=== PATIENT | male | born 1955 | race Two or more races ===

== ENCOUNTER 2020-02-10 13:25 | Outpatient (REF) | payer MEDICARE, OTHER, SELFPAY ==
[2020-02-10 14:23] LABS: Alanine Aminotransferase 20 U/L (0-40); Albumin Level 4.2 g/dL (3.5-5.0); Alkaline Phosphatase 57 U/L (39-117); Anion Gap 11 (12-20); Aspartate Amino Transferase 16 U/L (5-37); Blood Urea Nitrogen 20 mg/dL (9-16); Calcium 8.9 mg/dL (8.4-10.2); Carbon Dioxide 27 mmol/L (22-29); Chloride 103 mmol/L (96-108); Cholesterol 116 mg/dL; Estimated Glomerular Filt Rate > 60; Glucose Fasting 124 mg/dL (60-99); HDL Cholesterol 34 mg/dL; LDL Cholesterol Calculated 69 mg/dl; Potassium 3.9 mmol/l (3.3-5.1); Sodium 137 mmol/L (135-145); Total Protein 7.1 g/dL (6.5-8.0); Triglycerides 67 mg/dL
[2020-02-10 14:45] LABS: TSH reflex Free T4 0.98 mIU/mL (0.32-4.0)
[2020-02-10 15:01] LABS: Glucose Urine UA NEG (NEG); Leukocyte Esterase Urine NEG (NEG); Nitrite Urine NEG (NEG); Urine Blood NEG (NEG); Urine Ketones NEG (NEG); Urine Protein NEG (NEG-TRACE)
[2020-02-10 15:08] LABS: RBC Urine 0 /HPF (0); WBC Urine 0 /HPF (0-4)
[2020-02-10 15:25] LABS: Appearance Urine CLEAR; Color Urine YELLOW
[2020-02-10 15:34] LABS: Creatinine Urine 166.64 mg/dL; Microalbum/Creatinine Ratio Ur 19.2 ug/mg cr
== END 2020-02-10 13:26 | disposition home or self-care (01) ==
LOC: HO.LAB 13:25
PROVIDERS: PCP Internal Medicine; Visit Provider Internal Medicine
DX: E11.9 Type 2 diabetes mellitus without complications (principal); I10 Essential (primary) hypertension; E78.5 Hyperlipidemia, unspecified; E66.3 Overweight
CPT/HCPCS: 80053; 80061; 81001; 82043; 84443

== ENCOUNTER 2020-03-09 23:39 | Emergency (ER) | payer MEDICARE, MEDICAID, SELFPAY ==
[2020-03-09 23:50] VITALS: BP 159/71; PULSE 83; RESP 20; TEMP 36.3; O2SAT 99; BMI 32.1
[2020-03-09 23:57] VITALS: BP 155/67; PULSE 84; RESP 14; TEMP 36.3; O2SAT 99
--- NOTE | 2020-03-10 00:02 | CT_ITS ---
EXAMINATION: CT HEAD WITHOUT CONTRAST CLINICAL INFORMATION: Headache for one week. COMPARISON: 07/09/2018 TECHNIQUE: Contiguous axial imaging was performed from the skull base to vertex without intravenous contrast. This CT examination was performed using dose optimization techniques as appropriate, variously including the following: * Automated exposure control * Adjustment of mA and/or kV according to patient size (this includes techniques or standardized protocols for targeted exams where dose is matched to indication/reason for exam; i.e. extremities or head) Use of iterative reconstruction technique DLP: 704 mGy-cm. FINDINGS: There is no evidence of acute intracranial hemorrhage or territorial infarction. No abnormal mass effect or midline shift is seen. Turner to white matter differentiation is well preserved. No extra-axial fluid collections are identified. No hydrocephalus. No significant volume loss. There is no abnormal attenuation within the brain parenchyma. The osseous structures and soft tissues are normal. The mastoid air cells and visualized portions of the paranasal sinuses are well aerated. CT/CT head/brain wo con IMPRESSION: No acute intracranial pathology.
--- NOTE | 2020-03-10 00:02 | ECG_ITS ---
Test Reason : EDMD Blood Pressure : / mmHG Vent. Rate : 063 BPM Atrial Rate : 063 BPM P-R Int : 156 ms QRS Dur : 088 ms QT Int : 404 ms P-R-T Axes : 056 -09 019 degrees QTc Int : 413 ms Normal sinus rhythm Low voltage QRS Normal ECG When compared with ECG of 17-FEB-2018 01:31, No significant change was found Referred By: Jacky Glass Electronically Signed By:LAUREN OWUSU MD
--- NOTE | 2020-03-10 00:04 | ED.GENADULT ---
HPI - General Adult General Chief complaint: General Medical Stated complaint: headache, hi bp Time Seen by Provider: 03/10/20 00:02 Source: patient Mode of arrival: ambulatory Limitations: no limitations History of Present Illness HPI narrative: Patient presents to ED for 1 week of frontal headache with high blood pressure. Patient states slight nausea. Patient denies any vomiting, chest pain, shortness of breath, fever, chills, neck stiffness, slurred speech, paralysis of extremities, ringing in the ear, or dizziness. Patient denies any recent head trauma, blurry vision, or eye pain. Related Data Home Medications Medication Instructions Recorded Confirmed hydrochlorothiazide 25 mg tablet mg PO DAILY tab 02/11/20 02/11/20 lisinopril 40 mg tablet mg PO DAILY tab 02/11/20 02/11/20 Previous Rx's Medication Instructions Recorded atorvastatin 10 mg tablet 10 mg PO DAILY #90 tab 02/26/20 metformin 500 mg tablet,extended 500 mg PO DAILY #90 tab 02/26/20 release 24 hr naproxen 500 mg PO BID PRN #20 tab 03/10/20 Allergies Allergy/AdvReac Type Severity Reaction Status Date / Time No Known Allergies Allergy Mild NKA Verified 02/11/20 14:28 Review of Systems Review of Systems: Yes all other systems are reviewed and are negative Constitutional: Constitutional: Reports as per HPI, Reports no additional constitutional complaints and Reports headache(s) Eyes: Eyes: Reports as per HPI and Reports no additional eye complaints ENT: Reports system reviewed and no additional complaints, except as documented, Reports as per HPI and Reports headache(s) Cardiovascular: Cardiovascular: Reports as per HPI and Reports no additional cardiovascular complaints Respiratory: Respiratory: Reports as per HPI and Reports no additional respiratory complaints Gastrointestinal: Gastrointestinal: Reports as per HPI and Reports no additional gastrointestinal complaints Musculoskeletal: Musculoskeletal: Reports no additional musculoskeletal complaints and Reports as per HPI Neurologic: Reports system reviewed and no additional complaints, except as documented, Reports as per HPI and Reports headache(s) Psychiatric: Psychiatric: Reports no additional psychiatric complaints and Reports as per HPI PMFSH Past Medical History Medical History Benign essential hypertension Obstructive sleep apnea Overweight (BMI 25.0-29.9) Psoriasis Pure hypercholesterolemia Type 2 diabetes mellitus without complication, without long-term current use of insulin Surgical History History of colonoscopy History of open reduction and internal fixation (ORIF) procedure Family History Family History Father Medical history unknown Mother Medical history unknown Social History Social History Alcohol intake: never Smoking Status: Never smoker Smoked in Last 30 Days: No Advance Directives: No Advance Directives Information Provided: Yes Physical Exam Vital Signs: Vital Signs: Last Vital Signs Temp 97.3 F 03/09/20 23:57 Pulse 84 03/09/20 23:57 Resp 14 03/09/20 23:57 BP 155/67 H 03/09/20 23:57 Pulse Ox 99 03/09/20 23:57 Body Mass Index 32.1 Const: General: cooperative, healthy appearing, comfortable, no acute distress, well developed, alert, awake and Physically active Orientation/consciousness: patient oriented x3 HENMT: Head: Yes normal to inspection, Yes No palpable skull fracture present, No atraumatic, No abrasion, No Mcneal's sign, No contusion, No hematoma, No laceration, No palpable skull fracture, No raccoon eyes, No scalp tenderness and No Temporal artery tenderness present Ears: hearing grossly normal bilaterally, external ears normal and TM's normal bilaterally General nose exam: Normal external nose present and Normal nares present Face and sinus: Yes normal facial exam Mouth: Normal oral and palatal mucosa present Teeth and gingiva: dentition normal and gingiva normal Throat: Yes posterior oropharynx normal, Yes tonsils normal and Yes uvula midline Eyes: Other: Negative photophobia General: appearance normal, both eyes and all related structures Neck: Neck: Yes normal visual inspection, Yes full ROM, Yes no lymphadenopathy, Yes no meningeal signs, Yes trachea midline, Yes supple and No tender Chest: Chest palpation & inspection: normal inspection of the chest, normal palpation of entire chest wall and no localized rib tenderness Resp: Effort & Inspection: normal respiratory effort and able to speak in complete sentences Cardio: Jugular venous distension: no JVD Heart sounds: S1 normal heart sound present and S2 normal heart sound present GI: Inspection: Yes normal to inspection and No abdominal wall ecchymosis Palpation (GI): Soft to palpation, not firm, nontender, no guarding and not rigid : General: No CVA tenderness and Yes no CVA tenderness Back/Spine/Pelvis: Back: no CVA tenderness, No CVA tenderness and No back tenderness Skin: General skin exam: no rashes or lesions noted Neuro: Other: negative pronator drift. Speech is normal. Negative facial droop. Xgvxea-qo-vuda test is intact. Rapid hand movements intact. Negative Romberg. General: patient oriented x3, no meningeal signs and CN's II-XI intact bilaterally Cranial nerves: Yes CN's II-XII intact bilaterally Extrem: General: Yes normal to inspection and Yes full ROM Psych: Appearance: grossly normal, well kempt and not disheveled Course Course Course Narrative: Patient will have a head CT scan done. Patient also have EKG troponin to make sure not having typical OH due to patient being diabetic and having headache for 1 week. Patient blood pressure stable in the ED. History physical exam does not indicate meningitis, temporal arthritis, or stroke. Reevaluation(s) Reevaluation #1: Patient's EKG came back normal patient. patient's head CT scan came back negative for any stroke, bleed, or skull fracture. Patient's troponin came back negative. Time: 01:11 Reevaluation #2: tonomretry Pressure of right eye is 9 and left eyes 14. Patient does not have glaucoma. Patient presently not in any distress. Patient from the follow-up with PCP. Time: 02:16 Medical Decision Making [facility] Narrative Medical decision making narrative: headache Lab Data Result diagrams: 03/10/20 00:19 03/10/20 00:19 Labs: Lab Results 03/10/20 03/10/20 03/10/20 Range/Units 00:19 00:19 00:19 WBC 8.0 (4.8-10.8) X10*3/uL RBC 5.22 (4.60-5.80) X10*6/uL Hgb 14.8 (14.0-18.0) g/dl Hct 45.6 (42-52) % MCV 87.4 (80-98) fL MCH 28.4 (27.0-33.0) pg MCHC 32.5 (31.0-36.0) g/dl RDW 13.3 (11.0-16.0) % Plt Count 280 (160-400) X10*3/uL MPV 10.7 (9.4-12.4) fL Immature Gran % (Auto) 0.2 (0.0-0.4) % Neut % (Auto) 55.0 (45-73) % Lymph % (Auto) 35.6 (20-40) % Saline % (Auto) 7.2 (2-11) % Eos % (Auto) 1.5 (0-4) % Baso % (Auto) 0.5 (0-2) % Lymph # (Auto) 2.9 (1.2-4.9) X10*3/uL Saline # (Auto) 0.6 (0.1-1.2) X10*3/uL Eos # (Auto) 0.1 (0.0-0.4) X10*3/uL Baso # (Auto) 0.0 (0.0-0.2) X10*3/uL Abs Immat Gran (auto) 0.02 (0.00-0.03) X10*3/uL Absolute Neuts (auto) 4.4 (2.0-8.3) X10*3/uL Absolute Nucleated RBC 0.000 (0.0-0.012) X10*3/uL Nucleated RBC % (auto) 0.0 (0.0-0.2) /100WBC PT 12.1 (10.8-13.0) SEC INR 1.0 (0.9-1.1) APTT 33.7 (24.1-38.0) SEC Sodium 139 (135-145) mmol/L Potassium 3.7 (3.3-5.1) mmol/l Chloride 104 (96-108) mmol/L Carbon Dioxide 28 (22-29) mmol/L Anion Gap 11 L (12-20) BUN 24 H (9-16) mg/dL Creatinine 1.29 (0.5-1.4) mg/dL Estim Creat Clear Calc 60.4 Estimated GFR 56 Random Glucose 125 H (60-115) mg/dL Calcium 8.6 (8.4-10.2) mg/dL Total Bilirubin < 0.2 (0.0-1.0) mg/dL AST 14 (5-37) U/L ALT 26 (0-40) U/L Alkaline Phosphatase 54 (39-117) U/L Troponin I High Sens (<3.5-35.0) ng/L Total Protein 6.8 (6.5-8.0) g/dL Albumin 3.8 (3.5-5.0) g/dL 03/10/20 Range/Units 00:19 WBC (4.8-10.8) X10*3/uL RBC (4.60-5.80) X10*6/uL Hgb (14.0-18.0) g/dl Hct (42-52) % MCV (80-98) fL MCH (27.0-33.0) pg MCHC (31.0-36.0) g/dl RDW (11.0-16.0) % Plt Count (160-400) X10*3/uL MPV (9.4-12.4) fL Immature Gran % (Auto) (0.0-0.4) % Neut % (Auto) (45-73) % Lymph % (Auto) (20-40) % Saline % (Auto) (2-11) % Eos % (Auto) (0-4) % Baso % (Auto) (0-2) % Lymph # (Auto) (1.2-4.9) X10*3/uL Saline # (Auto) (0.1-1.2) X10*3/uL Eos # (Auto) (0.0-0.4) X10*3/uL Baso # (Auto) (0.0-0.2) X10*3/uL Abs Immat Gran (auto) (0.00-0.03) X10*3/uL Absolute Neuts (auto) (2.0-8.3) X10*3/uL Absolute Nucleated RBC (0.0-0.012) X10*3/uL Nucleated RBC % (auto) (0.0-0.2) /100WBC PT (10.8-13.0) SEC INR (0.9-1.1) APTT (24.1-38.0) SEC Sodium (135-145) mmol/L Potassium (3.3-5.1) mmol/l Chloride (96-108) mmol/L Carbon Dioxide (22-29) mmol/L Anion Gap (12-20) BUN (9-16) mg/dL Creatinine (0.5-1.4) mg/dL Estim Creat Clear Calc Estimated GFR Random Glucose (60-115) mg/dL Calcium (8.4-10.2) mg/dL Total Bilirubin (0.0-1.0) mg/dL AST (5-37) U/L ALT (0-40) U/L Alkaline Phosphatase (39-117) U/L Troponin I High Sens < 3.5 (<3.5-35.0) ng/L Total Protein (6.5-8.0) g/dL Albumin (3.5-5.0) g/dL ECG Data Interpretation: normal sinus rhythm. Ventricular rate 63. Pr interval 156. QRS duration 88. QTC 413. negative STEMI Discharge Plan Discharge Clinical Impression: Headache Patient Disposition: Home, Self-Care Instructions: Acute Headache (ED) Additional Instructions: return to ED immediately for worsening headache, ringing in the ear, slurred speech, loss of vision, paralysis of extremities, blurry vision, dizziness, chest pain, shortness of breath, or any other concerning symptoms. Prescriptions: New naproxen 500 mg tablet 500 mg PO BID PRN (Reason: pain) Qty: 20 RF: 0 No Action atorvastatin 10 mg tablet 10 mg PO DAILY Qty: 90 RF: 2 metformin 500 mg tablet extended release 24 hr 500 mg PO DAILY Qty: 90 RF: 2 hydrochlorothiazide 25 mg tablet PO DAILY RF: 0 lisinopril 40 mg tablet PO DAILY RF: 0 Referrals: Lars Dubois MD [Primary Care Provider] - 2 days (Headache. Head CT scan, ekg, and labs including troponin were normal. ) Print Language: [place]ian
[2020-03-10 00:24] LABS: MANUAL DIFF FLAG NO
[2020-03-10 00:28] LABS: Basophils Percent Auto 0.5 % (0-2); Eosinophils Absolute Auto 0.1 X10*3/uL (0.0-0.4); Eosinophils Percent Auto 1.5 % (0-4); Hematocrit 45.6 % (42-52); Hemoglobin 14.8 g/dl (14.0-18.0); Imm Gran Abs Auto 0.02 X10*3/uL (0.00-0.03); Imm Gran Pct Auto 0.2 % (0.0-0.4); Lymphocytes Absolute Auto 2.9 X10*3/uL (1.2-4.9); Lymphocytes Percent Auto 35.6 % (20-40); Mean Corpuscular HGB Conc 32.5 g/dl (31.0-36.0); Mean Corpuscular Hemoglobin 28.4 pg (27.0-33.0); Mean Corpuscular Volume 87.4 fL (80-98); Mean Platelet Volume 10.7 fL (9.4-12.4); Monocytes Absolute Auto 0.6 X10*3/uL (0.1-1.2); Monocytes Percent Auto 7.2 % (2-11); Neutrophils Absolute Auto 4.4 X10*3/uL (2.0-8.3); Platelet Count 280 X10*3/uL (160-400); Red Blood Count 5.22 X10*6/uL (4.60-5.80); Red Cell Distribution Width 13.3 % (11.0-16.0)
[2020-03-10 01:03] LABS: Troponin-I High Sensitivity < 3.5 ng/L (<3.5-35.0)
[2020-03-10 01:05] LABS: Alanine Aminotransferase 26 U/L (0-40); Albumin Level 3.8 g/dL (3.5-5.0); Alkaline Phosphatase 54 U/L (39-117); Anion Gap 11 (12-20); Aspartate Amino Transferase 14 U/L (5-37); Bilirubin Total < 0.2 mg/dL (0.0-1.0); Blood Urea Nitrogen 24 mg/dL (9-16); Calcium 8.6 mg/dL (8.4-10.2); Carbon Dioxide 28 mmol/L (22-29); Chloride 104 mmol/L (96-108); Creatinine Clr Calc Pharmacy 60.4; Estimated Glomerular Filt Rate 56; Glucose Random 125 mg/dL (60-115); Potassium 3.7 mmol/l (3.3-5.1); Sodium 139 mmol/L (135-145); Total Protein 6.8 g/dL (6.5-8.0)
[2020-03-10 01:40] LABS: Prothrombin Time 12.1 SEC (10.8-13.0)
[2020-03-10 01:42] LABS: Partial Thromboplastin Time 33.7 SEC (24.1-38.0)
[2020-03-10 02:00] VITALS: BP 142/73; PULSE 62; RESP 18; TEMP 36.6; O2SAT 99
[2020-03-10] MEDS: Ibuprofen 800 MG TABLET PO (02:33)
== END 2020-03-10 02:37 | disposition home or self-care (01) ==
PROVIDERS: Physician Assistant; Emergency Provider Emergency Medicine; PCP Internal Medicine
DX: R51.9 Headache, unspecified (principal); R03.0 Elevated blood-pressure reading, without diagnosis of hypertension; Z79.899 Other long term (current) drug therapy
CPT/HCPCS: 36415; 70450; 80053; 84484; 85025; 85610; 85730; 93005; 99284

== ENCOUNTER 2020-06-15 16:00 | Outpatient (REF) | payer MEDICARE, SELFPAY ==
[2020-06-15 16:21] LABS: MANUAL DIFF FLAG NO
[2020-06-15 16:29] LABS: Basophils Percent Auto 0.6 % (0-2); Eosinophils Absolute Auto 0.1 X10*3/uL (0.0-0.4); Eosinophils Percent Auto 1.9 % (0-4); Hematocrit 46.4 % (42-52); Imm Gran Abs Auto 0.01 X10*3/uL (0.00-0.03); Imm Gran Pct Auto 0.1 % (0.0-0.4); Lymphocytes Absolute Auto 2.4 X10*3/uL (1.2-4.9); Lymphocytes Percent Auto 34.9 % (20-40); Mean Corpuscular HGB Conc 32.3 g/dl (31.0-36.0); Mean Corpuscular Hemoglobin 28.1 pg (27.0-33.0); Mean Corpuscular Volume 86.9 fL (80-98); Mean Platelet Volume 10.7 fL (9.4-12.4); Monocytes Absolute Auto 0.4 X10*3/uL (0.1-1.2); Monocytes Percent Auto 5.9 % (2-11); Neutrophils Percent Auto 56.6 % (45-73); Platelet Count 317 X10*3/uL (160-400); Red Blood Count 5.34 X10*6/uL (4.60-5.80); Red Cell Distribution Width 13.4 % (11.0-16.0)
[2020-06-15 16:50] LABS: Alanine Aminotransferase 24 U/L (0-40); Albumin Level 4.4 g/dL (3.5-5.0); Alkaline Phosphatase 67 U/L (39-117); Anion Gap 11 (12-20); Aspartate Amino Transferase 23 U/L (5-37); Blood Urea Nitrogen 22 mg/dL (9-16); Calcium 9.4 mg/dL (8.4-10.2); Carbon Dioxide 28 mmol/L (22-29); Chloride 106 mmol/L (96-108); Cholesterol 135 mg/dL; Estimated Glomerular Filt Rate > 60; Glucose Fasting 106 mg/dL (60-99); HDL Cholesterol 35 mg/dL; LDL Cholesterol Calculated 85 mg/dl; Potassium 3.8 mmol/L (3.3-5.1); Sodium 141 mmol/L (135-145); Total Protein 7.6 g/dL (6.5-8.0); Triglycerides 78 mg/dL
[2020-06-15 17:11] LABS: TSH reflex Free T4 0.75 uIU/mL (0.32-4.0)
[2020-06-15 17:25] LABS: Glucose Urine UA NEG (NEG); Leukocyte Esterase Urine NEG (NEG); Nitrite Urine NEG (NEG); PH 5.5 (5.0-8.0); Specific Gravity - Urine 1.025 (1.005-1.025); Urine Blood NEG (NEG); Urine Ketones NEG (NEG); Urine Protein NEG (NEG-TRACE)
[2020-06-15 17:31] LABS: Appearance Urine CLEAR; Color Urine YELLOW
[2020-06-15 17:51] LABS: Microalbum/Creatinine Ratio Ur 22.9 ug/mg cr
== END 2020-06-15 16:01 | disposition home or self-care (01) ==
LOC: HO.LAB 16:00
PROVIDERS: PCP Internal Medicine; Visit Provider Internal Medicine
DX: I10 Essential (primary) hypertension (principal); E78.00 Pure hypercholesterolemia, unspecified; E11.9 Type 2 diabetes mellitus without complications; E66.3 Overweight
CPT/HCPCS: 36415; 80053; 80061; 81003; 82043; 84443; 85025

== ENCOUNTER 2020-10-09 13:22 | Outpatient (REF) | payer MEDICARE, OTHER, SELFPAY ==
[2020-10-09 14:00] LABS: MANUAL DIFF FLAG NO
[2020-10-09 14:04] LABS: Basophils Percent Auto 0.6 % (0-2); Eosinophils Absolute Auto 0.1 X10*3/uL (0.0-0.4); Eosinophils Percent Auto 1.5 % (0-4); Imm Gran Abs Auto 0.02 X10*3/uL (0.00-0.03); Imm Gran Pct Auto 0.3 % (0.0-0.4); Lymphocytes Percent Auto 29.2 % (20-40); Mean Corpuscular HGB Conc 31.9 g/dl (31.0-36.0); Mean Corpuscular Volume 87.9 fL (80-98); Mean Platelet Volume 11.1 fL (9.4-12.4); Monocytes Absolute Auto 0.5 X10*3/uL (0.1-1.2); Monocytes Percent Auto 6.8 % (2-11); Neutrophils Absolute Auto 4.2 X10*3/uL (2.0-8.3); Neutrophils Percent Auto 61.6 % (45-73); Platelet Count 300 X10*3/uL (160-400); Red Blood Count 5.35 X10*6/uL (4.60-5.80); Red Cell Distribution Width 13.6 % (11.0-16.0); White Blood Count 6.8 X10*3/uL (4.8-10.8)
[2020-10-09 14:23] LABS: Estimated Average Glucose 140 mg/dL; Hemoglobin A1c % 6.5 %
[2020-10-09 14:31] LABS: Alanine Aminotransferase 14 U/L (0-40); Albumin Level 4.1 g/dL (3.5-5.0); Alkaline Phosphatase 65 U/L (39-117); Anion Gap 9 (12-20); Aspartate Amino Transferase 14 U/L (5-37); Bilirubin Total 0.6 mg/dL (0.0-1.0); Blood Urea Nitrogen 15 mg/dL (9-16); Calcium 9.6 mg/dL (8.4-10.2); Carbon Dioxide 29 mmol/L (22-29); Chloride 104 mmol/L (96-108); Cholesterol 124 mg/dL; Estimated Glomerular Filt Rate > 60; Glucose Fasting 125 mg/dL (60-99); HDL Cholesterol 35 mg/dL; LDL Cholesterol Calculated 71 mg/dl; Potassium 4.2 mmol/L (3.3-5.1); Sodium 138 mmol/L (135-145); Total Protein 7.2 g/dL (6.5-8.0); Triglycerides 93 mg/dL
[2020-10-09 14:51] LABS: TSH reflex Free T4 0.79 uIU/mL (0.32-4.0)
[2020-10-09 15:54] LABS: Glucose Urine UA NEG (NEG); Leukocyte Esterase Urine NEG (NEG); Nitrite Urine NEG (NEG); Urine Blood NEG (NEG); Urine Ketones NEG (NEG); Urine Protein NEG (NEG-TRACE)
[2020-10-09 16:03] LABS: Appearance Urine CLEAR; Color Urine YELLOW
== END 2020-10-09 13:23 | disposition home or self-care (01) ==
LOC: HO.LAB 13:22
PROVIDERS: PCP Internal Medicine; Visit Provider Internal Medicine
DX: E11.9 Type 2 diabetes mellitus without complications (principal); G47.33 Obstructive sleep apnea (adult) (pediatric); I10 Essential (primary) hypertension; E78.00 Pure hypercholesterolemia, unspecified; E66.3 Overweight
CPT/HCPCS: 36415; 80053; 80061; 81003; 83036; 84443; 85025

== ENCOUNTER 2020-12-22 20:25 | Emergency (ER) | payer MEDICARE, OTHER, SELFPAY ==
[2020-12-22 20:48] VITALS: BP 122/59; PULSE 72; RESP 16; TEMP 36.6; O2SAT 98; BMI 31.9
[2020-12-22 22:51] LABS: Basophils Absolute Auto 0.1 X10*3/uL (0.0-0.2); Basophils Percent Auto 0.5 % (0-2); Eosinophils Absolute Auto 0.1 X10*3/uL (0.0-0.4); Eosinophils Percent Auto 1.3 % (0-4); Hematocrit 45.9 % (42-52); Hemoglobin 14.9 g/dl (14.0-18.0); Imm Gran Abs Auto 0.03 X10*3/uL (0.00-0.03); Imm Gran Pct Auto 0.3 % (0.0-0.4); Lymphocytes Absolute Auto 2.7 X10*3/uL (1.2-4.9); Lymphocytes Percent Auto 28.3 % (20-40); MANUAL DIFF FLAG NO; Mean Corpuscular HGB Conc 32.5 g/dl (31.0-36.0); Mean Corpuscular Hemoglobin 28.2 pg (27.0-33.0); Mean Corpuscular Volume 86.9 fL (80-98); Mean Platelet Volume 10.8 fL (9.4-12.4); Monocytes Absolute Auto 0.5 X10*3/uL (0.1-1.2); Monocytes Percent Auto 5.7 % (2-11); Neutrophils Percent Auto 63.9 % (45-73); Platelet Count 288 X10*3/uL (160-400); Red Blood Count 5.28 X10*6/uL (4.60-5.80); Red Cell Distribution Width 13.4 % (11.0-16.0); White Blood Count 9.4 X10*3/uL (4.8-10.8)
[2020-12-22 23:04] LABS: Appearance Urine CLEAR; Color Urine YELLOW; Glucose Urine UA NEG (NEG); Leukocyte Esterase Urine NEG (NEG); Nitrite Urine NEG (NEG); Specific Gravity - Urine 1.025 (1.005-1.025); Urine Blood NEG (NEG); Urine Ketones NEG (NEG); Urine Protein NEG (NEG-TRACE)
[2020-12-22 23:07] LABS: Anion Gap 9 (12-20); Blood Urea Nitrogen 21 mg/dL (9-16); Calcium 9.9 mg/dL (8.4-10.2); Carbon Dioxide 29 mmol/L (22-29); Chloride 105 mmol/L (96-108); Creatinine Clr Calc Pharmacy 66.8; Estimated Glomerular Filt Rate > 60; Glucose Random 125 mg/dL (60-115); Potassium 4.1 mmol/L (3.3-5.1); Sodium 139 mmol/L (135-145)
--- NOTE | 2020-12-23 01:42 | ED.HA ---
HPI - Headache General Chief Complaint: Headache Stated Complaint: headache Time Seen by Provider: 12/23/20 01:05 Source: patient Mode of arrival: ambulatory Limitations: language barrier ([place] speaking only, salon shampoo assistant used) History of Present Illness HPI Narrative: 65-year-old male who presents emergency department for evaluation of headache x3 days. The patient states that the headache came on gradually 3 days prior. He cannot recall what he was doing at the time the headache started. The patient points to the top of his head when asked to localize the pain. He describes the pain as a ?pain . The pain is 5/10 at its worst. The pain was 5/10 at the time he was in the emergency department pain has been intermittent. He states that will last about 1 hour but he gets several episodes a day. The headache is associated with nausea and dizziness. He denied any change in his vision, numbness, weakness, difficulty talking or thinking associated with the headache. He states that he has felt very fatigued. He did not take any medications for the pain. He was concerned that the headache had lasted 3 days and this was unusual for him, therefore he came to the emergency department for evaluation. Related Data Previous Rx's Medication Instructions Recorded naproxen 500 mg tablet 500 mg PO BID PRN #20 tab 03/10/20 lisinopril 40 mg tablet 40 mg PO BID #180 tab 05/18/20 mometasone 0.1 % topical cream 1 appl TOPICAL DAILY PRN 90 Days 06/16/20 #45 g atorvastatin 10 mg tablet 10 mg PO DAILY #90 tab 11/03/20 hydrochlorothiazide 25 mg tablet 25 mg PO DAILY #90 tab 11/03/20 metformin 500 mg tablet,extended 500 mg PO DAILY #90 tab 11/03/20 release 24 hr metoclopramide HCl 10 mg tablet 10 mg PO Q6H PRN #14 tab 12/23/20 (Reglan) Allergies Allergy/AdvReac Type Severity Reaction Status Date / Time No Known Allergies Allergy Mild NKA Verified 10/10/20 17:43 Review of Systems Review of Systems: Yes all other systems are reviewed and are negative [facility] Past Medical History [facility] Narrative: Social history: The patient denies tobacco use. He denies alcohol use. He denies drug use. Medical History Benign essential hypertension Obstructive sleep apnea Overweight (BMI 25.0-29.9) Psoriasis Pure hypercholesterolemia Type 2 diabetes mellitus without complication, without long-term current use of insulin Surgical History History of colonoscopy History of open reduction and internal fixation (ORIF) procedure Family History Family History Father Medical history unknown Mother Medical history unknown Social History Social History Housing: Apartment Alcohol intake: never Patient Tobacco Use Status: Never used Tobacco Advance Directives: No Advance Directives Information Provided: No service: No Current occupational status: retired Physical Exam Vital Signs: Vital Signs: Last Vital Signs Temp 98 F 12/22/20 20:48 Pulse 72 12/22/20 20:48 Resp 16 12/22/20 20:48 BP 122/59 L 12/22/20 20:48 Pulse Ox 98 12/22/20 20:48 Body Mass Index 31.9 Const: General: cooperative and no acute distress Orientation/consciousness: oriented to person and oriented to place Limitations: no limitations HENMT: Head: Yes normal to inspection, Yes normocephalic and Yes atraumatic Ears: external ears normal General nose exam: Normal external nose present Face and sinus: Yes normal facial exam Mouth: Normal oral and palatal mucosa present Throat: Yes posterior oropharynx normal Eyes: General: appearance normal, both eyes and all related structures Pupils: Equal, round and reactive pupils present Neck: Neck: Yes normal visual inspection, Yes no lymphadenopathy, Yes trachea midline and Yes supple Chest: Chest palpation & inspection: normal inspection of the chest and normal palpation of entire chest wall Resp: Effort & Inspection: normal respiratory effort and able to speak in complete sentences Auscultation: clear to auscultation bilaterally Cardio: Rate: regular rate Rhythm: regular rhythm Heart sounds: S1 normal heart sound present, S2 normal heart sound present and no murmurs GI: Inspection: Yes normal to inspection Palpation (GI): Soft to palpation, nontender and no guarding Auscultation: normal bowel sounds : General: Yes no CVA tenderness Back/Spine/Pelvis: Back: no CVA tenderness Skin: General skin exam: no rashes or lesions noted Neuro: General: oriented to person and oriented to place Cranial nerves: Yes CN's II-XII intact bilaterally and Yes Equal, round and reactive pupils present Cognition (Neuro): normal cognition Motor exam (neuro): 5/5 motor strength present throughout Coordination: [id number] test normal and ohlb-kn-icot test normal Extrem: General: Yes normal to inspection Psych: Appearance: grossly normal Speech and movement: Normal speech and movement present Affect: normal affect Attitude: cooperative Thought process: Normal thought process present Thought content: Normal thought content present Course Course Course Narrative: 65-year-old male who presents emergency department for evaluation headache x3 days. The headache has been intermittent will last several hours and he will get several episodes per day. The patient's headache was 5/10 at the time evaluation the emergency department. The headache was associated with nausea and dizziness. The patient's vital signs were unremarkable. Patient's physical examination was normal including no tenderness with palpation of his head, normal neurologic exam and normal cerebellar exam. Patient's laboratory evaluation was unremarkable. CT scan of the head without contrast revealed no acute abnormality to explain his headaches. At this time I suspect the patient has a migraine syndrome. He was treated here in the emergency department with Reglan 10 mg orally, Benadryl 50 mg orally, Tylenol 975 mg orally and aspirin 81 mg orally. The patient was discharged home. He is to take the following medications every 6 hours as needed for headache: Reglan 10 mg, Benadryl 25 mg x 2 tablets, Excedrin migraine x2 tablets. The patient was given verbal and printed instructions prior to discharge. The patient was advised to follow-up with his PCP in 2 days and to return to the emergency department if his symptoms get worse or if he develops any new symptoms that are concerning to him. MDM - Headache Lab Data Result diagrams: 12/22/20 22:42 12/22/20 22:42 Labs: Lab Results 12/22/20 12/22/20 12/22/20 Range/Units 22:42 22:42 22:55 WBC 9.4 (4.8-10.8) X10*3/uL RBC 5.28 (4.60-5.80) X10*6/uL Hgb 14.9 (14.0-18.0) g/dl Hct 45.9 (42-52) % MCV 86.9 (80-98) fL MCH 28.2 (27.0-33.0) pg MCHC 32.5 (31.0-36.0) g/dl RDW 13.4 (11.0-16.0) % Plt Count 288 (160-400) X10*3/uL MPV 10.8 (9.4-12.4) fL Immature Gran % (Auto) 0.3 (0.0-0.4) % Neut % (Auto) 63.9 (45-73) % Lymph % (Auto) 28.3 (20-40) % [place] % (Auto) 5.7 (2-11) % Eos % (Auto) 1.3 (0-4) % Baso % (Auto) 0.5 (0-2) % Lymph # (Auto) 2.7 (1.2-4.9) X10*3/uL [place] # (Auto) 0.5 (0.1-1.2) X10*3/uL Eos # (Auto) 0.1 (0.0-0.4) X10*3/uL Baso # (Auto) 0.1 (0.0-0.2) X10*3/uL Abs Immat Gran (auto) 0.03 (0.00-0.03) X10*3/uL Absolute Neuts (auto) 6.0 (2.0-8.3) X10*3/uL Absolute Nucleated RBC 0.000 (0.0-0.012) X10*3/uL Nucleated RBC % (auto) 0.0 (0.0-0.2) /100WBC Sodium 139 (135-145) mmol/L Potassium 4.1 (3.3-5.1) mmol/L Chloride 105 (96-108) mmol/L Carbon Dioxide 29 (22-29) mmol/L Anion Gap 9 L (12-20) BUN 21 H (9-16) mg/dL Creatinine 1.20 (0.5-1.4) mg/dL Estim Creat Clear Calc 66.8 Estimated GFR > 60 Random Glucose 125 H (60-115) mg/dL Calcium 9.9 (8.4-10.2) mg/dL Urine Color YELLOW Urine Appearance CLEAR Urine pH 6.0 (5.0-8.0) Ur Specific [place] 1.025 (1.005-1.025) Urine Protein NEG (NEG-TRACE) MG/DL Urine Glucose (UA) NEG (NEG) MG/DL Urine Ketones NEG (NEG) MG/DL Urine Blood NEG (NEG) Urine Nitrite NEG (NEG) Ur Leukocyte Esterase NEG (NEG) Discharge Plan Discharge Clinical Impression: Migraine Qualifiers: Migraine type: without aura Status migrainosus presence: without status migrainosus Intractability: not intractable Qualified Code(s): G43.009 - Migraine without aura, not intractable, without status migrainosus Patient Disposition: Home, Self-Care Instructions: Migraine Headache (ED) Additional Instructions: Your blood work was normal. Your CT scan of the head without IV contrast was normal which is reassuring. Your symptoms are consistent with a migraine. I want you to take the following 3 medications together every 6 hours as needed for headache, nausea or vomiting. Reglan (metoclopramide) in 10 mg, 1 pill Benadryl 25 mg, 2 pills Excedrin migraine, 2 pills. After you take these medications, lie down in a dark quiet room and try to fall asleep. These medications will make you sleepy, do not drive or work after taking these medications. Follow-up with your doctor in 2 days. Please return to the emergency department if your symptoms get worse or if you develop any symptoms that are concerning to you. Prescriptions: New metoclopramide HCl [Reglan] 10 mg tablet 10 mg PO Q6H PRN (Reason: nausea and vomiting) Qty: 14 RF: 0 No Action lisinopril 40 mg tablet 40 mg PO BID Qty: 180 RF: 2 metformin 500 mg tablet extended release 24 hr 500 mg PO DAILY Qty: 90 RF: 2 atorvastatin 10 mg tablet 10 mg PO DAILY Qty: 90 RF: 2 hydrochlorothiazide 25 mg tablet 25 mg PO DAILY Qty: 90 RF: 0 naproxen 500 mg tablet 500 mg PO BID PRN (Reason: pain) Qty: 20 RF: 0 mometasone 0.1 % cream 1 appl topical DAILY PRN (Reason: skin irritation) 90 Days Qty: 45 RF: 1
[2020-12-23] MEDS: Metoclopramide HCl 10 MG TABLET PO (02:01)
[2020-12-23] MEDS: diphenhydrAMINE HCL 25 MG TABLET 50 MG PO (02:01)
[2020-12-23] MEDS: Acetaminophen 325 MG TABLET 975 MG PO (02:01)
== END 2020-12-23 02:20 | disposition home or self-care (01) ==
PROVIDERS: Emergency Provider Emergency Medicine Emergency Medical Services; PCP Internal Medicine
DX: G43.009 Migraine without aura, not intractable, without status migrainosus (principal); Z79.899 Other long term (current) drug therapy
CPT/HCPCS: 36415; 80048; 81003; 85025; 99283; Q0163

== ENCOUNTER 2021-02-09 12:35 | Outpatient (REF) | payer MEDICARE, OTHER, SELFPAY ==
[2021-02-09 13:09] LABS: Appearance Urine CLEAR; Color Urine YELLOW; Glucose Urine UA NEG (NEG); Leukocyte Esterase Urine NEG (NEG); Nitrite Urine NEG (NEG); Specific Gravity - Urine 1.025 (1.005-1.025); Urine Blood NEG (NEG); Urine Ketones NEG (NEG); Urine Protein NEG (NEG-TRACE)
[2021-02-09 13:12] LABS: Estimated Average Glucose 131 mg/dL; Hemoglobin A1c % 6.2 %
[2021-02-09 13:24] LABS: Alanine Aminotransferase 18 U/L (0-40); Albumin Level 4.2 g/dL (3.5-5.0); Alkaline Phosphatase 62 U/L (39-117); Anion Gap 10 (12-20); Aspartate Amino Transferase 15 U/L (5-37); Bilirubin Total 0.8 mg/dL (0.0-1.0); Blood Urea Nitrogen 16 mg/dL (9-16); Calcium 9.5 mg/dL (8.4-10.2); Carbon Dioxide 28 mmol/L (22-29); Chloride 104 mmol/L (96-108); Cholesterol 119 mg/dL; Estimated Glomerular Filt Rate > 60; Glucose Fasting 123 mg/dL (60-99); HDL Cholesterol 32 mg/dL; LDL Cholesterol Calculated 69 mg/dl; Potassium 4.1 mmol/L (3.3-5.1); Sodium 138 mmol/L (135-145); Total Protein 7.2 g/dL (6.5-8.0); Triglycerides 90 mg/dL
[2021-02-09 13:48] LABS: Creatinine Urine 187.87 mg/dL
== END 2021-02-09 12:36 | disposition home or self-care (01) ==
LOC: HO.LAB 12:35
PROVIDERS: PCP Internal Medicine; Visit Provider Internal Medicine
DX: E11.9 Type 2 diabetes mellitus without complications (principal); E78.00 Pure hypercholesterolemia, unspecified; I10 Essential (primary) hypertension
CPT/HCPCS: 36415; 80053; 80061; 81003; 82043; 83036

== ENCOUNTER 2021-04-13 22:40 | Emergency (ER) | payer MEDICARE, OTHER, SELFPAY ==
[2021-04-13 23:24] LABS: COVID-19 Test Positive (Negative)
--- NOTE | 2021-04-13 23:30 | ED_ITS ---
HPI - URI/Sore Throat General Stated Complaint: Migraine, stomach pain Source: patient Mode of arrival: ambulatory Limitations: no limitations History of Present Illness HPI Narrative: 66-year-old male presents with headache and stomach ache. Onset (ago): day(s) (1) Consistency: constant Severity: mild Description of mucous: clear Able to tolerate fluids by mouth: Yes Relieving factors: nothing Context: sick contacts Associated symptoms: headache and abdominal pain Treatments prior to arrival: none Related Data Previous Rx's Medication Instructions Recorded naproxen 500 mg tablet 500 mg PO BID PRN #20 tab 03/10/20 lisinopril 40 mg tablet 40 mg PO BID #180 tab 05/18/20 atorvastatin 10 mg tablet 10 mg PO DAILY #90 tab 11/03/20 metformin 500 mg tablet,extended 500 mg PO DAILY #90 tab 11/03/20 release 24 hr metoclopramide HCl 10 mg tablet 10 mg PO Q6H PRN #14 tab 12/23/20 (Reglan) mometasone 0.1 % topical cream 1 appl TOPICAL DAILY PRN #45 g 02/15/21 hydrochlorothiazide 25 mg tablet 25 mg PO DAILY #90 tab 02/28/21 Allergies Allergy/AdvReac Type Severity Reaction Status Date / Time No Known Allergies Allergy Mild NKA Verified 10/10/20 17:43 Review of Systems Review of Systems: Constitutional: No Fever, No Chills ENT/Mouth: No Ear Pain, No Hoarseness, No sore throat Eyes: No Eye Pain, No Swelling, No Redness, No Foreign Body Cardiovascular: No Chest Pain, No SOB Respiratory: No Cough, No Dyspnea Gastrointestinal: No Nausea, No Vomiting, No Diarrhea, positive abdominal Pain Genitourinary: No Dysuria, No Hematuria Musculoskeletal: No joint pain, No Myalgias, No Joint Swelling Skin: No Skin lacerations, No rash Neuro: No Weakness, No Numbness, No Paresthesias, No Loss of Consciousness, No Dizziness, positive Headache Psych: No Anxiety/Panic, No Depression Heme/Lymph: no easy bruising, no Lymphadenopathy Endocrine: No Polyuria, No Polydipsia Yes all other systems are reviewed and are negative PMFSH Past Medical History Attestation statement: The following information was validated with the patient. Source: old records reviewed Medical History Benign essential hypertension Obstructive sleep apnea Overweight (BMI 25.0-29.9) Psoriasis Pure hypercholesterolemia Type 2 diabetes mellitus without complication, without long-term current use of insulin Surgical History History of colonoscopy History of open reduction and internal fixation (ORIF) procedure Family History Family History Father Medical history unknown Mother Medical history unknown Social History Social History Housing: Apartment Alcohol intake: never Patient Tobacco Use Status: Never used Tobacco Advance Directives: No Advance Directives Information Provided: Yes service: No Current occupational status: retired Physical Exam Vital Signs: Vital Signs: Last Vital Signs Pulse 104 H 04/13/21 23:36 Resp 18 04/13/21 23:36 BP 100/77 04/13/21 23:36 Pulse Ox 96 04/13/21 23:36 BMI result Body Mass Index 36.9 Appearance: Alert. Oriented X3. No acute distress. Eyes: Pupils equal, round and reactive to light. ENT: Pharynx normal. Neck: Normal inspection. Neck supple. CVS: Normal heart rate and rhythm. Pulses normal. Respiratory: No respiratory distress. Breath sounds normal. Abdomen: Soft and nontender. Skin: Skin warm and dry. Normal skin color. Normal skin turgor. Extremities: No lower extremity edema. Gait well-balanced well coordinated. Neuro: No motor deficit. No sensory deficit. Cranial nerves 2-12 intact. Course Course Course Narrative: 66-year-old male presents with headache and stomach ache. During triage, patient stated that he had headache and stomach ache. Did not report positive COVID contacts until after. Patient was not truthful because he wanted to obtain COVID-19 testing. It was later discovered that his entire family presented and all of them gave different reports of symptoms. Patient tested positive for COVID-19. Patient verbalizes understanding of and agrees to plan of care discharge home. MDM - URI/Sore Throat MDM Narrative Medical decision making narrative: Carbon monoxide Differential Diagnosis Differential diagnosis: Likely upper respiratory infection, viral infection, bronchitis, influenza and pharyngitis Medical Records Attestation: I reviewed the patient's medical records. Lab Data Attestation: I reviewed the patient's lab results. Labs: Lab Results 04/13/21 Range/Units 23:08 COVID-19 ([facility]) Positive A (Negative) COVID-19 Clin Com See Note Discharge Plan Discharge Clinical Impression: COVID-19 Patient Disposition: Home, Self-Care Instructions: Covid-19 Viral Syndrome and Novel Coronavirus (ED) Hey/Ath, COV ID-19 (Coronavirus Disease 2019) (ED) Additional Instructions: You tested positive for COVID-19. Maintain social isolation per State and Federal guidelines. Thank you for choosing this emergency department for evaluation. Please follow-up with primary care physician as needed. Return to the emergency department for any new, concerning, or worsening symptoms. Prescriptions: No Action lisinopril 40 mg tablet 40 mg PO BID Qty: 180 RF: 2 metformin 500 mg tablet extended release 24 hr 500 mg PO DAILY Qty: 90 RF: 2 atorvastatin 10 mg tablet 10 mg PO DAILY Qty: 90 RF: 2 mometasone 0.1 % cream 1 appl topical DAILY PRN (Reason: skin irritation) Qty: 45 RF: 1 hydrochlorothiazide 25 mg tablet 25 mg PO DAILY Qty: 90 RF: 0 naproxen 500 mg tablet 500 mg PO BID PRN (Reason: pain) Qty: 20 RF: 0 metoclopramide HCl [Reglan] 10 mg tablet 10 mg PO Q6H PRN (Reason: nausea and vomiting) Qty: 14 RF: 0
[2021-04-13 23:36] VITALS: BP 100/77; PULSE 104; RESP 18; O2SAT 96; BMI 36.9
[2021-04-13 23:43] VITALS: BMI 36.9
== END 2021-04-14 00:15 | disposition home or self-care (01) ==
PROVIDERS: Emergency Provider Internal Medicine
DX: U07.1 COVID-19 (principal); I10 Essential (primary) hypertension; E11.9 Type 2 diabetes mellitus without complications; E78.5 Hyperlipidemia, unspecified; Z79.02 Long term (current) use of antithrombotics/antiplatelets; Z79.899 Other long term (current) drug therapy
CPT/HCPCS: 36415; 87635; 99283

== ENCOUNTER 2021-08-16 12:03 | Outpatient (REF) | payer MEDICARE, OTHER, SELFPAY ==
[2021-08-16 12:16] LABS: MANUAL DIFF FLAG NO
[2021-08-16 13:02] LABS: Appearance Urine CLEAR; Basophils Absolute Auto 0.1 X10*3/uL (0.0-0.2); Basophils Percent Auto 0.7 % (0-2); Color Urine YELLOW; Eosinophils Absolute Auto 0.1 X10*3/uL (0.0-0.4); Eosinophils Percent Auto 1.8 % (0-4); Glucose Urine UA NEG (NEG); Hematocrit 46.8 % (42.0-52.0); Hemoglobin 14.7 g/dl (14.0-18.0); Imm Gran Abs Auto 0.02 X10*3/uL (0.00-0.03); Imm Gran Pct Auto 0.3 % (0.0-0.4); Leukocyte Esterase Urine NEG (NEG); Lymphocytes Absolute Auto 2.1 X10*3/uL (1.2-4.9); Lymphocytes Percent Auto 29.6 % (20-40); Mean Corpuscular HGB Conc 31.4 g/dl (31.0-36.0); Mean Corpuscular Hemoglobin 27.7 pg (27.0-33.0); Mean Corpuscular Volume 88.3 fL (80.0-98.0); Mean Platelet Volume 10.7 fL (9.4-12.4); Monocytes Absolute Auto 0.5 X10*3/uL (0.1-1.2); Monocytes Percent Auto 6.8 % (2-11); Neutrophils Absolute Auto 4.3 x10*3/uL (2.0-8.3); Neutrophils Percent Auto 60.8 % (45-73); Nitrite Urine NEG (NEG); Platelet Count 299 X10*3/uL (160-400); Red Cell Distribution Width 13.4 % (11.0-16.0); Specific Gravity - Urine 1.025 (1.005-1.025); UACC Culture Trigger NO; Urine Blood TRACE (NEG); Urine Ketones NEG (NEG); Urine Protein NEG (NEG-TRACE); White Blood Count 7.1 X10*3/uL (4.8-10.8)
[2021-08-16 13:10] LABS: RBC Urine 0-2 /HPF (0); Squamous Epithelial Cell Urine TRACE /LPF; WBC Urine 0-2 /HPF (0-4)
[2021-08-16 13:14] LABS: Estimated Average Glucose 134 mg/dL; Hemoglobin A1c % 6.3 %
[2021-08-16 13:23] LABS: Alanine Aminotransferase 20 U/L (0-40); Albumin Level 4.1 g/dL (3.5-5.0); Alkaline Phosphatase 62 U/L (39-117); Anion Gap 10 (12-20); Aspartate Amino Transferase 19 U/L (5-37); Bilirubin Total 0.8 mg/dL (0.0-1.0); Blood Urea Nitrogen 20 mg/dL (9-16); Calcium 9.6 mg/dL (8.4-10.2); Carbon Dioxide 28 mmol/L (22-29); Chloride 105 mmol/L (96-108); Cholesterol 113 mg/dL; Estimated Glomerular Filt Rate > 60; Glucose Fasting 102 mg/dL (60-99); HDL Cholesterol 32 mg/dL; LDL Cholesterol Calculated 73 mg/dl; Potassium 4.1 mmol/L (3.3-5.1); Sodium 139 mmol/L (135-145); Total Protein 7.3 g/dL (6.5-8.0); Triglycerides 42 mg/dL
[2021-08-16 13:43] LABS: TSH reflex Free T4 1.13 uIU/mL (0.32-4.0); Vitamin D 25-OH Total 17.7 ng/mL (>30)
[2021-08-16 13:50] LABS: Creatinine Urine 159.85 mg/dL; Microalbum/Creatinine Ratio Ur 51.9 ug/mg cr
== END 2021-08-16 12:04 | disposition home or self-care (01) ==
LOC: HO.LAB 12:03
PROVIDERS: PCP Internal Medicine; Visit Provider Internal Medicine
DX: I10 Essential (primary) hypertension (principal); E55.9 Vitamin D deficiency, unspecified; E78.00 Pure hypercholesterolemia, unspecified; E11.9 Type 2 diabetes mellitus without complications
CPT/HCPCS: 36415; 80053; 80061; 81001; 81003; 82043; 82306; 83036; 84443; 85025

== ENCOUNTER 2021-12-27 11:32 | Outpatient (REF) | payer MEDICARE, OTHER, SELFPAY ==
[2021-12-27 12:42] LABS: Estimated Average Glucose 134 mg/dL; Hemoglobin A1c % 6.3 %
[2021-12-27 13:09] LABS: Alanine Aminotransferase 19 U/L (0-40); Albumin Level 3.9 g/dL (3.5-5.0); Alkaline Phosphatase 58 U/L (39-117); Anion Gap 12 (12-20); Aspartate Amino Transferase 16 U/L (5-37); Bilirubin Total 0.5 mg/dL (0.0-1.0); Blood Urea Nitrogen 21 mg/dL (9-16); Calcium 9.4 mg/dL (8.4-10.2); Carbon Dioxide 28 mmol/L (22-29); Chloride 104 mmol/L (96-108); Cholesterol 114 mg/dL; Estimated Glomerular Filt Rate > 60; Glucose Fasting 109 mg/dL (60-99); HDL Cholesterol 34 mg/dL; LDL Cholesterol Calculated 72 mg/dl; Potassium 4.3 mmol/L (3.3-5.1); Sodium 140 mmol/L (135-145); Total Protein 6.9 g/dL (6.5-8.0); Triglycerides 43 mg/dL
[2021-12-27 13:11] LABS: Appearance Urine Clear; Color Urine Yellow; Glucose Urine UA Negative (Negative); Leukocyte Esterase Urine Negative (Negative); Nitrite Urine Negative (Negative); PH 5.5 (5.0-9.0); Specific Gravity - Urine 1.025 (1.005-1.025); Urine Blood Negative (Negative); Urine Ketones Negative (Negative); Urine Protein Negative (Neg-Trace)
[2021-12-27 13:21] LABS: Vitamin D 25-OH Total 30.1 ng/mL (>30)
[2021-12-27 13:34] LABS: Creatinine Urine 135.53 mg/dL; Microalbum/Creatinine Ratio Ur 34.6 ug/mg cr
== END 2021-12-27 11:33 | disposition home or self-care (01) ==
LOC: HO.LAB 11:32
PROVIDERS: PCP Internal Medicine; Visit Provider Internal Medicine
DX: E55.9 Vitamin D deficiency, unspecified (principal); E78.00 Pure hypercholesterolemia, unspecified; E11.9 Type 2 diabetes mellitus without complications; I10 Essential (primary) hypertension
CPT/HCPCS: 36415; 80053; 80061; 81003; 82043; 82306; 83036

== ENCOUNTER 2022-05-02 10:59 | Outpatient (REF) | payer MEDICARE, OTHER, SELFPAY ==
[2022-05-02 11:19] LABS: MANUAL DIFF FLAG NO
[2022-05-02 11:48] LABS: Basophils Percent Auto 0.6 % (0-2); Eosinophils Absolute Auto 0.1 X10*3/uL (0.0-0.4); Hematocrit 46.5 % (42.0-52.0); Hemoglobin 14.7 g/dl (14.0-18.0); Imm Gran Abs Auto 0.01 X10*3/uL (0.00-0.03); Imm Gran Pct Auto 0.2 % (0.0-0.4); Lymphocytes Absolute Auto 1.8 X10*3/uL (1.2-4.9); Lymphocytes Percent Auto 27.8 % (20-40); Mean Corpuscular HGB Conc 31.6 g/dl (31.0-36.0); Mean Corpuscular Hemoglobin 27.6 pg (27.0-33.0); Mean Corpuscular Volume 87.2 fL (80.0-98.0); Monocytes Absolute Auto 0.3 X10*3/uL (0.1-1.2); Monocytes Percent Auto 5.3 % (2-11); Neutrophils Absolute Auto 4.1 x10*3/uL (2.0-8.3); Neutrophils Percent Auto 64.1 % (45-73); Platelet Count 300 X10*3/uL (160-400); Red Blood Count 5.33 X10*6/uL (4.60-5.80); Red Cell Distribution Width 13.2 % (11.0-16.0); White Blood Count 6.4 X10*3/uL (4.8-10.8)
[2022-05-02 11:56] LABS: Estimated Average Glucose 126 mg/dL
[2022-05-02 12:26] LABS: Alanine Aminotransferase 17 U/L (0-40); Albumin Level 3.9 g/dL (3.5-5.0); Alkaline Phosphatase 74 U/L (39-117); Anion Gap 10 (12-20); Aspartate Amino Transferase 16 U/L (5-37); Bilirubin Total 0.9 mg/dL (0.0-1.0); Blood Urea Nitrogen 19 mg/dL (9-16); Calcium 9.3 mg/dL (8.4-10.2); Carbon Dioxide 28 mmol/L (22-29); Chloride 104 mmol/L (96-108); Cholesterol 122 mg/dL; Estimated Glomerular Filt Rate > 60; Glucose Fasting 110 mg/dL (60-99); HDL Cholesterol 34 mg/dL; LDL Cholesterol Calculated 80 mg/dl; Potassium 4.2 mmol/L (3.3-5.1); Sodium 138 mmol/L (135-145); Triglycerides 41 mg/dL
[2022-05-02 12:41] LABS: TSH reflex Free T4 0.65 uIU/mL (0.32-4.0); Vitamin D 25-OH Total 12.8 ng/mL (>30)
[2022-05-02 13:43] LABS: Creatinine Urine 137.48 mg/dL; Microalbum/Creatinine Ratio Ur 73.4 ug/mg cr
[2022-05-02 13:47] LABS: Appearance Urine Clear; Color Urine Yellow; Glucose Urine UA Negative (Negative); Leukocyte Esterase Urine Negative (Negative); Nitrite Urine Negative (Negative); PH 5.5 (5.0-9.0); Urine Blood Negative (Negative); Urine Ketones Negative (Negative); Urine Protein Trace mg/dL (Neg-Trace)
== END 2022-05-02 11:00 | disposition home or self-care (01) ==
LOC: HO.LAB 10:59
PROVIDERS: PCP Internal Medicine; Visit Provider Internal Medicine
DX: E78.00 Pure hypercholesterolemia, unspecified (principal); E55.9 Vitamin D deficiency, unspecified; I10 Essential (primary) hypertension; E11.9 Type 2 diabetes mellitus without complications
CPT/HCPCS: 36415; 80053; 80061; 81003; 82043; 82306; 83036; 84443; 85025

== ENCOUNTER 2022-06-07 00:43 | Emergency (ER) | payer MEDICARE, OTHER, SELFPAY ==
[2022-06-07 02:21] VITALS: BP 135/68; PULSE 60; RESP 16; TEMP 36.3; O2SAT 97; BMI 31.1
--- NOTE | 2022-06-07 02:28 | ED.HA ---
HPI - Headache General Chief Complaint: Headache Stated Complaint: ?High Blood Pressure Time Seen by Provider: 06/07/22 02:28 Source: patient Mode of arrival: ambulatory Limitations: no limitations History of Present Illness HPI Narrative: Patient history of hypertension been having headache for last few days no nausea no vomiting no dizziness no photosensitivity patient blood pressure was on the higher side hands PCP started him on amlodipine 5 mg daily along with lisinopril patient checked her blood pressure was slightly elevated got worried that is why came to the ER on arrival patient's blood pressure 135/68 pulse rate of 60 Related Data Previous Rx's Medication Instructions Recorded mometasone 0.1 % topical cream 1 appl topical DAILY PRN skin 08/17/21 irritation #45 grams lisinopril 40 mg tablet 40 mg PO BID #180 tabs 04/19/22 cholecalciferol (vitamin D3) 50 50 mcg PO DAILY 90 days #90 caps 05/03/22 mcg (2,000 unit) capsule amlodipine 5 mg tablet 5 mg PO DAILY 90 days #90 tabs 06/06/22 atorvastatin 10 mg tablet 10 mg PO DAILY #90 tabs 06/06/22 hydrochlorothiazide 25 mg tablet 25 mg PO DAILY #90 tabs 06/06/22 metformin 500 mg tablet,extended 500 mg PO DAILY #90 tabs 06/06/22 release 24 hr metoclopramide HCl 10 mg tablet 10 mg PO Q6H PRN nausea and 06/06/22 (Reglan) vomiting #14 tabs naproxen 500 mg tablet 500 mg PO BID PRN pain 7 days #20 06/06/22 tabs Allergies Allergy/AdvReac Type Severity Reaction Status Date / Time No Known Allergies Allergy Mild NKA Verified 05/03/22 15:46 Review of Systems Review of Systems: Yes all other systems are reviewed and are negative [facility] Past Medical History Medical History Benign essential hypertension Obstructive sleep apnea Overweight (BMI 25.0-29.9) Psoriasis Pure hypercholesterolemia Type 2 diabetes mellitus without complication, without long-term current use of insulin Vitamin D deficiency Surgical History History of colonoscopy History of open reduction and internal fixation (ORIF) procedure Family History Family History Father Medical history unknown Mother Medical history unknown Social History Social History Housing: Apartment Alcohol intake: never Patient Tobacco Use Status: Never used Tobacco Smoked in Last 30 Days: No Second Hand Smoke Exposure: No Use of substances other than those prescribed or required for medical reasons: No Advance Directives: No Advance Directives Information Provided: No service: No Current occupational status: retired Cognitive needs: No Hearing needs: No Vision needs: Yes Physical Exam Vital Signs: Vital Signs: Last Vital Signs Temp 98.2 F 06/07/22 03:02 Pulse 62 06/07/22 03:02 Resp 16 06/07/22 03:02 BP 136/73 06/07/22 03:02 Pulse Ox 98 06/07/22 03:02 O2 Del Method 06/07/22 03:02 BMI result Body Mass Index 31.1 Appearance: Alert. Oriented X3. No acute distress. Anxious Eyes: PERRLA, No Nystagmus ENT: Pharynx normal. Oral Mucosa moist Neck: Normal inspection. Neck supple. CVS: Normal heart rate and rhythm. Pulses normal. Respiratory: No respiratory distress. Equal air entry bilateral, no wheezing/rales/rhonchi Abdomen: Soft and nontender. Bowel sounds are present, no mass palpable, no CVA tenderness Skin: Skin warm and dry. Normal skin color. Normal skin turgor. Extremities: No lower extremity edema. No calf tenderness Neuro: Oriented X 3. No motor deficit. No sensory deficit.No cerebellar signs , cranial nerves II-XII intact Medical Decision Making Medical Decision Making MDM Narrative: . Transient hypertension blood pressure improved after arrival to the ER jessica 135/68 patient reassured about the medications advised to follow with PCP and check blood pressure daily Discharge Plan Discharge Clinical Impression: Hypertension Patient Disposition: Home, Self-Care Instructions: Hypertension (ED) Additional Instructions: Check blood pressure twice daily , it should be less than 135/85 Your medications are working any blood pressure is much better now Follow with PCP if any concerns Controle la presi?n arterial dos veces al d?a, debe ser inferior a 135/85 Danna medicamentos est?n funcionando cualquier presi?n arterial es mucho mejor ahora Siga con el PCP si tiene alguna inquietud. Prescriptions: No Action lisinopril 40 mg tablet 40 mg PO BID Qty: 180 2RF amlodipine 5 mg tablet 5 mg PO DAILY 90 Days Qty: 90 0RF atorvastatin 10 mg tablet 10 mg PO DAILY Qty: 90 2RF metformin 500 mg tablet extended release 24 hr 500 mg PO DAILY Qty: 90 2RF naproxen 500 mg tablet 500 mg PO BID PRN (Reason: pain) 7 Days Qty: 20 0RF metoclopramide HCl [Reglan] 10 mg tablet 10 mg PO Q6H PRN (Reason: nausea and vomiting) Qty: 14 0RF hydrochlorothiazide 25 mg tablet 25 mg PO DAILY Qty: 90 0RF cholecalciferol (vitamin D3) 50 mcg (2,000 unit) capsule 50 mcg PO DAILY 90 Days Qty: 90 3RF mometasone 0.1 % cream 1 appl topical DAILY PRN (Reason: skin irritation) Qty: 45 1RF Interventions: ED Discharge Assessment Last Done: 06/07/22 03:47 Discharge Date/Time: 06/07/22 03:48 Print Language: Bhutanese
[2022-06-07 03:02] VITALS: BP 136/73; PULSE 62; RESP 16; TEMP 36.8; O2SAT 98
== END 2022-06-07 03:48 | disposition home or self-care (01) ==
PROVIDERS: Emergency Provider Internal Medicine; PCP Internal Medicine
DX: R51.9 Headache, unspecified (principal); I10 Essential (primary) hypertension; Z79.899 Other long term (current) drug therapy
CPT/HCPCS: 99282; 99284

== ENCOUNTER 2022-09-02 09:41 | Outpatient (REF) | payer MEDICARE, OTHER, SELFPAY ==
[2022-09-02 09:58] LABS: MANUAL DIFF FLAG NO
[2022-09-02 10:14] LABS: Basophils Absolute Auto 0.1 X10*3/uL (0.0-0.2); Basophils Percent Auto 0.7 % (0-2); Eosinophils Absolute Auto 0.1 X10*3/uL (0.0-0.4); Eosinophils Percent Auto 1.5 % (0-4); Hematocrit 44.3 % (42.0-52.0); Hemoglobin 14.2 g/dl (14.0-18.0); Imm Gran Abs Auto 0.03 X10*3/uL (0.00-0.03); Imm Gran Pct Auto 0.4 % (0.0-0.4); Lymphocytes Absolute Auto 1.8 X10*3/uL (1.2-4.9); Mean Corpuscular HGB Conc 32.1 g/dl (31.0-36.0); Mean Corpuscular Volume 87.4 fL (80.0-98.0); Mean Platelet Volume 10.7 fL (9.4-12.4); Monocytes Absolute Auto 0.5 X10*3/uL (0.1-1.2); Neutrophils Absolute Auto 4.9 x10*3/uL (2.0-8.3); Neutrophils Percent Auto 66.4 % (45-73); Platelet Count 291 X10*3/uL (160-400); Red Blood Count 5.07 X10*6/uL (4.60-5.80); Red Cell Distribution Width 14.1 % (11.0-16.0); White Blood Count 7.3 X10*3/uL (4.8-10.8)
[2022-09-02 10:24] LABS: Estimated Average Glucose 126 mg/dL
[2022-09-02 10:48] LABS: Appearance Urine Clear; Color Urine Yellow; Glucose Urine UA Negative (Negative); Leukocyte Esterase Urine Negative (Negative); Nitrite Urine Negative (Negative); Specific Gravity - Urine 1.015 (1.005-1.025); Urine Blood Negative (Negative); Urine Ketones Negative (Negative); Urine Protein Negative (Neg-Trace)
[2022-09-02 11:01] LABS: Alanine Aminotransferase 22 U/L (0-40); Albumin Level 3.9 g/dL (3.5-5.0); Alkaline Phosphatase 66 U/L (39-117); Anion Gap 10 (12-20); Aspartate Amino Transferase 19 U/L (5-37); Bilirubin Total 0.8 mg/dL (0.0-1.0); Blood Urea Nitrogen 21 mg/dL (9-16); Calcium 9.3 mg/dL (8.4-10.2); Carbon Dioxide 29 mmol/L (22-29); Chloride 103 mmol/L (96-108); Cholesterol 129 mg/dL; Estimated Glomerular Filt Rate > 60; Glucose Fasting 111 mg/dL (60-99); HDL Cholesterol 35 mg/dL; LDL Cholesterol Calculated 82 mg/dl; Potassium 4.1 mmol/L (3.3-5.1); Sodium 138 mmol/L (135-145); Total Protein 6.7 g/dL (6.5-8.0); Triglycerides 62 mg/dL
[2022-09-02 11:22] LABS: Vitamin D 25-OH Total 22.2 ng/mL (>30)
== END 2022-09-02 09:42 | disposition home or self-care (01) ==
LOC: HO.LAB 09:41
PROVIDERS: PCP Internal Medicine; Visit Provider Internal Medicine
DX: R30.0 Dysuria (principal); E78.00 Pure hypercholesterolemia, unspecified; I10 Essential (primary) hypertension; E55.9 Vitamin D deficiency, unspecified; E11.9 Type 2 diabetes mellitus without complications
CPT/HCPCS: 36415; 80053; 80061; 81003; 82306; 83036; 85025

== ENCOUNTER 2023-01-06 11:36 | Outpatient (REF) | payer MEDICARE, OTHER, SELFPAY ==
[2023-01-06 11:53] LABS: MANUAL DIFF FLAG NO
[2023-01-06 12:02] LABS: Basophils Absolute Auto 0.1 X10*3/uL (0.0-0.2); Basophils Percent Auto 0.8 % (0-2); Eosinophils Absolute Auto 0.1 X10*3/uL (0.0-0.4); Eosinophils Percent Auto 1.4 % (0-4); Hematocrit 45.7 % (42.0-52.0); Hemoglobin 14.6 g/dl (14.0-18.0); Imm Gran Abs Auto 0.02 X10*3/uL (0.00-0.03); Imm Gran Pct Auto 0.3 % (0.0-0.4); Lymphocytes Absolute Auto 1.8 X10*3/uL (1.2-4.9); Lymphocytes Percent Auto 29.3 % (20-40); Mean Corpuscular HGB Conc 31.9 g/dl (31.0-36.0); Mean Corpuscular Hemoglobin 27.9 pg (27.0-33.0); Mean Corpuscular Volume 87.2 fL (80.0-98.0); Mean Platelet Volume 10.5 fL (9.4-12.4); Monocytes Absolute Auto 0.3 X10*3/uL (0.1-1.2); Monocytes Percent Auto 5.1 % (2-11); Neutrophils Percent Auto 63.1 % (45-73); Platelet Count 307 X10*3/uL (160-400); Red Blood Count 5.24 X10*6/uL (4.60-5.80); Red Cell Distribution Width 13.8 % (11.0-16.0); White Blood Count 6.3 X10*3/uL (4.8-10.8)
[2023-01-06 12:16] LABS: Estimated Average Glucose 114 mg/dL; Hemoglobin A1c % 5.6 % (<6.0)
[2023-01-06 13:28] LABS: Alanine Aminotransferase 18 U/L (0-40); Albumin Level 4.1 g/dL (3.5-5.0); Alkaline Phosphatase 60 U/L (39-117); Anion Gap 13 (12-20); Aspartate Amino Transferase 16 U/L (5-37); Bilirubin Total 0.8 mg/dL (0.0-1.0); Blood Urea Nitrogen 17 mg/dL (9-16); Calcium 9.3 mg/dL (8.4-10.2); Carbon Dioxide 25 mmol/L (22-29); Chloride 106 mmol/L (96-108); Cholesterol 118 mg/dL (<200); Estimated Glomerular Filt Rate > 60; Glucose Fasting 106 mg/dL (60-99); HDL Cholesterol 41 mg/dL (>40); LDL Cholesterol Calculated 68 mg/dL (<100); Potassium 3.7 mmol/L (3.3-5.1); Sodium 140 mmol/L (135-145); Total Protein 7.2 g/dL (6.5-8.0); Triglycerides 45 mg/dL (<150)
[2023-01-06 14:07] LABS: Appearance Urine Clear; Color Urine Yellow; Glucose Urine UA Negative (Negative); Leukocyte Esterase Urine Negative (Negative); Nitrite Urine Negative (Negative); PH 5.5 (5.0-9.0); Urine Blood Negative (Negative); Urine Ketones Negative (Negative); Urine Protein Trace mg/dL (Neg-Trace)
[2023-01-06 14:14] LABS: Microalbum/Creatinine Ratio Ur 51.8 ug/mg cr (<30)
== END 2023-01-06 11:37 | disposition home or self-care (01) ==
LOC: HO.LAB 11:36
PROVIDERS: PCP Internal Medicine; Visit Provider Internal Medicine
DX: E78.00 Pure hypercholesterolemia, unspecified (principal); I10 Essential (primary) hypertension; R30.0 Dysuria; E11.9 Type 2 diabetes mellitus without complications
CPT/HCPCS: 36415; 80053; 80061; 81003; 82043; 82570; 83036; 84443; 85025

== ENCOUNTER 2023-01-07 14:34 | Outpatient (AMB) | payer MEDICARE, SELFPAY ==
[2023-01-07 14:36] VITALS: BP 110/78; PULSE 83; O2SAT 95; BMI 29.3
--- NOTE | 2023-01-07 14:36 | A.OFFPC_ITS ---
Vital Signs 01/07/23 14:36 Height 5 ft 7 in Weight 187 lb 2 oz BMI 29.3 BP 110/78 Blood Pressure Location Lt brachial Position Sitting Pulse 83 Pulse Source Pulse Oximeter Pulse Oximetry (%) 95 Oxygen Delivery Method Room Air Intake Visit Reasons: hyperlipidemia, DM, HTN Public Employment Mediator Required: No Accompanied by: Self / Same As Patient Allergies No Known Allergies Allergy (Mild, Verified 01/07/23 15:18) NKA Medication List - Last Reconciled 01/07/23 by Lars Dubois MD amlodipine 5 mg PO DAILY 90 days atorvastatin 10 mg PO DAILY cholecalciferol (vitamin D3) 50 mcg PO DAILY 90 days hydrochlorothiazide 25 mg PO DAILY lisinopril 40 mg PO BID metformin ER 500 mg PO DAILY metoclopramide HCl (Reglan) 10 mg PO Q6H PRN mometasone 0.1% 1 appl topical DAILY PRN naproxen 500 mg PO BID PRN 7 days Tobacco use date assessed: 01/07/23 Fall risk assessment: No Falls in past year Last assessed Fall Risk: 01/07/23 Dental Screening Dental Screen Date: 01/07/23 Did you have a dental visit in the last 12 months?: No Did you have a dental problem in the last 6 months where you did not have access to dental care?: No Was dental information given to patient?: No HPI hyperlipidemia, DM, HTN HPI Details Patient comes in today for his follow up visit States that he feels okay He denies any headaches or dizziness Denies any chest pains, no SOB No nausea/vomiting, no abdominal pain No change in bowel habits noted Had his follow up labs done yesterday - to discuss his results [facility] Medical History Vitamin D deficiency Overweight (BMI 25.0-29.9) Psoriasis Obstructive sleep apnea Pure hypercholesterolemia Benign essential hypertension Type 2 diabetes mellitus without complication, without long-term current use of insulin Surgical History History of open reduction and internal fixation (ORIF) procedure History of colonoscopy Family History Father Medical history unknown Mother Medical history unknown Social History Housing: Apartment Alcohol intake: never Patient Tobacco Use Status: Never used Tobacco e-Cigarette/Vaping Use: Never Used Second Hand Smoke Exposure: No service: No Current occupational status: retired Cognitive needs: No Hearing needs: No Vision needs: Yes Questionnaire PHQ-9 Over the last 2 weeks, how often have you been bothered by any of the following problems? 1. Little interest or pleasure in doing things: not at all 2. Feeling down, depressed, or hopeless: not at all 3. Trouble falling or staying asleep, or sleeping too much: not at all 4. Feeling tired or having little energy: not at all 5. Poor appetite or overeating: not at all 6. Feeling bad about yourself - or that you are a failure or have let yourself or your family down: not at all 7. Trouble concentrating on things, such as reading the newspaper or watching television: not at all 8. Moving or speaking so slowly that other people could have noticed. Or the opposite - being so fidgety or restless that you have been moving around a lot more than usual: not at all 9. Thoughts that you would be better off or of hurting yourself in some way: not at all Total score: 0 Depression Screening Interpretation: Negative 76820 - PHQ-9 Billing: Yes Source: Developed by Drs. Vivek Yeager, Carmen May, Gildardo Aggarwal and colleagues, with an educational osvaldo from [employer]. Thrive Questionnaire Date Thrive assessed: 01/07/23 I am a: Patient What is your living situation today?: I have a steady place to live Within the past 12 months, did the food you bought not last and you didn't have the money to get more?: Never true Within the past 12 months, did you worry whether your food would run out before you got money to buy more?: Never true Do you have trouble paying for medicines?: No Do you have trouble getting transportation to medical appointments?: No Do you have trouble paying your heating and electricity bill?: No Do you have trouble taking care of your child, family member or friend?: No Do you have trouble with day-to-day activities such as bathing, preparing meals, shopping, managing finances, etc.?: No Are you currently unemployed and looking for a job?: No Are you interested in more education?: No Please select the resources that you would like help with: None Currently or been in a relationship where the following occur: no concerns reported AUDIT C Alcohol Use Questionnaire (AUDIT-C) 1. How often do you have a drink containing alcohol?: Never 3. How often do you have six or more drinks on one occasion?: Never Total Score: 0 Score Reviewed/Action Taken: Yes JUVENTINO-7 AMB Questionnaire JUVENTINO-7 Date JUVENTINO - 7 assessed: 01/07/23 Feeling nervous, anxious, or on edge: 0 = Not at all Not being able to stop or control worryin = Not at all Worrying too much about different things: 0 = Not at all Trouble relaxin = Not at all Being so restless that it is hard to sit still: 0 = Not at all Becoming easily annoyed or irritable: 0 = Not at all Feeling afraid as if something awful might happen: 0 = Not at all Total JUVENTINO-7 score (0-4 normal; 5-9 mild; 10-14 moderate; 15-21 severe): 0 Source: Developed by Drs. Vivek Yeager, Carmen May, Gildardo Aggarwal and colleagues, with an educational osvaldo from [employer]. Review of Systems Const Denies chills, Denies fatigue, Denies fever(s) and Denies headache(s) ENT Denies dysphagia, Denies dizziness, Denies otalgia, Denies headache(s), Denies neck pain, Denies odynophagia and Denies sore throat Card Denies chest pain, Denies palpitations and Denies dyspnea Resp Denies cough, Denies dyspnea and Denies wheezing GI Denies abdominal pain, Denies constipation, Denies dysphagia, Denies heartburn, Denies diarrhea, Denies nausea, Denies odynophagia and Denies vomiting Denies dysuria, Denies nocturia and Denies urinary frequency Musc Denies back pain, Denies arthralgias and Denies neck pain Skin/Breast Denies rash Neuro Denies dizziness and Denies headache(s) Endo Denies fatigue and Denies palpitations Aller/Immun Denies wheezing Physical exam (Primary Care) Vital Signs: Last Vital Signs Pulse 83 01/07/23 14:36 BP 110/78 01/07/23 14:36 Pulse Ox 95 01/07/23 14:36 Oxygen Delivery Method Room Air 01/07/23 14:36 BMI result Body Mass Index 29.3 Tobacco/Smoking Status: Tobacco use Status Tobacco use date assessed 01/07/23 01/07/23 14:42 Patient Tobacco Use Status Never used Tobacco 01/07/23 14:42 e-Cigarette/Vaping Use Never Used 01/07/23 14:42 PHQ-9: PHQ-9 Score PHQ-9: Total score 0 01/07/23 14:42 Depression Screening Interpretation: Negative Thrive Assessment: Date of Thrive Assessment Date Thrive assessed 01/07/23 01/07/23 14:42 Currently or been in a relationship where the following occur: no concerns reported Const General: no acute distress and alert HENMT Ears: TM's normal bilaterally and EAC's normal Throat: Yes posterior oropharynx normal and Yes tonsils normal (no TP congestion noted) Neck Neck: Yes no lymphadenopathy and Yes supple Resp Auscultation: clear to auscultation bilaterally, no rales and no wheezes Cardio Rate: regular rate Rhythm: regular rhythm Heart sounds: no murmurs GI Palpation (GI): Soft to palpation and nontender Auscultation: normal bowel sounds Extrem General: Yes no clubbing, cyanosis or edema Left lower extremity: knee Details: no tenderness Results Reviewed Results Reviewed: Laboratory Tests 01/06/23 01/06/23 11:52 11:55 WBC 6.3 Hgb 14.6 Hct 45.7 Plt Count 307 Sodium 140 Potassium 3.7 Creatinine 0.89 Estimated GFR > 60 Fasting Glucose 106 H Hemoglobin A1c % 5.6 Calcium 9.3 AST 16 ALT 18 Triglycerides 45 Cholesterol 118 LDL Cholesterol, Calc 68 HDL Cholesterol 41 TSH 1.10 Ur Specific [place] 1.020 Urine Protein Trace Urine Glucose (UA) Negative Urine Blood Negative Assessment and Plan Assessment & Plan (1) Pure hypercholesterolemia: Code(s): E78.00 - Pure hypercholesterolemia, unspecified Plan: Results of his labs done yesterday reviewed and discussed with patient Reinforced low cholesterol diet Continue Atorvastatin 10 mg QD Will recheck his labs and fasting lipids in 4 months for follow up (2) Type 2 diabetes mellitus without complication, without long-term current use of insulin: Code(s): E11.9 - Type 2 diabetes mellitus without complications Plan: HgbA1c was at 5.6% on his labs done yesterday (was at 6.0% a few months ago) - goal is <7.0% Reinforced diabetic diet Continue Metformin ER 500 mg QD (3) Benign essential hypertension: Code(s): I10 - Essential (primary) hypertension Plan: Reinforced low sodium diet - goal is systolic BP of at least 130 mm or less Continue Lisinopril 40 mg QD and HCTZ 25 mg QD (4) Obstructive sleep apnea: Code(s): G47.33 - Obstructive sleep apnea (adult) (pediatric) Plan: States that he no longer uses his CPAP device when sleeping at night and that he has not had any issues sleeping or with fatigue since he stopped using it (5) Psoriasis: Code(s): L40.9 - Psoriasis, unspecified Plan: Continue Mometasone cream 0.1% QD PRN Follow-up with dermatology as scheduled (6) Vitamin D deficiency: Code(s): E55.9 - Vitamin D deficiency, unspecified Plan: Continue Vitamin D3 2000 units QD Will recheck his Vitamin D level in 4 months for follow up (7) Left knee pain: Code(s): M25.562 - Pain in left knee Qualifiers: Chronicity: unspecified Qualified Code(s): M25.562 - Pain in left knee Plan: Resolved - states that his left knee is no longer bothering him and he did not get the x-rays done as his knee pain was gone by the time he was going to get it done (8) Overweight (BMI 25.0-29.9): Code(s): E66.3 - Overweight Plan: Reinforced diet/exercise as tolerated/lose weight Plan Follow up in 4 months Orders: Orders UA CC w/rflx Micro + Cult 4 Months R30.0 - Dysuria Vitamin D 25-OH Total 4 Months E55.9 - Vitamin D deficiency, unspecified Comprehensive [place]. Panel Fast 4 Months E78.00 - Pure hypercholesterolemia, unspecified Complete Blood Count Auto Diff 4 Months I10 - Essential (primary) hypertension Lipid Panel 4 Months E78.00 - Pure hypercholesterolemia, unspecified Hemoglobin A1c 4 Months E11.9 - Type 2 diabetes mellitus without complications Microalbumin, Random (w Creat) 4 Months E11.9 - Type 2 diabetes mellitus without complications Coding Level of Care Code Est Pt Level 4 (05511) Diagnoses Pure hypercholesterolemia E78.00 Type 2 diabetes mellitus without complication, without long-term current use of insulin E11.9 Benign essential hypertension I10 Obstructive sleep apnea G47.33 Psoriasis L40.9 Vitamin D deficiency E55.9 Left knee pain, unspecified chronicity M25.562 Chronicity: unspecified Overweight (BMI 25.0-29.9) E66.3
== END 2023-01-07 15:21 | disposition home or self-care (01) ==
PROVIDERS: Visit Provider Internal Medicine
DX: E11.9 Type 2 diabetes mellitus without complications (principal); I10 Essential (primary) hypertension; E55.9 Vitamin D deficiency, unspecified; E78.00 Pure hypercholesterolemia, unspecified; G47.33 Obstructive sleep apnea (adult) (pediatric); L40.9 Psoriasis, unspecified; M25.562 Pain in left knee; E66.3 Overweight
CPT/HCPCS: 99214

== ENCOUNTER 2023-05-08 09:53 | Outpatient (REF) | payer MEDICARE, OTHER, SELFPAY ==
[2023-05-08 10:03] LABS: MANUAL DIFF FLAG NO
[2023-05-08 10:58] LABS: Basophils Percent Auto 0.7 % (0-2); Eosinophils Absolute Auto 0.2 X10*3/uL (0.0-0.4); Eosinophils Percent Auto 2.6 % (0-4); Hematocrit 49.5 % (42.0-52.0); Hemoglobin 15.7 g/dl (14.0-18.0); Imm Gran Abs Auto 0.02 X10*3/uL (0.00-0.03); Imm Gran Pct Auto 0.3 % (0.0-0.4); Lymphocytes Absolute Auto 1.9 X10*3/uL (1.2-4.9); Lymphocytes Percent Auto 31.1 % (20-40); Mean Corpuscular HGB Conc 31.7 g/dl (31.0-36.0); Mean Corpuscular Hemoglobin 27.2 pg (27.0-33.0); Mean Corpuscular Volume 85.6 fL (80.0-98.0); Mean Platelet Volume 10.2 fL (9.4-12.4); Monocytes Absolute Auto 0.3 X10*3/uL (0.1-1.2); Monocytes Percent Auto 5.6 % (2-11); Neutrophils Absolute Auto 3.6 x10*3/uL (2.0-8.3); Neutrophils Percent Auto 59.7 % (45-73); Platelet Count 291 X10*3/uL (160-400); Red Blood Count 5.78 X10*6/uL (4.60-5.80); Red Cell Distribution Width 13.7 % (11.0-16.0); White Blood Count 6.1 X10*3/uL (4.8-10.8)
[2023-05-08 11:18] LABS: Appearance Urine Clear; Color Urine Yellow; Glucose Urine UA Negative (Negative); Leukocyte Esterase Urine Negative (Negative); Nitrite Urine Negative (Negative); UMIC TRIGGER UACC YES; Urine Blood Trace (Negative); Urine Ketones Negative (Negative); Urine Protein 30 (1+) mg/dL (Neg-Trace)
[2023-05-08 11:24] LABS: Estimated Average Glucose 123 mg/dL; Hemoglobin A1c % 5.9 % (<6.0)
[2023-05-08 11:27] LABS: Bacteria Urine None Seen (None Seen); Hyaline Casts Urine 0-2 /LPF (0-2); RBC Urine 0-2 /HPF (0-2); Squamous Epithelial Cell Urine 0-2 /HPF (0-2); WBC Urine 0-5 /HPF (0-5)
[2023-05-08 11:52] LABS: Alanine Aminotransferase 21 U/L (0-40); Albumin Level 4.1 g/dL (3.5-5.0); Alkaline Phosphatase 69 U/L (39-117); Anion Gap 12 (12-20); Aspartate Amino Transferase 20 U/L (5-37); Bilirubin Total 0.6 mg/dL (0.0-1.0); Blood Urea Nitrogen 21 mg/dL (9-16); Calcium 9.7 mg/dL (8.4-10.2); Carbon Dioxide 27 mmol/L (22-29); Chloride 103 mmol/L (96-108); Cholesterol 145 mg/dL (<200); Estimated Glomerular Filt Rate > 60; Glucose Fasting 135 mg/dL (60-99); HDL Cholesterol 45 mg/dL (>40); LDL Cholesterol Calculated 86 mg/dL (<100); Potassium 3.9 mmol/L (3.3-5.1); Sodium 138 mmol/L (135-145); Total Protein 7.5 g/dL (6.5-8.0); Triglycerides 70 mg/dL (<150); Vitamin D 25-OH Total 16.4 ng/mL (>30)
[2023-05-08 11:54] LABS: Creatinine Urine 183.92 mg/dL; Microalbum/Creatinine Ratio Ur 140.8 ug/mg cr (<30)
== END 2023-05-08 09:54 | disposition home or self-care (01) ==
LOC: HO.LAB 09:53
PROVIDERS: PCP Internal Medicine; Visit Provider Internal Medicine
DX: I10 Essential (primary) hypertension (principal); E55.9 Vitamin D deficiency, unspecified; E11.9 Type 2 diabetes mellitus without complications; E78.00 Pure hypercholesterolemia, unspecified
CPT/HCPCS: 36415; 80053; 80061; 81001; 82043; 82306; 82570; 83036; 85025

== ENCOUNTER 2023-05-09 13:38 | Outpatient (AMB) | payer MEDICARE, SELFPAY ==
--- NOTE | 2023-05-09 13:39 | MHC.PC.OV ---
Intake Visit Reasons: HTN, DM, hyperlipidemia Banquet Manager Required: Yes Accompanied by: Self / Same As Patient Allergies No Known Allergies Allergy (Mild, Verified 05/09/23 13:53) NKA Medication List - Last Reconciled 05/09/23 by Lars Dubois MD amlodipine 5 mg PO DAILY 90 days atorvastatin 10 mg PO DAILY cholecalciferol (vitamin D3) 50 mcg PO DAILY 90 days hydrochlorothiazide 25 mg PO DAILY lisinopril 40 mg PO BID metformin ER 500 mg PO DAILY metoclopramide HCl (Reglan) 10 mg PO Q6H PRN mometasone 0.1% 1 appl topical DAILY PRN naproxen 500 mg PO BID PRN 7 days Tobacco use date assessed: 05/09/23 Fall risk assessment: No Falls in past year Last assessed Fall Risk: 05/09/23 Dental Screening Dental Screen Date: 05/09/23 Did you have a dental visit in the last 12 months?: No Did you have a dental problem in the last 6 months where you did not have access to dental care?: No Was dental information given to patient?: No HPI HTN, DM, hyperlipidemia HPI Details Patient's follow-up visit / consultation today is done over the phone - this is a Telehealth visit Patient's current medications have been reviewed and verified with patient and / or caregiver / proxy and have been updated accordingly in the medication list Patient states that he feels okay He denies any headaches or dizziness Denies any chest pains, no SOB No nausea/vomiting, no abdominal pain No change in bowel habits noted Had his follow up labs done yesterday - to discuss his results [facility] Medical History Vitamin D deficiency Overweight (BMI 25.0-29.9) Psoriasis Obstructive sleep apnea Pure hypercholesterolemia Benign essential hypertension Type 2 diabetes mellitus without complication, without long-term current use of insulin Surgical History History of open reduction and internal fixation (ORIF) procedure History of colonoscopy Family History Father Medical history unknown Mother Medical history unknown Social History Housing: Apartment Alcohol intake: never Patient Tobacco Use Status: Never used Tobacco e-Cigarette/Vaping Use: Never Used Second Hand Smoke Exposure: No service: No Current occupational status: retired Cognitive needs: No Hearing needs: No Vision needs: Yes Questionnaire PHQ-9 Over the last 2 weeks, how often have you been bothered by any of the following problems? 1. Little interest or pleasure in doing things: not at all 2. Feeling down, depressed, or hopeless: not at all 3. Trouble falling or staying asleep, or sleeping too much: not at all 4. Feeling tired or having little energy: not at all 5. Poor appetite or overeating: not at all 6. Feeling bad about yourself - or that you are a failure or have let yourself or your family down: not at all 7. Trouble concentrating on things, such as reading the newspaper or watching television: not at all 8. Moving or speaking so slowly that other people could have noticed. Or the opposite - being so fidgety or restless that you have been moving around a lot more than usual: not at all 9. Thoughts that you would be better off or of hurting yourself in some way: not at all Total score: 0 Depression Screening Interpretation: Negative Depression Screening Done: Yes 25783 - PHQ-9 Billing: Yes Source: Developed by Drs. Vivek Yeager, Carmen May, Gildardo Aggarwal and colleagues, with an educational osvaldo from [employer]. Thrive Questionnaire Date Thrive assessed: 05/09/23 I am a: Patient What is your living situation today?: I have a steady place to live Within the past 12 months, did the food you bought not last and you didn't have the money to get more?: Never true Within the past 12 months, did you worry whether your food would run out before you got money to buy more?: Never true Do you have trouble paying for medicines?: No Do you have trouble getting transportation to medical appointments?: No Do you have trouble paying your heating and electricity bill?: No Do you have trouble taking care of your child, family member or friend?: No Do you have trouble with day-to-day activities such as bathing, preparing meals, shopping, managing finances, etc.?: No Are you currently unemployed and looking for a job?: No Are you interested in more education?: No Please select the resources that you would like help with: None Currently or been in a relationship where the following occur: no concerns reported THRIVE Score: 0 AUDIT C Alcohol Use Questionnaire (AUDIT-C) 1. How often do you have a drink containing alcohol?: Never 3. How often do you have six or more drinks on one occasion?: Never Total Score: 0 Score Reviewed/Action Taken: Yes JUVENTINO-7 AMB Questionnaire JUVENTINO-7 Date JUVENTINO - 7 assessed: 05/09/23 Feeling nervous, anxious, or on edge: 0 = Not at all Not being able to stop or control worryin = Not at all Worrying too much about different things: 0 = Not at all Trouble relaxin = Not at all Being so restless that it is hard to sit still: 0 = Not at all Becoming easily annoyed or irritable: 0 = Not at all Feeling afraid as if something awful might happen: 0 = Not at all Total JUVENTINO-7 score (0-4 normal; 5-9 mild; 10-14 moderate; 15-21 severe): 0 Source: Developed by Drs. Vivek Yeager, Carmen May, Gildardo Aggarwal and colleagues, with an educational osvaldo from [employer]. Review of Systems Const Denies chills, Denies fatigue, Denies fever(s) and Denies headache(s) ENT Denies dysphagia, Denies dizziness, Denies otalgia, Denies headache(s), Denies neck pain, Denies odynophagia and Denies sore throat Card Denies chest pain, Denies palpitations and Denies dyspnea Resp Denies cough, Denies dyspnea and Denies wheezing GI Denies abdominal pain, Denies constipation, Denies dysphagia, Denies heartburn, Denies diarrhea, Denies nausea, Denies odynophagia and Denies vomiting Denies dysuria, Denies nocturia and Denies urinary frequency Musc Denies back pain, Denies arthralgias and Denies neck pain Skin/Breast Denies rash Neuro Denies dizziness and Denies headache(s) Endo Denies fatigue and Denies palpitations Aller/Immun Denies wheezing Physical exam (Primary Care) Vital Signs: Physical examination is not performed as visit / consultation today is done over the phone - Telehealth visit All physical findings indicated here, if present, are as per patient's and / or caregivers / proxy's report Tobacco/Smoking Status: Tobacco use Status Tobacco use date assessed 05/09/23 05/09/23 13:42 Patient Tobacco Use Status Never used Tobacco 05/09/23 13:40 e-Cigarette/Vaping Use Never Used 05/09/23 13:40 PHQ-9: PHQ-9 Score PHQ-9: Total score 0 05/09/23 13:42 Depression Screening Interpretation: Negative Thrive Assessment: Date of Thrive Assessment Date Thrive assessed 05/09/23 05/09/23 13:42 Currently or been in a relationship where the following occur: no concerns reported Telehealth Telehealth Location of provider rendering services: practice address Location of patient: address on file Patient Identification confirmed using: Name, : Yes Telehealth method: voice only Patient verbally consented to treatment: Yes Patient verbally consented to billing insurance company: Yes Patient informed of any privacy concerns related to visit: Yes Minutes spent on Phone/Video with Pt.: 21 Results Reviewed Results Reviewed: Laboratory Tests 01/06/23 05/08/23 05/08/23 11:52 09:58 10:02 WBC 6.1 Hgb 15.7 Hct 49.5 Plt Count 291 Sodium 138 Potassium 3.9 Creatinine 1.16 Estimated GFR > 60 Fasting Glucose 135 H Hemoglobin A1c % 5.9 Calcium 9.7 AST 20 ALT 21 Triglycerides 70 Cholesterol 145 LDL Cholesterol, Calc HDL Cholesterol 25-OH Vitamin D Total TSH 1.10 Urine pH 6.0 Ur Specific [place] 1.020 Urine Protein 30 (1+) H Urine Glucose (UA) Negative Urine Blood Trace Urine Nitrite Negative Ur Leukocyte Esterase Negative Microalb/Creat Ratio 140.8 H 05/08/23 05/08/23 10:02 10:02 WBC Hgb Hct Plt Count Sodium Potassium Creatinine Estimated GFR Fasting Glucose Hemoglobin A1c % Calcium AST ALT Triglycerides Cholesterol LDL Cholesterol, Calc 86 HDL Cholesterol 45 25-OH Vitamin D Total 16.4 L TSH Urine pH Ur Specific [place] Urine Protein Urine Glucose (UA) Urine Blood Urine Nitrite Ur Leukocyte Esterase Microalb/Creat Ratio Assessment and Plan Assessment & Plan (1) Pure hypercholesterolemia: Code(s): E78.00 - Pure hypercholesterolemia, unspecified Plan: Results of his labs done yesterday reviewed and discussed with patient - patient is cautioned that his cholesterol numbers have mostly increased slightly from previous Reinforced low cholesterol diet Continue Atorvastatin 10 mg QD Will recheck his labs and fasting lipids in 4 months for follow up (2) Type 2 diabetes mellitus without complication, without long-term current use of insulin: Code(s): E11.9 - Type 2 diabetes mellitus without complications Plan: HgbA1c is at 5.9% on his labs done yesterday (was at 5.6% a few months ago) - goal is <7.0% Reinforced diabetic diet Continue Metformin ER 500 mg QD (3) Benign essential hypertension: Code(s): I10 - Essential (primary) hypertension Plan: Reinforced low sodium diet - goal is systolic BP of at least 130 mm or less Continue Lisinopril 40 mg QD and HCTZ 25 mg QD (4) Obstructive sleep apnea: Code(s): G47.33 - Obstructive sleep apnea (adult) (pediatric) Plan: States that he no longer uses his CPAP device when sleeping at night and that he has not had any issues sleeping or with fatigue since he stopped using it a while back (5) Psoriasis: Code(s): L40.9 - Psoriasis, unspecified Plan: Continue Mometasone cream 0.1% QD PRN Follow-up with dermatology as scheduled (6) Vitamin D deficiency: Code(s): E55.9 - Vitamin D deficiency, unspecified Plan: Patient is advised that his Vitamin D level has been steadily declining since last year and has dropped off even further on his recent labs He admits that he has not been taking his Vitamin D in a while now Will start him back on Vitamin D3 2000 units QD - Rx sent Will recheck his Vitamin D level in 4 months (7) Overweight (BMI 25.0-29.9): Code(s): E66.3 - Overweight Plan: Reinforced diet/exercise as tolerated/lose weight Plan Follow up in 4 months Orders: Orders Comprehensive [place]. Panel Fast 4 Months E78.00 - Pure hypercholesterolemia, unspecified TSH reflex Free T4 4 Months E78.00 - Pure hypercholesterolemia, unspecified Microalbumin, Random (w Creat) 4 Months E11.9 - Type 2 diabetes mellitus without complications Vitamin D 25-OH Total 4 Months E55.9 - Vitamin D deficiency, unspecified Complete Blood Count Auto Diff 4 Months D64.9 - Anemia, unspecified Lipid Panel 4 Months E78.00 - Pure hypercholesterolemia, unspecified Hemoglobin A1c 4 Months E11.9 - Type 2 diabetes mellitus without complications UA CC w/rflx Micro + Cult 4 Months R30.0 - Dysuria Coding Level of Care Code Tele Est Pt Level 4 (77662) Diagnoses Pure hypercholesterolemia E78.00 Type 2 diabetes mellitus without complication, without long-term current use of insulin E11.9 Benign essential hypertension I10 Obstructive sleep apnea G47.33 Psoriasis L40.9 Vitamin D deficiency E55.9 Overweight (BMI 25.0-29.9) E66.3
== END 2023-05-09 15:01 | disposition home or self-care (01) ==
LOC: HO.HMGH 13:38
PROVIDERS: PCP Internal Medicine; Visit Provider Internal Medicine
DX: E78.00 Pure hypercholesterolemia, unspecified (principal); E11.9 Type 2 diabetes mellitus without complications; I10 Essential (primary) hypertension; G47.33 Obstructive sleep apnea (adult) (pediatric); L40.9 Psoriasis, unspecified; E55.9 Vitamin D deficiency, unspecified; E66.3 Overweight
CPT/HCPCS: 99213; 99443

== ENCOUNTER 2023-09-10 09:05 | Outpatient (REF) | payer MEDICARE, OTHER, SELFPAY ==
[2023-09-10 09:16] LABS: MANUAL DIFF FLAG NO
[2023-09-10 09:42] LABS: Basophils Absolute Auto 0.1 X10*3/uL (0.0-0.2); Basophils Percent Auto 0.7 % (0-2); Eosinophils Absolute Auto 0.2 X10*3/uL (0.0-0.4); Eosinophils Percent Auto 2.2 % (0-4); Hematocrit 45.9 % (42.0-52.0); Imm Gran Abs Auto 0.03 X10*3/uL (0.00-0.03); Imm Gran Pct Auto 0.4 % (0.0-0.4); Lymphocytes Absolute Auto 1.8 X10*3/uL (1.2-4.9); Lymphocytes Percent Auto 26.4 % (20-40); Mean Corpuscular HGB Conc 32.7 g/dl (31.0-36.0); Mean Corpuscular Hemoglobin 28.1 pg (27.0-33.0); Monocytes Absolute Auto 0.4 X10*3/uL (0.1-1.2); Monocytes Percent Auto 5.8 % (2-11); Neutrophils Absolute Auto 4.4 x10*3/uL (2.0-8.3); Neutrophils Percent Auto 64.5 % (45-73); Platelet Count 302 X10*3/uL (160-400); Red Blood Count 5.34 X10*6/uL (4.60-5.80); Red Cell Distribution Width 13.8 % (11.0-16.0); White Blood Count 6.8 X10*3/uL (4.8-10.8)
[2023-09-10 09:58] LABS: Estimated Average Glucose 117 mg/dL; Hemoglobin A1c % 5.7 % (<6.0)
[2023-09-10 10:58] LABS: Alanine Aminotransferase 20 U/L (0-40); Albumin Level 3.9 g/dL (3.5-5.0); Alkaline Phosphatase 72 U/L (39-117); Anion Gap 9 (12-20); Aspartate Amino Transferase 15 U/L (5-37); Bilirubin Total 0.4 mg/dL (0.0-1.0); Blood Urea Nitrogen 19 mg/dL (9-16); Calcium 8.9 mg/dL (8.4-10.2); Carbon Dioxide 28 mmol/L (22-29); Chloride 106 mmol/L (96-108); Cholesterol 123 mg/dL (<200); Estimated Glomerular Filt Rate > 60; Glucose Fasting 119 mg/dL (60-99); HDL Cholesterol 40 mg/dL (>40); LDL Cholesterol Calculated 72 mg/dL (<100); Potassium 3.7 mmol/L (3.3-5.1); Sodium 139 mmol/L (135-145); Triglycerides 59 mg/dL (<150)
[2023-09-10 10:58] LABS: Appearance Urine Clear; Color Urine Yellow; Glucose Urine UA Negative (Negative); Leukocyte Esterase Urine Negative (Negative); Nitrite Urine Negative (Negative); PH 5.5 (5.0-9.0); UMIC TRIGGER UACC YES; Urine Blood Negative (Negative); Urine Ketones Negative (Negative); Urine Protein 30 (1+) mg/dL (Neg-Trace)
[2023-09-10 11:00] LABS: TSH reflex Free T4 1.19 uIU/mL (0.32-4.0); Vitamin D 25-OH Total 18.5 ng/mL (>30)
[2023-09-10 11:02] LABS: Bacteria Urine None Seen (None Seen); Hyaline Casts Urine 0-2 /LPF (0-2); RBC Urine 0-2 /HPF (0-2); Squamous Epithelial Cell Urine 0-2 /HPF (0-2); WBC Urine 0-5 /HPF (0-5)
[2023-09-10 11:45] LABS: Creatinine Urine 170.82 mg/dL; Microalbum/Creatinine Ratio Ur 79.6 ug/mg cr (<30)
== END 2023-09-10 09:06 | disposition home or self-care (01) ==
LOC: HO.LAB 09:05
PROVIDERS: PCP Internal Medicine; Visit Provider Internal Medicine
DX: E11.9 Type 2 diabetes mellitus without complications (principal); E55.9 Vitamin D deficiency, unspecified; E78.00 Pure hypercholesterolemia, unspecified; D64.9 Anemia, unspecified
CPT/HCPCS: 36415; 80053; 80061; 81001; 82043; 82306; 82570; 83036; 84443; 85025

== ENCOUNTER 2023-09-18 14:01 | Outpatient (AMB) | payer MEDICARE, SELFPAY ==
--- NOTE | 2023-09-18 14:02 | MHC.PC.OV ---
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 Required: No Allergies No Known Allergies Allergy (Mild, Verified 09/18/23 14:23) NKA Medication List - Last Reconciled 09/18/23 by Lars Dubois MD amlodipine 5 mg PO DAILY 90 days atorvastatin 10 mg PO DAILY cholecalciferol (vitamin D3) 50 mcg PO DAILY 90 days hydrochlorothiazide 25 mg PO DAILY lisinopril 40 mg PO BID metformin ER 500 mg PO DAILY metoclopramide HCl (Reglan) 10 mg PO Q6H PRN mometasone 0.1% 1 appl topical DAILY PRN naproxen 500 mg PO BID PRN 7 days Tobacco use date assessed: 09/18/23 Fall risk assessment: No Falls in past year Last assessed Fall Risk: 09/18/23 Dental Screening Dental Screen Date: 05/09/23 HPI hyperlipidemia, HTN, DM, psoriasis HPI Details Patient comes in today for his follow up visit States that he feels okay He denies any headaches or dizziness Denies any chest pains, no SOB No nausea/vomiting, no abdominal pain No change in bowel habits noted Had his follow up labs done last week - to discuss his results [facility] Medical History Vitamin D deficiency Overweight (BMI 25.0-29.9) Psoriasis Obstructive sleep apnea Pure hypercholesterolemia Benign essential hypertension Type 2 diabetes mellitus without complication, without long-term current use of insulin Surgical History History of open reduction and internal fixation (ORIF) procedure History of colonoscopy Family History Father Medical history unknown Mother Medical history unknown Social History Housing: Apartment Alcohol intake: never Patient Tobacco Use Status: Never used Tobacco e-Cigarette/Vaping Use: Never Used Second Hand Smoke Exposure: No service: No Current occupational status: retired Cognitive needs: No Hearing needs: No Vision needs: Yes Questionnaire Thrive Questionnaire Date Thrive assessed: 05/09/23 AUDIT C Alcohol Use Questionnaire (AUDIT-C) 1. How often do you have a drink containing alcohol?: Never 3. How often do you have six or more drinks on one occasion?: Never Total Score: 0 Score Reviewed/Action Taken: Yes JUVENTINO-7 AMB Questionnaire JUVENTINO-7 Date JUVENTINO - 7 assessed: 05/09/23 Source: Developed by Drs. Vivek Yeager, Carmen May, Gildardo Aggarwal and colleagues, with an educational osvaldo from [employer]. Review of Systems Const Denies chills, Denies fatigue, Denies fever(s) and Denies headache(s) ENT Denies dysphagia, Denies dizziness, Denies otalgia, Denies headache(s), Denies neck pain, Denies odynophagia and Denies sore throat Card Denies chest pain, Denies palpitations and Denies dyspnea Resp Denies cough, Denies dyspnea and Denies wheezing GI Denies abdominal pain, Denies constipation, Denies dysphagia, Denies heartburn, Denies diarrhea, Denies nausea, Denies odynophagia and Denies vomiting Denies dysuria, Denies nocturia and Denies urinary frequency Musc Denies back pain, Denies arthralgias and Denies neck pain Skin/Breast Denies rash Neuro Denies dizziness and Denies headache(s) Endo Denies fatigue and Denies palpitations Aller/Immun Denies wheezing Physical exam (Primary Care) Vital Signs: Last Vital Signs Pulse 84 09/18/23 14:03 BP 116/68 09/18/23 14:03 Pulse Ox 96 09/18/23 14:03 Oxygen Delivery Method Room Air 09/18/23 14:03 BMI result Body Mass Index 29.0 Tobacco/Smoking Status: Tobacco use Status Tobacco use date assessed 09/18/23 09/18/23 14:05 Patient Tobacco Use Status Never used Tobacco 09/18/23 14:05 e-Cigarette/Vaping Use Never Used 09/18/23 14:05 Thrive Assessment: Date of Thrive Assessment Date Thrive assessed 05/09/23 09/18/23 14:05 Const General: no acute distress and alert HENMT Ears: TM's normal bilaterally and EAC's normal Throat: Yes posterior oropharynx normal and Yes tonsils normal (no TP congestion noted) Neck Neck: Yes no lymphadenopathy and Yes supple Thyroid: Thyroid normal Resp Auscultation: clear to auscultation bilaterally, no rales and no wheezes Cardio Rate: regular rate Rhythm: regular rhythm Heart sounds: no murmurs GI Palpation (GI): Soft to palpation and nontender Auscultation: normal bowel sounds General: Yes no CVA tenderness Back/Spine/Pelvis Back: no CVA tenderness Thoracic/Lumbar Spine: No lumbar spinal tenderness Skin Rashes: no rashes Extrem General: Yes no clubbing, cyanosis or edema Left lower extremity: knee Details: no tenderness Results Reviewed Results Reviewed: Laboratory Tests 09/10/23 09/10/23 09:14 09:16 WBC 6.8 Hgb 15.0 Hct 45.9 Plt Count 302 Sodium 139 Potassium 3.7 Creatinine 1.14 Estimated GFR > 60 Fasting Glucose 119 H Hemoglobin A1c % 5.7 Calcium 8.9 D AST 15 ALT 20 Triglycerides 59 Cholesterol 123 LDL Cholesterol, Calc 72 HDL Cholesterol 40 L 25-OH Vitamin D Total 18.5 L TSH 1.19 Ur Specific [place] 1.020 Urine Protein 30 (1+) H Urine Glucose (UA) Negative Urine Blood Negative Urine Nitrite Negative Ur Leukocyte Esterase Negative Microalb/Creat Ratio 79.6 H Assessment and Plan Assessment & Plan (1) Pure hypercholesterolemia: Code(s): E78.00 - Pure hypercholesterolemia, unspecified Plan: Results of his labs done last week reviewed and discussed with patient - he is advised that his cholesterol numbers have improved slightly from previous Reinforced low cholesterol diet Continue Atorvastatin 10 mg QD Will recheck his labs and fasting lipids in 4 months for follow up (2) Type 2 diabetes mellitus without complication, without long-term current use of insulin: Code(s): E11.9 - Type 2 diabetes mellitus without complications Plan: His HgbA1c is at 5.7% on his labs done last week (was at 5.9% a few months ago) - goal is <7.0% Reinforced diabetic diet Continue Metformin ER 500 mg QD (3) Benign essential hypertension: Code(s): I10 - Essential (primary) hypertension Plan: Reinforced low sodium diet - goal is systolic BP of at least 130 mm or less Continue Lisinopril 40 mg QD and HCTZ 25 mg QD (4) Obstructive sleep apnea: Code(s): G47.33 - Obstructive sleep apnea (adult) (pediatric) Plan: States that he no longer uses his CPAP device when sleeping at night and that he has not had any issues sleeping or with fatigue since he stopped using it a while back (5) Psoriasis: Code(s): L40.9 - Psoriasis, unspecified Plan: Continue Mometasone cream 0.1% QD PRN Follow-up with dermatology as scheduled (6) Vitamin D deficiency: Code(s): E55.9 - Vitamin D deficiency, unspecified Plan: Patient is advised that his Vitamin D level has declined further on his recent labs and that he needs to take his Vitamin D supplement DAILY Continue Vitamin D3 2000 units QD Will recheck his Vitamin D level in 4 months (7) Overweight (BMI 25.0-29.9): Code(s): E66.3 - Overweight Plan: Reinforced diet/exercise as tolerated/lose weight Plan Follow up in 4 months Orders: Orders Lipase 4 Months R10.9 - Unspecified abdominal pain Vitamin D 25-OH Total 4 Months E55.9 - Vitamin D deficiency, unspecified UA CC w/rflx Micro + Cult 4 Months R30.0 - Dysuria Comprehensive [place]. Panel Fast 4 Months E78.00 - Pure hypercholesterolemia, unspecified Hemoglobin A1c 4 Months E11.9 - Type 2 diabetes mellitus without complications Coding Level of Care Code Est Pt Level 4 (41351) Complex EM visit Add On G2211 Diagnoses Pure hypercholesterolemia E78.00 Type 2 diabetes mellitus without complication, without long-term current use of insulin E11.9 Benign essential hypertension I10 Obstructive sleep apnea G47.33 Psoriasis L40.9 Vitamin D deficiency E55.9 Overweight (BMI 25.0-29.9) E66.3
[2023-09-18 14:03] VITALS: BP 116/68; PULSE 84; O2SAT 96; BMI 29.0
== END 2023-09-18 14:41 | disposition home or self-care (01) ==
PROVIDERS: PCP Internal Medicine; Visit Provider Internal Medicine
DX: E78.00 Pure hypercholesterolemia, unspecified (principal); E11.9 Type 2 diabetes mellitus without complications; I10 Essential (primary) hypertension; G47.33 Obstructive sleep apnea (adult) (pediatric); L40.9 Psoriasis, unspecified; E55.9 Vitamin D deficiency, unspecified; E66.3 Overweight
CPT/HCPCS: 99214; G2211

== ENCOUNTER 2023-10-12 13:00 | Emergency (ER) | payer MEDICARE, OTHER, SELFPAY ==
--- NOTE | ~2023-10-12 | XR_ITS ---
EXAMINATION: XR CHEST CLINICAL INFORMATION: Weakness COMPARISON: 06/12/2016 TECHNIQUE: 2 views of the chest were obtained. FINDINGS: No significant abnormality is noted involving the heart, lungs, mediastinum, bony thorax or soft tissues. XR/XR chest 2V IMPRESSION: Unremarkable examination.
--- NOTE | 2023-10-12 13:02 | ED.GENADULT ---
HPI - General Adult General Chief complaint: General Medical Stated complaint: high blood sugar Time Seen by Provider: 10/12/23 16:11 Source: patient History of Present Illness ED Provider: Olivia Soto PA-C HPI narrative: 68-year-old male with history of diabetes presents with hypoglycemia. Patient noted his blood sugar was 247 at home and he felt weak. Denies recent medication changes, cough cold symptoms some, fever, dysuria, nausea or vomiting. Related Data Previous Rx's ?Medication ?Instructions ?Recorded lisinopril 40 mg tablet 40 mg PO BID #180 tabs 04/19/22 cholecalciferol (vitamin D3) 50 50 mcg PO DAILY 90 days #90 caps 05/03/22 mcg (2,000 unit) capsule metoclopramide HCl 10 mg tablet 10 mg PO Q6H PRN nausea and 06/06/22 (Reglan) vomiting #14 tabs naproxen 500 mg tablet 500 mg PO BID PRN pain 7 days #20 06/06/22 tabs mometasone 0.1 % topical cream 1 appl topical DAILY PRN skin 09/02/22 irritation #45 grams amlodipine 5 mg tablet 5 mg PO DAILY 90 days #90 tabs 11/28/22 hydrochlorothiazide 25 mg tablet 25 mg PO DAILY #90 tabs 11/28/22 atorvastatin 10 mg tablet 10 mg PO DAILY #90 tabs 07/28/23 metformin 500 mg tablet,extended 500 mg PO DAILY #90 tabs 07/29/23 release 24 hr Allergies Allergy/AdvReac Type Severity Reaction Status Date / Time No Known Allergies Allergy Mild NKA Verified 10/12/23 13:11 Review of Systems Review of Systems: Yes all other systems are reviewed and are negative Constitutional: Constitutional: Reports fatigue Cardiovascular: Cardiovascular: Denies chest pain and Denies dyspnea Respiratory: Respiratory: Denies dyspnea Gastrointestinal: Gastrointestinal: Denies vomiting Genitourinary: Genitourinary: Denies dysuria Endocrine: Endocrine: Reports fatigue PMFSH Past Medical History Attestation statement: The following information was validated with the patient. Medical History Vitamin D deficiency Overweight (BMI 25.0-29.9) Psoriasis Obstructive sleep apnea Pure hypercholesterolemia Benign essential hypertension Type 2 diabetes mellitus without complication, without long-term current use of insulin Surgical History History of open reduction and internal fixation (ORIF) procedure History of colonoscopy Family History Family History Father Medical history unknown Mother Medical history unknown Social History Social History Housing: Apartment Alcohol intake: never Patient Tobacco Use Status: Never used Tobacco e-Cigarette/Vaping Use: Never Used Second Hand Smoke Exposure: No Advance Directives: No Advance Directives Information Provided: Yes Do you have a plan to hurt others: No Plan service: No Current occupational status: retired Cognitive needs: No Hearing needs: No Vision needs: Yes Physical Exam ED Vital Signs: Vital Signs - 24 hr 10/12/23 13:09 Temperature 97.9 F Pulse Rate 66 Respiratory Rate 18 Blood Pressure 147/65 H Pulse Oximetry 98 Oxygen Delivery Method Room Air BMI result Body Mass Index 29.5 Const Other: Alert well in appearance Chest Other: Normal peripheral perfusion Resp Other: Nonlabored respiration Skin Other: No rash Neuro Other: Alert and oriented x3 Extrem Other: Strength 5/5 bilateral upper and lower extremities, walking with normal steady gait Psych Other: Calm cooperative Course Course Course Narrative: This is a rapid medical exam. Deferred additional HPI, ROS, PE to primary provider. 68yo male with history of gout, HTN, high cholesterol, DM here with elevated blood sugar (247) and concern for generalized weakness which he felt yesterday. Of note, patient is intermittently compliant with his metformin. It seems his primary concern for his ER visit today is this episode of weakness yesterday. Will obtain labs, EKG, CXR, UA, covid screen VSS Reevaluation(s) Reevaluation #1: Nancy Soto PA-C have accepted care of the patient had signed out pending urinalysis. Medical Decision Making Medical Decision Making MDM Narrative: 68-year-old male with history of diabetes presents with hypoglycemia. Patient noted his blood sugar was 247 at home and he felt weak. Denies recent medication changes, cough cold symptoms some, fever, dysuria, nausea or vomiting. Problem: Diabetes History: Per patient I have considered the following differential diagnoses: Hyperglycemia, HHS, DKA, UTI, other infection Plan: Patient is assessment was initiated and [employer], screening labs obtained and are overall unremarkable. He has not in DKA. UA pending it is in process. I have independently reviewed the following tests: Labs: Urinalysis with no evidence of infection, no gap no other electrolyte abnormality, leukocytosis, not anemic Differential Diagnosis Differential Diagnoses: The differential diagnosis associated with the presentation includes Hyperglycemia, HHS, DKA, UTI, other infection Lab Data 10/12/23 13:27 10/12/23 13:27 Labs: Lab Results 10/12/23 10/12/23 Range/Units 13:27 15:59 WBC 6.0 (4.8-10.8) X10*3/uL RBC 5.36 (4.60-5.80) X10*6/uL Hgb 15.3 (14.0-18.0) g/dl Hct 45.9 (42.0-52.0) % MCV 85.6 (80.0-98.0) fL MCH 28.5 (27.0-33.0) pg MCHC 33.3 (31.0-36.0) g/dl RDW 13.7 (11.0-16.0) % Plt Count 308 (160-400) X10*3/uL MPV 10.7 (9.4-12.4) fL Immature Gran % (Auto) 0.2 (0.0-0.4) % Neut % (Auto) 62.2 (45-73) % Lymph % (Auto) 29.0 (20-40) % [place] % (Auto) 6.2 (2-11) % Eos % (Auto) 1.7 (0-4) % Baso % (Auto) 0.7 (0-2) % Lymph # (Auto) 1.7 (1.2-4.9) X10*3/uL [place] # (Auto) 0.4 (0.1-1.2) X10*3/uL Eos # (Auto) 0.1 (0.0-0.4) X10*3/uL Baso # (Auto) 0.0 (0.0-0.2) X10*3/uL Abs Immat Gran (auto) 0.01 (0.00-0.03) X10*3/uL Absolute Neuts (auto) 3.7 (2.0-8.3) x10*3/uL Absolute Nucleated RBC 0.000 (0.0-0.012) X10*3/uL Nucleated RBC % (auto) 0.0 (0.0-0.2) /100WBC PT 12.4 (11.1-13.3) SEC INR 1.0 (0.9-1.1) Sodium 141 (135-145) mmol/L Potassium 3.7 (3.3-5.1) mmol/L Chloride 107 (96-108) mmol/L Carbon Dioxide 26 (22-29) mmol/L Anion Gap 12 (12-20) BUN 21 H (9-16) mg/dL Creatinine 1.00 (0.5-1.4) mg/dL Estim Creat Clear Calc 69.4 Estimated GFR > 60 Random Glucose 85 (60-115) mg/dL Calcium 9.6 D (8.4-10.2) mg/dL Magnesium 2.0 (1.6-2.6) mg/dL Total Bilirubin 0.9 (0.0-1.0) mg/dL Direct Bilirubin 0.3 (0.0-0.5) mg/dL AST 15 (5-37) U/L ALT 16 (0-40) U/L Alkaline Phosphatase 70 (39-117) U/L Troponin I High Sens < 2.7 (<3.5-35.0) ng/L Total Protein 7.3 (6.5-8.0) g/dL Albumin 4.1 (3.5-5.0) g/dL Urine Color Yellow Urine Appearance Clear Urine pH 5.5 (5.0-9.0) Ur Specific [place] 1.025 (1.005-1.025) Urine Protein 30 (1+) H (Neg-Trace) mg/dL Urine Glucose (UA) Negative (Negative) mg/dL Urine Ketones Negative (Negative) mg/dL Urine Blood Negative (Negative) Urine Nitrite Negative (Negative) Ur Leukocyte Esterase Negative (Negative) Urine RBC 0-2 (0-2) /HPF Urine WBC 0-5 (0-5) /HPF Ur Squamous Epith Cells 0-2 (0-2) /HPF Urine Bacteria None Seen (None Seen) Hyaline Casts 0-2 (0-2) /LPF COVID-19 ([facility]) Negative (Negative) COVID-19 Clin Com See Note Discharge Plan Discharge Clinical Impression: Acute hyperglycemia Patient Disposition: Home, Self-Care Instructions: Diabetic Hyperglycemia (ED) Additional Instructions: You do not have any lab abnormalities, in particular electrolyte abnormalities associated with your elevated blood sugar. Your blood sugar decreased with treatment. Your urine is not infected. Follow up with your primary care provider as needed Prescriptions: No Action lisinopril 40 mg tablet 40 mg PO BID Qty: 180 2RF naproxen 500 mg tablet 500 mg PO BID PRN (Reason: pain) 7 Days Qty: 20 0RF metoclopramide HCl [Reglan] 10 mg tablet 10 mg PO Q6H PRN (Reason: nausea and vomiting) Qty: 14 0RF amlodipine 5 mg tablet 5 mg PO DAILY 90 Days Qty: 90 0RF hydrochlorothiazide 25 mg tablet 25 mg PO DAILY Qty: 90 1RF atorvastatin 10 mg tablet 10 mg PO DAILY Qty: 90 2RF metformin 500 mg tablet extended release 24 hr 500 mg PO DAILY Qty: 90 2RF cholecalciferol (vitamin D3) 50 mcg (2,000 unit) capsule 50 mcg PO DAILY 90 Days Qty: 90 3RF mometasone 0.1 % cream 1 appl topical DAILY PRN (Reason: skin irritation) Qty: 45 1RF Print Language: Hebrew
[2023-10-12 13:09] VITALS: BP 147/65; PULSE 66; RESP 18; TEMP 36.6; O2SAT 98; BMI 29.5
--- NOTE | 2023-10-12 13:13 | ECG_ITS ---
Test Reason : WEAKNESS Blood Pressure : / mmHG Vent. Rate : 063 BPM Atrial Rate : 063 BPM P-R Int : 150 ms QRS Dur : 080 ms QT Int : 402 ms P-R-T Axes : 059 -21 014 degrees QTc Int : 411 ms Normal sinus rhythm Normal ECG When compared with ECG of 10-MAR-2020 00:08, No significant change was found Referred By: Cindy Henry Electronically Signed By:OLIVIA ENG
[2023-10-12 13:44] LABS: MANUAL DIFF FLAG NO
[2023-10-12 13:45] LABS: Basophils Percent Auto 0.7 % (0-2); Eosinophils Absolute Auto 0.1 X10*3/uL (0.0-0.4); Eosinophils Percent Auto 1.7 % (0-4); Hematocrit 45.9 % (42.0-52.0); Hemoglobin 15.3 g/dl (14.0-18.0); Imm Gran Abs Auto 0.01 X10*3/uL (0.00-0.03); Imm Gran Pct Auto 0.2 % (0.0-0.4); Lymphocytes Absolute Auto 1.7 X10*3/uL (1.2-4.9); Mean Corpuscular HGB Conc 33.3 g/dl (31.0-36.0); Mean Corpuscular Hemoglobin 28.5 pg (27.0-33.0); Mean Corpuscular Volume 85.6 fL (80.0-98.0); Mean Platelet Volume 10.7 fL (9.4-12.4); Monocytes Absolute Auto 0.4 X10*3/uL (0.1-1.2); Monocytes Percent Auto 6.2 % (2-11); Neutrophils Absolute Auto 3.7 x10*3/uL (2.0-8.3); Neutrophils Percent Auto 62.2 % (45-73); Platelet Count 308 X10*3/uL (160-400); Red Blood Count 5.36 X10*6/uL (4.60-5.80); Red Cell Distribution Width 13.7 % (11.0-16.0)
[2023-10-12 13:51] LABS: Prothrombin Time 12.4 SEC (11.1-13.3)
[2023-10-12 13:59] LABS: Alanine Aminotransferase 16 U/L (0-40); Albumin Level 4.1 g/dL (3.5-5.0); Alkaline Phosphatase 70 U/L (39-117); Anion Gap 12 (12-20); Aspartate Amino Transferase 15 U/L (5-37); Bilirubin Direct 0.3 mg/dL (0.0-0.5); Bilirubin Total 0.9 mg/dL (0.0-1.0); Blood Urea Nitrogen 21 mg/dL (9-16); Calcium 9.6 mg/dL (8.4-10.2); Carbon Dioxide 26 mmol/L (22-29); Chloride 107 mmol/L (96-108); Creatinine Clr Calc Pharmacy 69.4; Estimated Glomerular Filt Rate > 60; Glucose Random 85 mg/dL (60-115); Potassium 3.7 mmol/L (3.3-5.1); Sodium 141 mmol/L (135-145); Total Protein 7.3 g/dL (6.5-8.0)
[2023-10-12 14:02] LABS: COVID-19 Test Negative (Negative); IDNOW Serial# 6674DD1D
[2023-10-12 14:08] LABS: Troponin-I High Sensitivity < 2.7 ng/L (<3.5-35.0)
[2023-10-12 16:17] LABS: Appearance Urine Clear; Color Urine Yellow; Glucose Urine UA Negative (Negative); Leukocyte Esterase Urine Negative (Negative); Nitrite Urine Negative (Negative); PH 5.5 (5.0-9.0); Specific Gravity - Urine 1.025 (1.005-1.025); UMIC TRIGGER UACC YES; Urine Blood Negative (Negative); Urine Ketones Negative (Negative); Urine Protein 30 (1+) mg/dL (Neg-Trace)
[2023-10-12 16:20] LABS: Bacteria Urine None Seen (None Seen); Hyaline Casts Urine 0-2 /LPF (0-2); RBC Urine 0-2 /HPF (0-2); Squamous Epithelial Cell Urine 0-2 /HPF (0-2); WBC Urine 0-5 /HPF (0-5)
[2023-10-12 17:19] VITALS: BP 151/69; PULSE 95; RESP 16; TEMP 36.6; O2SAT 99
== END 2023-10-12 17:20 | disposition home or self-care (01) ==
PROVIDERS: Nurse Practitioner Family; Emergency Provider Emergency Medicine; PCP Internal Medicine
DX: E11.65 Type 2 diabetes mellitus with hyperglycemia (principal); R53.1 Weakness; I10 Essential (primary) hypertension; Z79.899 Other long term (current) drug therapy; Z11.52 Encounter for screening for COVID-19; Z51.81 Encounter for therapeutic drug level monitoring
CPT/HCPCS: 51701; 71046; 80048; 80076; 81001; 83735; 84484; 85025; 85610; 87635; 93005; 99283

== ENCOUNTER → 2023-10-12 13:13 | Outpatient (BNV) | payer MEDICARE, SELFPAY | PROVIDERS: Emergency Provider Emergency Medicine; PCP Internal Medicine; Visit Provider Internal Medicine | DX: R53.1 Weakness (principal) | CPT/HCPCS: 93010 ==

== ENCOUNTER 2023-11-16 14:00 | Emergency (ER) | payer MEDICARE, SELFPAY ==
--- NOTE | ~2023-11-16 | CT_ITS ---
CT HEAD AND CERVICAL SPINE WITHOUT CONTRAST HISTORY: Trauma TECHNIQUE: Contiguous axial imaging was performed from the skull base to vertex without intravenous contrast. Sagittal and coronal reformatted images were obtained. CT images of the cervical spine were acquired without intravenous contrast. This CT examination was performed using dose optimization techniques as appropriate, variously including the following: *Automated exposure control *Adjustment of mA and/or kV according to patient size (this includes techniques or standardized protocols for targeted exams where dose is matched to indication/reason for exam; i.e. extremities or head) *Use of iterative reconstruction technique DLP: 1198 mGy-cm COMPARISON: None available. FINDINGS: CT HEAD: The ventricles and sulci are normal in size and configuration without significant volume loss or hydrocephalus. There is no abnormal attenuation within the brain parenchyma. No territorial loss of henderson-white differentiation. No acute intracranial hemorrhage or extra-axial fluid collection. No mass lesion, significant mass effect, or herniation pattern. The orbits are grossly normal. Paranasal sinuses and mastoid air cells are well aerated. Osseous structures are intact. CT CERVICAL SPINE: No prevertebral soft tissue swelling. The craniocervical junction is intact. The vertebral body heights are normal. No acute fracture or traumatic subluxation. Please note that CT is insensitive for evaluating spinal canal patency without intrathecal contrast. Mild multilevel cervical spondylosis without significant spinal canal stenosis. Uncovertebral and facet joint hypertrophy contribute to varying degrees of neural foraminal narrowing. Normal appearance of the paraspinal soft tissues. Visualized lung apices are clear. Normal appearance of the thyroid gland. Calcific plaque at the bilateral carotid bifurcations. Coarsely calcified right palatine tonsillolith. CT/CT cervical spine wo IV con IMPRESSION: 1. No CT evidence of acute intracranial injury. 2. No evidence of acute traumatic injury in the cervical spine.
[2023-11-16 14:04] VITALS: BP 135/90; PULSE 78; RESP 17; TEMP 36.9; O2SAT 96; BMI 29.6
--- NOTE | 2023-11-16 14:18 | ED_ITS ---
HPI - General Adult General Chief complaint: Neck Pain/Injury Stated complaint: headache, neck pain Time Seen by Provider: 11/16/23 14:03 Source: patient Mode of arrival: ambulatory Limitations: no limitations History of Present Illness ED Provider: Tanika Holland PA-C HPI narrative: Patient is a 68 year old assigned male at with a history of HTN and DM presenting to the emergency department today with right sided neck pain. Patient states that he started having pain after he was placing an AC unit. Patient states that it is painful for him to move his neck to the right at all. Patient denies any dizziness, lightheadedness, abdominal pain, nausea, vomiting, fever, chills, blurry vision, double vision, loss of vision, chest pain, difficulty breathing, shortness of breath, back pain, night sweats, pain with urination, increased urinary frequency, increased urinary urgency, blood in his urine or stool, syncope or a near syncopal episode, bowel incontinence, bladder incontinence, or any other complaints at this time. Onset (ago): day(s) (1) Location: head, neck and right Severity: mild Severity scale (1-10): 4 Quality: aching and dull Pain Consistency: constant Relieving factors: none Exacerbating factors: movement Associated symptoms: denies other symptoms Treatments prior to arrival: none Related Data Previous Rx's ?Medication ?Instructions ?Recorded cholecalciferol (vitamin D3) 50 50 mcg PO DAILY 90 days #90 caps 05/03/22 mcg (2,000 unit) capsule metoclopramide HCl 10 mg tablet 10 mg PO Q6H PRN nausea and 06/06/22 (Reglan) vomiting #14 tabs naproxen 500 mg tablet 500 mg PO BID PRN pain 7 days #20 06/06/22 tabs mometasone 0.1 % topical cream 1 appl topical DAILY PRN skin 09/02/22 irritation #45 grams amlodipine 5 mg tablet 5 mg PO DAILY 90 days #90 tabs 11/28/22 hydrochlorothiazide 25 mg tablet 25 mg PO DAILY #90 tabs 11/28/22 atorvastatin 10 mg tablet 10 mg PO DAILY #90 tabs 07/28/23 metformin 500 mg tablet,extended 500 mg PO DAILY #90 tabs 07/29/23 release 24 hr nirmatrelvir 300 mg (150 mg See Rx Instructions PO .COMPLEX 10/24/23 x2)-ritonavir 100 mg tablet,dose #30 ea pack (Paxlovid) lisinopril 40 mg tablet 40 mg PO BID #180 tabs 11/11/23 cyclobenzaprine 5 mg tablet 5 mg PO TID PRN muscle spasm 7 11/16/23 days #21 tabs Allergies Allergy/AdvReac Type Severity Reaction Status Date / Time No Known Allergies Allergy Mild NKA Verified 11/16/23 14:15 Review of Systems 2 Constitutional: Constitutional: Reports no additional constitutional complaints, Denies chills, Denies fever(s), Reports headache(s) and Denies night sweats Eyes: Eyes: Reports no additional eye complaints, Denies blurry vision, Denies change in vision, Denies diplopia, Denies eye discharge, Denies loss of vision and Denies eye pain ENT: Denies dizziness, Reports headache(s) and Reports neck pain Cardiovascular: Cardiovascular: Reports no additional cardiovascular complaints, Denies chest pain, Denies lightheadedness, Denies Loss of Consciousness and Denies dyspnea Respiratory: Respiratory: Reports no additional respiratory complaints and Denies dyspnea Gastrointestinal: Gastrointestinal: Reports no additional gastrointestinal complaints, Denies abdominal pain, Denies melena, Denies hematochezia, Denies change in bowel habits and Denies change in stool character Genitourinary: Genitourinary: Reports no additional male genitourinary complaints, Denies hematuria, Denies oliguria, Denies difficulty urinating, Denies dysuria, Denies urinary frequency, Denies urinary hesitancy, Denies urinary incontinence and Denies urinary urgency Musculoskeletal: Musculoskeletal: Reports no additional musculoskeletal complaints, Reports neck pain, Denies numbness and Denies tingling Neurologic: Denies dizziness, Reports headache(s), Denies loss of vision, Denies numbness and Denies tingling Psychiatric: Psychiatric: Reports no additional psychiatric complaints Endocrine: Endocrine: Reports no additional endocrine complaints Hematologic/Lymphatic: Hematologic/Lymphatic: Reports no additional hematologic/lymphatic complaints Allergic/Immunologic: Allergic/Immunologic: Reports no additional allergic/immunologic complaints [facility] Past Medical History Attestation statement: The following information was validated with the patient. Source: old records reviewed and nursing notes reviewed Medical History Vitamin D deficiency Overweight (BMI 25.0-29.9) Psoriasis Obstructive sleep apnea Pure hypercholesterolemia Benign essential hypertension Type 2 diabetes mellitus without complication, without long-term current use of insulin Surgical History History of open reduction and internal fixation (ORIF) procedure History of colonoscopy Family History Family History Father Medical history unknown Mother Medical history unknown Social History Social History Housing: Apartment Unable to assess alcohol history related to: Unknown Alcohol intake: never Patient Tobacco Use Status: Never used Tobacco Smoked in Last 30 Days: No e-Cigarette/Vaping Use: Never Used Second Hand Smoke Exposure: No Use of substances other than those prescribed or required for medical reasons: Unknown Advance Directives: Yes Advance Directives Information Provided: Yes Advance Directives on File: No Do you have a plan to hurt others: No Plan service: No Current occupational status: retired Cognitive needs: No Hearing needs: No Vision needs: Yes Physical Exam ED Vital Signs: Vital Signs - 24 hr 11/16/23 14:04 11/16/23 16:00 11/16/23 19:20 Temperature 98.4 F 98.1 F 98.1 F Pulse Rate 78 63 63 Respiratory Rate 17 18 Blood Pressure 135/90 H 141/76 H 141/76 H Pulse Oximetry 96 98 98 Oxygen Delivery Method Room Air Room Air Room Air BMI result Body Mass Index 29.6 Const General: cooperative, no acute distress, alert and awake Nutritional Appearance: well nourished Orientation/consciousness: patient oriented x3 Limitations: no limitations [facility] Head: Yes normal to inspection and Yes atraumatic Ears: hearing grossly normal bilaterally and external ears normal General nose exam: Normal external nose present, no nasal discharge noted and no epistaxis Face and sinus: Yes normal facial exam, No abrasion and No laceration Mouth: Normal oral and palatal mucosa present, no drooling and no muffled voice Eyes General: appearance normal, both eyes and all related structures Periorbital: periorbital findings normal Eyelids: Yes eyelids normal Conjunctivae: conjunctivae normal Pupils: Equal, round and reactive pupils present EOM: EOMs intact bilaterally Neck Neck: Yes normal visual inspection, Yes full ROM and Yes no lymphadenopathy Chest Chest palpation & inspection: normal inspection of the chest Resp Effort & Inspection: normal respiratory effort and able to speak in complete sentences GI Inspection: Yes normal to inspection Neuro General: patient oriented x3 and moves all extremities Cranial nerves: Yes Equal, round and reactive pupils present Cognition (Neuro): normal cognition Extrem General: Yes normal to inspection, Yes full ROM and Yes capillary refill normal Psych Appearance: grossly normal Mental Status: mental status grossly normal Affect: normal affect Attitude: cooperative Thought process: Normal thought process present Thought content: Normal thought content present Insight: Good insight present (Psych) Course Course Course Narrative: RME: done by ROYA Glass. 68 yold male presents to the ED for right posterior neck pain that is worse on movement, and openin jaw. patient states headache from right posterior headache. patient states no recent trauma. NIS score 0. positive right posterior neck tenderness on palpation. images ordered Medications Administered Discontinued Medications Generic Name Dose Route Start Last Admin Trade Name Freq PRN Reason Stop Dose Admin Cyclobenzaprine HCl 10 mg 11/16/23 16:17 11/16/23 16:41 Cyclobenzaprine Hcl 10 Mg Tablet PO 11/16/23 16:18 10 mg ONCE ONE Administration Ketorolac Tromethamine 15 mg 11/16/23 16:17 11/16/23 16:41 Ketorolac Tromethamine 15 Mg/Ml Vial IM 11/16/23 16:18 15 mg ONCE ONE Administration Medical Decision Making Medical Decision Making [facility] Narrative: Patient is a 68 year old assigned male at with a history of HTN and DM presenting to the emergency department today with right sided neck pain and headache. Patient's physical exam was unremarkable. Patient's blood work was unremarkable. Patient's head and c-spine CTs showed no acute process. I explained my physical exam findings as well as all test results to the patient. I answered all questions asked by the patient. I stressed the importance of the patient taking his medication as directed (either prescribed or as the over the counter packaging recommends). I stressed the importance of the patient following up with his primary care provider. I stressed the importance of the patient returning to the emergency department immediately if his symptoms were to worsen or if he were to develop any dizziness, shortness of breath, difficulty breathing, chest pain, blurry vision, loss of vision, nausea, vomiting, abdominal pain, fever, chills, back pain, or any other complaints. Patient verbalized agreement and understanding with this treatment plan and discharge. Differential Diagnosis Differential Diagnoses: The differential diagnosis associated with the presentation includes Cervical strain Muscle spasm Admission/Observation Consideration of admission/observation: Escalation of care including admission/observation considered Patient would have been admitted to the hospital had his work up had any findings where hospital admission was appropriate and his clinical presentation warranted hospital admission. Lab Data [facility] Lab Attestation statement: I reviewed the patient's lab results. My interpretation of these results are in the [facility] Rationale portion of this note. 11/16/23 14:50 11/16/23 14:50 Labs: Lab Results 11/16/23 Range/Units 14:50 WBC 9.9 (4.8-10.8) X10*3/uL RBC 5.24 (4.60-5.80) X10*6/uL Hgb 14.9 (14.0-18.0) g/dl Hct 44.3 (42.0-52.0) % MCV 84.5 (80.0-98.0) fL MCH 28.4 (27.0-33.0) pg MCHC 33.6 (31.0-36.0) g/dl RDW 13.8 (11.0-16.0) % Plt Count 290 (160-400) X10*3/uL MPV 10.4 (9.4-12.4) fL Immature Gran % (Auto) 0.2 (0.0-0.4) % Neut % (Auto) 72.4 (45-73) % Lymph % (Auto) 18.8 L (20-40) % Weston % (Auto) 6.5 (2-11) % Eos % (Auto) 1.6 (0-4) % Baso % (Auto) 0.5 (0-2) % Lymph # (Auto) 1.9 (1.2-4.9) X10*3/uL Weston # (Auto) 0.7 (0.1-1.2) X10*3/uL Eos # (Auto) 0.2 (0.0-0.4) X10*3/uL Baso # (Auto) 0.1 (0.0-0.2) X10*3/uL Abs Immat Gran (auto) 0.02 (0.00-0.03) X10*3/uL Absolute Neuts (auto) 7.2 (2.0-8.3) x10*3/uL Absolute Nucleated RBC 0.000 (0.0-0.012) X10*3/uL Nucleated RBC % (auto) 0.0 (0.0-0.2) /100WBC ESR 2 (0-15) MM/HR Sodium 137 (135-145) mmol/L Potassium 3.9 (3.3-5.1) mmol/L Chloride 104 (96-108) mmol/L Carbon Dioxide 23 (22-29) mmol/L Anion Gap 14 (12-20) BUN 20 H (9-16) mg/dL Creatinine 1.01 (0.5-1.4) mg/dL Estim Creat Clear Calc 68.8 Estimated GFR > 60 Random Glucose 155 H (60-115) mg/dL Calcium 9.4 (8.4-10.2) mg/dL Magnesium 1.8 (1.6-2.6) mg/dL Total Bilirubin 0.5 (0.0-1.0) mg/dL AST 16 (5-37) U/L ALT 19 (0-40) U/L Alkaline Phosphatase 72 (39-117) U/L Troponin I High Sens < 2.7 (<3.5-35.0) ng/L C-Reactive Protein 0.15 (< or = 0.50) mg/dL Total Protein 7.4 (6.5-8.0) g/dL Albumin 3.9 (3.5-5.0) g/dL Independent Interpretation I performed an independent interpretation of an: EKG and CT Scan Interpretation: My interpretation is in agreement with the radiologist's impression of these imaging studies. - CT HEAD AND CERVICAL SPINE WITHOUT CONTRAST HISTORY: Trauma TECHNIQUE: Contiguous axial imaging was performed from the skull base to vertex without intravenous contrast. Sagittal and coronal reformatted images were obtained. CT images of the cervical spine were acquired without intravenous contrast. This CT examination was performed using dose optimization techniques as appropriate, variously including the following: *Automated exposure control *Adjustment of mA and/or kV according to patient size (this includes techniques or standardized protocols for targeted exams where dose is matched to indication/reason for exam; i.e. extremities or head) *Use of iterative reconstruction technique DLP: 1198 mGy-cm COMPARISON: None available. FINDINGS: CT HEAD: The ventricles and sulci are normal in size and configuration without significant volume loss or hydrocephalus. There is no abnormal attenuation within the brain parenchyma. No territorial loss of henderson-white differentiation. No acute intracranial hemorrhage or extra-axial fluid collection. No mass lesion, significant mass effect, or herniation pattern. The orbits are grossly normal. Paranasal sinuses and mastoid air cells are well aerated. Osseous structures are intact. CT CERVICAL SPINE: No prevertebral soft tissue swelling. The craniocervical junction is intact. The vertebral body heights are normal. No acute fracture or traumatic subluxation. Please note that CT is insensitive for evaluating spinal canal patency without intrathecal contrast. Mild multilevel cervical spondylosis without significant spinal canal stenosis. Uncovertebral and facet joint hypertrophy contribute to varying degrees of neural foraminal narrowing. Normal appearance of the paraspinal soft tissues. Visualized lung apices are clear. Normal appearance of the thyroid gland. Calcific plaque at the bilateral carotid bifurcations. Coarsely calcified right palatine tonsillolith. CT/CT head/brain wo IV con IMPRESSION: 1. No CT evidence of acute intracranial injury. 2. No evidence of acute traumatic injury in the cervical spine. Dictated By: Tess Rico Signed By: Electronically signed by Tess Rico 11/16/23 1817 - Vent. Rate: 056 BPM Atrial Rate: 056 BPM P-R Int: 162 ms QRS Dur: 086 ms QT Int: 430 ms P-R-T Axes: 064 -19 006 degrees QTc Int: 414 ms Sinus bradycardia Otherwise normal ECG When compared with ECG of 12-OCT-2023 13:18, No significant change was found DD/ 1644 Radiology Impression Discussion of test interpretation with radiology: I have reviewed the radiologist's reading. Prescription Management I considered prescription management with: Pain Medication (patient prescribed pain medication.) Chronic Conditions Patient?s care impacted by: Diabetes and Hypertension Discharge Plan Discharge Clinical Impression: Muscle spasm Patient Disposition: Home, Self-Care Instructions: Muscle Spasm (ED) Additional Instructions: Follow up with your primary care provider. Return to the emergency department immediately if your symptoms worsen or if you develop any dizziness, shortness of breath, difficulty breathing, chest pain, blurry vision, loss of vision, nausea, vomiting, abdominal pain, fever, chills, back pain, or any other complaints. Prescriptions: New cyclobenzaprine 5 mg tablet 5 mg PO TID PRN (Reason: muscle spasm) 7 Days Qty: 21 0RF No Action naproxen 500 mg tablet 500 mg PO BID PRN (Reason: pain) 7 Days Qty: 20 0RF metoclopramide HCl [Reglan] 10 mg tablet 10 mg PO Q6H PRN (Reason: nausea and vomiting) Qty: 14 0RF amlodipine 5 mg tablet 5 mg PO DAILY 90 Days Qty: 90 0RF hydrochlorothiazide 25 mg tablet 25 mg PO DAILY Qty: 90 1RF atorvastatin 10 mg tablet 10 mg PO DAILY Qty: 90 2RF metformin 500 mg tablet extended release 24 hr 500 mg PO DAILY Qty: 90 2RF Paxlovid 300 mg (150 mg x 2)-100 mg tablets,dose pack See Rx Instructions PO .COMPLEX Qty: 30 0RF Rx Instructions: take TWO 150 mg tablets of nirmatrelvir with ONE 100 mg tablet of ritonavir twice daily for 5 days PO lisinopril 40 mg tablet 40 mg PO BID Qty: 180 2RF cholecalciferol (vitamin D3) 50 mcg (2,000 unit) capsule 50 mcg PO DAILY 90 Days Qty: 90 3RF mometasone 0.1 % cream 1 appl topical DAILY PRN (Reason: skin irritation) Qty: 45 1RF Referrals: Lars Dubois MD [Primary Care Provider] - Interventions: ED Discharge Assessment Last Done: 11/16/23 19:20 Discharge Date/Time: 11/16/23 19:20 Print Language: Mongolian
[2023-11-16 15:00] LABS: MANUAL DIFF FLAG NO
[2023-11-16 15:01] LABS: Basophils Absolute Auto 0.1 X10*3/uL (0.0-0.2); Basophils Percent Auto 0.5 % (0-2); Eosinophils Absolute Auto 0.2 X10*3/uL (0.0-0.4); Eosinophils Percent Auto 1.6 % (0-4); Hematocrit 44.3 % (42.0-52.0); Hemoglobin 14.9 g/dl (14.0-18.0); Imm Gran Abs Auto 0.02 X10*3/uL (0.00-0.03); Imm Gran Pct Auto 0.2 % (0.0-0.4); Lymphocytes Absolute Auto 1.9 X10*3/uL (1.2-4.9); Lymphocytes Percent Auto 18.8 % (20-40); Mean Corpuscular HGB Conc 33.6 g/dl (31.0-36.0); Mean Corpuscular Hemoglobin 28.4 pg (27.0-33.0); Mean Corpuscular Volume 84.5 fL (80.0-98.0); Mean Platelet Volume 10.4 fL (9.4-12.4); Monocytes Absolute Auto 0.7 X10*3/uL (0.1-1.2); Monocytes Percent Auto 6.5 % (2-11); Neutrophils Absolute Auto 7.2 x10*3/uL (2.0-8.3); Neutrophils Percent Auto 72.4 % (45-73); Platelet Count 290 X10*3/uL (160-400); Red Blood Count 5.24 X10*6/uL (4.60-5.80); Red Cell Distribution Width 13.8 % (11.0-16.0); White Blood Count 9.9 X10*3/uL (4.8-10.8)
[2023-11-16 15:24] LABS: Alanine Aminotransferase 19 U/L (0-40); Albumin Level 3.9 g/dL (3.5-5.0); Alkaline Phosphatase 72 U/L (39-117); Anion Gap 14 (12-20); Aspartate Amino Transferase 16 U/L (5-37); Bilirubin Total 0.5 mg/dL (0.0-1.0); Blood Urea Nitrogen 20 mg/dL (9-16); C Reactive Protein 0.15 mg/dL (< or = 0.50); Calcium 9.4 mg/dL (8.4-10.2); Carbon Dioxide 23 mmol/L (22-29); Chloride 104 mmol/L (96-108); Creatinine Clr Calc Pharmacy 68.8; Estimated Glomerular Filt Rate > 60; Glucose Random 155 mg/dL (60-115); Magnesium 1.8 mg/dL (1.6-2.6); Potassium 3.9 mmol/L (3.3-5.1); Sodium 137 mmol/L (135-145); Total Protein 7.4 g/dL (6.5-8.0)
[2023-11-16 15:48] LABS: Erythrocyte Sedimentation Rate 2 MM/HR (0-15)
--- NOTE | 2023-11-16 15:59 | ECG_ITS ---
Test Reason : NECK PAIN Blood Pressure : / mmHG Vent. Rate : 056 BPM Atrial Rate : 056 BPM P-R Int : 162 ms QRS Dur : 086 ms QT Int : 430 ms P-R-T Axes : 064 -19 006 degrees QTc Int : 414 ms Sinus bradycardia Otherwise normal ECG When compared with ECG of 12-OCT-2023 13:18, No significant change was found Referred By: Tanika Holland Electronically Signed By:ALEX BEAVER MD
[2023-11-16 16:00] VITALS: BP 141/76; PULSE 63; TEMP 36.7; O2SAT 98
[2023-11-16 16:28] LABS: Troponin-I High Sensitivity < 2.7 ng/L (<3.5-35.0)
[2023-11-16] MEDS: Cyclobenzaprine HCl 10 MG TABLET PO (16:41)
[2023-11-16] MEDS: Ketorolac Tromethamine 15 MG/ML VIAL IM (16:41)
[2023-11-16 19:20] VITALS: BP 141/76; PULSE 63; RESP 18; TEMP 36.7; O2SAT 98
== END 2023-11-16 19:20 | disposition home or self-care (01) ==
PROVIDERS: Physician Assistant; Physician Assistant Medical; Emergency Provider Emergency Medicine Emergency Medical Services; PCP Internal Medicine
DX: M54.2 Cervicalgia (principal); R00.1 Bradycardia, unspecified; M62.838 Other muscle spasm; R51.9 Headache, unspecified; Z79.899 Other long term (current) drug therapy
CPT/HCPCS: 36415; 70450; 72125; 80053; 83735; 84484; 85025; 85652; 86140; 93005; 96372; 99284; 99285; J1885

== ENCOUNTER → 2023-11-16 15:59 | Outpatient (BNV) | payer MEDICARE, SELFPAY | PROVIDERS: Emergency Provider Emergency Medicine Emergency Medical Services; PCP Internal Medicine; Visit Provider Internal Medicine Cardiovascular Disease | DX: R00.1 Bradycardia, unspecified (principal) | CPT/HCPCS: 93010 ==

== ENCOUNTER 2024-01-16 10:53 | Outpatient (REF) | payer MEDICARE, SELFPAY ==
[2024-01-16 11:52] LABS: Appearance Urine Clear; Color Urine Yellow; Glucose Urine UA Negative (Negative); Leukocyte Esterase Urine Negative (Negative); Nitrite Urine Negative (Negative); PH 5.5 (5.0-9.0); Specific Gravity - Urine 1.025 (1.005-1.025); UMIC TRIGGER UACC YES; Urine Blood Negative (Negative); Urine Ketones Negative (Negative); Urine Protein 30 (1+) mg/dL (Neg-Trace)
[2024-01-16 11:55] LABS: Bacteria Urine None Seen (None Seen); Hyaline Casts Urine 0-2 /LPF (0-2); RBC Urine 0-2 /HPF (0-2); Squamous Epithelial Cell Urine 0-2 /HPF (0-2); WBC Urine 0-5 /HPF (0-5)
[2024-01-16 12:26] LABS: Estimated Average Glucose 117 mg/dL; Hemoglobin A1C 145.1507 umol/L; Hemoglobin A1c % 5.7 % (<6.0); Total Hemoglobin (HGBA1C) 3744.1805 umol/L
[2024-01-16 13:21] LABS: Anion Gap 9 (12-20)
[2024-01-16 13:25] LABS: Alanine Aminotransferase 17 U/L (0-40); Albumin Level 4.1 g/dL (3.5-5.0); Alkaline Phosphatase 65 U/L (39-117); Aspartate Amino Transferase 16 U/L (5-37); Bilirubin Total 0.6 mg/dL (0.0-1.0); Blood Urea Nitrogen 17 mg/dL (9-16); Calcium 9.2 mg/dL (8.4-10.2); Carbon Dioxide 27 mmol/L (22-29); Chloride 106 mmol/L (96-108); Estimated Glomerular Filt Rate > 60; Glucose Fasting 105 mg/dL (60-99); Lipase 20 U/L (8-78); Potassium 3.8 mmol/L (3.3-5.1); Sodium 138 mmol/L (135-145); Total Protein 7.6 g/dL (6.5-8.0)
== END 2024-01-16 10:54 | disposition home or self-care (01) ==
LOC: HO.LAB 10:53
PROVIDERS: PCP Internal Medicine; Visit Provider Internal Medicine
DX: E55.9 Vitamin D deficiency, unspecified (principal); E78.00 Pure hypercholesterolemia, unspecified; E11.9 Type 2 diabetes mellitus without complications; R10.9 Unspecified abdominal pain
CPT/HCPCS: 36415; 80053; 81001; 82306; 83036; 83690

== ENCOUNTER 2024-01-19 14:52 | Outpatient (AMB) | payer MEDICARE, SELFPAY ==
--- NOTE | 2024-01-19 14:55 | A.OFFPC_ITS ---
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 Accompanied by: Self / Same As Patient Allergies No Known Allergies Allergy (Mild, Verified 01/19/24 15:33) NKA Medication List - Last Reconciled 01/19/24 by Lars Dubois MD amlodipine 5 mg PO DAILY 90 days atorvastatin 10 mg PO DAILY cholecalciferol (vitamin D3) 50 mcg PO DAILY 90 days cyclobenzaprine 5 mg PO TID PRN 7 days hydrochlorothiazide 25 mg PO DAILY lisinopril 40 mg PO BID metformin ER 500 mg PO DAILY metoclopramide HCl (Reglan) 10 mg PO Q6H PRN mometasone 0.1% 1 appl topical DAILY PRN naproxen 500 mg PO BID PRN 7 days nirmatrelvir-ritonavir 300 mg (150 mg x 2)-100 mg (Paxlovid) take TWO 150 mg tablets of nirmatrelvir with ONE 100 mg tablet of ritonavir twice daily for 5 days PO Tobacco use date assessed: 01/19/24 Fall risk assessment: No Falls in past year Last assessed Fall Risk: 01/19/24 Dental Screening Dental Screen Date: 01/19/24 Did you have a dental visit in the last 12 months?: Yes Did you have a dental problem in the last 6 months where you did not have access to dental care?: No Was dental information given to patient?: Patient has dentist HPI hyperlipidemia, HTN, DM HPI Details Patient comes in today for his follow up visit States that he feels okay He denies any headaches or dizziness Denies any chest pains, no SOB No nausea/vomiting, no abdominal pain No change in bowel habits noted He had his follow up labs done a few days ago - to discuss his results [facility] Medical History Vitamin D deficiency Overweight (BMI 25.0-29.9) Psoriasis Obstructive sleep apnea Pure hypercholesterolemia Benign essential hypertension Type 2 diabetes mellitus without complication, without long-term current use of insulin Surgical History History of open reduction and internal fixation (ORIF) procedure History of colonoscopy Family History Father Medical history unknown Mother Medical history unknown Social History Housing: Apartment Unable to assess alcohol history related to: Unknown Alcohol intake: never Patient Tobacco Use Status: Never used Tobacco e-Cigarette/Vaping Use: Never Used Second Hand Smoke Exposure: No service: No Current occupational status: retired Cognitive needs: No Hearing needs: No Vision needs: Yes Questionnaire PHQ-9 Over the last 2 weeks, how often have you been bothered by any of the following problems? 1. Little interest or pleasure in doing things: not at all 2. Feeling down, depressed, or hopeless: not at all 3. Trouble falling or staying asleep, or sleeping too much: not at all 4. Feeling tired or having little energy: not at all 5. Poor appetite or overeating: not at all 6. Feeling bad about yourself - or that you are a failure or have let yourself or your family down: not at all 7. Trouble concentrating on things, such as reading the newspaper or watching television: not at all 8. Moving or speaking so slowly that other people could have noticed. Or the opposite - being so fidgety or restless that you have been moving around a lot more than usual: not at all 9. Thoughts that you would be better off or of hurting yourself in some way: not at all Total score: 0 Depression Screening Interpretation: Negative Depression Screening Done: Yes 89375 - PHQ-9 Billing: Yes Source: Developed by Drs. Vivek Yeager, Carmen May, Gildardo Aggarwal and colleagues, with an educational osvaldo from [employer]. Thrive Questionnaire Date Thrive assessed: 01/19/24 I am a: Patient What is your living situation today?: I have a steady place to live Within the past 12 months, did the food you bought not last and you didn't have the money to get more?: Never true Within the past 12 months, did you worry whether your food would run out before you got money to buy more?: Never true Do you have trouble paying for medicines?: No Do you have trouble getting transportation to medical appointments?: No Do you have trouble paying your heating and electricity bill?: No Do you have trouble taking care of your child, family member or friend?: No Do you have trouble with day-to-day activities such as bathing, preparing meals, shopping, managing finances, etc.?: No Are you currently unemployed and looking for a job?: No Are you interested in more education?: No Please select the resources that you would like help with: None Currently or been in a relationship where the following occur: No concerns reported THRIVE Score: 0 AUDIT C Alcohol Use Questionnaire (AUDIT-C) 1. How often do you have a drink containing alcohol?: Never 3. How often do you have six or more drinks on one occasion?: Never Total Score: 0 Score Reviewed/Action Taken: Yes JUVENTINO-7 AMB Questionnaire JUVENTINO-7 Date JUVENTINO - 7 assessed: 01/19/24 Feeling nervous, anxious, or on edge: 0 = Not at all Not being able to stop or control worryin = Not at all Worrying too much about different things: 0 = Not at all Trouble relaxin = Not at all Being so restless that it is hard to sit still: 0 = Not at all Becoming easily annoyed or irritable: 0 = Not at all Feeling afraid as if something awful might happen: 0 = Not at all Total JUVENTINO-7 score (0-4 normal; 5-9 mild; 10-14 moderate; 15-21 severe): 0 Source: Developed by Drs. Vivek Yeager, Carmen May, Gildardo Aggarwal and colleagues, with an educational osvaldo from [employer]. Review of Systems Const Denies chills, Denies fatigue, Denies fever(s) and Denies headache(s) ENT Denies dysphagia, Denies dizziness, Denies otalgia, Denies headache(s), Denies neck pain, Denies odynophagia and Denies sore throat Card Denies chest pain, Denies palpitations and Denies dyspnea Resp Denies chest congestion, Denies cough and Denies dyspnea GI Denies abdominal pain, Denies constipation, Denies dysphagia, Denies heartburn, Denies diarrhea, Denies nausea, Denies odynophagia and Denies vomiting Denies dysuria, Denies nocturia and Denies urinary frequency Musc Denies back pain, Denies arthralgias and Denies neck pain Skin/Breast Denies rash Neuro Denies dizziness and Denies headache(s) Endo Denies fatigue and Denies palpitations Physical exam (Primary Care) Vital Signs: Last Vital Signs Pulse 76 01/19/24 14:56 BP 132/80 01/19/24 14:56 Pulse Ox 98 01/19/24 14:56 Oxygen Delivery Method Room Air 01/19/24 14:56 BMI result Body Mass Index 30.1 Tobacco/Smoking Status: Tobacco use Status Tobacco use date assessed 01/19/24 01/19/24 15:03 Patient Tobacco Use Status Never used Tobacco 01/19/24 14:56 e-Cigarette/Vaping Use Never Used 01/19/24 14:56 PHQ-9: PHQ-9 Score PHQ-9: Total score 0 01/19/24 15:40 Depression Screening Interpretation: Negative Thrive Assessment: Date of Thrive Assessment Date Thrive assessed 01/19/24 01/19/24 15:03 Currently or been in a relationship where the following occur: No concerns reported Const General: no acute distress and alert HENMT Ears: TM's normal bilaterally and EAC's normal Throat: Yes posterior oropharynx normal and Yes tonsils normal (no TP congestion noted) Neck Neck: Yes no lymphadenopathy and Yes supple Thyroid: Thyroid normal Resp Auscultation: clear to auscultation bilaterally, no rales and no wheezes Cardio Rate: regular rate Rhythm: regular rhythm Heart sounds: no murmurs GI Palpation (GI): Soft to palpation and nontender Auscultation: normal bowel sounds General: Yes no CVA tenderness Back/Spine/Pelvis Back: no CVA tenderness Thoracic/Lumbar Spine: No lumbar spinal tenderness Skin Rashes: no rashes Extrem General: Yes no clubbing, cyanosis or edema Left lower extremity: knee Details: no tenderness Results Reviewed Results Reviewed: Laboratory Tests 01/16/24 01/16/24 11:11 11:14 Sodium 138 Potassium 3.8 Creatinine 0.95 Estimated GFR > 60 Fasting Glucose 105 H Hemoglobin A1c % 5.7 Calcium 9.2 AST 16 ALT 17 25-OH Vitamin D Total 31.0 Ur Specific [place] 1.025 Urine Protein 30 (1+) H Urine Glucose (UA) Negative Urine Blood Negative Urine Nitrite Negative Ur Leukocyte Esterase Negative Coding Level of Care Code Est Pt Level 4 (64207) Diagnoses Pure hypercholesterolemia E78.00 Type 2 diabetes mellitus without complication, without long-term current use of insulin E11.9 Benign essential hypertension I10 Obstructive sleep apnea G47.33 Psoriasis L40.9 Vitamin D deficiency E55.9 Overweight (BMI 25.0-29.9) E66.3 Assessment & Plan Assessment & Plan (1) Pure hypercholesterolemia: Code(s): E78.00 - Pure hypercholesterolemia, unspecified Category: Medical Plan: Results of his labs done a few days ago reviewed and discussed with patient Reinforced low cholesterol diet Continue Atorvastatin 10 mg QD Will recheck his labs and fasting lipids in 4 months for follow up (2) Type 2 diabetes mellitus without complication, without long-term current use of insulin: Code(s): E11.9 - Type 2 diabetes mellitus without complications Category: Medical Plan: His HgbA1c is unchanged from previous at 5.7% on his labs done a few days ago - goal is <7.0% Reinforced diabetic diet Continue Metformin ER 500 mg QD (3) Benign essential hypertension: Code(s): I10 - Essential (primary) hypertension Category: Medical Plan: Reinforced low sodium diet - goal is systolic BP of at least 130 mm or less Continue Lisinopril 40 mg QD and HCTZ 25 mg QD (4) Obstructive sleep apnea: Code(s): G47.33 - Obstructive sleep apnea (adult) (pediatric) Category: Medical Plan: Patient states that he is no longer using his CPAP device when sleeping at night and that he has not had any issues with sleeping or feels fatigued ever since he stopped using it a while back (5) Psoriasis: Code(s): L40.9 - Psoriasis, unspecified Category: Medical Plan: Continue Mometasone cream 0.1% QD PRN Follow-up with dermatology as scheduled (6) Vitamin D deficiency: Code(s): E55.9 - Vitamin D deficiency, unspecified Category: Medical Plan: Continue Vitamin D3 2000 units QD (7) Overweight (BMI 25.0-29.9): Code(s): E66.3 - Overweight Category: Medical Plan: Reinforced diet/exercise as tolerated/lose weight Plan Follow up in 4 months Orders: Orders Hemoglobin A1c 4 Months E11.9 - Type 2 diabetes mellitus without complications Comprehensive [place]. Panel Fast 4 Months E78.00 - Pure hypercholesterolemia, unspecified Vitamin B12 and Folate 4 Months E53.8 - Deficiency of other specified B group vitamins Microalbumin, Random (w Creat) 4 Months E11.9 - Type 2 diabetes mellitus without complications UA CC w/rflx Micro + Cult 4 Months R30.0 - Dysuria Lipid Panel 4 Months E78.00 - Pure hypercholesterolemia, unspecified Complete Blood Count Auto Diff 4 Months D64.9 - Anemia, unspecified Vitamin D 25-OH Total 4 Months E55.9 - Vitamin D deficiency, unspecified TSH reflex Free T4 4 Months E78.00 - Pure hypercholesterolemia, unspecified
[2024-01-19 14:56] VITALS: BP 132/80; PULSE 76; O2SAT 98; BMI 30.1
== END 2024-01-19 15:42 | disposition home or self-care (01) ==
PROVIDERS: PCP Internal Medicine; Visit Provider Internal Medicine
DX: E78.00 Pure hypercholesterolemia, unspecified (principal); E11.9 Type 2 diabetes mellitus without complications; I10 Essential (primary) hypertension; G47.33 Obstructive sleep apnea (adult) (pediatric); L40.9 Psoriasis, unspecified; E55.9 Vitamin D deficiency, unspecified; E66.3 Overweight

== ENCOUNTER → 2024-01-19 14:52 | Outpatient (BNVA) | payer MEDICARE, SELFPAY | PROVIDERS: PCP Internal Medicine; Visit Provider Internal Medicine | DX: E78.00 Pure hypercholesterolemia, unspecified (principal); E11.9 Type 2 diabetes mellitus without complications; I10 Essential (primary) hypertension; G47.33 Obstructive sleep apnea (adult) (pediatric); L40.9 Psoriasis, unspecified; E55.9 Vitamin D deficiency, unspecified; E66.3 Overweight | CPT/HCPCS: 99212 ==

== ENCOUNTER 2024-07-11 00:52 | Inpatient (IN) | payer MEDICARE, SELFPAY ==
[2024-07-11] VITALS (8 sets, daily range): BP systolic 92–139; BP diastolic 47–83; PULSE 61–136; RESP 14–22; TEMP 36.6–36.9; O2SAT 94–98; BMI 33.4
--- NOTE | 2024-07-11 | ECG_ITS ---
Test Reason : AFIB Blood Pressure : */* mmHG Vent. Rate : 61 BPM Atrial Rate : 61 BPM P-R Int : 158 ms QRS Dur : 88 ms QT Int : 440 ms P-R-T Axes : 63 -24 -15 degrees QTcB Int : 442 ms Normal sinus rhythm Normal ECG When compared with ECG of 11-Jul-2024 00:57, Sinus rhythm has replaced Atrial fibrillation Vent. rate has decreased by [address] no longer depressed in Lateral leads Inverted T waves have replaced nonspecific T wave abnormality in Inferior leads Referred By: Paulo Brandon Electronically Signed By: ALEX BEAVER MD
--- NOTE | ~2024-07-11 | XR_ITS ---
CLINICAL HISTORY: chest pain 1 view chest x-ray. Comparison: CR/VT/SR - XR CHEST 2V - 10/12/23 13:18 EDT Findings: The lungs appear clear. There is no consolidation, effusion, or pneumothorax. Cardiomediastinal silhouette is within normal limits. IMPRESSION: No acute cardiopulmonary abnormality. This document has been electronically signed by: Elliot Cifuentes MD on 07/11/2024 01:48:08
--- NOTE | 2024-07-11 00:55 | ECG_ITS ---
Test Reason : CP Blood Pressure : */* mmHG Vent. Rate : 122 BPM Atrial Rate : * BPM P-R Int : * ms QRS Dur : 90 ms QT Int : 320 ms P-R-T Axes : * -30 67 degrees QTcB Int : 456 ms Atrial fibrillation with rapid ventricular response Left axis deviation Minimal voltage criteria for LVH, may be normal variant ( R in aVL ) Nonspecific ST abnormality Abnormal ECG When compared with ECG of 16-Nov-2023 16:44, Atrial fibrillation has replaced Sinus rhythm Vent. rate has increased by [address] now depressed in Lateral leads Referred By: Generic ED Physician Electronically Signed By: ALEX BEAVER MD
--- NOTE | 2024-07-11 01:10 | ED.CHESTPAIN ---
HPI - Chest Pain General Chief Complaint: Chest Pain Stated Complaint: chest pain Time Seen by Provider: 07/11/24 01:06 Source: patient and family (, jina) Mode of arrival: ambulatory Limitations: no limitations History of Present Illness ED Provider: Dr. Josue Contreras HPI narrative: 69-year-old male with a history of diabetes mellitus, hypertension, hyperlipidemia, psoriasis who presents emergency department for evaluation of palpitations, headache, right arm pain and chest pressure. Patient states that last week he did exercise on a treadmill. He states that today he exercised on the treadmill again but increase the speed. He states that he walked on the treadmill for proximally 10-15 minutes. He then ate some [place]ese food. Shortly after eating the [place]ese food he developed pressure in his chest with pain in his right shoulder. He also states he fell like in his heart was palpitating fluttering. He had a headache. He states that by the time he came to the emergency department his symptoms resolved. The patient was noted to be in atrial fibrillation with a RVR of 130-150. Patient states he was never had atrial fibrillation and this is 1st episode. Related Data Previous Rx's ?Medication ?Instructions ?Recorded cholecalciferol (vitamin D3) 50 50 mcg PO DAILY 90 days #90 caps 05/03/22 mcg (2,000 unit) capsule metoclopramide HCl 10 mg tablet 10 mg PO Q6H PRN nausea and 06/06/22 (Reglan) vomiting #14 tabs naproxen 500 mg tablet 500 mg PO BID PRN pain 7 days #20 06/06/22 tabs mometasone 0.1 % topical cream 1 appl topical DAILY PRN skin 09/02/22 irritation #45 grams amlodipine 5 mg tablet 5 mg PO DAILY 90 days #90 tabs 11/28/22 atorvastatin 10 mg tablet 10 mg PO DAILY #90 tabs 07/28/23 metformin 500 mg tablet,extended 500 mg PO DAILY #90 tabs 07/29/23 release 24 hr nirmatrelvir 300 mg (150 mg See Rx Instructions PO .COMPLEX 10/24/23 x2)-ritonavir 100 mg tablet,dose #30 ea pack (Paxlovid) lisinopril 40 mg tablet 40 mg PO BID #180 tabs 11/11/23 cyclobenzaprine 5 mg tablet 5 mg PO TID PRN muscle spasm 7 11/16/23 days #21 tabs hydrochlorothiazide 25 mg tablet 25 mg PO DAILY #90 tabs 02/06/24 Allergies Allergy/AdvReac Type Severity Reaction Status Date / Time No Known Allergies Allergy Mild NKA Verified 07/11/24 01:08 Review of Systems Review of Systems: Yes all other systems are reviewed and are negative [facility] Past Medical History [facility] Narrative: Social history: The patient denies tobacco use. He denies alcohol and drug use. Medical History Vitamin D deficiency Overweight (BMI 25.0-29.9) Psoriasis Obstructive sleep apnea Pure hypercholesterolemia Benign essential hypertension Type 2 diabetes mellitus without complication, without long-term current use of insulin Surgical History History of open reduction and internal fixation (ORIF) procedure History of colonoscopy Family History Family History Father Medical history unknown Mother Medical history unknown Social History Social History Housing: Apartment Unable to assess alcohol history related to: Unknown Alcohol intake: never Patient Tobacco Use Status: Never used Tobacco e-Cigarette/Vaping Use: Never Used Second Hand Smoke Exposure: No service: No Current occupational status: retired Cognitive needs: No Hearing needs: No Vision needs: Yes Physical Exam Vital Signs: Vital Signs: Last Vital Signs Temp 98.4 F 07/11/24 02:21 Pulse 96 07/11/24 02:21 Resp 20 07/11/24 02:21 BP 116/51 L 07/11/24 02:21 Pulse Ox 97 07/11/24 02:21 O2 Del Method Room Air 07/11/24 02:21 BMI result Body Mass Index 33.4 Vital signs revealed an elevated blood pressure of 139/83, elevated respiratory rate 22 and an elevated heart rate of 136 Exam: General: Awake, alert in no distress Head: Normocephalic, atraumatic EENT: PERRL, Lids normal, sclera normal, conjunctiva normal, nose normal , ears normal, throat without erythema or exudates Neck: Supple, no adenopathy Lung: breath sounds symmetric, no wheezing, rales or rhonchi Chest: symmetric movement, nontender Heart: Rapid rate with irregular irregular rhythm and rhythm, normal S1, S2 no murmurs or rubs Abdomen: soft, non-tender, nondistended, normal bowel sounds Back: no vertebral tenderness, no CVAT Extremities: no deformities, moves all extremities symmetrically Neuro: Awake, alert, oriented, normal speech, cranial nerves intact, moves all extremities symmetrically Psych: Pleasant, cooperative Medications Administered Discontinued Medications Generic Name Dose Route Start Last Admin Trade Name Stanley PRN Reason Stop Dose Admin Diltiazem HCl 20 mg 07/11/24 01:25 07/11/24 01:36 Diltiazem Hcl 50 Mg/10 Ml Vial IVPUSH 07/11/24 01:26 20 mg STAT STA Administration Medical Decision Making Medical Decision Making [facility] Narrative: 69-year-old male with a history of diabetes mellitus, hypertension, hyperlipidemia, psoriasis who presents emergency department for evaluation of palpitations, headache, right arm pain and chest pressure. Patient states that last week he did exercise on a treadmill. He states that today he exercised on the treadmill again but increase the speed. He states that he walked on the treadmill for proximally 10-15 minutes. He then ate some [place]ese food. Shortly after eating the [place] food he developed pressure in his chest with pain in his right shoulder. He also states he fell like in his heart was palpitating fluttering. He had a headache. He states that by the time he came to the emergency department his symptoms resolved. The patient was noted to be in atrial fibrillation with a RVR of 130-150. Patient states he was never had atrial fibrillation and this is 1st episode. Physical examination did reveal an elevated heart rate, respiratory rate and blood pressure. Heart exam is consistent with atrial fibrillation. differential diagnosis: ?Includes but is not limited to atrial fibrillation, atrial flutter, myocardial infarction, myocardial ischemia, electrolyte abnormalities Course: 03:24 My independent interpretation patient's laboratory evaluation he was as follows: CBC was normal. CMP was normal except for an elevated glucose of 197. First high sensitive troponin I was detectable but not elevated at 8.1. Repeat due was at 04:00 hours. PT/INR and PTT were normal. Patient was treated with diltiazem 20 mg IV with good rate control. The patient still remains in atrial fibrillation. Given that this is a 1st episode of atrial fibrillation for this patient, I did discuss admission with the covering hospitalist, Dr. Garner and he did accept the patient as an admission to the hospitalist service. He requested that a D-dimer be added to his blood work. 04:07 D-dimer was below detectable limits. Admission/Observation Consideration of admission/observation: Escalation of care including admission/observation considered (Yes) Consult Healthcare Provider Management of the patient was discussed with: Hospitalist (Dr. Garner) Lab Data MDM Lab Attestation statement: I reviewed the patient's lab results. 07/11/24 01:11 07/11/24 01:11 Labs: Lab Results 07/11/24 07/11/24 Range/Units 01:11 02:24 WBC 8.1 (4.8-10.8) X10*3/uL RBC 5.78 (4.60-5.80) X10*6/uL Hgb 16.4 (14.0-18.0) g/dl Hct 49.4 (42.0-52.0) % MCV 85.5 (80.0-98.0) fL MCH 28.4 (27.0-33.0) pg MCHC 33.2 (31.0-36.0) g/dl RDW 14.7 (11.0-16.0) % Plt Count 312 (160-400) X10*3/uL MPV 10.6 (9.4-12.4) fL Immature Gran % (Auto) 0.1 (0.0-0.4) % Neut % (Auto) 62.9 (45-73) % Lymph % (Auto) 28.8 (20-40) % [place] % (Auto) 5.1 (2-11) % Eos % (Auto) 2.5 (0-4) % Baso % (Auto) 0.6 (0-2) % Lymph # (Auto) 2.3 (1.2-4.9) X10*3/uL [place] # (Auto) 0.4 (0.1-1.2) X10*3/uL Eos # (Auto) 0.2 (0.0-0.4) X10*3/uL Baso # (Auto) 0.1 (0.0-0.2) X10*3/uL Abs Immat Gran (auto) 0.01 (0.00-0.03) X10*3/uL Absolute Neuts (auto) 5.1 (2.0-8.3) x10*3/uL Absolute Nucleated RBC 0.000 (0.0-0.012) X10*3/uL Nucleated RBC % (auto) 0.0 (0.0-0.2) /100WBC PT 11.2 (10.9-12.4) SEC INR 1.0 (0.9-1.1) APTT 32.7 (26.0-36.8) SEC D-Dimer High Sensitivty < 150 NG/ML Sodium 140 (135-145) mmol/L Potassium 3.5 (3.3-5.1) mmol/L Chloride 105 (96-108) mmol/L Carbon Dioxide 28 (22-29) mmol/L Anion Gap 11 L (12-20) BUN 18 H (9-16) mg/dL Creatinine 1.24 (0.5-1.4) mg/dL Estim Creat Clear Calc 58.6 Estimated GFR 57 Random Glucose 197 H (60-115) mg/dL Calcium 9.6 (8.4-10.2) mg/dL Total Bilirubin 0.6 (0.0-1.0) mg/dL Direct Bilirubin 0.2 (0.0-0.5) mg/dL AST 32 (5-37) U/L ALT 27 (0-40) U/L Alkaline Phosphatase 93 (39-117) U/L Troponin I High Sens 8.1 D (<3.5-35.0) ng/L Total Protein 7.9 (6.5-8.0) g/dL Albumin 4.1 (3.5-5.0) g/dL TSH 1.62 (0.32-4.0) uIU/mL Urine Color Yellow Urine Appearance Clear Urine pH 6.5 (5.0-9.0) Ur Specific [place] <= 1.005 (1.005-1.025) Urine Protein 30 (1+) H (Neg-Trace) mg/dL Urine Glucose (UA) 250 H (Negative) mg/dL Urine Ketones Negative (Negative) mg/dL Urine Blood Negative (Negative) Urine Nitrite Negative (Negative) Ur Leukocyte Esterase Negative (Negative) Urine RBC 0-2 (0-2) /HPF Urine WBC 0-5 (0-5) /HPF Ur Squamous Epith Cells 0-2 (0-2) /HPF Urine Bacteria None Seen (None Seen) Hyaline Casts 0-2 (0-2) /LPF Independent Interpretation I performed an independent interpretation of an: EKG and Plain X-Ray Interpretation: My independent interpretation patient's 12 EKG done on 07/11/2024 at 00:57 hours is as follows: Atrial fibrillation with a RVR of 122, no ST segment elevation, less than [address] segment depression V4 through V6, no significant T-wave abnormalities My independent interpretation patient's chest x-ray is as follows: No acute disease Radiology Impression Discussion of test interpretation with radiology: I have reviewed the radiologist's reading. Radiologist Impression: 1 view chest x-ray. Comparison: CR/AL/SR - XR CHEST 2V - 10/12/23 13:18 EDT Findings: The lungs appear clear. There is no consolidation, effusion, or pneumothorax. Cardiomediastinal silhouette is within normal limits. IMPRESSION: No acute cardiopulmonary abnormality. This document has been electronically signed by: Elliot Cifuentes MD on 07/11/2024 01:48:08 Independent Historian Clinical information obtained from an independent historian. History obtained from or confirmed by: Spouse Chronic Conditions Patient?s care impacted by: Diabetes, Hypertension and Other (Hyperlipidemia) Discharge Plan Discharge Clinical Impression: New onset atrial fibrillation, Chest pain, Atrial fibrillation with rapid ventricular response Patient Disposition: Admitted As Inpatient
[2024-07-11 01:17] LABS: MANUAL DIFF FLAG NO
[2024-07-11 01:18] LABS: Basophils Absolute Auto 0.1 X10*3/uL (0.0-0.2); Basophils Percent Auto 0.6 % (0-2); Eosinophils Absolute Auto 0.2 X10*3/uL (0.0-0.4); Eosinophils Percent Auto 2.5 % (0-4); Hematocrit 49.4 % (42.0-52.0); Hemoglobin 16.4 g/dl (14.0-18.0); Imm Gran Abs Auto 0.01 X10*3/uL (0.00-0.03); Imm Gran Pct Auto 0.1 % (0.0-0.4); Lymphocytes Absolute Auto 2.3 X10*3/uL (1.2-4.9); Lymphocytes Percent Auto 28.8 % (20-40); Mean Corpuscular HGB Conc 33.2 g/dl (31.0-36.0); Mean Corpuscular Hemoglobin 28.4 pg (27.0-33.0); Mean Corpuscular Volume 85.5 fL (80.0-98.0); Mean Platelet Volume 10.6 fL (9.4-12.4); Monocytes Absolute Auto 0.4 X10*3/uL (0.1-1.2); Monocytes Percent Auto 5.1 % (2-11); Neutrophils Absolute Auto 5.1 x10*3/uL (2.0-8.3); Neutrophils Percent Auto 62.9 % (45-73); Platelet Count 312 X10*3/uL (160-400); Red Blood Count 5.78 X10*6/uL (4.60-5.80); Red Cell Distribution Width 14.7 % (11.0-16.0); White Blood Count 8.1 X10*3/uL (4.8-10.8)
[2024-07-11 01:24] LABS: Prothrombin Time 11.2 SEC (10.9-12.4)
[2024-07-11 01:27] LABS: Partial Thromboplastin Time 32.7 SEC (26.0-36.8)
[2024-07-11 01:36] LABS: Alanine Aminotransferase 27 U/L (0-40); Albumin Level 4.1 g/dL (3.5-5.0); Anion Gap 11 (12-20); Aspartate Amino Transferase 32 U/L (5-37); Bilirubin Direct 0.2 mg/dL (0.0-0.5); Bilirubin Total 0.6 mg/dL (0.0-1.0); Blood Urea Nitrogen 18 mg/dL (9-16); Calcium 9.6 mg/dL (8.4-10.2); Carbon Dioxide 28 mmol/L (22-29); Chloride 105 mmol/L (96-108); Creatinine Clr Calc Pharmacy 58.6; Estimated Glomerular Filt Rate 57; Glucose Random 197 mg/dL (60-115); Potassium 3.5 mmol/L (3.3-5.1); Sodium 140 mmol/L (135-145); Total Protein 7.9 g/dL (6.5-8.0)
[2024-07-11] MEDS: dilTIAZem HCL 50 MG/10 ML VIAL 20 MG IVPUSH (01:36)
[2024-07-11 01:39] LABS: Troponin-I High Sensitivity 8.1 ng/L (<3.5-35.0)
[2024-07-11 02:26] LABS: Alkaline Phosphatase 93 U/L (39-117)
[2024-07-11 02:32] LABS: Appearance Urine Clear; Color Urine Yellow; Glucose Urine UA 250 mg/dL (Negative); Leukocyte Esterase Urine Negative (Negative); Nitrite Urine Negative (Negative); PH 6.5 (5.0-9.0); Specific Gravity - Urine <= 1.005 (1.005-1.025); UMIC TRIGGER UACC YES; Urine Blood Negative (Negative); Urine Ketones Negative (Negative); Urine Protein 30 (1+) mg/dL (Neg-Trace)
[2024-07-11 02:34] LABS: Bacteria Urine None Seen (None Seen); Hyaline Casts Urine 0-2 /LPF (0-2); RBC Urine 0-2 /HPF (0-2); Squamous Epithelial Cell Urine 0-2 /HPF (0-2); WBC Urine 0-5 /HPF (0-5)
[2024-07-11 02:34] LABS: Thyroid Stimulating Hormone 1.62 uIU/mL (0.32-4.0)
--- NOTE | 2024-07-11 03:32 | P.HPHOSP_ITS ---
History of Present Illness Date of Service: 07/11/24 Chief Complaint: Palpitations 69-year-old male with a past medical history of HTN, HLD, diabetes, obesity, arthritis, HELIO, psoriasis presented to the hospital today with a chief complaint of palpitations. Patient reported that he was on a new exercise program. Today after he had the exercise event and had [place]i food. Followed by he started develop palpitations. And also had chest pain located in the left side of the chest, nonradiating, no associated nausea vomiting or diaphoresis. Subsequently came to the ER for further evaluation. Denies any chest pain at the time of my interview. Patient denies any fever chills cough or sputum production. Denies any GI or symptoms. Review of all other systems is negative except mentioned above ER course: Per ER team, patient initially had heart rate in 130s to 160s in new onset AFib. Given diltiazem with improvement in heart rate to 80s. EKG nonischemic. Troponins negative. [facility] Medical History Vitamin D deficiency Overweight (BMI 25.0-29.9) Psoriasis Obstructive sleep apnea Pure hypercholesterolemia Benign essential hypertension Type 2 diabetes mellitus without complication, without long-term current use of insulin Family History Father Medical history unknown Mother Medical history unknown Surgical History History of open reduction and internal fixation (ORIF) procedure History of colonoscopy Social History Housing: Apartment Unable to assess alcohol history related to: Unknown Alcohol intake: never Patient Tobacco Use Status: Never used Tobacco Smoked in Last 30 Days: No e-Cigarette/Vaping Use: Never Used Second Hand Smoke Exposure: No Use of substances other than those prescribed or required for medical reasons: No Advance Directives: No Advance Directives Information Provided: Yes Nutrition Risks: No Nutritional Risk service: No Current occupational status: retired Cognitive needs: No Hearing needs: No Vision needs: Yes Meds Allergies Allergy/AdvReac Type Severity Reaction Status Date / Time No Known Allergies Allergy Mild NKA Verified 07/11/24 01:08 Physical Exam 2 Vital Signs and Narrative: Vital Signs: Last Vital Signs Temp 98.4 F 07/11/24 02:21 Pulse 96 07/11/24 02:21 Resp 20 07/11/24 02:21 BP 116/51 L 07/11/24 02:21 Pulse Ox 97 07/11/24 02:21 O2 Del Method Room Air 07/11/24 02:21 BMI result Body Mass Index 33.4 Gen: Appears be in no acute distress HEENT: NCAT, Moist mucosa. Pulmonary: Vesicular breath sounds, fair air entry CVS: Normal S1-S2 Abdomen: BS+, Soft, Nontender Extremities: Warm well perfused Neuro: Alert and awake. Results Labs 07/11/24 03:45 07/11/24 03:45 Labs: Laboratory Results - last 24 hr 07/11/24 07/11/24 01:11 02:24 MCV 85.5 MCH 28.4 MCHC 33.2 RDW 14.7 Plt Count 312 MPV 10.6 Immature Gran % (Auto) 0.1 Neut % (Auto) 62.9 Lymph % (Auto) 28.8 [place] % (Auto) 5.1 Eos % (Auto) 2.5 Baso % (Auto) 0.6 Lymph # (Auto) 2.3 [place] # (Auto) 0.4 Eos # (Auto) 0.2 Baso # (Auto) 0.1 Abs Immat Gran (auto) 0.01 Absolute Neuts (auto) 5.1 Absolute Nucleated RBC 0.000 Nucleated RBC % (auto) 0.0 PT 11.2 INR 1.0 APTT 32.7 Anion Gap 11 L Estim Creat Clear Calc 58.6 Estimated GFR 57 Random Glucose 197 H Calcium 9.6 Total Bilirubin 0.6 Direct Bilirubin 0.2 AST 32 ALT 27 Alkaline Phosphatase 93 Total Protein 7.9 Albumin 4.1 TSH 1.62 Urine Color Yellow Urine Appearance Clear Urine pH 6.5 Ur Specific [place] <= 1.005 Urine Protein 30 (1+) H Urine Glucose (UA) 250 H Urine Ketones Negative Urine Blood Negative Urine Nitrite Negative Ur Leukocyte Esterase Negative Urine RBC 0-2 Urine WBC 0-5 Ur Squamous Epith Cells 0-2 Urine Bacteria None Seen Hyaline Casts 0-2 Assessment and Plan (1) Atrial fibrillation with rapid ventricular response: Status: Acute Plan 69-year-old male with a past medical history of HTN, HLD, diabetes, obesity, arthritis, HELIO, psoriasis presented to the hospital today with a chief complaint of palpitations. Admitted for following Chest pain: New onset AFib: Patient currently chest pain-free. Patient initially in rapid ventricular response-improved after diltiazem TSH Telemetry Echocardiogram Cardiology consult Chads Vasc of 2-will defer to Cardiology in regards to anticoagulation. Patient converted back to normal sinus rhythm on telemetry Hypertension: Hold home amlodipine, lisinopril for now. Diabetes: Insulin sliding scale DVT prophylaxis: Lovenox Code status: Full code Quality Stroke Does the patient have a stroke diagnosis?: No VTE Prior VTE?: No VTE Risk Level:: Medical - moderate - high VTE Device Contraindication: Treatment Not Indicated VTE Drug Contraindication: N/A - Med Ordered
[2024-07-11 03:36] LABS: D Dimer High Sensitivity < 150 NG/ML
[2024-07-11 03:48] LABS: MANUAL DIFF FLAG NO
[2024-07-11 03:50] LABS: Basophils Absolute Auto 0.1 X10*3/uL (0.0-0.2); Basophils Percent Auto 0.7 % (0-2); Eosinophils Absolute Auto 0.2 X10*3/uL (0.0-0.4); Hematocrit 45.8 % (42.0-52.0); Hemoglobin 15.2 g/dl (14.0-18.0); Imm Gran Abs Auto 0.03 X10*3/uL (0.00-0.03); Imm Gran Pct Auto 0.3 % (0.0-0.4); Lymphocytes Absolute Auto 2.1 X10*3/uL (1.2-4.9); Lymphocytes Percent Auto 24.2 % (20-40); Mean Corpuscular HGB Conc 33.2 g/dl (31.0-36.0); Mean Corpuscular Hemoglobin 28.2 pg (27.0-33.0); Mean Platelet Volume 10.8 fL (9.4-12.4); Monocytes Absolute Auto 0.6 X10*3/uL (0.1-1.2); Monocytes Percent Auto 6.5 % (2-11); Neutrophils Absolute Auto 5.8 x10*3/uL (2.0-8.3); Neutrophils Percent Auto 66.3 % (45-73); Platelet Count 284 X10*3/uL (160-400); Red Blood Count 5.39 X10*6/uL (4.60-5.80); Red Cell Distribution Width 14.3 % (11.0-16.0); White Blood Count 8.7 X10*3/uL (4.8-10.8)
[2024-07-11 04:07] LABS: Alanine Aminotransferase 24 U/L (0-40); Albumin Level 3.7 g/dL (3.5-5.0); Alkaline Phosphatase 78 U/L (39-117); Anion Gap 11 (12-20); Aspartate Amino Transferase 22 U/L (5-37); Bilirubin Total 0.3 mg/dL (0.0-1.0); Blood Urea Nitrogen 20 mg/dL (9-16); Calcium 8.9 mg/dL (8.4-10.2); Carbon Dioxide 22 mmol/L (22-29); Chloride 109 mmol/L (96-108); Creatinine Clr Calc Pharmacy 66.7; Estimated Glomerular Filt Rate > 60; Glucose Random 138 mg/dL (60-115); Potassium 3.4 mmol/L (3.3-5.1); Sodium 139 mmol/L (135-145); Total Protein 6.6 g/dL (6.5-8.0)
[2024-07-11 04:12] LABS: Troponin-I High Sensitivity 14.3 ng/L (<3.5-35.0)
[2024-07-11] MEDS: Lactated Ringers 1,000 ML 100 ML IVCONT (04:17)
[2024-07-11] MEDS: Enoxaparin Sodium 40 MG/0.4 ML SYRINGE SUBCUT (04:18)
--- NOTE | 2024-07-11 06:31 | PC.NURSE ---
NSR on monitor. HR 65. pt ambulated to the bathroom with a steady gait at this time
[2024-07-11 06:32] LABS: Glucose, Whole Blood 100 mg/dL (60-115)
--- NOTE | 2024-07-11 07:24 | P.DS_ITS ---
DS: Providers Provider Date of Service: 07/11/24 Date of admission: 07/11/24 03:29 Date of discharge: 07/11/24 Primary care physician: Lars Dubois MD Consults: 07/11/24 03:28 Consult to Cardiology Routine Consulting Provider: [facility] Reason for consultation: new afib DS: Diagnosis Discharge Diagnosis (1) Atrial fibrillation with rapid ventricular response: Status: Acute DS: Summary Hospital Course Hospital Course: addmission hpi Chief Complaint: Palpitations 69-year-old male with a past medical history of HTN, HLD, diabetes, obesity, arthritis, HELIO, psoriasis presented to the hospital today with a chief complaint of palpitations. Patient reported that he was on a new exercise program. Today after he had the exercise event and had [place] food. Followed by he started develop palpitations. And also had chest pain located in the left side of the chest, nonradiating, no associated nausea vomiting or diaphoresis. Subsequently came to the ER for further evaluation. Denies any chest pain at the time of my interview. Patient denies any fever chills cough or sputum production. Denies any GI or symptoms. Review of all other systems is negative except mentioned above ER course: Per ER team, patient initially had heart rate in 130s to 160s in new onset AFib. Given diltiazem with improvement in heart rate to 80s. EKG nonischemic. Troponins negative. Hospital course 69-year-old male with a past medical history of hypertension (HTN), hyperlipidemia (HLD), diabetes, obesity, arthritis, obstructive sleep apnea (HELIO), and psoriasis presented to the hospital with a chief complaint of palpitations and chest pain and was found to be in atrial fibrillation (AFib) with rapid ventricular response (RVR) on ECG, which is new for him. TSH was normal. He was treated with IV diltiazem (Cardizem) 20 mg and subsequently converted to sinus rhythm with a heart rate in the 60s. He has been started on metoprolol. He will require an echocardiogram and anticoagulation with Eliquis for stroke prevention. Risks and benefits were discussed, and the patient is agreeable. Chest pain is likely related to AFib and has resolved. Troponin I was normal. Discharge Plan: * Medications: * Metoprolol (Toprol) 50 mg daily * Eliquis 5 mg BID * Follow-up: * Outpatient cardiology follow * Outpatient echocardiogram Hypertension: continue lisinopril, hctz, not on norvasc as previously thought, metoprolol. Diabetes: Insulin sliding scale Time Attestation Discharge Coordination Time (in mins): 35 Quality: Safe Use of Opioids Does Pt have an Active Cancer Diagnosis on the Problem List?: No Quality: Stroke Does the patient have a stroke diagnosis?: No Physical Exam Vital Signs: Vital Signs: Last Vital Signs Temp 97.9 F 07/11/24 06:25 Pulse 64 07/11/24 06:25 Resp 16 07/11/24 06:25 BP 102/65 07/11/24 06:25 Pulse Ox 95 07/11/24 06:25 O2 Del Method Room Air 07/11/24 06:25 BMI result Body Mass Index 33.4 Const: Other: General: AO X 3, no acute distress Resp: CTA bilateral CVS: S1,S2,RRR GI: +BS, NT, no distention Skin: No rash Neuro: motor grossly intact Psych: appropriate affect DS: Data Data Completed and Pending Labs on day of discharge: Laboratory Results - last 24 hr 07/11/24 07/11/24 07/11/24 01:11 02:24 03:45 WBC 8.1 8.7 RBC 5.78 5.39 Hgb 16.4 15.2 Hct 49.4 45.8 MCV 85.5 85.0 MCH 28.4 28.2 MCHC 33.2 33.2 RDW 14.7 14.3 Plt Count 312 284 MPV 10.6 10.8 Immature Gran % (Auto) 0.1 0.3 Neut % (Auto) 62.9 66.3 Lymph % (Auto) 28.8 24.2 [place] % (Auto) 5.1 6.5 Eos % (Auto) 2.5 2.0 Baso % (Auto) 0.6 0.7 Lymph # (Auto) 2.3 2.1 [place] # (Auto) 0.4 0.6 Eos # (Auto) 0.2 0.2 Baso # (Auto) 0.1 0.1 Abs Immat Gran (auto) 0.01 0.03 Absolute Neuts (auto) 5.1 5.8 Absolute Nucleated RBC 0.000 0.000 Nucleated RBC % (auto) 0.0 0.0 PT 11.2 INR 1.0 APTT 32.7 D-Dimer High Sensitivty < 150 Sodium 140 139 Potassium 3.5 3.4 Chloride 105 109 H Carbon Dioxide 28 22 Anion Gap 11 L 11 L BUN 18 H 20 H Creatinine 1.24 1.09 Estim Creat Clear Calc 58.6 66.7 Estimated GFR 57 > 60 POC Glucose Random Glucose 197 H 138 H Calcium 9.6 8.9 D Total Bilirubin 0.6 0.3 Direct Bilirubin 0.2 AST 32 22 ALT 27 24 Alkaline Phosphatase 93 78 Troponin I High Sens 8.1 D 14.3 D Total Protein 7.9 6.6 Albumin 4.1 3.7 TSH 1.62 Urine Color Yellow Urine Appearance Clear Urine pH 6.5 Ur Specific [place] <= 1.005 Urine Protein 30 (1+) H Urine Glucose (UA) 250 H Urine Ketones Negative Urine Blood Negative Urine Nitrite Negative Ur Leukocyte Esterase Negative Urine RBC 0-2 Urine WBC 0-5 Ur Squamous Epith Cells 0-2 Urine Bacteria None Seen Hyaline Casts 0-2 07/11/24 06:28 WBC RBC Hgb Hct MCV MCH MCHC RDW Plt Count MPV Immature Gran % (Auto) Neut % (Auto) Lymph % (Auto) [place] % (Auto) Eos % (Auto) Baso % (Auto) Lymph # (Auto) [place] # (Auto) Eos # (Auto) Baso # (Auto) Abs Immat Gran (auto) Absolute Neuts (auto) Absolute Nucleated RBC Nucleated RBC % (auto) PT INR APTT D-Dimer High Sensitivty Sodium Potassium Chloride Carbon Dioxide Anion Gap BUN Creatinine Estim Creat Clear Calc Estimated GFR POC Glucose 100 Random Glucose Calcium Total Bilirubin Direct Bilirubin AST ALT Alkaline Phosphatase Troponin I High Sens Total Protein Albumin TSH Urine Color Urine Appearance Urine pH Ur Specific [place] Urine Protein Urine Glucose (UA) Urine Ketones Urine Blood Urine Nitrite Ur Leukocyte Esterase Urine RBC Urine WBC Ur Squamous Epith Cells Urine Bacteria Hyaline Casts Discharge Plan Discharge Anticipated Discharge Date/Time: 07/11/24 07:28 Patient Disposition: Home, Self-Care Discharge Diagnosis: New onset AFIB Referrals: Lars Dubois MD [Primary Care Provider] - 1 Week Discharge Medications: New metoprolol succinate [Toprol XL] 50 mg tablet extended release 24 hr 50 mg PO DAILY Qty: 90 0RF Eliquis 5 mg tablet 5 mg PO BID Qty: 180 0RF Continued atorvastatin 10 mg tablet 10 mg PO DAILY hydrochlorothiazide 25 mg tablet 25 mg PO DAILY lisinopril 40 mg tablet 40 mg PO BID metformin 500 mg tablet extended release 24 hr 500 mg PO DAILY Discharge Orders: Discharge Order (Routine); Ordered 07/11/24 Ordered By: Paulo Brandon Diet: Diabetic diet Activity on Discharge: As tolerated Stand Alone Forms: Patient Portal Discharge page Print Language: Malaysian Other Ambulatory Orders: CA echo transthoracic complete (Routine) Timeframe: 1 Week Facility: [facility] - Location: Cardiology Ordered By: Paulo Brandon Care Plan Goals: control of atrial fibrilation and stroke prevention Health Concerns: Atrial fibrilation with rapid ventricular response chest pain Plan of Treatment: take Metoprolol and eliquis as directed and follow up with your primary care provider within a week, call for appointment Assessment: see above
[2024-07-11] MEDS: Metoprolol Tartrate 25 MG TABLET PO (09:59)
--- NOTE | 2024-07-11 10:01 | P.CONCA_ITS ---
History of Present Illness History of Present Illness Date of Service: 07/11/24 Requesting physician: Paulo Maxwell Consult reason: atrial fibrillation Chief complaint: new afib Narrative: I was consulted to see Nikunj in cardiology consultation today for new onset atrial fibrillation. He is a pleasant 69-year-old male with prior history of diabetes, hypertension, hyperlipidemia, obstructive sleep apnea. Patient came to the hospital yesterday evening since not feeling well. He said he had symptoms of rapid heart rate and fluttering with minimal chest pain like syndrome in the precordial area radiating to his neck into his head. Continues to have these symptoms and did not feel well. No had no associated lightheadedness, syncope, shortness of breath, orthopnea. He came to the emergency room he was noted to be in atrial fibrillation rapid ventricular response. He was subsequently given rate control medication converted overnight to sinus rhythm. He has done well since then. Initial creatinine is 1.24 which has improved to 1.03. Blood pressure has been on the lower side. He has not had any significant. He is currently feeling well. He has never had these symptoms in the past. He has no recent symptoms of heart failure or any exertional angina. He denies any systemic symptoms. Review of Systems 2 Constitutional: Constitutional: Reports no additional constitutional complaints Eyes: Eyes: Reports no additional eye complaints Cardiovascular: Cardiovascular: Reports chest pain, Denies leg edema, Denies lightheadedness, Denies Loss of Consciousness, Reports palpitations and Denies dyspnea Respiratory: Respiratory: Reports no additional respiratory complaints and Denies dyspnea Gastrointestinal: Gastrointestinal: Reports no additional gastrointestinal complaints Genitourinary: Genitourinary: Reports no additional male genitourinary complaints Musculoskeletal: Musculoskeletal: Reports no additional musculoskeletal complaints Integumentary/Breasts: Skin/Breast: Reports system reviewed and no additional complaints, except as docu Neurologic: Reports system reviewed and no additional complaints, except as documented Psychiatric: Psychiatric: Reports no additional psychiatric complaints Endocrine: Endocrine: Reports no additional endocrine complaints and Reports palpitations PMFSH Past Medical History Medical History Vitamin D deficiency Overweight (BMI 25.0-29.9) Psoriasis Obstructive sleep apnea Pure hypercholesterolemia Benign essential hypertension Type 2 diabetes mellitus without complication, without long-term current use of insulin Family History Family History Father Medical history unknown Mother Medical history unknown Surgical History Surgical History History of open reduction and internal fixation (ORIF) procedure History of colonoscopy Social History Social History Housing: Apartment Unable to assess alcohol history related to: Unknown Alcohol intake: never Patient Tobacco Use Status: Never used Tobacco Smoked in Last 30 Days: No e-Cigarette/Vaping Use: Never Used Second Hand Smoke Exposure: No Use of substances other than those prescribed or required for medical reasons: No Advance Directives: No Advance Directives Information Provided: Yes Nutrition Risks: No Nutritional Risk service: No Current occupational status: retired Cognitive needs: No Hearing needs: No Vision needs: Yes Meds Allergies Allergy/AdvReac Type Severity Reaction Status Date / Time No Known Allergies Allergy Mild NKA Verified 07/11/24 01:08 Active Medications: Current Medications Acetaminophen (Acetaminophen 325 Mg Tablet) 650 mg PO Q6H PRN PRN Reason: Pain, Mild 1-3,fever,headache Calcium Carbonate (Calcium Carbonate 750 Mg Tab.Chew) 750 mg PO Q4H PRN PRN Reason: Heartburn Dextrose (Dextrose 50 % 25 Gm/50 Ml Syringe) 25 gm IVPUSH Q15M PRN; Protocol PRN Reason: per Hypoglycemia Standing Ord. Enoxaparin Sodium (Enoxaparin Sodium 40 Mg/0.4 Ml Syringe) 40 mg SUBCUT BEDTIME [facility] Last Admin: 07/11/24 04:18 Dose: 40 mg Glucose (Glucose Gel 15 Gm Gel..Gram.) 15 gm PO Q15M PRN; Protocol PRN Reason: per Hypoglycemia Standing Ord. Lactated Ringer's (Lr) 1,000 mls @ 100 mls/hr IVCONT .Q10H [facility] Last Admin: 07/11/24 04:17 Dose: 100 mls/hr Insulin Human Lispro (Insulin Lispro 100 Unit/Ml 3 Ml Vial) 0 unit SUBCUT QIDACHS [facility]; Protocol Last Admin: 07/11/24 06:33 Dose: Not Given Magnesium Hydroxide (Milk Of Magnesia 30 Ml Oral.Susp) 30 ml PO DAILY PRN PRN Reason: Constipation Melatonin (Melatonin 3 Mg Tablet) 6 mg PO BEDTIME PRN PRN Reason: Insomnia Metoprolol Tartrate (Metoprolol Tartrate 25 Mg Tablet) 25 mg PO BID [facility]; Protocol Last Admin: 07/11/24 09:59 Dose: 25 mg Sodium Chloride (0.9 % Sodium Chloride Flush 3 Ml Syringe) 3 ml IVFLUSH QSHIFT [facility] Last Admin: 07/11/24 08:34 Dose: Not Given Home Medications ?Medication ?Instructions ?Recorded ?Confirmed ?Last Taken ?Type atorvastatin 10 mg tablet 10 mg PO DAILY 07/11/24 07/11/24 Unknown History hydrochlorothiazide 25 mg tablet 25 mg PO DAILY 07/11/24 07/11/24 Unknown History lisinopril 40 mg tablet 40 mg PO BID 07/11/24 07/11/24 Unknown History metformin 500 mg tablet,extended 500 mg PO DAILY 07/11/24 07/11/24 Unknown History release 24 hr Physical Exam 2 Vital Signs: Vital Signs: Last Vital Signs Temp 97.9 F 07/11/24 06:25 Pulse 61 07/11/24 09:58 Resp 14 07/11/24 09:58 BP 136/75 07/11/24 09:58 Pulse Ox 97 07/11/24 09:58 O2 Del Method Room Air 07/11/24 09:58 BMI result Body Mass Index 33.4 Const: General: cooperative, comfortable, no acute distress, alert, awake and Physically active Nutritional Appearance: overweight O rientation/consciousness: patient oriented x3 Limitations: no limitations HEENT: Head: Yes normocephalic and Yes atraumatic Neck: Neck: Yes trachea midline, Yes supple and Yes no JVD Resp: Effort & Inspection: normal respiratory effort Auscultation: clear to auscultation bilaterally Cardio: Jugular venous distension: no JVD Palpation: normal PMI Rate: r egular rate Rhythm: regular rhythm Heart sounds: S1 normal heart sound present, S2 normal heart sound present, no click, no gallops, no murmurs and no rubs GI: Auscultation: normal bowel sounds Skin: General skin exam: no rashes or lesions noted Neuro: General: patient oriented x3 and no focal motor deficits Extrem: General: Yes no clubbing, cyanosis or edema Psych: Appearance: grossly normal Objective Labs and Meds 07/11/24 03:45 07/11/24 03:45 Lab results: Laboratory Results - last 24 hr 07/11/24 07/11/24 07/11/24 01:11 02:24 03:45 WBC 8.1 8.7 RBC 5.78 5.39 Hgb 16.4 15.2 Hct 49.4 45.8 MCV 85.5 85.0 MCH 28.4 28.2 MCHC 33.2 33.2 RDW 14.7 14.3 Plt Count 312 284 MPV 10.6 10.8 Immature Gran % (Auto) 0.1 0.3 Neut % (Auto) 62.9 66.3 Lymph % (Auto) 28.8 24.2 [place] % (Auto) 5.1 6.5 Eos % (Auto) 2.5 2.0 Baso % (Auto) 0.6 0.7 Lymph # (Auto) 2.3 2.1 [place] # (Auto) 0.4 0.6 Eos # (Auto) 0.2 0.2 Baso # (Auto) 0.1 0.1 Abs Immat Gran (auto) 0.01 0.03 Absolute Neuts (auto) 5.1 5.8 Absolute Nucleated RBC 0.000 0.000 Nucleated RBC % (auto) 0.0 0.0 PT 11.2 INR 1.0 APTT 32.7 D-Dimer High Sensitivty < 150 Sodium 140 139 Potassium 3.5 3.4 Chloride 105 109 H Carbon Dioxide 28 22 Anion Gap 11 L 11 L BUN 18 H 20 H Creatinine 1.24 1.09 Estim Creat Clear Calc 58.6 66.7 Estimated GFR 57 > 60 POC Glucose Random Glucose 197 H 138 H Calcium 9.6 8.9 D Total Bilirubin 0.6 0.3 Direct Bilirubin 0.2 AST 32 22 ALT 27 24 Alkaline Phosphatase 93 78 Troponin I High Sens 8.1 D 14.3 D Total Protein 7.9 6.6 Albumin 4.1 3.7 TSH 1.62 Urine Color Yellow Urine Appearance Clear Urine pH 6.5 Ur Specific [place] <= 1.005 Urine Protein 30 (1+) H Urine Glucose (UA) 250 H Urine Ketones Negative Urine Blood Negative Urine Nitrite Negative Ur Leukocyte Esterase Negative Urine RBC 0-2 Urine WBC 0-5 Ur Squamous Epith Cells 0-2 Urine Bacteria None Seen Hyaline Casts 0-2 07/11/24 06:28 WBC RBC Hgb Hct MCV MCH MCHC RDW Plt Count MPV Immature Gran % (Auto) Neut % (Auto) Lymph % (Auto) [place] % (Auto) Eos % (Auto) Baso % (Auto) Lymph # (Auto) [place] # (Auto) Eos # (Auto) Baso # (Auto) Abs Immat Gran (auto) Absolute Neuts (auto) Absolute Nucleated RBC Nucleated RBC % (auto) PT INR APTT D-Dimer High Sensitivty Sodium Potassium Chloride Carbon Dioxide Anion Gap BUN Creatinine Estim Creat Clear Calc Estimated GFR POC Glucose 100 Random Glucose Calcium Total Bilirubin Direct Bilirubin AST ALT Alkaline Phosphatase Troponin I High Sens Total Protein Albumin TSH Urine Color Urine Appearance Urine pH Ur Specific [place] Urine Protein Urine Glucose (UA) Urine Ketones Urine Blood Urine Nitrite Ur Leukocyte Esterase Urine RBC Urine WBC Ur Squamous Epith Cells Urine Bacteria Hyaline Casts Assessment and Plan (1) Paroxysmal atrial fibrillation: Status: Acute patient with new onset atrial fibrillation with symptoms. Came to the hospital converted easily to sinus rhythm. Will start him on Toprol 50 mg daily on discharge and also start him on Eliquis 5 mg b.i.d. for CHADSVASc score of 3. his chest pain is more suggestive of palpitations as per his description not actual anginal sounding chest discomfort. Given his lower blood pressure would hold off his Norvasc for now. Will set him for outpatient testing and follow- up. Management was discussed with him in details. He understood. Patient may be discharged home today. Thank you for allowing me to partake in his care Procedures Date of Service Date of Service: 07/11/24
--- NOTE | 2024-07-11 10:07 | PHA.MEDREC ---
Addendum entered by Mauricio Sierra RPh 07/11/24 10:42: MED REC CHECKED BY [facility] Original Note: Pharmacy Consult ? Medication Reconciliation Pharmacy has completed the medication reconciliation. Spoke with patient through an tire duster. Patient says he stopped taking his medications for a while then restarted taking them yesterday. LF 10/2023 x 90DS (all meds).
== END 2024-07-11 11:21 | disposition home or self-care (01) | DRG 310 ==
LOC: HO.ED 03:32 → HO.EDOVER 03:35
PROVIDERS: Admitting Provider Hospitalist; Emergency Provider Emergency Medicine Emergency Medical Services; PCP Internal Medicine; Visit Provider Internal Medicine
DX: I48.0 Paroxysmal atrial fibrillation (principal); I10 Essential (primary) hypertension; G47.33 Obstructive sleep apnea (adult) (pediatric); Z79.84 Long term (current) use of oral hypoglycemic drugs; Z79.899 Other long term (current) drug therapy
CPT/HCPCS: 36415; 71045; 80053; 81001; 82248; 82947; 84443; 84484; 85025; 85379; 85610; 85730; 93005; 99222; 99285; J1650; J7120

== ENCOUNTER → 2024-07-11 00:55 | Outpatient (BNV) | payer MEDICARE, SELFPAY | PROVIDERS: Emergency Provider Emergency Medicine Emergency Medical Services; PCP Internal Medicine; Visit Provider Radiology Diagnostic Radiology | DX: R07.9 Chest pain, unspecified (principal) | CPT/HCPCS: 71045 ==

== ENCOUNTER → 2024-07-11 03:29 | Outpatient (BNV) | payer MEDICARE, SELFPAY | PROVIDERS: Admitting Provider Hospitalist; Emergency Provider Emergency Medicine Emergency Medical Services; PCP Internal Medicine; Visit Provider Internal Medicine | DX: I48.91 Unspecified atrial fibrillation (principal); R07.9 Chest pain, unspecified | CPT/HCPCS: 99236; 99499 ==

== ENCOUNTER → 2024-07-11 03:29 | Outpatient (BNV) | payer MEDICARE, SELFPAY | PROVIDERS: Admitting Provider Hospitalist; Emergency Provider Emergency Medicine Emergency Medical Services; PCP Internal Medicine; Visit Provider Internal Medicine Cardiovascular Disease | DX: I48.0 Paroxysmal atrial fibrillation (principal) | CPT/HCPCS: 93010; 99222 ==

== ENCOUNTER 2024-07-19 11:39 | Emergency (ER) | payer MEDICARE, SELFPAY ==
--- NOTE | ~2024-07-19 | CT_ITS ---
EXAMINATION: CT HEAD WITHOUT CONTRAST CLINICAL INFORMATION: Headache x1 week. COMPARISON: 11/16/2023. 03/10/2020. TECHNIQUE: Contiguous axial imaging was performed from the skull base to vertex without intravenous administration of contrast. This CT examination was performed using dose optimization techniques as appropriate, variously including the following: *Automated exposure control *Adjustment of mA and/or kV according to patient size (this includes techniques or standardized protocols for targeted exams where dose is matched to indication/reason for exam; i.e. extremities or head) *Use of iterative reconstruction technique FINDINGS: There is no evidence of intracranial hemorrhage or extra-axial fluid collection. There is no mass effect, or edema. No CT evidence of acute territorial infarct. Ventricles, sulci, and cisterns are normal in size and configuration for patient age. No hydrocephalus. No midline shift. Negative hyperdense MCA sign. Negative insular ribbon sign. Patchy periventricular and deep white matter hypoattenuation is consistent with mild small vessel ischemic changes. Normal pituitary. Globes and orbital contents image normally. No extracranial soft tissue abnormalities. The paranasal sinuses, mastoid air cells, and tympanic cavities are normally aerated. No suspicious bony abnormalities. There are no acute fractures evident. CT/CT head/brain wo IV con IMPRESSION: No acute intracranial abnormality.. Electronically signed by: Marito Sullivan MD 07/19/2024 12:41 PM EDT
[2024-07-19 12:09] VITALS: BP 157/110; PULSE 74; RESP 18; TEMP 36.8; O2SAT 97; BMI 30.6
--- NOTE | 2024-07-19 12:15 | ECG_ITS ---
Test Reason : HEADACHE Blood Pressure : */* mmHG Vent. Rate : 57 BPM Atrial Rate : 57 BPM P-R Int : 148 ms QRS Dur : 78 ms QT Int : 426 ms P-R-T Axes : 71 -20 6 degrees QTcB Int : 414 ms Sinus bradycardia Minimal voltage criteria for LVH, may be normal variant ( R in aVL ) Borderline ECG When compared with ECG of 11-Jul-2024 08:06, No significant change was found Referred By: Jacky Glass Electronically Signed By: Joseph Johnson
--- NOTE | 2024-07-19 12:16 | ED.GENADULT ---
HPI - General Adult General Chief complaint: Headache Stated complaint: Headache Time Seen by Provider: 07/19/24 17:53 Source: patient Mode of arrival: ambulatory Limitations: no limitations History of Present Illness ED Provider: HPI narrative: Patient on Eliquis for atrial fibrillation comes here for headache and elevated blood pressure no nausea no vomiting no focal deficits on arrival blood pressure was 157/110 repeat blood pressure was 154/62 Related Data Home Medications ?Medication ?Instructions ?Recorded ?Confirmed atorvastatin 10 mg tablet 10 mg PO DAILY 07/11/24 07/22/24 metformin 500 mg tablet,extended 500 mg PO DAILY 07/11/24 07/22/24 release 24 hr Previous Rx's ?Medication ?Instructions ?Recorded apixaban 5 mg tablet (Eliquis) 5 mg PO BID #180 tabs 07/11/24 metoprolol succinate 50 mg 50 mg PO DAILY #90 tabs 07/11/24 tablet,extended release 24 hr (Toprol XL) Allergies Allergy/AdvReac Type Severity Reaction Status Date / Time No Known Allergies Allergy Mild NKA Verified 07/22/24 11:27 Review of Systems Review of Systems: Yes all other systems are reviewed and are negative [facility] Past Medical History Medical History Hospital discharge follow-up Vitamin D deficiency Overweight (BMI 25.0-29.9) Psoriasis Obstructive sleep apnea Pure hypercholesterolemia Benign essential hypertension Type 2 diabetes mellitus without complication, without long-term current use of insulin Surgical History History of open reduction and internal fixation (ORIF) procedure History of colonoscopy Family History Family History Father Medical history unknown Mother Medical history unknown Social History Social History Housing: Apartment Unable to assess alcohol history related to: Unknown Alcohol intake: never Patient Tobacco Use Status: Never used Tobacco e-Cigarette/Vaping Use: Never Used Second Hand Smoke Exposure: No service: No Current occupational status: retired Cognitive needs: No Hearing needs: No Vision needs: Yes Physical Exam ED Vital Signs: Vital Signs - 24 hr 07/19/24 12:09 07/19/24 17:54 07/19/24 19:09 Temperature 98.3 F 97.6 F 98.0 F Pulse Rate 74 69 64 Respiratory Rate 18 16 16 Blood Pressure 157/110 H 168/81 H 154/62 H Pulse Oximetry 97 98 99 Oxygen Delivery Method Room Air Room Air Room Air 07/19/24 19:49 Temperature 98.0 F Pulse Rate 64 Respiratory Rate 16 Blood Pressure 154/62 H Pulse Oximetry 99 Oxygen Delivery Method Room Air BMI result Body Mass Index 30.6 Appearance: Alert. Oriented X3. No acute distress. Eyes: PERRLA, No Nystagmus ENT: Pharynx normal. Oral Mucosa moist Neck: Normal inspection. Neck supple. CVS: Normal heart rate and rhythm. Pulses normal. Respiratory: No respiratory distress. Equal air entry bilateral, no wheezing/rales/rhonchi Abdomen: Soft and nontender. Bowel sounds are present, no mass palpable, no CVA tenderness Skin: Skin warm and dry. Normal skin color. Normal skin turgor. Extremities: No lower extremity edema. No calf tenderness Neuro: Oriented X 3. No motor deficit. No sensory deficit.No cerebellar signs , cranial nerves II-XII intact Course Course Course Narrative: RME: 69-year-old male presents to ED for headache for 1 week and elevated blood pressure. Patient denies any slurred speech, facial droop, loss of vision, or paralysis of extremities. NIH score is 0. Patient denies any recent trauma. EKG labs head CT scan ordered Medical Decision Making Medical Decision Making [facility] Narrative: Patient with mild headache CT scan of the head is negative for acute patient advised to continue medication follow up with PCP Lab Data [facility] Lab Attestation statement: I reviewed the patient's lab results. 07/19/24 12:31 07/19/24 12:31 Labs: Lab Results 07/19/24 Range/Units 12:31 WBC 6.5 (4.8-10.8) X10*3/uL RBC 5.41 (4.60-5.80) X10*6/uL Hgb 15.3 (14.0-18.0) g/dl Hct 45.8 (42.0-52.0) % MCV 84.7 (80.0-98.0) fL MCH 28.3 (27.0-33.0) pg MCHC 33.4 (31.0-36.0) g/dl RDW 14.2 (11.0-16.0) % Plt Count 299 (160-400) X10*3/uL MPV 10.7 (9.4-12.4) fL Immature Gran % (Auto) 0.3 (0.0-0.4) % Neut % (Auto) 67.3 (45-73) % Lymph % (Auto) 25.7 (20-40) % [place] % (Auto) 5.0 (2-11) % Eos % (Auto) 0.9 (0-4) % Baso % (Auto) 0.8 (0-2) % Lymph # (Auto) 1.7 (1.2-4.9) X10*3/uL [place] # (Auto) 0.3 (0.1-1.2) X10*3/uL Eos # (Auto) 0.1 (0.0-0.4) X10*3/uL Baso # (Auto) 0.1 (0.0-0.2) X10*3/uL Abs Immat Gran (auto) 0.02 (0.00-0.03) X10*3/uL Absolute Neuts (auto) 4.4 (2.0-8.3) x10*3/uL Absolute Nucleated RBC 0.000 (0.0-0.012) X10*3/uL Nucleated RBC % (auto) 0.0 (0.0-0.2) /100WBC PT 12.1 (10.9-12.4) SEC INR 1.0 (0.9-1.1) APTT 33.6 (26.0-36.8) SEC Sodium 139 (135-145) mmol/L Potassium 3.8 (3.3-5.1) mmol/L Chloride 106 (96-108) mmol/L Carbon Dioxide 28 (22-29) mmol/L Anion Gap 9 L (12-20) BUN 16 (9-16) mg/dL Creatinine 1.12 (0.5-1.4) mg/dL Estim Creat Clear Calc 62.1 Estimated GFR > 60 Random Glucose 107 (60-115) mg/dL Calcium 9.3 (8.4-10.2) mg/dL Total Bilirubin 0.7 (0.0-1.0) mg/dL AST 19 (5-37) U/L ALT 21 (0-40) U/L Alkaline Phosphatase 79 (39-117) U/L Troponin I High Sens 3.2 D (<3.5-35.0) ng/L Total Protein 7.3 (6.5-8.0) g/dL Albumin 4.2 (3.5-5.0) g/dL Independent Interpretation I performed an independent interpretation of an: EKG and CT Scan Interpretation: Care as bradycardia heart rate 57 beats per minute LVH normal intervals normal axis no acute STT wave changes no acute ischemia Radiology Impression Discussion of test interpretation with radiology: I have reviewed the radiologist's reading. 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 New metoprolol succinate [Toprol XL] 50 mg tablet extended release 24 hr 50 mg PO DAILY Qty: 90 0RF Eliquis 5 mg tablet 5 mg PO BID Qty: 180 0RF Continued atorvastatin 10 mg tablet 10 mg PO DAILY hydrochlorothiazide 25 mg tablet 25 mg PO DAILY lisinopril 40 mg tablet 40 mg PO BID metformin 500 mg tablet extended release 24 hr 500 mg PO DAILY Prescriptions: No Action atorvastatin 10 mg tablet 10 mg PO DAILY metformin 500 mg tablet extended release 24 hr 500 mg PO DAILY metoprolol succinate [Toprol XL] 50 mg tablet extended release 24 hr 50 mg PO DAILY Qty: 90 0RF Eliquis 5 mg tablet 5 mg PO BID Qty: 180 0RF Interventions: ED Discharge Assessment Last Done: 07/19/24 19:49 Discharge Date/Time: 07/19/24 19:49 Print Language: Ecuadorean
[2024-07-19 12:35] LABS: MANUAL DIFF FLAG NO
[2024-07-19 12:36] LABS: Basophils Absolute Auto 0.1 X10*3/uL (0.0-0.2); Basophils Percent Auto 0.8 % (0-2); Eosinophils Absolute Auto 0.1 X10*3/uL (0.0-0.4); Eosinophils Percent Auto 0.9 % (0-4); Hematocrit 45.8 % (42.0-52.0); Hemoglobin 15.3 g/dl (14.0-18.0); Imm Gran Abs Auto 0.02 X10*3/uL (0.00-0.03); Imm Gran Pct Auto 0.3 % (0.0-0.4); Lymphocytes Absolute Auto 1.7 X10*3/uL (1.2-4.9); Lymphocytes Percent Auto 25.7 % (20-40); Mean Corpuscular HGB Conc 33.4 g/dl (31.0-36.0); Mean Corpuscular Hemoglobin 28.3 pg (27.0-33.0); Mean Corpuscular Volume 84.7 fL (80.0-98.0); Mean Platelet Volume 10.7 fL (9.4-12.4); Monocytes Absolute Auto 0.3 X10*3/uL (0.1-1.2); Neutrophils Absolute Auto 4.4 x10*3/uL (2.0-8.3); Neutrophils Percent Auto 67.3 % (45-73); Platelet Count 299 X10*3/uL (160-400); Red Blood Count 5.41 X10*6/uL (4.60-5.80); Red Cell Distribution Width 14.2 % (11.0-16.0); White Blood Count 6.5 X10*3/uL (4.8-10.8)
[2024-07-19 12:43] LABS: Prothrombin Time 12.1 SEC (10.9-12.4)
[2024-07-19 12:46] LABS: Partial Thromboplastin Time 33.6 SEC (26.0-36.8)
[2024-07-19 12:50] LABS: Alanine Aminotransferase 21 U/L (0-40); Albumin Level 4.2 g/dL (3.5-5.0); Alkaline Phosphatase 79 U/L (39-117); Anion Gap 9 (12-20); Aspartate Amino Transferase 19 U/L (5-37); Bilirubin Total 0.7 mg/dL (0.0-1.0); Blood Urea Nitrogen 16 mg/dL (9-16); Calcium 9.3 mg/dL (8.4-10.2); Carbon Dioxide 28 mmol/L (22-29); Chloride 106 mmol/L (96-108); Creatinine Clr Calc Pharmacy 62.1; Estimated Glomerular Filt Rate > 60; Glucose Random 107 mg/dL (60-115); Potassium 3.8 mmol/L (3.3-5.1); Sodium 139 mmol/L (135-145); Total Protein 7.3 g/dL (6.5-8.0)
[2024-07-19 12:57] LABS: Troponin-I High Sensitivity 3.2 ng/L (<3.5-35.0)
[2024-07-19 17:54] VITALS: BP 168/81; PULSE 69; RESP 16; TEMP 36.4; O2SAT 98
--- NOTE | 2024-07-19 18:00 | PC.NURSE ---
reports improvement in headache. states he has not taken his bp medications today
[2024-07-19 19:09] VITALS: BP 154/62; PULSE 64; RESP 16; TEMP 36.7; O2SAT 99
--- NOTE | 2024-07-19 19:47 | PC.NURSE ---
Reviewed discharge instructions with pt and reviewed medication, no sign of distress upon discharge, pt had a steady gait upon discharge.
[2024-07-19 19:49] VITALS: BP 154/62; PULSE 64; RESP 16; TEMP 36.7; O2SAT 99
== END 2024-07-19 19:49 | disposition home or self-care (01) ==
PROVIDERS: Physician Assistant; Emergency Provider Internal Medicine; PCP Internal Medicine
DX: I48.91 Unspecified atrial fibrillation (principal); R51.9 Headache, unspecified; R00.1 Bradycardia, unspecified; I10 Essential (primary) hypertension; Z79.899 Other long term (current) drug therapy
CPT/HCPCS: 36415; 70450; 80053; 84484; 85025; 85610; 85730; 93005; 99284; 99285

== ENCOUNTER → 2024-07-19 12:15 | Outpatient (BNV) | payer MEDICARE, SELFPAY | PROVIDERS: Emergency Provider Internal Medicine; PCP Internal Medicine; Visit Provider Internal Medicine Cardiovascular Disease | DX: R00.1 Bradycardia, unspecified (principal) | CPT/HCPCS: 93010 ==

== ENCOUNTER → 2024-07-19 12:15 | Outpatient (BNV) | payer MEDICARE, SELFPAY | PROVIDERS: PCP Internal Medicine; Visit Provider Radiology Diagnostic Radiology | DX: R51.9 Headache, unspecified (principal) | CPT/HCPCS: 70450 ==

== ENCOUNTER → 2024-07-20 12:57 | Outpatient (BNVA) | payer MEDICARE, SELFPAY | PROVIDERS: PCP Internal Medicine; Visit Provider Internal Medicine | DX: Z13.89 Encounter for screening for other disorder (principal) ==

== ENCOUNTER 2024-07-22 10:18 | Outpatient (AMB) | payer MEDICARE, SELFPAY ==
[2024-07-22 10:20] VITALS: BP 122/80; PULSE 76; O2SAT 98; BMI 30.4
--- NOTE | 2024-07-22 10:20 | MHC.PC.OV ---
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 Required: No Accompanied by: Self / Same As Patient Allergies No Known Allergies Allergy (Mild, Verified 07/22/24 11:27) NKA Medication List - Last Reconciled 07/22/24 by Lori New PA-C apixaban (Eliquis) 5 mg PO BID atorvastatin 10 mg PO DAILY metformin ER 500 mg PO DAILY metoprolol succinate ER (Toprol XL) 50 mg PO DAILY Tobacco use date assessed: 07/22/24 Fall risk assessment: No Falls in past year Last assessed Fall Risk: 07/22/24 Dental Screening Dental Screen Date: 07/22/24 Did you have a dental visit in the last 12 months?: No Did you have a dental problem in the last 6 months where you did not have access to dental care?: No Was dental information given to patient?: Patient has dentist HPI [facility] 07/19 BP HPI Details History of Present Illness The patient is a 69-year-old male presenting with atrial fibrillation and a concern for effective management of his condition. He was recently hospitalized at [facility] and diagnosed with atrial fibrillation, receiving medication for management with metoprolol and Eliquis that he has not started yet. Patient notes possible triggers such as stress and physical effort. Patient's medication compliance is in question, particularly with metoprolol, which he believed could affect his blood pressure significantly. He is on multiple medications for blood pressure including lisinopril and hydrochlorothiazide but decided not to take them today noting BP as 122/80 mmHg without these medications. His hypertension is currently without significant symptoms. A modification of his medication regimen was agreed upon which excludes taking specific medications. The patient was advised appropriately and understands the need to adhere to the new medication plan. Social History - Lives with , no external social support required as per current discussion - Discussed dietary preferences, including mention of Polish cuisine [facility] Medical History (Updated 07/22/24 @ 11:31 by Lori New PA-C) Hospital discharge follow-up Vitamin D deficiency Overweight (BMI 25.0-29.9) Psoriasis Obstructive sleep apnea Pure hypercholesterolemia Benign essential hypertension Type 2 diabetes mellitus without complication, without long-term current use of insulin Surgical History History of open reduction and internal fixation (ORIF) procedure History of colonoscopy Family History Father Medical history unknown Mother Medical history unknown Social History Housing: Apartment Unable to assess alcohol history related to: Unknown Alcohol intake: never Patient Tobacco Use Status: Never used Tobacco e-Cigarette/Vaping Use: Never Used Second Hand Smoke Exposure: No service: No Current occupational status: retired Cognitive needs: No Hearing needs: No Vision needs: Yes Questionnaire PHQ-9 Over the last 2 weeks, how often have you been bothered by any of the following problems? 1. Little interest or pleasure in doing things: not at all 2. Feeling down, depressed, or hopeless: not at all 3. Trouble falling or staying asleep, or sleeping too much: not at all 4. Feeling tired or having little energy: not at all 5. Poor appetite or overeating: not at all 6. Feeling bad about yourself - or that you are a failure or have let yourself or your family down: not at all 7. Trouble concentrating on things, such as reading the newspaper or watching television: not at all 8. Moving or speaking so slowly that other people could have noticed. Or the opposite - being so fidgety or restless that you have been moving around a lot more than usual: not at all 9. Thoughts that you would be better off or of hurting yourself in some way: not at all Total score: 0 Depression Screening Interpretation: Negative Depression Screening Done: Yes 75397 - PHQ-9 Billing: Yes Source: Developed by Drs. Vivek Yeager, Carmen May, Gildardo Aggarwal and colleagues, with an educational osvaldo from [employer]. Thrive Questionnaire Date Thrive assessed: 07/22/24 I am a: Patient What is your living situation today?: I have a steady place to live Within the past 12 months, did the food you bought not last and you didn't have the money to get more?: Never true Within the past 12 months, did you worry whether your food would run out before you got money to buy more?: Never true Do you have trouble paying for medicines?: No Do you have trouble getting transportation to medical appointments?: No Do you have trouble paying your heating and electricity bill?: No Do you have trouble taking care of your child, family member or friend?: No Do you have trouble with day-to-day activities such as bathing, preparing meals, shopping, managing finances, etc.?: No Are you currently unemployed and looking for a job?: No Are you interested in more education?: No Please select the resources that you would like help with: None Currently or been in a relationship where the following occur: No concerns reported THRIVE Score: 0 AUDIT C Alcohol Use Questionnaire (AUDIT-C) 1. How often do you have a drink containing alcohol?: Never 3. How often do you have six or more drinks on one occasion?: Never Total Score: 0 Score Reviewed/Action Taken: Yes JUVENTINO-7 AMB Questionnaire JUVENTINO-7 Date JUVENTINO - 7 assessed: 07/22/24 Feeling nervous, anxious, or on edge: 0 = Not at all Not being able to stop or control worryin = Not at all Worrying too much about different things: 0 = Not at all Trouble relaxin = Not at all Being so restless that it is hard to sit still: 0 = Not at all Becoming easily annoyed or irritable: 0 = Not at all Feeling afraid as if something awful might happen: 0 = Not at all Total JUVENTINO-7 score (0-4 normal; 5-9 mild; 10-14 moderate; 15-21 severe): 0 Source: Developed by Drs. Vivek Yeager, Carmen May, Gildardo Aggarwal and colleagues, with an educational osvaldo from [employer]. JUVENTINO-7 Assessment Billing JUVENTINO-7 Assessment Tool: JUVENTINO-7 Assessment 39282 Review of Systems Const Details: Review of Systems - Cardiovascular: Reports history of atrial fibrillation; Denies current symptoms of chest pain or palpitations - General: Denies any significant side effects from medications Physical exam (Primary Care) Vital Signs: Last Vital Signs Pulse 76 07/22/24 10:20 BP 122/80 07/22/24 10:20 Pulse Ox 98 07/22/24 10:20 Oxygen Delivery Method Room Air 07/22/24 10:20 Care Plan Goal for BP management: <130/80 at Goal BMI result Body Mass Index 30.4 BMI Assessment/Plan discussion: High BMI High, discussed plan: lifestyle, weight reduction, dietary, physical activity and alcohol moderation Tobacco/Smoking Status: Tobacco use Status Tobacco use date assessed 07/22/24 07/22/24 10:26 Patient Tobacco Use Status Never used Tobacco 07/22/24 10:26 e-Cigarette/Vaping Use Never Used 07/22/24 10:26 PHQ-9: PHQ-9 Score PHQ-9: Total score 0 07/22/24 10:26 Depression Screening Interpretation: Negative Thrive Assessment: Date of Thrive Assessment Date Thrive assessed 07/22/24 07/22/24 10:26 Currently or been in a relationship where the following occur: No concerns reported Const Other: Physical Exam Appearance: Alert. Oriented X3. No acute distress. Head: Normal external exam. Normocephalic. Atraumatic. Eyes: Pupils are equal, round, and reactive to light. Extraocular movements intact. Conjunctiva and sclera normal. Eyelids normal. Throat: Pharynx normal. Uvula midline. Moist mucous membranes. Neck: Normal inspection. Neck supple. Full range of motion. Cardiovascular: Atrial fibrillation noted. Normal heart rate and rhythm. Respiratory: No respiratory distress. Painless inspiration. Back: Full range of motion noted. Skin: Skin warm and dry. Normal skin color. Normal skin turgor. No rashes/lesions/lacerations noted. Extremities: No lower extremity edema. Extremities exhibit normal range of motion. Extremities nontender. Neuro: Oriented X 3. No motor deficit. No sensory deficit. Reflexes normal. Coding Level of Care Code Est Pt Level 3 (84045) Complex EM visit Add On G2211 Diagnoses Benign essential hypertension I10 Paroxysmal atrial fibrillation I48.0 Hospital discharge follow-up Z09 Additional Codes PHQ-9 - 79732 - PHQ-9 Billing: Yes ([id number]) JUVENTINO-7 Assessment Billing - JUVENTINO-7 Assessment Tool: JUVENTINO-7 Assessment 67536 ([id number]) Assessment & Plan Assessment & Plan (1) Benign essential hypertension: Code(s): I10 - Essential (primary) hypertension Category: Medical Plan: Blood pressure goal less than 130/90. At goal today. Patient will discontinue lisinopril 40 mg b.i.d. along with hydrochlorothiazide 25 mg daily and patient will be started on Eliquis 5 mg p.o. b.i.d. and metoprolol extended release 50 mg daily. Patient to return in 1 month. Condition is chronic and stable continue to monitor. (2) Paroxysmal atrial fibrillation: Code(s): I48.0 - Paroxysmal atrial fibrillation Category: Medical Plan: Blood pressure goal less than 130/90. At goal today. Patient will discontinue lisinopril 40 mg b.i.d. along with hydrochlorothiazide 25 mg daily and patient will be started on Eliquis 5 mg p.o. b.i.d. and metoprolol extended release 50 mg daily. Patient to return in 1 month. Condition is new and stable continue to monitor. (3) Hospital discharge follow-up: Code(s): Z09 - Encounter for follow-up examination after completed treatment for conditions other than malignant neoplasm Category: Medical Plan Plan Patient was informed and verbally consented to the use of an ambient scribe for clinic note documentation during this visit. 1. Atrial Fibrillation Emphasis was placed on adherence to new medication protocols to manage atrial fibrillation effectively. It was stressed the importance of preventing complications such as cardiac events or embolic episodes. 2. Hypertension The patient was advised to maintain his current regimen, focus on blood pressure monitoring, and understands the rationale behind discontinuing certain medications. Discussion Notes I engaged the patient in discussing atrial fibrillation, its potential causes, and the risks associated with non-adherence to medication. We talked in detail about the management options, emphasizing immediate commencement of the adjusted medication plan. Risks of continuing on prior medications were discussed, including potential complications if the condition is not properly managed. I addressed the need for lifestyle adaptation and medication adherence. Follow-ups were discussed without precise scheduling, and the importance of monitoring at home was highlighted. Patient Instructions: Patient Instructions - Begin taking prescribed medications for atrial fibrillation immediately as discussed. - Cease taking lisinopril and hydrochlorothiazide. - Monitor blood pressure regularly at home. - Seek medical attention if experiencing symptoms such as persistent chest pain or shortness of breath. - Return to emergency room if experiencing significant bleeding or falls. - Follow lifestyle adjustments discussed, and adhere strictly to medication regimen.
== END 2024-07-22 11:08 | disposition home or self-care (01) ==
LOC: HO.HMCH 10:19
PROVIDERS: PCP Internal Medicine; Visit Provider Physician Assistant Medical
DX: I10 Essential (primary) hypertension (principal); I48.0 Paroxysmal atrial fibrillation; Z09 Encounter for follow-up examination after completed treatment for conditions other than malignant neoplasm

== ENCOUNTER → 2024-07-22 10:18 | Outpatient (BNVA) | payer MEDICARE, SELFPAY | PROVIDERS: PCP Internal Medicine; Visit Provider Physician Assistant Medical | DX: Z09 Encounter for follow-up examination after completed treatment for conditions other than malignant neoplasm (principal); I10 Essential (primary) hypertension; I48.0 Paroxysmal atrial fibrillation | CPT/HCPCS: 96127; 99212 ==

== ENCOUNTER 2024-07-28 19:06 | Emergency (ER) | payer MEDICARE, SELFPAY ==
--- NOTE | ~2024-07-28 | CT_ITS ---
CLINICAL HISTORY: HTN, on eliquis CT head without contrast Comparison: 07/19/2024 Findings: No intracranial mass, midline shift, hydrocephalus, or acute hemorrhage. Mild chronic ischemic white matter disease without volume loss. No acute process in sinuses or mastoids. No acute bony abnormality. Impression: No acute intracranial process This document has been electronically signed by: Bhavik Franco MD on 07/28/2024 20:41:57
[2024-07-28 19:08] VITALS: BP 186/84; PULSE 67; RESP 18; TEMP 37; O2SAT 99; BMI 30.7
--- NOTE | 2024-07-28 19:11 | ED_ITS ---
HPI - General Adult General Chief complaint: General Medical Stated complaint: high bp Time Seen by Provider: 07/28/24 22:01 History of Present Illness ED Provider: Adry CHOWDHURY narrative: The patient is a 69-year-old male who is primarily Beninese speaking. He was interviewed with a medical assistant float. The patient had a first-time episode of atrial fibrillation last month. He has been started on new medications. He followed up with his regular doctor last week and there were some adjustments to his medication he says. He is currently taking atorvastatin, metoprolol, apixaban, and metformin. He says that since the changes to his medications last week he has been experiencing headaches that bother him mostly during the daytime but resolve by the evening. Today he also had some nausea and dizziness. He checked his blood pressure and it was high at home. He was concerned about his symptoms and his high blood pressure reading (I believe it was 189 systolic at home). He came to the emergency room. While waiting to be seen his symptoms have resolved. At the time that I interviewed him his headache was gone as was his nausea and any dizziness. He says that he has been having the headaches during the daytime for the last several days. Today was the first day he also had some nausea and dizziness. Related Data Home Medications ?Medication ?Instructions ?Recorded ?Confirmed atorvastatin 10 mg tablet 10 mg PO DAILY 07/11/24 07/22/24 metformin 500 mg tablet,extended 500 mg PO DAILY 07/11/24 07/22/24 release 24 hr Previous Rx's ?Medication ?Instructions ?Recorded apixaban 5 mg tablet (Eliquis) 5 mg PO BID #180 tabs 07/11/24 metoprolol succinate 50 mg 50 mg PO DAILY #90 tabs 07/11/24 tablet,extended release 24 hr (Toprol XL) Allergies Allergy/AdvReac Type Severity Reaction Status Date / Time No Known Allergies Allergy Mild NKA Verified 07/28/24 19:08 Review of Systems 2 Review of Systems: Yes all other systems are reviewed and are negative [facility] Past Medical History Medical History Hospital discharge follow-up Vitamin D deficiency Overweight (BMI 25.0-29.9) Psoriasis Obstructive sleep apnea Pure hypercholesterolemia Benign essential hypertension Type 2 diabetes mellitus without complication, without long-term current use of insulin Surgical History History of open reduction and internal fixation (ORIF) procedure History of colonoscopy Family History Family History Father Medical history unknown Mother Medical history unknown Social History Social History Housing: Apartment Unable to assess alcohol history related to: Unknown Alcohol intake: never Patient Tobacco Use Status: Never used Tobacco e-Cigarette/Vaping Use: Never Used Second Hand Smoke Exposure: No Advance Directives: No Advance Directives Information Provided: No Do you have a plan to hurt others: No Plan service: No Current occupational status: retired Cognitive needs: No Hearing needs: No Vision needs: Yes Physical Exam ED Vital Signs: Vital Signs - 24 hr 07/28/24 22:33 Temperature 98.2 F Pulse Rate 97 Respiratory Rate 16 Blood Pressure 172/85 H Pulse Oximetry 97 Oxygen Delivery Method Room Air BMI result Body Mass Index 30.7 Const Other: The patient was awake, alert, pleasant, cooperative. He did not appear in any distress or seem ill. HENMT Other: face is symmetrical, mucous membranes moist. Pharynx is normal. Eyes General: appearance normal, both eyes and all related structures Alignment and Position: alignment normal Eyelids: Yes eyelids normal Conjunctivae: conjunctivae normal Pupils: Equal, round and reactive pupils present EOM: EOMs intact bilaterally Neck Other: he can easily touch his chin to his chest without discomfort. Neck: Yes normal visual inspection, Yes full ROM and Yes no lymphadenopathy Resp Effort & Inspection: normal respiratory effort Auscultation: clear to auscultation bilaterally Cardio Rate: regular rate Rhythm: regular rhythm Heart sounds: S1 normal heart sound present and S2 normal heart sound present Skin General skin exam: no rashes or lesions noted Neuro Other: The patient was awake, alert, pleasant, cooperative. Mental status is normal. Eye movements are normal. Pupils are normal. Face is symmetrical. Speech is normal. Neck is supple. Straight is symmetrical. No pronator drift. Finger- nose normal. Gait is normal. He seems neurologically intact. Cranial nerves: Yes Equal, round and reactive pupils present Extrem Other: No peripheral edema Course Course Course Narrative: This is an RME: Additional HPI, ROS, PE not included below will be deferred to primary provider. RME assessment and note performed by: Rosemarie Sanchez PA-C This is a [id number]-male, with a PMHx of atrial fibrillation on eliquis, HTN, HLD, who presents to the ER with concerns for elevated BP. Reports BP was 189 systolically ; checked 3 times and remains to be elevated. Reports headache, dizziness. BP 185/76 in triage. Patient reports that he was seen on the 22 of July where they discontinued lisinopril 40 mg twice a day along with hydrochlorothiazide 25 mg and was started on Eliquis and metoprolol extended 50 mg daily. He believes that his blood pressure has been elevated ever since. He is neurologically intact, no focal deficits on examination. Plan: Labs, CT scan, further ER evaluation needed. Medical Decision Making Medical Decision Making MDM Narrative: the patient is a 69-year-old male who had a first-time episode of atrial fibrillation last month. he is on anticoagulation among other medications. He had some medication adjustments several days ago and has had intermittent headaches over the last several days. Today he also had a sense of dizziness. His blood pressure was high. While waiting to be seen in the emergency room his symptoms have entirely resolved any longer has headache, dizziness, or any other symptoms. Head CT is negative. His EKG shows normal sinus rhythm. His neurological exam is normal. I do not have a significant suspicion for a stroke, subarachnoid hemorrhage, or any other complication of his current treatment. Perhaps his symptoms may be a side effect of some of his new medications or his medication changes. I think he may be discharged follow-up with his regular providers. Lab Data 07/28/24 19:26 07/28/24 19:26 Labs: Lab Results 07/28/24 Range/Units 19:26 WBC 9.3 (4.8-10.8) X10*3/uL RBC 5.22 (4.60-5.80) X10*6/uL Hgb 14.5 (14.0-18.0) g/dl Hct 44.9 (42.0-52.0) % MCV 86.0 (80.0-98.0) fL MCH 27.8 (27.0-33.0) pg MCHC 32.3 (31.0-36.0) g/dl RDW 13.7 (11.0-16.0) % Plt Count 283 (160-400) X10*3/uL MPV 10.8 (9.4-12.4) fL Immature Gran % (Auto) 0.2 (0.0-0.4) % Neut % (Auto) 66.6 (45-73) % Lymph % (Auto) 25.7 (20-40) % [place] % (Auto) 5.8 (2-11) % Eos % (Auto) 1.3 (0-4) % Baso % (Auto) 0.4 (0-2) % Lymph # (Auto) 2.4 (1.2-4.9) X10*3/uL [place] # (Auto) 0.5 (0.1-1.2) X10*3/uL Eos # (Auto) 0.1 (0.0-0.4) X10*3/uL Baso # (Auto) 0.0 (0.0-0.2) X10*3/uL Abs Immat Gran (auto) 0.02 (0.00-0.03) X10*3/uL Absolute Neuts (auto) 6.2 (2.0-8.3) x10*3/uL Absolute Nucleated RBC 0.000 (0.0-0.012) X10*3/uL Nucleated RBC % (auto) 0.0 (0.0-0.2) /100WBC Sodium 141 (135-145) mmol/L Potassium 3.7 (3.3-5.1) mmol/L Chloride 107 (96-108) mmol/L Carbon Dioxide 27 (22-29) mmol/L Anion Gap 11 L (12-20) BUN 17 H (9-16) mg/dL Creatinine 1.05 (0.5-1.4) mg/dL Estim Creat Clear Calc 66.4 Estimated GFR > 60 Random Glucose 83 (60-115) mg/dL Calcium 9.4 (8.4-10.2) mg/dL Magnesium 1.8 (1.6-2.6) mg/dL Total Bilirubin 0.6 (0.0-1.0) mg/dL AST 24 (5-37) U/L ALT 20 (0-40) U/L Alkaline Phosphatase 84 (39-117) U/L Troponin I High Sens 4.6 (<3.5-35.0) ng/L Total Protein 7.2 (6.5-8.0) g/dL Albumin 4.1 (3.5-5.0) g/dL Discharge Plan Discharge Clinical Impression: Headache, Hypertension Patient Disposition: Home, Self-Care Additional Instructions: Your testing in the emergency room today is very reassuring. I would recommend continuing your current medications at this time. If you continue to get headaches you can try acetaminophen (Tylenol) as needed. Please follow up with your adjuster piano action and your regular doctor to discuss these symptoms and your medications. Return to the emergency room if significantly worse. Prescriptions: No Action atorvastatin 10 mg tablet 10 mg PO DAILY metformin 500 mg tablet extended release 24 hr 500 mg PO DAILY metoprolol succinate [Toprol XL] 50 mg tablet extended release 24 hr 50 mg PO DAILY Qty: 90 0RF Eliquis 5 mg tablet 5 mg PO BID Qty: 180 0RF Referrals: Lars Dubois MD [Primary Care Provider] - Elias Guthrie MD [Physician] - Interventions: ED Discharge Assessment Last Done: 07/28/24 22:33 Discharge Date/Time: 07/28/24 22:34 Print Language: Beninese
--- NOTE | 2024-07-28 19:17 | ECG_ITS ---
Test Reason : DIZZINESS Blood Pressure : */* mmHG Vent. Rate : 61 BPM Atrial Rate : 61 BPM P-R Int : 146 ms QRS Dur : 96 ms QT Int : 406 ms P-R-T Axes : 61 -24 14 degrees QTcB Int : 408 ms Normal sinus rhythm Possible Left atrial enlargement Left ventricular hypertrophy ( R in aVL , Dana product ) Abnormal ECG When compared with ECG of 19-Jul-2024 12:24, No significant change was found Referred By: Rosemarie Sanchez Electronically Signed By: ALEX BEAVER MD
[2024-07-28 19:29] LABS: MANUAL DIFF FLAG NO
[2024-07-28 19:32] LABS: Basophils Percent Auto 0.4 % (0-2); Eosinophils Absolute Auto 0.1 X10*3/uL (0.0-0.4); Eosinophils Percent Auto 1.3 % (0-4); Hematocrit 44.9 % (42.0-52.0); Hemoglobin 14.5 g/dl (14.0-18.0); Imm Gran Abs Auto 0.02 X10*3/uL (0.00-0.03); Imm Gran Pct Auto 0.2 % (0.0-0.4); Lymphocytes Absolute Auto 2.4 X10*3/uL (1.2-4.9); Lymphocytes Percent Auto 25.7 % (20-40); Mean Corpuscular HGB Conc 32.3 g/dl (31.0-36.0); Mean Corpuscular Hemoglobin 27.8 pg (27.0-33.0); Mean Platelet Volume 10.8 fL (9.4-12.4); Monocytes Absolute Auto 0.5 X10*3/uL (0.1-1.2); Monocytes Percent Auto 5.8 % (2-11); Neutrophils Absolute Auto 6.2 x10*3/uL (2.0-8.3); Neutrophils Percent Auto 66.6 % (45-73); Platelet Count 283 X10*3/uL (160-400); Red Blood Count 5.22 X10*6/uL (4.60-5.80); Red Cell Distribution Width 13.7 % (11.0-16.0); White Blood Count 9.3 X10*3/uL (4.8-10.8)
[2024-07-28 19:50] LABS: Alanine Aminotransferase 20 U/L (0-40); Albumin Level 4.1 g/dL (3.5-5.0); Alkaline Phosphatase 84 U/L (39-117); Anion Gap 11 (12-20); Aspartate Amino Transferase 24 U/L (5-37); Bilirubin Total 0.6 mg/dL (0.0-1.0); Blood Urea Nitrogen 17 mg/dL (9-16); Calcium 9.4 mg/dL (8.4-10.2); Carbon Dioxide 27 mmol/L (22-29); Chloride 107 mmol/L (96-108); Creatinine Clr Calc Pharmacy 66.4; Estimated Glomerular Filt Rate > 60; Glucose Random 83 mg/dL (60-115); Magnesium 1.8 mg/dL (1.6-2.6); Potassium 3.7 mmol/L (3.3-5.1); Sodium 141 mmol/L (135-145); Total Protein 7.2 g/dL (6.5-8.0)
[2024-07-28 20:14] LABS: Troponin-I High Sensitivity 4.6 ng/L (<3.5-35.0)
[2024-07-28 22:33] VITALS: BP 172/85; PULSE 97; RESP 16; TEMP 36.8; O2SAT 97
== END 2024-07-28 22:34 | disposition home or self-care (01) ==
PROVIDERS: Physician Assistant Medical; Emergency Provider Emergency Medicine; PCP Internal Medicine
DX: R51.9 Headache, unspecified (principal); I10 Essential (primary) hypertension; E11.9 Type 2 diabetes mellitus without complications; E78.00 Pure hypercholesterolemia, unspecified; I48.91 Unspecified atrial fibrillation; Z79.02 Long term (current) use of antithrombotics/antiplatelets; Z79.84 Long term (current) use of oral hypoglycemic drugs; Z79.01 Long term (current) use of anticoagulants; Z79.899 Other long term (current) drug therapy
CPT/HCPCS: 36415; 70450; 80053; 83735; 84484; 85025; 93005; 99283; 99284

== ENCOUNTER → 2024-07-28 19:17 | Outpatient (BNV) | payer MEDICARE, SELFPAY | PROVIDERS: Emergency Provider Emergency Medicine; PCP Internal Medicine; Visit Provider Internal Medicine Cardiovascular Disease | DX: I51.7 Cardiomegaly (principal) | CPT/HCPCS: 93010 ==

== ENCOUNTER → 2024-07-28 19:18 | Outpatient (BNV) | payer MEDICARE, SELFPAY | PROVIDERS: PCP Internal Medicine; Visit Provider Radiology Diagnostic Radiology | DX: I10 Essential (primary) hypertension (principal) | CPT/HCPCS: 70450 ==

== ENCOUNTER → 2024-07-30 09:53 | Outpatient (BNVA) | payer MEDICARE, SELFPAY | PROVIDERS: PCP Internal Medicine; Visit Provider Internal Medicine | DX: Z13.89 Encounter for screening for other disorder (principal) ==

== ENCOUNTER 2024-07-30 10:08 | Emergency (ER) | payer MEDICARE, SELFPAY ==
--- NOTE | ~2024-07-30 | XR_ITS ---
EXAMINATION: XR CHEST CLINICAL INFORMATION: CP COMPARISON: 07/11/2024. TECHNIQUE: Frontal view of the chest was obtained. FINDINGS: Mildly elevated right hemidiaphragm. The cardiac, hilar, and mediastinal contours are normal. Mild aortic mural calcification. The lungs are clear bilaterally. No pneumothorax or effusion. No focal osseous or soft tissue abnormality. XR/XR chest 1V IMPRESSION: No active pulmonary disease. Electronically signed by: Marito Sullivan MD 07/30/2024 10:50 AM EDT
--- NOTE | 2024-07-30 10:10 | ECG_ITS ---
Test Reason : CHEST PAIN Blood Pressure : */* mmHG Vent. Rate : 57 BPM Atrial Rate : 57 BPM P-R Int : 152 ms QRS Dur : 84 ms QT Int : 426 ms P-R-T Axes : 63 -24 1 degrees QTcB Int : 414 ms Sinus bradycardia Otherwise normal ECG When compared with ECG of 28-Jul-2024 19:20, No significant change was found Referred By: Generic ED Physician Electronically Signed By: ALEX BEAVER MD
[2024-07-30 10:15] VITALS: BP 172/78; PULSE 56; RESP 16; TEMP 36.6; O2SAT 99; BMI 30.2
[2024-07-30 10:29] LABS: MANUAL DIFF FLAG NO
[2024-07-30 10:33] LABS: Basophils Percent Auto 0.5 % (0-2); Eosinophils Percent Auto 0.6 % (0-4); Hematocrit 45.3 % (42.0-52.0); Hemoglobin 14.9 g/dl (14.0-18.0); Imm Gran Abs Auto 0.02 X10*3/uL (0.00-0.03); Imm Gran Pct Auto 0.3 % (0.0-0.4); Lymphocytes Absolute Auto 1.4 X10*3/uL (1.2-4.9); Lymphocytes Percent Auto 21.5 % (20-40); Mean Corpuscular HGB Conc 32.9 g/dl (31.0-36.0); Mean Corpuscular Hemoglobin 28.4 pg (27.0-33.0); Mean Corpuscular Volume 86.3 fL (80.0-98.0); Mean Platelet Volume 10.7 fL (9.4-12.4); Monocytes Absolute Auto 0.3 X10*3/uL (0.1-1.2); Monocytes Percent Auto 5.2 % (2-11); Neutrophils Absolute Auto 4.5 x10*3/uL (2.0-8.3); Neutrophils Percent Auto 71.9 % (45-73); Platelet Count 278 X10*3/uL (160-400); Red Blood Count 5.25 X10*6/uL (4.60-5.80); Red Cell Distribution Width 13.7 % (11.0-16.0); White Blood Count 6.3 X10*3/uL (4.8-10.8)
--- NOTE | 2024-07-30 10:36 | ED_ITS ---
HPI - Chest Pain General Chief Complaint: Chest Pain Stated Complaint: high bp chest pain l arm numbness Time Seen by Provider: 07/30/24 10:11 Source: patient Mode of arrival: ambulatory Limitations: language barrier (Croatian-speaking manager communication utilized) History of Present Illness ED Provider: Maribell Roberts NP HPI narrative: Patient is a 69-year-old male who presents emergency department for evaluation. He endorses having about 4 ED visits recently in addition to visits with his primary care doctor in regards to his hypertension. He has been having intermittent episodes of substernal chest pain, headache, nausea, and dizziness over the past week at which time he notices that his blood pressure is elevated typically 170/180s systolically. He reports that today he did not take his blood pressure medication this morning, his systolic blood pressure was 192 he was having these symptoms which ultimately brought him back to the emergency department. He states that he has otherwise been compliant with his medications aside from not taking it this morning as he has been instructed, he is able to tell me that he is taking metoprolol once daily in the morning, and ?a blood pill?. Related Data Home Medications ?Medication ?Instructions ?Recorded ?Confirmed atorvastatin 10 mg tablet 10 mg PO DAILY 07/11/24 07/22/24 metformin 500 mg tablet,extended 500 mg PO DAILY 07/11/24 07/22/24 release 24 hr Previous Rx's ?Medication ?Instructions ?Recorded apixaban 5 mg tablet (Eliquis) 5 mg PO BID #180 tabs 07/11/24 metoprolol succinate 50 mg 50 mg PO DAILY #90 tabs 07/11/24 tablet,extended release 24 hr (Toprol XL) lisinopril 10 mg tablet 10 mg PO DAILY #30 tabs 07/30/24 Allergies Allergy/AdvReac Type Severity Reaction Status Date / Time No Known Allergies Allergy Mild NKA Verified 07/30/24 10:18 Review of Systems 2 Review of Systems: Yes all other systems are reviewed and are negative PMFSH Past Medical History Attestation statement: The following information was validated with the patient. Source: old records reviewed Medical History Hospital discharge follow-up Vitamin D deficiency Overweight (BMI 25.0-29.9) Psoriasis Obstructive sleep apnea Pure hypercholesterolemia Benign essential hypertension Type 2 diabetes mellitus without complication, without long-term current use of insulin Surgical History History of open reduction and internal fixation (ORIF) procedure History of colonoscopy Family History Family History Father Medical history unknown Mother Medical history unknown Social History Social History Housing: Apartment Unable to assess alcohol history related to: Unknown Alcohol intake: never Patient Tobacco Use Status: Never used Tobacco e-Cigarette/Vaping Use: Never Used Second Hand Smoke Exposure: No Advance Directives: No Advance Directives Information Provided: Yes service: No Current occupational status: retired Cognitive needs: No Hearing needs: No Vision needs: Yes Physical Exam 2 Vital Signs: Vital Signs: Last Vital Signs Temp 97.6 F 07/30/24 12:05 Pulse 56 07/30/24 12:05 Resp 14 07/30/24 12:05 BP 158/76 H 07/30/24 12:05 Pulse Ox 98 07/30/24 12:05 O2 Del Method Room Air 07/30/24 12:05 BMI result Body Mass Index 30.2 Appearance: Alert.?Oriented to person, place and time. No acute distress.?Normal affect. Eyes: Pupils equal, round and reactive to light.? ENT: Pharynx normal.?? Neck: Normal inspection.? Neck supple.??No JVD. CVS: Heart sounds normal. Normal heart rate and rhythm.? Pulses normal.?? Respiratory: No respiratory distress.? Lung sounds clear to auscultation bilaterally?? Abdomen: Soft and non-tender. Normoactive bowel sounds. No pulsatile mass.?? Skin: Skin warm and dry.? Normal skin color.? ?? Extremities: No lower extremity edema.? No calf ttp? Neuro: Moves all extremities spontaneously. Sensation intact bilaterally. CN II- XII intact. No focal neuro deficits. Ambulates with normal steady gait. Medications Administered Discontinued Medications Generic Name Dose Route Start Last Admin Trade Name Freq PRN Reason Stop Dose Admin Lisinopril 10 mg 07/30/24 11:06 07/30/24 11:26 Lisinopril 10 Mg Tablet PO 07/30/24 11:07 10 mg ONCE ONE Administration Protocol Medical Decision Making Medical Decision Making [facility] Narrative: Patient is a 69-year-old male with past medical history of psoriasis, HELIO, hypercholesterolemia, hypertension, type 2 diabetes, new onset of atrial fibrillation in June of 2024 started on metoprolol and Eliquis advised for outpatient cardiology follow-up/echocardiogram. Based on medical record and patient report does not appear as though he has followed up with Cardiology outpatient as of yet nor has he had an echocardiogram. He has had 2 subsequent ED visits since his initial diagnosis on 07/19/2024 and 07/28/2024. Additionally saw PCP on 07/22/2024 were he is lisinopril and hydrochlorothiazide were discontinued. By patient's account he feels as though his blood pressure has been elevated since the discontinuation of these medications. Most recent ED visit 2 days ago he was experiencing similar symptoms of headache, dizziness, nausea particularly symptomatic during the day with resolution by the evening hours which were thought to be side effects of the new medications for him and advised outpatient follow-up. Overall he is well-appearing, nontoxic, afebrile. Clinically without signs of volume overload or shock on examination. CBC is without leukocytosis anemia or thrombocytopenia. No electrolyte derangement. No BRADLEY. High sensitive troponin below detectable limits. EKG is nonischemic revealing a sinus bradycardia with ventricular rate of 57, QTC 414, no ST-elevation, not consistent with ACS as etiology for symptoms. He has no focal neurological deficits, low clinical suspicion for ICH, had head CT 07/19/2024 as well as 07/28/2024 both without acute intracranial pathology. Defer additional head CT at this time. Reviewed workup today with patient and discussed plan of care; continue with metoprolol succinate 50 mg daily, in addition to lisinopril 10 mg daily. Patient advised to keep blood pressure checks 3 times weekly in the morning for 2 weeks. He has blood pressure readings should be presented to his primary care doctor at which point, they may consider alternative dosage changes. Discussed use of acetaminophen for headache management no NSAIDs due to Eliquis, slow position changing to prevent worsening of dizziness and/or potential falls. Differential Diagnosis Differential Diagnoses: The differential diagnosis associated with the presentation includes (See narrative above) Admission/Observation Consideration of admission/observation: Escalation of care including admission/observation considered (See narrative above and course narrative for further detail) Lab Data [facility] Lab Attestation statement: I reviewed the patient's lab results. 07/30/24 10:24 07/30/24 10:24 Labs: Lab Results 07/30/24 07/30/24 Range/Units 10:24 10:25 WBC 6.3 (4.8-10.8) X10*3/uL RBC 5.25 (4.60-5.80) X10*6/uL Hgb 14.9 (14.0-18.0) g/dl Hct 45.3 (42.0-52.0) % MCV 86.3 (80.0-98.0) fL MCH 28.4 (27.0-33.0) pg MCHC 32.9 (31.0-36.0) g/dl RDW 13.7 (11.0-16.0) % Plt Count 278 (160-400) X10*3/uL MPV 10.7 (9.4-12.4) fL Immature Gran % (Auto) 0.3 (0.0-0.4) % Neut % (Auto) 71.9 (45-73) % Lymph % (Auto) 21.5 (20-40) % [place] % (Auto) 5.2 (2-11) % Eos % (Auto) 0.6 (0-4) % Baso % (Auto) 0.5 (0-2) % Lymph # (Auto) 1.4 (1.2-4.9) X10*3/uL [place] # (Auto) 0.3 (0.1-1.2) X10*3/uL Eos # (Auto) 0.0 (0.0-0.4) X10*3/uL Baso # (Auto) 0.0 (0.0-0.2) X10*3/uL Abs Immat Gran (auto) 0.02 (0.00-0.03) X10*3/uL Absolute Neuts (auto) 4.5 (2.0-8.3) x10*3/uL Absolute Nucleated RBC 0.000 (0.0-0.012) X10*3/uL Nucleated RBC % (auto) 0.0 (0.0-0.2) /100WBC Hold Blue Top SEE NOTE Sodium 140 (135-145) mmol/L Potassium 3.9 (3.3-5.1) mmol/L Chloride 108 (96-108) mmol/L Carbon Dioxide 28 (22-29) mmol/L Anion Gap 8 L (12-20) BUN 17 H (9-16) mg/dL Creatinine 0.89 (0.5-1.4) mg/dL Estim Creat Clear Calc 77.7 Estimated GFR > 60 Random Glucose 121 H (60-115) mg/dL Calcium 9.2 (8.4-10.2) mg/dL Troponin I High Sens < 2.7 (<3.5-35.0) ng/L Independent Interpretation I performed an independent interpretation of an: EKG Interpretation: Rate: Rhythm:? [place]:? Normal P waves.? Normal REAGAN.?? Normal QRS complex.?? ST T wave :?? qTC: prior studies:? The study has been interpreted contemporaneously by me. Discharge Plan Discharge Clinical Impression: Chest pain Patient Disposition: Home, Self-Care Instructions: Chest Pain (ED) Additional Instructions: As discussed, I am sending a prescription for lisinopril to your pharmacy, 10 mg to take daily starting tomorrow, you may take this in addition to your metoprolol which is not having any dosage changes at this time. I want you to monitor your blood pressure 3 times weekly in the morning and write down these levels. This should be done for at least 2 weeks and then the findings should be discussed with your primary care doctor. If you continue to have elevated blood pressure readings after this time. They may consider additional dosage changes. You can take Tylenol 500 mg, 2 tablets (1,000mg) every 4-6 hours as needed for pain /headache, but not to exceed 3 doses daily (3,000mg).? be sure that you are staying well hydrated drinking at least a glasses of water daily. Change position slowly. You may return with any new or worsening symptoms or concerns. Prescriptions: New lisinopril 10 mg tablet 10 mg PO DAILY Qty: 30 0RF No Action atorvastatin 10 mg tablet 10 mg PO DAILY metformin 500 mg tablet extended release 24 hr 500 mg PO DAILY metoprolol succinate [Toprol XL] 50 mg tablet extended release 24 hr 50 mg PO DAILY Qty: 90 0RF Eliquis 5 mg tablet 5 mg PO BID Qty: 180 0RF Referrals: Lars Dubois MD [Primary Care Provider] - Print Language: Croatian
[2024-07-30 10:46] LABS: Anion Gap 8 (12-20); Blood Urea Nitrogen 17 mg/dL (9-16); Calcium 9.2 mg/dL (8.4-10.2); Carbon Dioxide 28 mmol/L (22-29); Chloride 108 mmol/L (96-108); Creatinine Clr Calc Pharmacy 77.7; Estimated Glomerular Filt Rate > 60; Glucose Random 121 mg/dL (60-115); Potassium 3.9 mmol/L (3.3-5.1); Sodium 140 mmol/L (135-145)
[2024-07-30 10:55] LABS: Troponin-I High Sensitivity < 2.7 ng/L (<3.5-35.0)
[2024-07-30 11:26] VITALS: BP 165/75
[2024-07-30] MEDS: lisinopriL 10 MG TABLET PO (11:26)
[2024-07-30 11:27] VITALS: BP 165/79; PULSE 59; RESP 18; O2SAT 99
[2024-07-30 12:05] VITALS: BP 158/76; PULSE 56; RESP 14; TEMP 36.4; O2SAT 98
--- NOTE | 2024-07-30 13:46 | PC.NURSE ---
PSYCHOMETRIC EXAMINER at bedside with rn complex care, education given about when to come to the ER, keeping a journal of blood pressures 3 times a week and bringing it to PCP
[2024-07-30 13:56] VITALS: BP 158/76; PULSE 56; RESP 14; TEMP 36.4; O2SAT 98
== END 2024-07-30 13:56 | disposition home or self-care (01) ==
PROVIDERS: Emergency Provider Emergency Medicine Emergency Medical Services; PCP Internal Medicine
DX: R07.89 Other chest pain (principal); R20.0 Anesthesia of skin; R11.0 Nausea; Z79.899 Other long term (current) drug therapy
CPT/HCPCS: 36415; 71045; 80048; 84484; 85025; 93005; 99283; 99284

== ENCOUNTER → 2024-07-30 10:10 | Outpatient (BNV) | payer MEDICARE, SELFPAY | PROVIDERS: Emergency Provider Emergency Medicine Emergency Medical Services; PCP Internal Medicine; Visit Provider Radiology Diagnostic Radiology | DX: R07.9 Chest pain, unspecified (principal) | CPT/HCPCS: 71045 ==

== ENCOUNTER → 2024-07-30 10:10 | Outpatient (BNV) | payer MEDICARE, SELFPAY | PROVIDERS: Emergency Provider Emergency Medicine Emergency Medical Services; PCP Internal Medicine; Visit Provider Internal Medicine Cardiovascular Disease | DX: R00.1 Bradycardia, unspecified (principal) | CPT/HCPCS: 93010 ==

== ENCOUNTER → 2024-08-05 09:11 | Outpatient (REF) | payer MEDICARE, SELFPAY ==
--- NOTE | 2024-08-05 09:18 | CA_ITS ---
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 The calculated ejection fraction is 46% by biplane method. - No obvious valvular pathology seen on this study. Findings Procedure Information Contrast agent, definity, is being given per protocol without apparent complications. Left Ventricle Normal left ventricular cavity size. The left ventricular systolic function is mildly decreased. The calculated ejection fraction is 46% by biplane method. There is no evidence of regional wall motion abnormalities. There is mild global hypokinesis. Diastolic function is normal for age. There is mild septal asymmetric hypertrophy. Right Ventricle Normal right ventricular cavity size and systolic function. Atria Both atria are normal in size. Aortic Valve There is a normal trileaflet aortic valve. There is no aortic valve stenosis. There is no aortic valve regurgitation. Mitral Valve The mitral valve appears normal. There is trace mitral valve regurgitation. There is no mitral valve stenosis. Pulmonic Valve The pulmonic valve is likely normal. Tricuspid Valve There is trace tricuspid valve regurgitation. There is no evidence of pulmonary hypertension. Great Vessels The asc aorta is normal in size. Venous The inferior vena cava is mildly dilated and collapses greater than 50% with inspiration. Pericardium/Pleural There is no evidence of pericardial effusion. Prior Study Comparison No prior study available for comparison. Recommendations, Care & Conclusions No obvious valvular pathology seen on this study. Measurements 2D Linear Measurements IVSd: 1.10 0.6-0.9/0.6-1.0 cm LVIDd: 5.20 3.9-5.3/4.2-5.9 cm LVIDd Index: 2.67 2.4-3.2/2.2-3.1 cm/m2 LVIDs: 3.89 2.0-3.6 cm LVPWd: 0.88 0.7-1.1 cm LA Diam: 3.80 2.7-3.8/3.0-4.0 cm LAIDs Index: 1.95 1.5-2.3 cm/m2 LV Mass: 238.88 67-162/88-224 g LV Mass Index: 122.50 43-95/49-115 g/m2 LVOT Diam: 2.40 3.0+(-)1.3 cm 2D Systolic Function EF 4C: 44.30 >55% EF 2C: 47.30 >55% EF BiP: 46.20 >55% Mitral Valve MV Pk E: 0.75 MV PK A: 0.42 MV Decel Time: 170.00 E/A: 1.80 E'Lateral: 6.42 E'Medial: 6.09 E/E' Med: 12.20 E/E' Lat: 11.60 PHT: 50.00 MVA PHT: 4.40 Decel [place]: 4.39 Aortic Valve AoV Pk Miguel: 1.32 AoV Mn Miguel: 0.94 AoV VTI: 0.31 AoV Pk Grad: 7.00 Aov Mn Grad: 4.00 JAMES Cont.VTI: 2.70 LVOT LVOT Pk Miguel: 0.80 LVOT Mn Miguel: 0.57 LVOT VTI: 0.18 LVOT Pk Grad: 3.00 LVOT Mn Grad: 1.00 LVOT Diam: 2.40 LVOT Area: 4.52 Diastolic Function MV Pk E: 0.75 MV Pk A: 0.42 E/A: 1.80 E'Medial: 6.09 E/E' Med: 12.20 E' Laterial: 6.42 E/E' Lat: 11.60 Right Ventricle TAPSE (mm): 21.70 TVS' Miguel: 14.30 Tricuspid Valve TR Pk Miguel: 2.10 TR Pk Grad: 18.00 RA Press: 8.00 RVSP: 26.00 Great Vessels Aorta Sinus of Valsalva: 3.66 2.0-3.[address] [place]: 2.82 1.7-3.4 cm Ao Asc: 3.10 2.1-3.4 cm Updated in Other Vendor System with Status of Final Pritesh Dillon MD electronically signed on 08/06/2024 4:49:22 PM with status of Final
== END ==
LOC: HO.CARD 09:11
PROVIDERS: PCP Internal Medicine; Visit Provider Internal Medicine Cardiovascular Disease
DX: I48.91 Unspecified atrial fibrillation (principal); R07.9 Chest pain, unspecified
CPT/HCPCS: 93242; 93306; Q9957

== ENCOUNTER → 2024-08-05 09:18 | Outpatient (BNV) | payer MEDICARE, SELFPAY | PROVIDERS: PCP Internal Medicine; Visit Provider Internal Medicine | DX: I34.0 Nonrheumatic mitral (valve) insufficiency (principal); I36.1 Nonrheumatic tricuspid (valve) insufficiency; I48.91 Unspecified atrial fibrillation | CPT/HCPCS: 93306 ==

== ENCOUNTER 2024-08-17 10:14 | Outpatient (REF) | payer MEDICARE, SELFPAY ==
[2024-08-17 10:27] LABS: MANUAL DIFF FLAG NO
[2024-08-17 11:30] LABS: Basophils Percent Auto 0.5 % (0-2); Eosinophils Absolute Auto 0.1 X10*3/uL (0.0-0.4); Eosinophils Percent Auto 1.6 % (0-4); Hematocrit 46.4 % (42.0-52.0); Imm Gran Abs Auto 0.04 X10*3/uL (0.00-0.03); Imm Gran Pct Auto 0.7 % (0.0-0.4); Lymphocytes Absolute Auto 1.4 X10*3/uL (1.2-4.9); Lymphocytes Percent Auto 24.1 % (20-40); Mean Corpuscular HGB Conc 32.3 g/dl (31.0-36.0); Mean Corpuscular Volume 86.6 fL (80.0-98.0); Mean Platelet Volume 11.1 fL (9.4-12.4); Monocytes Absolute Auto 0.3 X10*3/uL (0.1-1.2); Monocytes Percent Auto 4.7 % (2-11); Neutrophils Absolute Auto 3.9 x10*3/uL (2.0-8.3); Neutrophils Percent Auto 68.4 % (45-73); Platelet Count 305 X10*3/uL (160-400); Red Blood Count 5.36 X10*6/uL (4.60-5.80); Red Cell Distribution Width 13.8 % (11.0-16.0); White Blood Count 5.7 X10*3/uL (4.8-10.8)
[2024-08-17 11:45] LABS: Appearance Urine Clear; Color Urine Yellow; Glucose Urine UA Negative (Negative); Leukocyte Esterase Urine Negative (Negative); Nitrite Urine Negative (Negative); PH 6.5 (5.0-9.0); Specific Gravity - Urine <= 1.005 (1.005-1.025); Urine Blood Negative (Negative); Urine Ketones Negative (Negative); Urine Protein Trace mg/dL (Neg-Trace)
[2024-08-17 11:50] LABS: Estimated Average Glucose 114 mg/dL; Hemoglobin A1c % 5.6 % (<6.0); Total Hemoglobin (HGBA1C) 3956.4679 umol/L
[2024-08-17 12:12] LABS: Microalbum/Creatinine Ratio Ur 303.8 ug/mg cr (<30)
[2024-08-17 12:34] LABS: Folate 6.7 ng/mL (> or = 4.0); Vitamin B12 286 pg/mL (200-900)
[2024-08-17 14:29] LABS: Alanine Aminotransferase 19 U/L (0-40); Albumin Level 4.2 g/dL (3.5-5.0); Anion Gap 10 (12-20); Aspartate Amino Transferase 18 U/L (5-37); Bilirubin Total 0.6 mg/dL (0.0-1.0); Blood Urea Nitrogen 15 mg/dL (9-16); Calcium 9.1 mg/dL (8.4-10.2); Carbon Dioxide 29 mmol/L (22-29); Chloride 106 mmol/L (96-108); Cholesterol 122 mg/dL (<200); Estimated Glomerular Filt Rate > 60; Glucose Fasting 105 mg/dL (60-99); HDL Cholesterol 46 mg/dL (>40); LDL Cholesterol Calculated 70 mg/dL (<100); Potassium 3.9 mmol/L (3.3-5.1); Sodium 141 mmol/L (135-145); Total Protein 7.4 g/dL (6.5-8.0); Triglycerides 34 mg/dL (<150)
[2024-08-17 14:53] LABS: TSH reflex Free T4 1.23 uIU/mL (0.32-4.0); Vitamin D 25-OH Total 22.9 ng/mL (>30)
[2024-08-17 18:05] LABS: Alkaline Phosphatase 71 U/L (39-117)
== END 2024-08-17 10:15 | disposition home or self-care (01) ==
LOC: HO.LAB 10:14
PROVIDERS: PCP Internal Medicine; Visit Provider Internal Medicine
DX: D64.9 Anemia, unspecified (principal); R30.0 Dysuria; E53.8 Deficiency of other specified B group vitamins; E11.9 Type 2 diabetes mellitus without complications; E78.00 Pure hypercholesterolemia, unspecified; E55.9 Vitamin D deficiency, unspecified
CPT/HCPCS: 36415; 80053; 80061; 81003; 82043; 82306; 82570; 82607; 82746; 83036; 84443; 85025

== ENCOUNTER 2024-08-20 16:01 | Outpatient (AMB) | payer MEDICARE, SELFPAY ==
--- NOTE | 2024-08-20 16:03 | MHC.PC.OV ---
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 Accompanied by: Self / Same As Patient Allergies No Known Allergies Allergy (Mild, Verified 08/20/24 16:24) NKA Medication List - Last Reconciled 08/20/24 by Lars Dubois MD apixaban (Eliquis) 5 mg PO BID atorvastatin 10 mg PO DAILY lisinopril 10 mg PO DAILY metformin ER 500 mg PO DAILY metoprolol succinate ER (Toprol XL) 50 mg PO DAILY Tobacco use date assessed: 08/20/24 Fall risk assessment: No Falls in past year Last assessed Fall Risk: 08/20/24 Dental Screening Dental Screen Date: 08/20/24 Did you have a dental visit in the last 12 months?: No Did you have a dental problem in the last 6 months where you did not have access to dental care?: No Was dental information given to patient?: No HPI DM, hyperlipidemia, HTN HPI Details Patient comes in today for his follow-up visit States that he feels okay He denies any headaches or dizziness Denies any chest pains, no shortness of breath No nausea/vomiting, no abdominal pain No change in bowel habits noted He had his follow-up labs done a few days ago - to discuss his results [facility] Medical History (Updated 08/21/24 @ 05:02 by Lars Dubois MD) Obesity (BMI 30-39.9) Hospital discharge follow-up Vitamin D deficiency Overweight (BMI 25.0-29.9) Psoriasis Obstructive sleep apnea Pure hypercholesterolemia Benign essential hypertension Type 2 diabetes mellitus without complication, without long-term current use of insulin Surgical History History of open reduction and internal fixation (ORIF) procedure History of colonoscopy Family History Father Medical history unknown Mother Medical history unknown Social History Housing: Apartment Unable to assess alcohol history related to: Unknown Alcohol intake: never Patient Tobacco Use Status: Never used Tobacco e-Cigarette/Vaping Use: Never Used Second Hand Smoke Exposure: No service: No Current occupational status: retired Cognitive needs: No Hearing needs: No Vision needs: Yes Questionnaire PHQ-9 Over the last 2 weeks, how often have you been bothered by any of the following problems? 1. Little interest or pleasure in doing things: nearly every day 2. Feeling down, depressed, or hopeless: not at all 3. Trouble falling or staying asleep, or sleeping too much: not at all 4. Feeling tired or having little energy: not at all 5. Poor appetite or overeating: not at all 6. Feeling bad about yourself - or that you are a failure or have let yourself or your family down: not at all 7. Trouble concentrating on things, such as reading the newspaper or watching television: not at all 8. Moving or speaking so slowly that other people could have noticed. Or the opposite - being so fidgety or restless that you have been moving around a lot more than usual: not at all 9. Thoughts that you would be better off or of hurting yourself in some way: not at all Total score: 3 Depression Screening Interpretation: Negative Depression Screening Done: Yes 21215 - PHQ-9 Billing: Yes Source: Developed by Drs. Vivek Yeager, Carmen May, Gildardo Aggarwal and colleagues, with an educational osvaldo from [employer]. Thrive Questionnaire Date Thrive assessed: 08/20/24 I am a: Patient What is your living situation today?: I have a steady place to live Within the past 12 months, did the food you bought not last and you didn't have the money to get more?: Never true Within the past 12 months, did you worry whether your food would run out before you got money to buy more?: Never true Do you have trouble paying for medicines?: No Do you have trouble getting transportation to medical appointments?: No Do you have trouble paying your heating and electricity bill?: No Do you have trouble taking care of your child, family member or friend?: No Do you have trouble with day-to-day activities such as bathing, preparing meals, shopping, managing finances, etc.?: No Are you currently unemployed and looking for a job?: No Are you interested in more education?: No Please select the resources that you would like help with: None Currently or been in a relationship where the following occur: No concerns reported THRIVE Score: 0 AUDIT C Alcohol Use Questionnaire (AUDIT-C) 1. How often do you have a drink containing alcohol?: Never 3. How often do you have six or more drinks on one occasion?: Never Total Score: 0 Score Reviewed/Action Taken: Yes JUVENTINO-7 AMB Questionnaire JUVENTINO-7 Date JUVENTINO - 7 assessed: 08/20/24 Feeling nervous, anxious, or on edge: 0 = Not at all Not being able to stop or control worryin = Not at all Worrying too much about different things: 0 = Not at all Trouble relaxin = Not at all Being so restless that it is hard to sit still: 0 = Not at all Becoming easily annoyed or irritable: 0 = Not at all Feeling afraid as if something awful might happen: 0 = Not at all Total JUVENTINO-7 score (0-4 normal; 5-9 mild; 10-14 moderate; 15-21 severe): 0 Source: Developed by Drs. Vivek Yeager, Carmen May, Gildardo Aggarwal and colleagues, with an educational osvaldo from [employer]. Review of Systems Const Denies chills, Denies fatigue, Denies fever(s) and Denies headache(s) ENT Denies dysphagia, Denies dizziness, Denies otalgia, Denies headache(s), Denies neck pain, Denies odynophagia and Denies sore throat Card Denies chest pain, Denies palpitations and Denies dyspnea Resp Denies chest congestion, Denies cough and Denies dyspnea GI Denies abdominal pain, Denies constipation, Denies dysphagia, Denies heartburn, Denies diarrhea, Denies nausea, Denies odynophagia and Denies vomiting Denies difficulty urinating, Denies dysuria, Denies nocturia and Denies urinary frequency Musc Denies back pain, Denies arthralgias and Denies neck pain Skin/Breast Denies rash Neuro Denies dizziness and Denies headache(s) Endo Denies fatigue and Denies palpitations Physical exam (Primary Care) Vital Signs: Last Vital Signs Pulse 57 05/09/25 16:04 BP 126/80 08/20/24 16:04 Pulse Ox 97 08/20/24 16:04 Oxygen Delivery Method Room Air 08/20/24 16:04 BMI result Body Mass Index 30.7 Tobacco/Smoking Status: Tobacco use Status Tobacco use date assessed 08/20/24 08/20/24 16:06 Patient Tobacco Use Status Never used Tobacco 08/20/24 16:06 e-Cigarette/Vaping Use Never Used 08/20/24 16:06 PHQ-9: PHQ-9 Score PHQ-9: Total score 3 08/20/24 16:26 Depression Screening Interpretation: Negative Thrive Assessment: Date of Thrive Assessment Date Thrive assessed 08/20/24 08/20/24 16:06 Currently or been in a relationship where the following occur: No concerns reported Const General: no acute distress and alert HENMT Ears: TM's normal bilaterally and EAC's normal Throat: Yes posterior oropharynx normal and Yes tonsils normal (no TP congestion noted) Neck Neck: Yes no lymphadenopathy and Yes supple Thyroid: Thyroid normal Resp Auscultation: clear to auscultation bilaterally, no rales and no wheezes Cardio Rate: regular rate Rhythm: regular rhythm Heart sounds: no murmurs GI Palpation (GI): Soft to palpation and nontender Auscultation: normal bowel sounds General: Yes no CVA tenderness Back/Spine/Pelvis Back: no CVA tenderness Thoracic/Lumbar Spine: No lumbar spinal tenderness Skin Rashes: no rashes Extrem General: Yes no clubbing, cyanosis or edema Left lower extremity: knee Details: no tenderness Results Reviewed Results Reviewed: Laboratory Tests 08/17/24 08/17/24 10:21 10:26 WBC 5.7 Hgb 15.0 Hct 46.4 Plt Count 305 Sodium 141 Potassium 3.9 Creatinine 0.97 Estimated GFR > 60 Fasting Glucose 105 H Hemoglobin A1c % 5.6 Calcium 9.1 AST 18 ALT 19 Triglycerides 34 Cholesterol 122 LDL Cholesterol, Calc 70 HDL Cholesterol 46 Vitamin B12 286 25-OH Vitamin D Total 22.9 L TSH 1.23 Ur Specific [place] <= 1.005 Urine Protein Trace Urine Glucose (UA) Negative Urine Blood Negative Urine Nitrite Negative Ur Leukocyte Esterase Negative Microalb/Creat Ratio 303.8 H Coding Level of Care Code Est Pt Level 4 (33923) Diagnoses Pure hypercholesterolemia E78.00 Type 2 diabetes mellitus without complication, without long-term current use of insulin E11.9 Benign essential hypertension I10 Obstructive sleep apnea G47.33 Vitamin D deficiency E55.9 Psoriasis L40.9 Obesity (BMI 30-39.9) E66.9 Additional Codes PHQ-9 - 09273 - PHQ-9 Billing: Yes ([id number]) Assessment & Plan Assessment & Plan (1) Pure hypercholesterolemia: Code(s): E78.00 - Pure hypercholesterolemia, unspecified Category: Medical Plan: Results of his labs done a few days ago reviewed and discussed with patient Reinforced low cholesterol diet Continue Atorvastatin 10 mg QD Will recheck his labs and fasting lipids in 4 months for follow up (2) Type 2 diabetes mellitus without complication, without long-term current use of insulin: Code(s): E11.9 - Type 2 diabetes mellitus without complications Category: Medical Plan: His HgbA1c was at 5.6% on his recent labs (was previously at 5.7% a few months ago) - goal is <7.0% Reinforced diabetic diet Continue Metformin ER 500 mg QD (3) Benign essential hypertension: Code(s): I10 - Essential (primary) hypertension Category: Medical Plan: Reinforced low sodium diet - goal is systolic BP of at least 130 mm or less Continue Lisinopril 40 mg QD and HCTZ 25 mg QD (4) Obstructive sleep apnea: Code(s): G47.33 - Obstructive sleep apnea (adult) (pediatric) Category: Medical Plan: Patient states that he is no longer using his CPAP device when sleeping at night and that he has not had any issues with sleeping or felt fatigued ever since he stopped using it over a year ago now (5) Vitamin D deficiency: Code(s): E55.9 - Vitamin D deficiency, unspecified Category: Medical Plan: Continue Vitamin D3 2000 units QD (6) Psoriasis: Code(s): L40.9 - Psoriasis, unspecified Category: Medical Plan: Continue Mometasone cream 0.1% QD PRN Follow-up with dermatology as scheduled (7) Obesity (BMI 30-39.9): Code(s): E66.9 - Obesity, unspecified Category: Medical Plan: Reinforced diet/exercise as tolerated/lose weight - he has gained a few pounds since his last visit Plan Follow up in 4 months Orders: Orders Lipid Panel 4 Months E78.00 - Pure hypercholesterolemia, unspecified UA CC w/rflx Micro + Cult 4 Months R30.0 - Dysuria Vitamin D 25-OH Total 4 Months E55.9 - Vitamin D deficiency, unspecified Complete Blood Count Auto Diff 4 Months D64.9 - Anemia, unspecified Comprehensive [place]. Panel Fast 4 Months E78.00 - Pure hypercholesterolemia, unspecified Hemoglobin A1c 4 Months E11.9 - Type 2 diabetes mellitus without complications Microalbumin, Random (w Creat) 4 Months E11.9 - Type 2 diabetes mellitus without complications
[2024-08-20 16:04] VITALS: BP 126/80; PULSE 57; O2SAT 97; BMI 30.7
== END 2024-08-20 16:30 | disposition home or self-care (01) ==
LOC: HO.HMCH 16:02
PROVIDERS: PCP Internal Medicine; Visit Provider Internal Medicine
DX: E11.9 Type 2 diabetes mellitus without complications (principal); E66.9 Obesity, unspecified; Z68.30 Body mass index [BMI] 30.0-30.9, adult; E78.00 Pure hypercholesterolemia, unspecified; I10 Essential (primary) hypertension; G47.33 Obstructive sleep apnea (adult) (pediatric); E55.9 Vitamin D deficiency, unspecified; L40.9 Psoriasis, unspecified

== ENCOUNTER → 2024-08-20 16:01 | Outpatient (BNVA) | payer MEDICARE, SELFPAY | PROVIDERS: PCP Internal Medicine; Visit Provider Internal Medicine | DX: E11.9 Type 2 diabetes mellitus without complications (principal); I10 Essential (primary) hypertension; E78.00 Pure hypercholesterolemia, unspecified; G47.33 Obstructive sleep apnea (adult) (pediatric); E55.9 Vitamin D deficiency, unspecified; L40.9 Psoriasis, unspecified; E66.9 Obesity, unspecified; R30.0 Dysuria; D64.9 Anemia, unspecified; Z68.30 Body mass index [BMI] 30.0-30.9, adult | CPT/HCPCS: 96127; 99212 ==

== ENCOUNTER 2024-09-03 10:31 | Outpatient (AMB) | payer MEDICARE, SELFPAY ==
[2024-09-03 10:32] VITALS: BP 154/94; PULSE 64; RESP 22; TEMP 37.5; O2SAT 95
--- NOTE | 2024-09-03 10:32 | A.OFFPC_ITS ---
Vital Signs 09/03/24 10:32 09/03/24 11:19 Height 5 ft 6 in Weight 185 lb 9.6 oz BMI 30.0 BP 154/94 H 160/92 H Blood Pressure Location Lt brachial Lt brachial Position Sitting Sitting Respiration 22 H Pulse 64 Pulse Source Pulse Oximeter Temp 99.5 F Temp Source Oral Pulse Oximetry (%) 95 Oxygen Delivery Method Room Air Intake Visit Reasons: [facility] 09/14 & 10/28 Intake Note: Patient is here for a Pre-op for deep cleaning scheduled [facility] on 09/14/2024 and 10/28/2024. Telesales Representative Required: Yes Telesales Representative Language: Drop [employer]ge Operator Name: Used tablet: [id number] Jack Accompanied by: Self / Same As Patient Allergies No Known Allergies Allergy (Mild, Verified 09/03/24 10:59) NKA Medication List - Last Reconciled 09/03/24 by SHEBA Barros apixaban (Eliquis) 5 mg PO BID atorvastatin 10 mg PO DAILY lisinopril 10 mg PO DAILY metformin ER 500 mg PO DAILY metoprolol succinate ER (Toprol XL) 50 mg PO DAILY Tobacco use date assessed: 09/03/24 Fall risk assessment: 1 Fall in past year Last assessed Fall Risk: 09/03/24 Dental Screening Dental Screen Date: 09/03/24 Did you have a dental visit in the last 12 months?: Yes Did you have a dental problem in the last 6 months where you did not have access to dental care?: No Was dental information given to patient?: Patient has dentist HPI [facility] 09/14 & 10/28 HPI Details The patient is a 69-year-old male presenting with a request for medical clearance for a dental procedure involving deep cleaning. His medical history includes a single episode of new-onset atrial fibrillation, diagnosed during an emergency room visit, resulting in the initiation of anticoagulation therapy with Apixaban. The patient was fitted with a Holter monitor at the time, which returned normal findings. He also has essential hypertension, which he has been managing inadequately by taking his antihypertensive medications at nighttime. This has resulted in persistently elevated blood pressure for the past month. He believes it is related to changes in his medication regimen and is experiencing associated symptoms such as fatigue and headaches. After discussion, it was evident that his low fluid intake might also be impacting his tiredness. Patient had a plan dental cleaning on 09/14/2024 and 10/28/2024. He is aware that he has to reschedule this procedure due to his uncontrolled blood pressure and fairly new AFib requiring blood thinner. He would need cardiac clearance even after blood pressure is under control. [facility] Medical History Obesity (BMI 30-39.9) Hospital discharge follow-up Vitamin D deficiency Overweight (BMI 25.0-29.9) Psoriasis Obstructive sleep apnea Pure hypercholesterolemia Benign essential hypertension Type 2 diabetes mellitus without complication, without long-term current use of insulin Surgical History History of open reduction and internal fixation (ORIF) procedure History of colonoscopy Family History Father Medical history unknown Mother Medical history unknown Social History Housing: Apartment Unable to assess alcohol history related to: Unknown Alcohol intake: never Patient Tobacco Use Status: Never used Tobacco e-Cigarette/Vaping Use: Never Used Second Hand Smoke Exposure: No service: No Current occupational status: retired Cognitive needs: No Hearing needs: No Vision needs: Yes (Glasses) Questionnaire Thrive Questionnaire Date Thrive assessed: 09/03/24 I am a: Patient What is your living situation today?: I have a steady place to live Within the past 12 months, did the food you bought not last and you didn't have the money to get more?: Never true Within the past 12 months, did you worry whether your food would run out before you got money to buy more?: Never true Do you have trouble paying for medicines?: No Do you have trouble getting transportation to medical appointments?: No Do you have trouble paying your heating and electricity bill?: No Do you have trouble taking care of your child, family member or friend?: No Do you have trouble with day-to-day activities such as bathing, preparing meals, shopping, managing finances, etc.?: No Are you currently unemployed and looking for a job?: No Are you interested in more education?: No Please select the resources that you would like help with: None Currently or been in a relationship where the following occur: No concerns reported THRIVE Score: 0 AUDIT C Alcohol Use Questionnaire (AUDIT-C) 1. How often do you have a drink containing alcohol?: Never Total Score: 0 Score Reviewed/Action Taken: No JUVENTINO-7 AMB Questionnaire JUVENTINO-7 Date JUVENTINO - 7 assessed: 08/20/24 Source: Developed by Drs. Vivek Yaeger, Carmen May, Gildardo Aggarwal and colleagues, with an educational osvaldo from [employer]. Review of Systems Const Denies headache(s) and Reports lethargy Eyes Denies loss of vision ENT Denies vertigo, Denies dizziness, Denies headache(s) and Denies sore throat Card Denies chest pain, Denies leg edema and Denies lightheadedness Resp Denies cough, Denies hemoptysis and Denies wheezing GI Denies abdominal pain, Denies melena, Denies constipation, Denies diarrhea and Denies vomiting Denies dysuria, Denies urinary frequency and Denies urinary urgency Neuro Denies vertigo, Denies dizziness, Denies headache(s) and Denies loss of vision Juanito/Lymph Denies easy bleeding and Denies easy bruising Aller/Immun Denies wheezing Physical exam (Primary Care) Vital Signs: Last Vital Signs Temp 99.5 F 09/03/24 10:32 Pulse 64 09/03/24 10:32 Resp 22 H 09/03/24 10:32 BP 160/92 H 09/03/24 11:19 Pulse Ox 95 09/03/24 10:32 Oxygen Delivery Method Room Air 09/03/24 10:32 BMI result Body Mass Index 30.0 Tobacco/Smoking Status: Tobacco use Status Tobacco use date assessed 09/03/24 09/03/24 10:43 Patient Tobacco Use Status Never used Tobacco 09/03/24 10:43 e-Cigarette/Vaping Use Never Used 09/03/24 10:43 Thrive Assessment: Date of Thrive Assessment Date Thrive assessed 09/03/24 09/03/24 10:43 Currently or been in a relationship where the following occur: No concerns reported Const General: healthy appearing, no acute distress, alert and awake Nutritional Appearance: well nourished Orientation/consciousness: oriented to person, oriented to place and oriented to time HENMT Ears: TM's normal bilaterally General nose exam: Normal nasal mucous membranes and turbinates present Eyes Conjunctivae: conjunctivae normal Sclerae: sclerae normal Pupils: Equal, round and reactive pupils present Neck Neck: Yes no lymphadenopathy and Yes no JVD Thyroid: Thyroid normal Carotids: no bruits Resp Effort & Inspection: normal respiratory effort and not tachypneic Auscultation: no crackles, no rales, no rhonchi and no wheezes Cardio Rate: regular rate Rhythm: regular rhythm Heart sounds: no murmurs and normal S1 and S2 GI Palpation (GI): Soft to palpation, nontender, no hepatomegaly and no splenomegaly Auscultation: normal bowel sounds Skin General skin exam: no rashes or lesions noted and dry skin Neuro General: oriented to person, oriented to place and oriented to time Cranial nerves: Yes Equal, round and reactive pupils present Gait exam (Neuro): Normal gait present Motor exam (neuro): no tremor noted Extrem Right upper extremity: full ROM Left upper extremity: full ROM Right lower extremity: full ROM; no edema Left lower extremity: full ROM; no edema Psych Mental Status: mental status grossly normal Speech and movement: Normal speech and movement present Affect: normal affect Attitude: cooperative Thought process: Normal thought process present Results Reviewed Results Reviewed: Laboratory Tests 08/17/24 08/17/24 10:21 10:26 WBC 5.7 RBC 5.36 Hgb 15.0 Hct 46.4 MCV 86.6 MCH 28.0 MCHC 32.3 RDW 13.8 Plt Count 305 MPV 11.1 Sodium 141 Potassium 3.9 Chloride 106 Carbon Dioxide 29 Anion Gap 10 L BUN 15 Creatinine 0.97 Estimated GFR > 60 Fasting Glucose 105 H Estimat Average Glucose 114 Hemoglobin A1c % 5.6 Calcium 9.1 Total Bilirubin 0.6 AST 18 ALT 19 Alkaline Phosphatase 71 Total Protein 7.4 Albumin 4.2 Triglycerides 34 Cholesterol 122 LDL Cholesterol, Calc 70 HDL Cholesterol 46 Vitamin B12 286 25-OH Vitamin D Total 22.9 L Folate 6.7 TSH 1.23 Urine Color Yellow Urine Appearance Clear Urine pH 6.5 Ur Specific [place] <= 1.005 Urine Protein Trace Urine Glucose (UA) Negative Urine Ketones Negative Urine Blood Negative Urine Nitrite Negative Ur Leukocyte Esterase Negative Urine Creatinine 33.90 Urine Microalbumin 103.0 Microalb/Creat Ratio 303.8 H Coding Level of Care Code Est Pt Level 4 (57749) Diagnoses Preoperative clearance Z01.818 Paroxysmal atrial fibrillation I48.0 Benign essential hypertension I10 Type 2 diabetes mellitus without complication, without long-term current use of insulin E11.9 Obstructive sleep apnea G47.33 Obesity (BMI 30-39.9) E66.9 Time Spent (min) 39 Assessment & Plan Assessment & Plan (1) Preoperative clearance: Code(s): Z01.818 - Encounter for other preprocedural examination Category: Medical Plan: Regarding preop clearance, the patient is not at acceptable risk for proposed surgery. His blood pressure is elevated and he needs cardiac clearance to hold apixaban given that his AFib is a new onset. Reviewed with the patient that no surgery is completely free of risk and that this examination is to assist the surgeon in reviewing informed consent. (2) Paroxysmal atrial fibrillation: Code(s): I48.0 - Paroxysmal atrial fibrillation Category: Medical Plan: Patient states that he only had 1 episode of AFib and he has not felt the symptoms that he had going into the emergency room with AFib. He also reports that he has Holter monitor was normal. Explained to the patient that stopping his apixaban is not the safest choice without cardiology approval given that this all new. (3) Benign essential hypertension: Code(s): I10 - Essential (primary) hypertension Category: Medical Plan: Patient blood pressure is elevated in office another reason why he is not cleared for the procedure. He reports that he has been taking his blood pressure medication at night hence he has not taken the medication today as yet. Explained to the patient that taking the medication at night is going cause it to peak while he is sleeping and most likely he needs the medication less when he is resting. Will have the patient start taking his medication during the daytime and return in 1 week for BP check and med adjustment. (4) Type 2 diabetes mellitus without complication, without long-term current use of insulin: Code(s): E11.9 - Type 2 diabetes mellitus without complications Category: Medical Plan: A1c 5.6%, showing a well-controlled diabetes. Reinforced low sugar/carbohydrate diet and activity as tolerated Continue metformin 500 mg ER daily (5) Obstructive sleep apnea: Code(s): G47.33 - Obstructive sleep apnea (adult) (pediatric) Category: Medical Plan: Reports that he is no longer using his CPAP machine. This could be contributing to the patient feeling more tired even though it does not agree. In addition, this might be playing a role in the patient uncontrolled blood pressure. We will see what the patient blood pressure is in a week an advice. (6) Obesity (BMI 30-39.9): Code(s): E66.9 - Obesity, unspecified Category: Medical Plan: Encouraged to exercise for at least 30 minutes a day/5 days a week Healthy eating discussed. Encouraged to eat fruits/vegetables, protein- fish/baked chicken, and to avoid salty/fried foods, sweets, caffeine and carbohydrates. Encouraged to increase water intake 6-8 glasses a day Orders: Referrals Cardiology Referral I48.0 - Paroxysmal atrial fibrillation
[2024-09-03 11:19] VITALS: BP 160/92
== END 2024-09-03 11:29 | disposition home or self-care (01) ==
LOC: HO.HMCH 10:31
PROVIDERS: PCP Internal Medicine
DX: I48.0 Paroxysmal atrial fibrillation (principal); E11.9 Type 2 diabetes mellitus without complications; E66.9 Obesity, unspecified; Z68.30 Body mass index [BMI] 30.0-30.9, adult; Z01.818 Encounter for other preprocedural examination; I10 Essential (primary) hypertension; G47.33 Obstructive sleep apnea (adult) (pediatric)

== ENCOUNTER → 2024-09-03 10:31 | Outpatient (BNVA) | payer MEDICARE, SELFPAY | PROVIDERS: PCP Internal Medicine | DX: Z01.818 Encounter for other preprocedural examination (principal); I48.0 Paroxysmal atrial fibrillation; I10 Essential (primary) hypertension; E11.9 Type 2 diabetes mellitus without complications; E66.9 Obesity, unspecified; Z68.30 Body mass index [BMI] 30.0-30.9, adult; G47.33 Obstructive sleep apnea (adult) (pediatric); Z79.01 Long term (current) use of anticoagulants; Z79.84 Long term (current) use of oral hypoglycemic drugs; Z79.899 Other long term (current) drug therapy | CPT/HCPCS: 99212 ==

== ENCOUNTER → 2024-09-23 10:06 | Outpatient (BNVA) | payer MEDICARE, SELFPAY | PROVIDERS: PCP Internal Medicine ==

== ENCOUNTER → 2024-09-30 10:08 | Outpatient (BNVA) | payer MEDICARE, SELFPAY | PROVIDERS: PCP Internal Medicine ==

== ENCOUNTER 2024-10-04 10:39 | Outpatient (AMB) | payer MEDICARE, SELFPAY ==
--- NOTE | 2024-10-04 10:45 | MHC.OFFWIV ---
Intake Vital Signs 10/04/24 10:46 Height 5 ft 6 in Weight 185 lb 2 oz BMI 29.9 BP 140/72 H Blood Pressure Location Rt brachial Position Sitting Pulse 66 Pulse Source Pulse Oximeter Temp 98.8 F Temp Source Oral Pulse Oximetry (%) 97 Oxygen Delivery Method Room Air Intake Visit Reasons: EP ? 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 He tried to scratch his eye to remove it with no relief. Denies vision changes. Denies lightsensitivity, pain or discharge. [facility] Medical History (Updated 10/04/24 @ 11:14 by Amparo Cox NP) Bacterial conjunctivitis of right eye Obesity (BMI 30-39.9) Hospital discharge follow-up Vitamin D deficiency Overweight (BMI 25.0-29.9) Psoriasis Obstructive sleep apnea Pure hypercholesterolemia Benign essential hypertension Type 2 diabetes mellitus without complication, without long-term current use of insulin Surgical History History of open reduction and internal fixation (ORIF) procedure History of colonoscopy Family History Father Medical history unknown Mother Medical history unknown Social History Housing: Apartment Unable to assess alcohol history related to: Unknown Alcohol intake: never Patient Tobacco Use Status: Never used Tobacco e-Cigarette/Vaping Use: Never Used Second Hand Smoke Exposure: No service: No Current occupational status: retired Cognitive needs: No Hearing needs: No Vision needs: Yes (Glasses) Review of Systems Const All systems reviewed & are unremarkable except as noted in HPI and below Physical Exam Vital Signs: Last Vital Signs Temp 98.8 F 10/04/24 10:46 Pulse 66 10/04/24 10:46 BP 140/72 H 10/04/24 10:46 Pulse Ox 97 10/04/24 10:46 Oxygen Delivery Method Room Air 10/04/24 10:46 BMI result Body Mass Index 29.9 Const General: no acute distress Nutritional Appearance: well nourished Orientation/consciousness: patient oriented x3 Eyes Periorbital: periorbital findings abnormal right periorbital swelling, periorbital tenderness and periorbital erythema; no crepitus Eyelids: Yes eyelid abnormality (Swelling lower eyelid - right) Conjunctivae: conjunctival abnormal right conjunctival injection Pupils: Equal, round and reactive pupils present EOM: EOMs intact bilaterally Neuro General: patient oriented x3, gait normal and moves all extremities Cranial nerves: Yes Equal, round and reactive pupils present Psych Speech and movement: Normal speech and movement present Assessment & Plan Assessment & Plan (1) Bacterial conjunctivitis of right eye: Code(s): H10.9 - Unspecified conjunctivitis Plan: Ordered Abx Ointment for 7 days Keep eyes clean and dry Maintain a good hand hygiene. Medications: New erythromycin 0.5 inches ophthalmic (eye) BID 3.5 grams 0RF H10.9 - Unspecified conjunctivitis Coding Level of Care Code Est Pt Level 4 (15324) Diagnoses Bacterial conjunctivitis of right eye H10.9 Time Spent (min) 20
[2024-10-04 10:46] VITALS: BP 140/72; PULSE 66; TEMP 37.1; O2SAT 97; BMI 29.9
== END 2024-10-04 11:07 | disposition home or self-care (01) ==
PROVIDERS: PCP Internal Medicine; Visit Provider Nurse Practitioner Family
DX: H10.9 Unspecified conjunctivitis (principal)

== ENCOUNTER → 2024-10-04 10:39 | Outpatient (BNVA) | payer MEDICARE, SELFPAY | PROVIDERS: PCP Internal Medicine; Visit Provider Nurse Practitioner Family | DX: H10.9 Unspecified conjunctivitis (principal) | CPT/HCPCS: 99212 ==

== ENCOUNTER 2024-10-05 15:36 | Emergency (ER) | payer MEDICARE, SELFPAY ==
[2024-10-05 16:21] VITALS: BP 132/72; PULSE 74; RESP 16; TEMP 36.9; O2SAT 97; BMI 27.7
[2024-10-05 19:50] VITALS: BP 173/73; PULSE 65; RESP 18; TEMP 37.1; O2SAT 96
[2024-10-05 21:03] VITALS: BP 188/88; PULSE 65; RESP 16; TEMP 37.1; O2SAT 98
[2024-10-05] MEDS: Tetracaine HCl/PF 0.5% Oph Sol 4 ML DROPS 1 DROP EYE-RIGHT (21:50)
[2024-10-05] MEDS: Fluorescein Sodium STRIP 1 STRIP EYE-RIGHT (21:50)
--- NOTE | 2024-10-05 22:23 | ED.GENADULT ---
HPI - General Adult General Chief complaint: Eye Problems Stated complaint: right eye infection Time Seen by Provider: 10/05/24 21:05 Source: patient, family and home care manager Mode of arrival: ambulatory Limitations: language barrier History of Present Illness ED Provider: Jose Martin HPI narrative: 69-year-old male presents for evaluation of right eye irritation. 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 He felt as if he had gotten something in his right eye at the time. He was rubbing the area vigorously. He went to urgent care 2 days ago and was prescribed erythromycin ointment He has been using this and reports increasing swelling around his eye He denies any significant pain in his not had any fevers. He wears corrective glasses but never wears contacts Related Data Home Medications ?Medication ?Instructions ?Recorded ?Confirmed metformin 500 mg tablet,extended 500 mg PO DAILY 07/11/24 10/04/24 release 24 hr Previous Rx's ?Medication ?Instructions ?Recorded apixaban 5 mg tablet (Eliquis) 5 mg PO BID #180 tabs 07/11/24 metoprolol succinate 50 mg 50 mg PO DAILY #90 tabs 07/11/24 tablet,extended release 24 hr (Toprol XL) atorvastatin 10 mg tablet 10 mg PO DAILY #90 tabs 08/21/24 lisinopril 20 mg tablet 20 mg PO DAILY #30 tabs 09/09/24 erythromycin 5 mg/gram (0.5 %) eye 0.5 inch ophthalmic (eye) BID #3.5 10/04/24 ointment grams amoxicillin 875 mg-potassium 1 tab PO Q12H #20 tabs 10/05/24 clavulanate 125 mg tablet ciprofloxacin HCl 0.3 % eye drops See Rx Instructions ophthalmic 10/05/24 (eye) .COMPLEX #5 mL Allergies Allergy/AdvReac Type Severity Reaction Status Date / Time No Known Allergies Allergy Mild NKA Verified 10/05/24 16:23 Review of Systems Constitutional: Constitutional: Denies body ache(s), Denies chills and Denies fever(s) Eyes: Eyes: Denies blurry vision, Denies exophthalmos, Denies change in vision, Denies decreased night vision, Denies diplopia, Reports eye discharge, Reports irritation, Reports itchy eyes, Denies loss of peripheral vision, Denies eye pain, Denies photophobia and Denies spots in vision Cardiovascular: Cardiovascular: Denies chest pain Allergic/Immunologic: Allergic/Immunologic: Reports itchy eyes PMFSH Past Medical History Medical History (Updated 10/05/24 @ 22:24 by Ramesh Philippe) Bacterial conjunctivitis of right eye Obesity (BMI 30-39.9) Hospital discharge follow-up Vitamin D deficiency Overweight (BMI 25.0-29.9) Psoriasis Obstructive sleep apnea Pure hypercholesterolemia Benign essential hypertension Type 2 diabetes mellitus without complication, without long-term current use of insulin Surgical History History of open reduction and internal fixation (ORIF) procedure History of colonoscopy Family History Family History Father Medical history unknown Mother Medical history unknown Social History Social History Housing: Apartment Unable to assess alcohol history related to: Unknown Alcohol intake: never Patient Tobacco Use Status: Never used Tobacco Smoked in Last 30 Days: No e-Cigarette/Vaping Use: Never Used Second Hand Smoke Exposure: No Use of substances other than those prescribed or required for medical reasons: No Advance Directives: No Advance Directives Information Provided: Yes Do you have a plan to hurt others: No Plan service: No Current occupational status: retired Cognitive needs: No Hearing needs: No Vision needs: Yes (Glasses) Physical Exam ED Vital Signs: Vital Signs - 24 hr 10/05/24 16:21 10/05/24 19:50 10/05/24 21:03 Temperature 98.4 F 98.7 F 98.8 F Pulse Rate 74 65 65 Respiratory Rate 16 18 16 Blood Pressure 132/72 173/73 H 188/88 H Pulse Oximetry 97 96 98 Oxygen Delivery Method Room Air Room Air Room Air BMI result Body Mass Index 27.7 Const General: healthy appearing, comfortable, no acute distress, alert and awake Nutritional Appearance: well nourished Orientation/consciousness: patient oriented x3 HENMT Other: Right preauricular lymphadenopathy positive Head: Yes normocephalic and Yes atraumatic Throat: Yes posterior oropharynx normal Eyes Other: There is mild right infraorbital erythema and mild tenderness to palpation. No crepitus Visual Adams: normal visual adams by confrontation Alignment and Position: alignment normal Periorbital: periorbital findings abnormal (There is right-sided infraorbital edema) Eyelids: Yes eyelid abnormality (Right lower eyelid edema) Conjunctivae: conjunctival abnormal right (Diffuse right eye conjunctival injection) conjunctival chemosis, conjunctival injection and discharge Corneas: corneas normal and fluorescein used (No increased fluorescein uptake) Pupils: Equal, round and reactive pupils present EOM: EOMs intact bilaterally (In all cardinal directions without discomfort) Direct Ophthalmoscopy: No photophobia Neck Neck: Yes full ROM Resp Effort & Inspection: normal respiratory effort, able to speak in complete sentences and not labored Skin General skin exam: elasticity normal Neuro General: patient oriented x3 Cranial nerves: Yes CN's II-XII intact bilaterally, Yes Equal, round and reactive pupils present and Yes Bilaterally intact EOM present Cognition (Neuro): normal cognition Extrem Other: Moving all extremities well without any obvious deformities Medications Administered Discontinued Medications Generic Name Dose Route Start Last Admin Trade Name Eddieq PRN Reason Stop Dose Admin Amoxicillin/Clavulanate Potassium 875 mg 10/05/24 22:22 10/05/24 22:39 Amoxicillin/Potassium Clav 875 Mg Tablet PO 10/05/24 22:23 875 mg ONCE ONE Administration Fluorescein Sodium 1 strip 10/05/24 21:40 10/05/24 21:50 Fluorescein Sodium Strip EYE-RIGHT 10/05/24 21:41 1 strip ONCE ONE Administration Tetracaine HCl 1 drop 10/05/24 21:40 10/05/24 21:50 Tetracaine Hcl/Pf 0.5% Oph Emy 4 Ml Drops EYE-RIGHT 10/05/24 21:41 1 drop ONCE ONE Administration Medical Decision Making Medical Decision Making [facility] Narrative: 69-year-old male presents for evaluation of right eye redness and discharge from the eye. He denies any pain but does have some minimal infraorbital tenderness on exam. His extraocular motions are intact in all cardinal directions without any discomfort. His visual acuity is 20/50 in the affected eye and 20/40 in the opposite eye. There was no increased fluorescein uptake, no evidence of ulceration or corneal abrasion. I did perform tonometry and the patient's intra-ocular pressure is 19 mmHg in the affected, right eye. Discussed with the attending, Dr. Addison who also evaluated the patient and we will consider CT imaging to evaluate for preseptal cellulitis, however given that he has no significant discomfort with extraocular motions, no visual changes imaging was deferred. We will however change his erythromycin to ciprofloxacin and started him on Augmentin. He was given strict return precautions. 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 Macias Differential Diagnosis Differential Diagnoses: The differential diagnosis associated with the presentation includes Conjunctivitis Preseptal cellulitis Periorbital cellulitis Corneal abrasion Corneal ulceration Admission/Observation Consideration of admission/observation: Escalation of care including admission/observation considered Tests considered The following testing was considered but not selected: Considered CT orbit to evaluate for preseptal cellulitis Discharge Plan Discharge Clinical Impression: Acute bacterial conjunctivitis, Periorbital cellulitis Patient Disposition: Home, Self-Care Instructions: Cellulitis (ED), Conjunctivitis (ED) Additional Instructions: You should stop using the erythromycin ointment. We are changing your antibiotic to ciprofloxacin eye drops Use these as prescribed for 1 week. I am also starting him on an oral antibiotic that I want you to take twice daily for 10 days Follow-up with your fruit culler, call tomorrow to schedule an appointment Return for new or worsening symptoms, especially develop fever, pain with eye movements, or visual changes Prescriptions: New ciprofloxacin HCl 0.3 % drops See Rx Instructions .ROUTE .COMPLEX Qty: 5 0RF Rx Instructions: put 1-2 drps in affected eye(s) every 2hr up to 8 times/day x2days; then 4 times/day x5days amoxicillin-pot clavulanate 875-125 mg tablet 1 tab PO Q12H Qty: 20 0RF No Action atorvastatin 10 mg tablet 10 mg PO DAILY Qty: 90 2RF lisinopril 20 mg tablet 20 mg PO DAILY Qty: 30 3RF metformin 500 mg tablet extended release 24 hr 500 mg PO DAILY metoprolol succinate [Toprol XL] 50 mg tablet extended release 24 hr 50 mg PO DAILY Qty: 90 0RF Eliquis 5 mg tablet 5 mg PO BID Qty: 180 0RF erythromycin 5 mg/gram (0.5 %) ointment 0.5 inch ophthalmic (eye) BID Qty: 3.5 0RF Referrals: Dung Santos [Physician, Ophthalmology] Referral Note: right eye conjunctivitis not improving with erythromycin Interventions: ED Discharge Assessment Last Done: 10/05/24 22:42 Print Language: Divehi
[2024-10-05] MEDS: Amoxicillin/Potassium Clav 875 MG TABLET PO (22:39)
[2024-10-05 22:42] VITALS: BP 188/88; PULSE 65; RESP 16; TEMP 37.1; O2SAT 98
== END 2024-10-05 22:43 | disposition home or self-care (01) ==
PROVIDERS: Emergency Provider Emergency Medicine; PCP Internal Medicine
DX: H10.31 Unspecified acute conjunctivitis, right eye (principal); L03.213 Periorbital cellulitis; H57.11 Ocular pain, right eye; E11.9 Type 2 diabetes mellitus without complications; I10 Essential (primary) hypertension; E78.00 Pure hypercholesterolemia, unspecified; Z79.84 Long term (current) use of oral hypoglycemic drugs; Z79.02 Long term (current) use of antithrombotics/antiplatelets; Z79.899 Other long term (current) drug therapy
CPT/HCPCS: 99283; 99284

== ENCOUNTER 2024-10-07 11:03 | Emergency (ER) | payer MEDICARE, SELFPAY ==
--- NOTE | ~2024-10-07 | CT_ITS ---
EXAMINATION: CT ORBIT WITH CONTRAST CLINICAL INFORMATION: Orbital swelling, pain when looking the left. COMPARISON: None available. TECHNIQUE: Spiral CT imaging of the orbits was performed in axial plane after the administration of 85 cc Omnipaque 350 IV contrast. Multiplanar reformatted images were constructed from the axial data set. This CT examination was performed using dose optimization techniques as appropriate, variously including the following: *Automated exposure control *Adjustment of mA and/or kV according to patient size (this includes techniques or standardized protocols for targeted exams where dose is matched to indication/reason for exam; i.e. extremities or head) *Use of iterative reconstruction technique FINDINGS: There is mild right preseptal soft tissue swelling. There is no left preseptal abnormality. The globes have a normal shape. The lenses are appropriately located. The optic nerve sheath complexes, extraocular muscles, lacrimal glands, and orbital fat have a normal appearance. There is no post septal abnormality. The paranasal sinuses are normally pneumatized. There are no air-fluid levels. Imaged intracranial contents demonstrate no mass effect, edema, or abnormal enhancement. There is no extracranial soft tissue mallet aside from right preseptal soft tissue swelling. There is an 8 mm intraparotid lymph node on the right. There is a 6 mm left parotid lymph node. These are presumably reactive. The skull base is normal. The mastoids and tympanic spaces are aerated normally. CT/CT orbit BI w IV con IMPRESSION: 1. Right preseptal soft tissue swelling with no post septal abnormality in either orbit. 2. There is no significant paranasal sinus disease. Electronically signed by: Marito Sullivan MD 10/07/2024 02:50 PM EDT
[2024-10-07 11:18] VITALS: BP 150/66; PULSE 65; RESP 18; TEMP 36.8; O2SAT 98; BMI 28.1
--- NOTE | 2024-10-07 11:20 | ED_ITS ---
HPI - Eye Problem General Chief complaint: Eye Problems Stated complaint: eye issue Time Seen by Provider: 10/07/24 11:30 Related Data Home Medications ?Medication ?Instructions ?Recorded ?Confirmed metformin 500 mg tablet,extended 500 mg PO DAILY 07/1110/04/24 release 24 hr Previous Rx's ?Medication ?Instructions ?Recorded apixaban 5 mg tablet (Eliquis) 5 mg PO BID #180 tabs 0 07/11/24 metoprolol succinate 50 mg 50 mg PO DAILY #90 tabs tablet,extended release 24 hr (Toprol XL) atorvastatin 10 mg tablet 10 mg PO DAILY #90 tabs 08/12 lisinopril 20 mg tablet 20 mg PO DAILY #30 tabs 08/13 01/06 erythromycin 5 mg/gram (0.5 %) eye 0.5 inch ophthalmic (eye) BID #3.5 10/04/24 ointment grams amoxicillin 875 mg-potassium 1 tab PO Q12H #20 tabs clavulanate 125 mg tablet ciprofloxacin HCl 0.3 % eye drops See Rx Instructions ophthalmic 10/05/24 (eye) .COMPLEX #5 mL Allergies Allergy/AdvReac Type Severity Reaction Status Date / Time No Known Allergies Allergy Mild NKA Verified 10/07/24 11:22 [facility] Past Medical History Medical History Bacterial conjunctivitis of right eye Obesity (BMI 30-39.9) Hospital discharge follow-up Vitamin D deficiency Overweight (BMI 25.0-29.9) Psoriasis Obstructive sleep apnea Pure hypercholesterolemia Benign essential hypertension Type 2 diabetes mellitus without complication, without long-term current use of insulin Surgical History History of open reduction and internal fixation (ORIF) procedure History of colonoscopy Family History Family History Father Medical history unknown Mother Medical history unknown Social History Social History Housing: Apartment Unable to assess alcohol history related to: Unknown Alcohol intake: never Patient Tobacco Use Status: Never used Tobacco e-Cigarette/Vaping Use: Never Used Second Hand Smoke Exposure: No service: No Current occupational status: retired Cognitive needs: No Hearing needs: No Vision needs: Yes (Glasses) Physical Exam 2 Vital Signs: Vital Signs: Last Vital Signs Temp 98.3 F 10/07/24 16:29 Pulse 58 10/07/24 16:29 Resp 16 10/07/24 16:29 BP 149/69 H 10/07/24 16:29 Pulse Ox 97 10/07/24 16:29 O2 Del Method Room Air 10/07/24 16:29 BMI result Body Mass Index 28.1 Course Course Course Narrative: This is an RME: Additional HPI, ROS, PE not included below will be deferred to primary provider. RME assessment and note performed by: Rosemarie Sanchez PA-C This is a [id number]-male who presents to the ER with a complaint of BL eye itchiness, drainage and redness. Was seen here 2 days ago and was diagnosed with conjunctivitis, he has been using the Cipro drops, and amoxicillin without any relief. R eye with chemosis noted, pupils equal, reactive. Reporting blurred vision. Plan: Needs further Eye examination Reevaluation(s) Reevaluation #1: duplicate chart Medications Administered Discontinued Medications Generic Name Dose Route Start Last Admin Trade Name Stanley PRN Reason Stop Dose Admin Fluorescein Sodium 1 strip 10/07/24 11:36 10/07/24 12:01 Fluorescein Sodium Strip EYE-RIGHT 10/07/24 11:37 1 strip ONCE ONE Administration Iohexol 100 ml 10/07/24 14:25 10/07/24 14:26 Iohexol 350 Mg/Ml 100 Ml Infus..Btl IV 10/07/24 14:26 85 ml ONCE ONE Administration Tetracaine HCl 3 drop 10/07/24 11:42 10/07/24 12:02 Tetracaine Hcl 0.5% Oph Emy 5 Ml Drops EYE-RIGHT 10/07/24 11:43 3 drop ONCE ONE Administration Tetracaine HCl 3 drop 10/07/24 12:00 10/07/24 12:03 Tetracaine Hcl/Pf 0.5% Oph Emy 4 Ml Drops EYE-RIGHT 10/07/24 12:01 Not Given ONCE ONE Medical Decision Making Lab Data 10/07/24 12:19 10/07/24 12:19 Labs: Lab Results 10/07/24 Range/Units 12:19 WBC 4.3 L (4.8-10.8) X10*3/uL RBC 5.60 (4.60-5.80) X10*6/uL Hgb 15.5 (14.0-18.0) g/dl Hct 47.1 (42.0-52.0) % MCV 84.1 (80.0-98.0) fL MCH 27.7 (27.0-33.0) pg MCHC 32.9 (31.0-36.0) g/dl RDW 13.6 (11.0-16.0) % Plt Count 270 (160-400) X10*3/uL MPV 10.6 (9.4-12.4) fL Immature Gran % (Auto) 0.2 (0.0-0.4) % Neut % (Auto) 58.3 (45-73) % Lymph % (Auto) 26.7 (20-40) % [place] % (Auto) 13.2 H (2-11) % Eos % (Auto) 0.9 (0-4) % Baso % (Auto) 0.7 (0-2) % Lymph # (Auto) 1.2 (1.2-4.9) X10*3/uL [place] # (Auto) 0.6 (0.1-1.2) X10*3/uL Eos # (Auto) 0.0 (0.0-0.4) X10*3/uL Baso # (Auto) 0.0 (0.0-0.2) X10*3/uL Abs Immat Gran (auto) 0.01 (0.00-0.03) X10*3/uL Absolute Neuts (auto) 2.5 (2.0-8.3) x10*3/uL Absolute Nucleated RBC 0.000 (0.0-0.012) X10*3/uL Nucleated RBC % (auto) 0.0 (0.0-0.2) /100WBC Sodium 138 (135-145) mmol/L Potassium 4.0 (3.3-5.1) mmol/L Chloride 106 (96-108) mmol/L Carbon Dioxide 25 (22-29) mmol/L Anion Gap 11 L (12-20) BUN 15 (9-16) mg/dL Creatinine 1.01 (0.5-1.4) mg/dL Estim Creat Clear Calc 70.7 Estimated GFR > 60 Random Glucose 97 (60-115) mg/dL Calcium 9.3 (8.4-10.2) mg/dL Total Bilirubin 0.8 (0.0-1.0) mg/dL AST 18 (5-37) U/L ALT 16 (0-40) U/L Alkaline Phosphatase 77 (39-117) U/L Total Protein 7.3 (6.5-8.0) g/dL Albumin 4.2 (3.5-5.0) g/dL Discharge Plan Discharge Clinical Impression: Preseptal cellulitis of right eye Corneal abrasion, bilateral Qualifiers: Encounter type: initial encounter Qualified Code(s): S05.01XA - Injury of conjunctiva and corneal abrasion without foreign body, right eye, initial encounter Patient Disposition: Home, Self-Care Additional Instructions: You were evaluated in the ED today due to pain of both right and left eyes. Your CT scan showed infection of the superficial soft tissues around the right eye, without infection of the deep tissues. Fluorescein stain showed increased uptake of dye in both the right and left eye suggesting you have a corneal abrasion. I consulted Ophthalmology who recommended you continue the course of Augmentin and using the ciprofloxacin drops in both eyes. Please continue your course of antibiotics Augmentin and use ciprofloxacin drops in both eyes, please call your cement based materials pump tender tomorrow morning for evaluation as soon as possible. You can take Tylenol and Motrin every 6 hours for pain. Please return to the ED if you experience fever over 100.4?, worsening eye pain, worsening vision, worsening swelling, increased drainage, headaches, or any other new/concerning/worsening symptoms. Prescriptions: No Action atorvastatin 10 mg tablet 10 mg PO DAILY Qty: 90 2RF lisinopril 20 mg tablet 20 mg PO DAILY Qty: 30 3RF metformin 500 mg tablet extended release 24 hr 500 mg PO DAILY metoprolol succinate [Toprol XL] 50 mg tablet extended release 24 hr 50 mg PO DAILY Qty: 90 0RF Eliquis 5 mg tablet 5 mg PO BID Qty: 180 0RF ciprofloxacin HCl 0.3 % drops See Rx Instructions .ROUTE .COMPLEX Qty: 5 0RF Rx Instructions: put 1-2 drps in affected eye(s) every 2hr up to 8 times/day x2days; then 4 times/day x5days amoxicillin-pot clavulanate 875-125 mg tablet 1 tab PO Q12H Qty: 20 0RF erythromycin 5 mg/gram (0.5 %) ointment 0.5 inch ophthalmic (eye) BID Qty: 3.5 0RF Interventions: ED Discharge Assessment Last Done: 10/07/24 16:29 Discharge Date/Time: 10/07/24 16:29 Print Language: [place]
[2024-10-07] MEDS: Fluorescein Sodium STRIP 1 STRIP EYE-RIGHT (12:01)
[2024-10-07] MEDS: Tetracaine HCl 0.5% Oph Sol 5 ML DROPS 3 DROP EYE-RIGHT (12:02)
[2024-10-07 12:23] LABS: MANUAL DIFF FLAG NO
[2024-10-07 12:24] LABS: Basophils Percent Auto 0.7 % (0-2); Eosinophils Percent Auto 0.9 % (0-4); Hematocrit 47.1 % (42.0-52.0); Hemoglobin 15.5 g/dl (14.0-18.0); Imm Gran Abs Auto 0.01 X10*3/uL (0.00-0.03); Imm Gran Pct Auto 0.2 % (0.0-0.4); Lymphocytes Absolute Auto 1.2 X10*3/uL (1.2-4.9); Lymphocytes Percent Auto 26.7 % (20-40); Mean Corpuscular HGB Conc 32.9 g/dl (31.0-36.0); Mean Corpuscular Hemoglobin 27.7 pg (27.0-33.0); Mean Corpuscular Volume 84.1 fL (80.0-98.0); Mean Platelet Volume 10.6 fL (9.4-12.4); Monocytes Absolute Auto 0.6 X10*3/uL (0.1-1.2); Monocytes Percent Auto 13.2 % (2-11); Neutrophils Absolute Auto 2.5 x10*3/uL (2.0-8.3); Neutrophils Percent Auto 58.3 % (45-73); Platelet Count 270 X10*3/uL (160-400); Red Cell Distribution Width 13.6 % (11.0-16.0); White Blood Count 4.3 X10*3/uL (4.8-10.8)
[2024-10-07 12:44] LABS: Alanine Aminotransferase 16 U/L (0-40); Albumin Level 4.2 g/dL (3.5-5.0); Alkaline Phosphatase 77 U/L (39-117); Anion Gap 11 (12-20); Aspartate Amino Transferase 18 U/L (5-37); Bilirubin Total 0.8 mg/dL (0.0-1.0); Blood Urea Nitrogen 15 mg/dL (9-16); Calcium 9.3 mg/dL (8.4-10.2); Carbon Dioxide 25 mmol/L (22-29); Chloride 106 mmol/L (96-108); Creatinine Clr Calc Pharmacy 70.7; Estimated Glomerular Filt Rate > 60; Glucose Random 97 mg/dL (60-115); Sodium 138 mmol/L (135-145); Total Protein 7.3 g/dL (6.5-8.0)
[2024-10-07 13:28] VITALS: BP 149/69; PULSE 58; RESP 16; TEMP 36.8; O2SAT 97
--- NOTE | 2024-10-07 13:36 | ED_ITS ---
HPI - Eye Problem General Chief complaint: Eye Problems Stated complaint: eye issue Time Seen by Provider: 10/07/24 11:30 Source: patient and family ( at bedside corroborating history) Mode of arrival: ambulatory Limitations: language barrier (Grenadian-speaking) History of Present Illness ED Provider: Blanquita Hoffman PA-C HPI Narrative: 69-year-old Grenadian-speaking male accompanied by utilizing [facility] [place] artificial fly tier Karolina, with medical history of HELIO, HLD, HTN, T2DM not on insulin, presents to the ED due to continuous right eye pain, now traveling to left eye. 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 He states he was rubbing his eyes excessively after this. He reports increased eye pain, swelling, with discharge after this incident. Went to urgent care 4 days ago and was prescribed erythromycin ointment. Was recently seen in [facility] [place] on 10/05 for worsening eye pain. He was prescribed a course of amoxicillin and was changed to ciprofloxacin drops for bacterial conjunctivitis. Patient returns today with increasing pain when looking to the left, blurry vision, increased swelling of the superior and inferior eyelids, increased drainage and now symptoms or traveling to left eye. Patient wears corrective eye wear, does not use contacts. Patient denies headaches, chest pain, shortness of breath, abdominal pain, vomiting, dizziness, lightheadedness, weakness. MD chief complaint: eye pain and eye redness Onset (ago): week(s) (1) Onset description: gradual Duration: constant Location: right eye (Right eye significantly more swollen) and left eye Eye Symptoms: redness, pain, itching, discharge, blurry vision and photophobia Related Data Home Medications ?Medication ?Instructions ?Recorded ?Confirmed metformin 500 mg tablet,extended 500 mg PO DAILY 07/1110/04/24 release 24 hr Previous Rx's ?Medication ?Instructions ?Recorded apixaban 5 mg tablet (Eliquis) 5 mg PO BID #180 tabs 0 07/11/24 metoprolol succinate 50 mg 50 mg PO DAILY #90 tabs tablet,extended release 24 hr (Toprol XL) atorvastatin 10 mg tablet 10 mg PO DAILY #90 tabs 08/12 lisinopril 20 mg tablet 20 mg PO DAILY #30 tabs 08/13 01/06 erythromycin 5 mg/gram (0.5 %) eye 0.5 inch ophthalmic (eye) BID #3.5 10/04/24 ointment grams amoxicillin 875 mg-potassium 1 tab PO Q12H #20 tabs clavulanate 125 mg tablet ciprofloxacin HCl 0.3 % eye drops See Rx Instructions ophthalmic 10/05/24 (eye) .COMPLEX #5 mL Allergies Allergy/AdvReac Type Severity Reaction Status Date / Time No Known Allergies Allergy Mild NKA Verified 10/07/24 11:22 Review of Systems 2 Review of Systems: CONST: Negative for fever, body aches and chills. HENT: Negative for neck pain/stiffness, headache, congestion, sore throat, swelling. EYES: POS for discharge/pain, blurry vision of B/L eyes, R eye worse. RESP: Negative for cough/hemoptysis and shortness of breath. CV: Negative chest pain, difficulty breathing, palpitations. ABD: Negative pain, nausea, vomiting. : Negative increase frequency, dysuria, blood in urine or stool. MUSC: Negative for muscle aches, edema. SKIN: Negative rash, lesions/sores. NEURO: Negative headache, dizziness, weakness. Yes all other systems are reviewed and are negative PMFSH Past Medical History Attestation statement: The following information was validated with the patient. Source: old records reviewed, obtained from family ( at bedside) and nursing notes reviewed Medical History Bacterial conjunctivitis of right eye Obesity (BMI 30-39.9) Hospital discharge follow-up Vitamin D deficiency Overweight (BMI 25.0-29.9) Psoriasis Obstructive sleep apnea Pure hypercholesterolemia Benign essential hypertension Type 2 diabetes mellitus without complication, without long-term current use of insulin Surgical History History of open reduction and internal fixation (ORIF) procedure History of colonoscopy Family History Family History Father Medical history unknown Mother Medical history unknown Social History Social History Housing: Apartment Unable to assess alcohol history related to: Unknown Alcohol intake: never Patient Tobacco Use Status: Never used Tobacco Smoked in Last 30 Days: No e-Cigarette/Vaping Use: Never Used Second Hand Smoke Exposure: No Use of substances other than those prescribed or required for medical reasons: No Advance Directives: No Advance Directives Information Provided: Yes Do you have a plan to hurt others: No Plan service: No Current occupational status: retired Cognitive needs: No Hearing needs: No Vision needs: Yes (Glasses) Physical Exam 2 Vital Signs: Vital Signs: Last Vital Signs Temp 98.3 F 10/07/24 13:28 Pulse 58 10/07/24 13:28 Resp 16 10/07/24 13:28 BP 149/69 H 10/07/24 13:28 Pulse Ox 97 10/07/24 13:28 O2 Del Method Room Air 10/07/24 13:28 BMI result Body Mass Index 28.1 GENERAL APPEARANCE: ?AxOx4, generally well-appearing, no acute distress, patient with sunglasses on. HEENT: ?NC, AT. MMM. oropharynx clear. R eye- significant chemosis and conjunctival injection, EOMI but experiencing pain of lateral rectus muscle when looking left. moderate edema of superior and inferior blepharon with TTP. Fluorescein stain reveals increased uptake of a well-defined, sharp edged epithelial defect over pupil. L eye- conjunctival injection, and mild discharge. Fluorescein stain reveals increased uptake of a well-defined, sharp edged epithelial defect at 7 o'clock position NECK: ?Supple without lymphadenopathy.? No stiffness or restricted ROM. HEART:? Normal rate and regular rhythm, normal S1/S1, no m/r/g LUNGS:? CTAB, moving air well. No crackles or wheezes are heard. ABDOMEN: ?Soft, nontender, nondistended with good bowel sounds heard. BACK: No CVAT, no obvious deformity. EXTREMITIES: ?Without cyanosis, clubbing or edema. NEUROLOGICAL: ?Grossly nonfocal. Alert and oriented, moving all 4 extremities. Observed to ambulate with normal gait. Skin: ?Warm and dry without any rash. Medications Administered Discontinued Medications Generic Name Dose Route Start Last Admin Trade Name Freq PRN Reason Stop Dose Admin Fluorescein Sodium 1 strip 10/07/24 11:36 10/07/24 12:01 Fluorescein Sodium Strip EYE-RIGHT 10/07/24 11:37 1 strip ONCE ONE Administration Iohexol 100 ml 10/07/24 14:25 10/07/24 14:26 Iohexol 350 Mg/Ml 100 Ml Infus..Btl IV 10/07/24 14:26 85 ml ONCE ONE Administration Tetracaine HCl 3 drop 10/07/24 11:42 10/07/24 12:02 Tetracaine Hcl 0.5% Oph Emy 5 Ml Drops EYE-RIGHT 10/07/24 11:43 3 drop ONCE ONE Administration Tetracaine HCl 3 drop 10/07/24 12:00 10/07/24 12:03 Tetracaine Hcl/Pf 0.5% Oph Emy 4 Ml Drops EYE-RIGHT 10/07/24 12:01 Not Given ONCE ONE Medical Decision Making Medical Decision Making MDM Narrative: 69-year-old Grenadian-speaking male accompanied by utilizing [facility] [place] artificial fly tier Kar[place], with medical history of HELIO, HLD, HTN, T2DM not on insulin, presents to the ED due to continuous right eye pain, now traveling to left eye. 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 He states he was rubbing his eyes excessively after this. He reports increased eye pain, swelling, with discharge after this incident. Went to urgent care 4 days ago and was prescribed erythromycin ointment. Was recently seen in [facility] [place] [facility] on 10/05 for worsening eye pain. He was prescribed a course of amoxicillin and was changed to ciprofloxacin drops for bacterial conjunctivitis. Patient returns today with increasing pain when looking to the left, blurry vision, increased swelling of the superior and inferior eyelids, increased drainage and now symptoms or traveling to left eye. Patient wears corrective eye wear, does not use contacts. VSS, in no acute distress, nontoxic appearing. Labs WNL. On physical exam right eye shows moderate superior and inferior lid edema with pain to palpation of the upper lid. Extraocular motions are intact, but right eye has significant pain to lateral rectus muscle when looking left, significant chemosis present with conjunctival injection. Left eye with mild conjunctival injection hence scant discharge, no edema of blepharon noticed, extraocular motions intact without discomfort. Patient states he has no photophobia but is wearing sunglasses and has lights off in the room. Visual acuity reveals 20/40 of the right eye, 20/30 of the left eye, 20/20 of bilateral eyes. Tonometry was tested for which revealed 24.5mmHg in the right eye and 24.5mmHg of the left eye. Fluorescein stain showed significant uptake of a well defined, sharp edged epithelial defect slightly lateral to the pupil of the right eye, with minimal uptake of a well defined epithelial defect at the 7 o'clock position of the left eye. Due to worsening edema of the right eye, experiencing pain with palpation, pain of the lateral rectus muscle when looking left we will obtain CT of orbits to evaluate for cellulitis. Course 15:39- CT scan reveal right preseptal soft tissue swelling with no postseptal abnormality in either orbit. I consulted carpenter Dr. Santos and awaiting recommendations. 16:07- Dr. Santos recommended patient to continue Augmentin and ciprofloxacin drops. I counseled patient to begin ciprofloxacin drops into the L eye as well. Counseled on strict return precautions and urged him to follow up with his opthalmologist. Patient understands and is in agreement with plan. Differential Diagnosis Differential Diagnoses: The differential diagnosis associated with the presentation includes Preseptal cellulitis Periorbital cellulitis Corneal abrasion Corneal ulceration Conjunctivitis Admission/Observation Consideration of admission/observation: Escalation of care including admission/observation considered Consult Healthcare Provider Management of the patient was discussed with: Cage Tender (Secretary To The Vice President Dr. Santos consulted) Lab Data MDM Lab Attestation statement: I reviewed the patient's lab results. 10/07/24 12:19 10/07/24 12:19 Labs: Lab Results 10/07/24 Range/Units 12:19 WBC 4.3 L (4.8-10.8) X10*3/uL RBC 5.60 (4.60-5.80) X10*6/uL Hgb 15.5 (14.0-18.0) g/dl Hct 47.1 (42.0-52.0) % MCV 84.1 (80.0-98.0) fL MCH 27.7 (27.0-33.0) pg MCHC 32.9 (31.0-36.0) g/dl RDW 13.6 (11.0-16.0) % Plt Count 270 (160-400) X10*3/uL MPV 10.6 (9.4-12.4) fL Immature Gran % (Auto) 0.2 (0.0-0.4) % Neut % (Auto) 58.3 (45-73) % Lymph % (Auto) 26.7 (20-40) % [place] % (Auto) 13.2 H (2-11) % Eos % (Auto) 0.9 (0-4) % Baso % (Auto) 0.7 (0-2) % Lymph # (Auto) 1.2 (1.2-4.9) X10*3/uL [place] # (Auto) 0.6 (0.1-1.2) X10*3/uL Eos # (Auto) 0.0 (0.0-0.4) X10*3/uL Baso # (Auto) 0.0 (0.0-0.2) X10*3/uL Abs Immat Gran (auto) 0.01 (0.00-0.03) X10*3/uL Absolute Neuts (auto) 2.5 (2.0-8.3) x10*3/uL Absolute Nucleated RBC 0.000 (0.0-0.012) X10*3/uL Nucleated RBC % (auto) 0.0 (0.0-0.2) /100WBC Sodium 138 (135-145) mmol/L Potassium 4.0 (3.3-5.1) mmol/L Chloride 106 (96-108) mmol/L Carbon Dioxide 25 (22-29) mmol/L Anion Gap 11 L (12-20) BUN 15 (9-16) mg/dL Creatinine 1.01 (0.5-1.4) mg/dL Estim Creat Clear Calc 70.7 Estimated GFR > 60 Random Glucose 97 (60-115) mg/dL Calcium 9.3 (8.4-10.2) mg/dL Total Bilirubin 0.8 (0.0-1.0) mg/dL AST 18 (5-37) U/L ALT 16 (0-40) U/L Alkaline Phosphatase 77 (39-117) U/L Total Protein 7.3 (6.5-8.0) g/dL Albumin 4.2 (3.5-5.0) g/dL Independent Interpretation I performed an independent interpretation of an: CT Scan Radiology Impression Discussion of test interpretation with radiology: I have reviewed the radiologist's reading. Independent Historian Clinical information obtained from an independent historian. History obtained from or confirmed by: Spouse ( at bedside) External Record Review External record reviewed: Inpatient record, Office record and Outpatient record Chronic Conditions Patient?s care impacted by: Diabetes and Hypertension Discharge Plan Discharge Clinical Impression: Preseptal cellulitis of right eye Corneal abrasion, bilateral Qualifiers: Encounter type: initial encounter Qualified Code(s): S05.01XA - Injury of conjunctiva and corneal abrasion without foreign body, right eye, initial encounter Patient Disposition: Home, Self-Care Additional Instructions: You were evaluated in the ED today due to pain of both right and left eyes. Your CT scan showed infection of the superficial soft tissues around the right eye, without infection of the deep tissues. Fluorescein stain showed increased uptake of dye in both the right and left eye suggesting you have a corneal abrasion. I consulted Ophthalmology who recommended you continue the course of Augmentin and using the ciprofloxacin drops in both eyes. Please continue your course of antibiotics Augmentin and use ciprofloxacin drops in both eyes, please call your carpenter tomorrow morning for evaluation as soon as possible. You can take Tylenol and Motrin every 6 hours for pain. Please return to the ED if you experience fever over 100.4?, worsening eye pain, worsening vision, worsening swelling, increased drainage, headaches, or any other new/concerning/worsening symptoms. Prescriptions: No Action atorvastatin 10 mg tablet 10 mg PO DAILY Qty: 90 2RF lisinopril 20 mg tablet 20 mg PO DAILY Qty: 30 3RF metformin 500 mg tablet extended release 24 hr 500 mg PO DAILY metoprolol succinate [Toprol XL] 50 mg tablet extended release 24 hr 50 mg PO DAILY Qty: 90 0RF Eliquis 5 mg tablet 5 mg PO BID Qty: 180 0RF ciprofloxacin HCl 0.3 % drops See Rx Instructions .ROUTE .COMPLEX Qty: 5 0RF Rx Instructions: put 1-2 drps in affected eye(s) every 2hr up to 8 times/day x2days; then 4 times/day x5days amoxicillin-pot clavulanate 875-125 mg tablet 1 tab PO Q12H Qty: 20 0RF erythromycin 5 mg/gram (0.5 %) ointment 0.5 inch ophthalmic (eye) BID Qty: 3.5 0RF Print Language: Grenadian
[2024-10-07] MEDS: iohexoL 350 MG/ML 100 ML INFUS..BTL IV (14:26)
[2024-10-07 16:29] VITALS: BP 149/69; PULSE 58; RESP 16; TEMP 36.8; O2SAT 97
== END 2024-10-07 16:29 | disposition home or self-care (01) ==
PROVIDERS: Emergency Provider Emergency Medicine; PCP Internal Medicine
DX: S05.01XA Injury of conjunctiva and corneal abrasion without foreign body, right eye, initial encounter (principal); H00.033 Abscess of eyelid right eye, unspecified eyelid; H53.143 Visual discomfort, bilateral; H53.8 Other visual disturbances; H57.12 Ocular pain, left eye; E11.9 Type 2 diabetes mellitus without complications; I10 Essential (primary) hypertension; X58.XXXA Exposure to other specified factors, initial encounter; Y93.9 Activity, unspecified; Y92.9 Unspecified place or not applicable; Y99.8 Other external cause status; Z79.899 Other long term (current) drug therapy; Z79.4 Long term (current) use of insulin
CPT/HCPCS: 36415; 70481; 80053; 85025; 99284; Q9967

== ENCOUNTER → 2024-10-07 12:20 | Outpatient (BNV) | payer MEDICARE, SELFPAY | PROVIDERS: Emergency Provider Emergency Medicine; PCP Internal Medicine; Visit Provider Radiology Diagnostic Radiology | DX: L03.213 Periorbital cellulitis (principal) | CPT/HCPCS: 70481 ==

== ENCOUNTER 2024-10-11 14:27 | Emergency (ER) | payer MEDICARE, SELFPAY ==
[2024-10-11 15:09] VITALS: BP 170/61; PULSE 60; RESP 18; TEMP 36.8; O2SAT 99; BMI 27.5
--- NOTE | 2024-10-11 15:09 | ED.GENADULT ---
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 some dirt went to his right eye and dropped his right eye after 3 days of incident patient came to the over ER and prescribed antibiotic eyedrops patient was seen here 10/07 and noted to have corneal ulcer patient was given Cipro eyedrops and Augmentin patient comes back again as still having the purulent discharge and unable to see well patient has a scheduled appointment with the officer captain on 10/13 Related Data Home Medications ?Medication ?Instructions ?Recorded ?Confirmed metformin 500 mg tablet,extended 500 mg PO DAILY 07/11/24 10/04/24 release 24 hr Previous Rx's ?Medication ?Instructions ?Recorded apixaban 5 mg tablet (Eliquis) 5 mg PO BID #180 tabs 07/11/24 metoprolol succinate 50 mg 50 mg PO DAILY #90 tabs 07/11/24 tablet,extended release 24 hr (Toprol XL) atorvastatin 10 mg tablet 10 mg PO DAILY #90 tabs 08/21/24 lisinopril 20 mg tablet 20 mg PO DAILY #30 tabs 09/09/24 erythromycin 5 mg/gram (0.5 %) eye 0.5 inch ophthalmic (eye) BID #3.5 10/04/24 ointment grams amoxicillin 875 mg-potassium 1 tab PO Q12H #20 tabs 10/05/24 clavulanate 125 mg tablet ciprofloxacin HCl 0.3 % eye drops See Rx Instructions ophthalmic 10/05/24 (eye) .COMPLEX #5 mL doxycycline hyclate 100 mg tablet 100 mg PO BID #20 tabs 10/11/24 levofloxacin 750 mg tablet 750 mg PO DAILY 10 days #10 tabs 10/11/24 ofloxacin 0.3 % eye drops See Rx Instructions ophthalmic 10/11/24 (eye) .COMPLEX #10 mL Allergies Allergy/AdvReac Type Severity Reaction Status Date / Time No Known Allergies Allergy Mild NKA Verified 10/11/24 15:13 Review of Systems Review of Systems: Yes all other systems are reviewed and are negative PMFSH Past Medical History Medical History Bacterial conjunctivitis of right eye Obesity (BMI 30-39.9) Hospital discharge follow-up Vitamin D deficiency Overweight (BMI 25.0-29.9) Psoriasis Obstructive sleep apnea Pure hypercholesterolemia Benign essential hypertension Type 2 diabetes mellitus without complication, without long-term current use of insulin Surgical History History of open reduction and internal fixation (ORIF) procedure History of colonoscopy Family History Family History Father Medical history unknown Mother Medical history unknown Social History Social History Housing: Apartment Unable to assess alcohol history related to: Unknown Alcohol intake: never Patient Tobacco Use Status: Never used Tobacco e-Cigarette/Vaping Use: Never Used Second Hand Smoke Exposure: No Advance Directives: No Advance Directives Information Provided: No Do you have a plan to hurt others: No Plan service: No Current occupational status: retired Cognitive needs: No Hearing needs: No Vision needs: Yes (Glasses) Physical Exam ED Vital Signs: Vital Signs - 24 hr 10/11/24 15:09 10/11/24 17:12 Temperature 98.2 F 98.2 F Pulse Rate 60 60 Respiratory Rate 18 18 Blood Pressure 170/61 H 170/61 H Pulse Oximetry 99 99 Oxygen Delivery Method Room Air Room Air BMI result Body Mass Index 27.5 Appearance: Alert. Oriented X3. No acute distress. Eyes: Right eye Corneal ulcer occupying the center part of the right cornea with significant chemosis and inflammation of the conjunctiva and purulent discharge left eye is normal no fluorescein uptake ENT: Pharynx normal Oral Mucosa moist tympanic membrane intact no erythema, Neck: Normal inspection. Neck supple. CVS: Normal heart rate and rhythm. Pulses normal. Respiratory: No respiratory distress. Equal air entry bilateral, no wheezing/rales/rhonchi Abd: soft, not tender Skin: Skin warm and dry. Normal skin color. Normal skin turgor. Extremities: No lower extremity edema, no calf tenderness Neuro: Oriented X 3. Course Course Course Narrative: RME performed by Tanika Holland PA-C. Patient is a 69 year old assigned male at presenting to the emergency department with worsening right eye pain and loss of vision. Patient states that the pain has gotten worse and he now can hardly see out of it. Detailed physical exam and review of systems are deferred to the patrol agent. Labs ordered. Patient placed back in the waiting room pending room availability and results. Medications Administered Discontinued Medications Generic Name Dose Route Start Last Admin Trade Name Freq PRN Reason Stop Dose Admin Diphtheria/Tetanus/Acell Pertussis 0.5 ml 10/11/24 16:54 10/11/24 17:06 Diphth,Pertus(Acell),Tet Adult 0.5 Ml Syringe IM 10/11/24 16:55 0.5 ml .ONCE ONE Administration Doxycycline Monohydrate 100 mg 10/11/24 16:54 10/11/24 17:06 Doxycycline Monohydrate 100 Mg Capsule PO 10/11/24 16:55 100 mg ONCE ONE Administration Levofloxacin 750 mg 10/11/24 16:54 10/11/24 17:06 Levofloxacin 750 Mg Tablet PO 10/11/24 16:55 750 mg ONCE ONE Administration Medical Decision Making Medical Decision Making [facility] Narrative: Patient with corneal ulcer after traumatic injury and rubbing his eyes seek medical attention after 3 days of injury on antibiotic eyedrops with partial response patient has a ulcer which is occupying the center part of the cornea that is why patient unable to see very clearly but has light perception no pain while moving his eyeballs no extraocular muscle entrapment no diplopia. Will give patient's Levaquin to cover Pseudomonas along with doxycycline for staph and will give off for Floxin eyedrops advised to follow up with officer captain in 3 days as scheduled Differential Diagnosis Differential Diagnoses: The differential diagnosis associated with the presentation includes Conjunctivitis/endophthalmitis/cellulitis Lab Data 10/11/24 15:29 10/11/24 15:28 Labs: Lab Results 10/11/24 10/11/24 Range/Units 15:28 15:29 WBC 5.2 (4.8-10.8) X10*3/uL RBC 5.27 (4.60-5.80) X10*6/uL Hgb 14.6 (14.0-18.0) g/dl Hct 44.2 (42.0-52.0) % MCV 83.9 (80.0-98.0) fL MCH 27.7 (27.0-33.0) pg MCHC 33.0 (31.0-36.0) g/dl RDW 13.2 (11.0-16.0) % Plt Count 278 (160-400) X10*3/uL MPV 10.2 (9.4-12.4) fL Immature Gran % (Auto) 0.4 (0.0-0.4) % Neut % (Auto) 59.7 (45-73) % Lymph % (Auto) 31.4 (20-40) % Fillmore % (Auto) 5.4 (2-11) % Eos % (Auto) 2.5 (0-4) % Baso % (Auto) 0.6 (0-2) % Lymph # (Auto) 1.6 (1.2-4.9) X10*3/uL [place]more # (Auto) 0.3 (0.1-1.2) X10*3/uL Eos # (Auto) 0.1 (0.0-0.4) X10*3/uL Baso # (Auto) 0.0 (0.0-0.2) X10*3/uL Abs Immat Gran (auto) 0.02 (0.00-0.03) X10*3/uL Absolute Neuts (auto) 3.1 (2.0-8.3) x10*3/uL Absolute Nucleated RBC 0.000 (0.0-0.012) X10*3/uL Nucleated RBC % (auto) 0.0 (0.0-0.2) /100WBC ESR 4 (0-15) MM/HR Sodium 140 (135-145) mmol/L Potassium 3.8 (3.3-5.1) mmol/L Chloride 109 H (96-108) mmol/L Carbon Dioxide 25 (22-29) mmol/L Anion Gap 10 L (12-20) BUN 17 H (9-16) mg/dL Creatinine 1.02 (0.5-1.4) mg/dL Estim Creat Clear Calc 64.2 Estimated GFR > 60 Random Glucose 88 (60-115) mg/dL Calcium 8.7 D (8.4-10.2) mg/dL Total Bilirubin 0.7 (0.0-1.0) mg/dL AST 22 (5-37) U/L ALT 20 (0-40) U/L Alkaline Phosphatase 67 (39-117) U/L C-Reactive Protein 0.15 (< or = 0.50) mg/dL Total Protein 6.8 (6.5-8.0) g/dL Albumin 3.9 (3.5-5.0) g/dL Discharge Plan Discharge Clinical Impression: Bacterial conjunctivitis of right eye, Corneal abrasion Patient Disposition: Home, Self-Care Instructions: Corneal Abrasion (ED), Conjunctivitis (ED) Additional Instructions: you have infection of right eye after the abrasion of the cornea Use eyedrops as prescribed 4 times a day Antibiotic by mouth as prescribed Follow with eye doctor as scheduled on 10/13/2024 Prescriptions: New ofloxacin 0.3 % drops See Rx Instructions .ROUTE .COMPLEX Qty: 10 0RF Rx Instructions: put 1-2 drps into affected eye(s) every 2-4 h x 2 days, then 1-2 drps 4 times/day days 3-7 levofloxacin 750 mg tablet 750 mg PO DAILY 10 Days Qty: 10 0RF doxycycline hyclate 100 mg tablet 100 mg PO BID Qty: 20 0RF No Action atorvastatin 10 mg tablet 10 mg PO DAILY Qty: 90 2RF lisinopril 20 mg tablet 20 mg PO DAILY Qty: 30 3RF metformin 500 mg tablet extended release 24 hr 500 mg PO DAILY metoprolol succinate [Toprol XL] 50 mg tablet extended release 24 hr 50 mg PO DAILY Qty: 90 0RF Eliquis 5 mg tablet 5 mg PO BID Qty: 180 0RF ciprofloxacin HCl 0.3 % drops See Rx Instructions .ROUTE .COMPLEX Qty: 5 0RF Rx Instructions: put 1-2 drps in affected eye(s) every 2hr up to 8 times/day x2days; then 4 times/day x5days amoxicillin-pot clavulanate 875-125 mg tablet 1 tab PO Q12H Qty: 20 0RF erythromycin 5 mg/gram (0.5 %) ointment 0.5 inch ophthalmic (eye) BID Qty: 3.5 0RF Interventions: ED Discharge Assessment Last Done: 10/11/24 17:12 Discharge Date/Time: 10/11/24 17:12 Print Language: Omani
[2024-10-11 15:33] LABS: MANUAL DIFF FLAG NO
[2024-10-11 15:34] LABS: Basophils Percent Auto 0.6 % (0-2); Eosinophils Absolute Auto 0.1 X10*3/uL (0.0-0.4); Eosinophils Percent Auto 2.5 % (0-4); Hematocrit 44.2 % (42.0-52.0); Hemoglobin 14.6 g/dl (14.0-18.0); Imm Gran Abs Auto 0.02 X10*3/uL (0.00-0.03); Imm Gran Pct Auto 0.4 % (0.0-0.4); Lymphocytes Absolute Auto 1.6 X10*3/uL (1.2-4.9); Lymphocytes Percent Auto 31.4 % (20-40); Mean Corpuscular Hemoglobin 27.7 pg (27.0-33.0); Mean Corpuscular Volume 83.9 fL (80.0-98.0); Mean Platelet Volume 10.2 fL (9.4-12.4); Monocytes Absolute Auto 0.3 X10*3/uL (0.1-1.2); Monocytes Percent Auto 5.4 % (2-11); Neutrophils Absolute Auto 3.1 x10*3/uL (2.0-8.3); Neutrophils Percent Auto 59.7 % (45-73); Platelet Count 278 X10*3/uL (160-400); Red Blood Count 5.27 X10*6/uL (4.60-5.80); Red Cell Distribution Width 13.2 % (11.0-16.0); White Blood Count 5.2 X10*3/uL (4.8-10.8)
[2024-10-11 15:50] LABS: Alanine Aminotransferase 20 U/L (0-40); Albumin Level 3.9 g/dL (3.5-5.0); Alkaline Phosphatase 67 U/L (39-117); Anion Gap 10 (12-20); Aspartate Amino Transferase 22 U/L (5-37); Bilirubin Total 0.7 mg/dL (0.0-1.0); Blood Urea Nitrogen 17 mg/dL (9-16); C Reactive Protein 0.15 mg/dL (< or = 0.50); Calcium 8.7 mg/dL (8.4-10.2); Carbon Dioxide 25 mmol/L (22-29); Chloride 109 mmol/L (96-108); Creatinine Clr Calc Pharmacy 64.2; Estimated Glomerular Filt Rate > 60; Glucose Random 88 mg/dL (60-115); Potassium 3.8 mmol/L (3.3-5.1); Sodium 140 mmol/L (135-145); Total Protein 6.8 g/dL (6.5-8.0)
[2024-10-11 16:11] LABS: Erythrocyte Sedimentation Rate 4 MM/HR (0-15)
[2024-10-11] MEDS: Doxycycline Monohydrate 100 MG CAPSULE PO (17:06)
[2024-10-11] MEDS: Diphth,Pertus(ACell),Tet Adult 0.5 ML SYRINGE IM (17:06)
[2024-10-11] MEDS: levoFLOXacin 750 MG TABLET PO (17:06)
[2024-10-11 17:12] VITALS: BP 170/61; PULSE 60; RESP 18; TEMP 36.8; O2SAT 99
== END 2024-10-11 17:12 | disposition home or self-care (01) ==
PROVIDERS: Physician Assistant Medical; Emergency Provider Internal Medicine; PCP Internal Medicine
DX: H10.89 Other conjunctivitis (principal); S05.01XA Injury of conjunctiva and corneal abrasion without foreign body, right eye, initial encounter; W44.8XXA Other foreign body entering into or through a natural orifice, initial encounter; H57.11 Ocular pain, right eye; E11.9 Type 2 diabetes mellitus without complications; I10 Essential (primary) hypertension; E78.00 Pure hypercholesterolemia, unspecified; Y93.89 Activity, other specified; Y92.9 Unspecified place or not applicable; Y99.9 Unspecified external cause status
CPT/HCPCS: 36415; 80053; 85025; 85652; 86140; 90471; 90715; 99282; 99284

== ENCOUNTER 2024-10-14 15:20 | Outpatient (AMB) | payer MEDICARE, SELFPAY ==
--- NOTE | 2024-10-14 15:37 | MHC.OFFVIS ---
Vital Signs 10/14/24 15:38 Height 5 ft 8 in Weight 180 lb BMI 27.4 BP 138/70 Blood Pressure Location Lt brachial Position Sitting Pulse 69 Pulse Source Monitor Intake Visit Reasons: [facility] [place] F/up-AFIB Pipe Manufacture Supervisor Required: Yes Pipe Manufacture Supervisor Name: SHANNON [id number] Allergies No Known Allergies Allergy (Mild, Verified 10/11/24 15:13) NKA Medication List - Last Reconciled 10/14/24 by Loc Andrew NP apixaban (Eliquis) 5 mg PO BID atorvastatin 10 mg PO DAILY ciprofloxacin HCl 0.3% put 1-2 drps in affected eye(s) every 2hr up to 8 times/day x2days; then 4 times/day x5days erythromycin 0.5 inches ophthalmic (eye) BID levofloxacin 750 mg PO DAILY 10 days lisinopril 20 mg PO DAILY metformin ER 500 mg PO DAILY metoprolol succinate ER (Toprol XL) 50 mg PO DAILY ofloxacin 0.3% put 1-2 drps into affected eye(s) every 2-4 h x 2 days, then 1-2 drps 4 times/day days 3-7 HPI Comments Details: This is a 69-year-old male patient coming in for a hospital discharge follow-up. Patient with a history of hypertension, hyperlipidemia, diabetes, and sleep apnea. Patient was recently seen in the hospital for palpitations where he was noted to be in AFib with RVR. AFib is a new onset for this patient. Patient was treated with IV diltiazem and subsequently converted to sinus rhythm. Patient was discharged on Eliquis and metoprolol therapy. Subsequently patient underwent a Holter and a echo study on the outpatient. Today, patient reports feeling well overall and denies any exertional symptoms of chest pain, shortness of breath, palpitations, dizziness, orthopnea, PND, leg edema, presyncope, or syncope. Patient states that he has been taking all his medications except the Eliquis he has been taking daily instead of twice daily. Patient also notes that his sleep apnea was from 5 years ago when he was obese but since weight loss he is no longer using the CPAP therapy. Patient is otherwise denying any use of stimulants such as alcohol, tobacco, or street drugs. [facility] Medical History Bacterial conjunctivitis of right eye Obesity (BMI 30-39.9) Hospital discharge follow-up Vitamin D deficiency Overweight (BMI 25.0-29.9) Psoriasis Obstructive sleep apnea Pure hypercholesterolemia Benign essential hypertension Type 2 diabetes mellitus without complication, without long-term current use of insulin Surgical History History of open reduction and internal fixation (ORIF) procedure History of colonoscopy Family History Father Medical history unknown Mother Medical history unknown Social History Housing: Apartment Unable to assess alcohol history related to: Unknown Alcohol intake: never Patient Tobacco Use Status: Never used Tobacco e-Cigarette/Vaping Use: Never Used Second Hand Smoke Exposure: No service: No Current occupational status: retired Cognitive needs: No Hearing needs: No Vision needs: Yes (Glasses) Physical Exam Vital Signs: Last Vital Signs Pulse 69 10/14/24 15:38 BP 138/70 10/14/24 15:38 BMI result Body Mass Index 27.4 Const General: cooperative, healthy appearing, comfortable and no acute distress Orientation/consciousness: patient oriented x3 HEENT Head: Yes normal to inspection Neck Neck: Yes normal visual inspection, Yes trachea midline and Yes supple Chest Chest palpation & inspection: normal inspection of the chest Resp Effort & Inspection: normal respiratory effort Auscultation: clear to auscultation bilaterally, no crackles, no rales, no rhonchi and no wheezes Cardio Jugular venous distension: no JVD Palpation: normal PMI Rate: regular rate Rhythm: regular rhythm Heart sounds: S1 normal heart sound present, S2 normal heart sound present, no click, no gallops, no murmurs and no rubs Peripheral pulses: Peripheral pulses 2+ throughout GI Inspection: Yes normal to inspection Palpation (GI): Soft to palpation Auscultation: normal bowel sounds Skin General skin exam: no rashes or lesions noted Neuro General: patient oriented x3 Extrem General: Yes normal to inspection, No no pedal edema and No calf tenderness Psych Appearance: grossly normal Mental Status: mental status grossly normal Speech and movement: Normal speech and movement present Office Procedures EKG Details: EKG today shows normal sinus rhythm, rate 69 beats per minute, ST-T wave abnormality suggesting possible inferior ischemia, [place], [place]. [id number], Complete Assessment & Plan Assessment & Plan (1) Paroxysmal atrial fibrillation: Code(s): I48.0 - Paroxysmal atrial fibrillation Category: Medical Plan: 08/05/2024-patient underwent a Holter study that showed underlying sinus rhythm with an average heart rate of 65 beats per minute, sinus bradycardia 45% of the time, and rare supraventricular and ventricular ectopy. EKG today showed normal sinus rhythm. No reported symptoms of palpitations. Emphasized on med compliance. Continue Eliquis twice daily for full anticoagulation therapy. Emphasized on the risk for stroke related to AFib with inadequate approach to anticoagulation. No reported signs of bleeding. Continue metoprolol for rate control approach. We will monitor labs periodically. (2) Cardiomyopathy: Code(s): I42.9 - Cardiomyopathy, unspecified Category: Medical Plan: 08/05/2024-echo study showed a mildly decreased LV systolic function with the ejection fraction at 46%. No wall motion abnormalities or valvular pathology. EKG today had nonspecific ST T-wave abnormality in the inferior leads possibly suggesting ischemia. No reported symptoms of angina. We will proceed with a myocardial perfusion study to look for ischemic changes. Most recent LDL at 70. Continue statin therapy with an LDL goal less than 70. (3) Benign essential hypertension: Code(s): I10 - Essential (primary) hypertension Category: Medical Plan: Blood pressure today is within normal limits. Continue current regimen. Advised monitoring blood pressures with a goal less than 130/80. (4) Obstructive sleep apnea: Code(s): G47.33 - Obstructive sleep apnea (adult) (pediatric) Category: Medical Plan: Patient states he has had history of sleep apnea about 5 years ago when he was morbidly obese. Since then, patient has stopped using CPAP therapy on his own. With his new onset of AFib, we will rule out a risk factor which could be untreated sleep apnea and therefore we will get a home sleep study. (5) Hospital discharge follow-up: Code(s): Z09 - Encounter for follow-up examination after completed treatment for conditions other than malignant neoplasm Category: Medical Plan: As above. Advised heart healthy diet, regular exercise, med compliance, stress medication strategies, avoiding stimulants such as alcohol, tobacco, street drugs, or caffeinated beverages, and management of vascular risk factors. We will follow up after completion of the planned testings. In the interim, patient will call the office with any concerns or change in symptoms. This note was generated using voice recognition software. While every effort has been made to ensure accuracy and proper computer typesetter, there may be occasional errors that could affect the content or meaning of the described symptoms. Orders: Orders CA stress test Today I42.9 - Cardiomyopathy, unspecified, I48.0 - Paroxysmal atrial fibrillation RT home sleep study Today G47.33 - Obstructive sleep apnea (adult) (pediatric) AMB EKG-In Office Today I48.0 - Paroxysmal atrial fibrillation NM cardiolite stress test Today I42.9 - Cardiomyopathy, unspecified, I48.0 - Paroxysmal atrial fibrillation Coding Level of Care Code Est Pt Level 4 (87207) Complex EM visit Add On G2211 Diagnoses Paroxysmal atrial fibrillation I48.0 Cardiomyopathy I42.9 Benign essential hypertension I10 Obstructive sleep apnea G47.33 Hospital discharge follow-up Z09 CPT Codes EKG - CPT: 10948-[id number], Complete ([id number]) Time Spent (min) 34 Comment Time spent in reviewing the chart, test results, assessment, counseling and documentation.
[2024-10-14 15:38] VITALS: BP 138/70; PULSE 69; BMI 27.4
== END 2024-10-14 16:16 | disposition home or self-care (01) ==
LOC: HO.HCS 15:20
PROVIDERS: PCP Internal Medicine
DX: I48.0 Paroxysmal atrial fibrillation (principal); I42.9 Cardiomyopathy, unspecified; I10 Essential (primary) hypertension; G47.33 Obstructive sleep apnea (adult) (pediatric); Z09 Encounter for follow-up examination after completed treatment for conditions other than malignant neoplasm
CPT/HCPCS: 93010; 99214; G2211

== ENCOUNTER → 2024-10-14 15:20 | Outpatient (BNVA) | payer MEDICARE, SELFPAY | PROVIDERS: PCP Internal Medicine | DX: Z09 Encounter for follow-up examination after completed treatment for conditions other than malignant neoplasm (principal); I48.0 Paroxysmal atrial fibrillation; I42.9 Cardiomyopathy, unspecified; I10 Essential (primary) hypertension; G47.33 Obstructive sleep apnea (adult) (pediatric) | CPT/HCPCS: 93005; 99212 ==

== ENCOUNTER 2024-10-22 11:38 | Outpatient (AMB) | payer MEDICARE, SELFPAY ==
[2024-10-22 11:40] VITALS: BP 138/86; PULSE 77; TEMP 36.3; O2SAT 98; BMI 27.5
--- NOTE | 2024-10-22 11:40 | A.OFFPC_ITS ---
Vital Signs 10/22/24 11:40 Height 5 ft 8 in Weight 181 lb 2 oz BMI 27.5 BP 138/86 Blood Pressure Location Lt brachial Position Sitting Pulse 77 Pulse Source Pulse Oximeter Temp 97.3 F Temp Source Temporal Artery Scan Pulse Oximetry (%) 98 Oxygen Delivery Method Room Air Intake Visit Reasons[place] [facility] [place]07 Eye infection Welt Cutter Required: Yes Welt Cutter Language: [place] Operator Name: Maryam ([id number]) Allergies No Known Allergies Allergy (Mild, Verified 10/22/24 11:42) NKA Tobacco use date assessed: 10/22/24 Fall risk assessment: No Falls in past year Last assessed Fall Risk: 10/22/24 Dental Screening Dental Screen Date: 09/03/24 Did you have a dental visit in the last 12 months?: No Did you have a dental problem in the last 6 months where you did not have access to dental care?: No Was dental information given to patient?: Patient declined HPI HPI Comments History of Present Illness Details 69 y/o Male patient who presents to the clinic today for EDF. He was admitted at [facility] [place]11 for an evaluation and treatment of Right Eye Bacterial Conjunctivitis. He was then evaluated by his Opthlamologist 10/13. Today he reports infection res olved. No concerns. [facility] Medical History Bacterial conjunctivitis of right eye Obesity (BMI 30-39.9) Hospital discharge follow-up Vitamin D deficiency Overweight (BMI 25.0-29.9) Psoriasis Obstructive sleep apnea Pure hypercholesterolemia Benign essential hypertension Type 2 diabetes mellitus without complication, without long-term current use of insulin Surgical History History of open reduction and internal fixation (ORIF) procedure History of colonoscopy Family History Father Medical history unknown Mother Medical history unknown Social History Housing: Apartment Unable to assess alcohol history related to: Unknown Alcohol intake: never Patient Tobacco Use Status: Never used Tobacco e-Cigarette/Vaping Use: Never Used Second Hand Smoke Exposure: No service: No Current occupational status: retired Cognitive needs: No Hearing needs: No Vision needs: Yes (Glasses) Questionnaire PHQ-9 Over the last 2 weeks, how often have you been bothered by any of the following problems? 1. Little interest or pleasure in doing things: nearly every day 2. Feeling down, depressed, or hopeless: not at all 3. Trouble falling or staying asleep, or sleeping too much: not at all 4. Feeling tired or having little energy: not at all 5. Poor appetite or overeating: not at all 6. Feeling bad about yourself - or that you are a failure or have let yourself or your family down: not at all 7. Trouble concentrating on things, such as reading the newspaper or watching television: not at all 8. Moving or speaking so slowly that other people could have noticed. Or the opposite - being so fidgety or restless that you have been moving around a lot more than usual: not at all 9. Thoughts that you would be better off or of hurting yourself in some way: not at all Total score: 3 Depression Screening Interpretation: Negative Depression Screening Done: Yes Source: Developed by Drs. Vivek Yeager, Carmen May, Gildardo Aggarwal and colleagues, with an educational osvaldo from [employer]. Thrive Questionnaire Date Thrive assessed: 08/20/24 I am a: Patient What is your living situation today?: I have a steady place to live Within the past 12 months, did the food you bought not last and you didn't have the money to get more?: Never true Within the past 12 months, did you worry whether your food would run out before you got money to buy more?: Never true Do you have trouble paying for medicines?: No Do you have trouble getting transportation to medical appointments?: No Do you have trouble paying your heating and electricity bill?: No Do you have trouble taking care of your child, family member or friend?: No Do you have trouble with day-to-day activities such as bathing, preparing meals, shopping, managing finances, etc.?: No Are you currently unemployed and looking for a job?: No Are you interested in more education?: No Please select the resources that you would like help with: None Currently or been in a relationship where the following occur: No concerns reported THRIVE Score: 0 AUDIT C Alcohol Use Questionnaire (AUDIT-C) 1. How often do you have a drink containing alcohol?: Never 3. How often do you have six or more drinks on one occasion?: Never Total Score: 0 JUVENTINO-7 AMB Questionnaire JUVENTINO-7 Date JUVENTINO - 7 assessed: 08/20/24 Feeling nervous, anxious, or on edge: 0 = Not at all Not being able to stop or control worryin = Not at all Worrying too much about different things: 0 = Not at all Trouble relaxin = Not at all Being so restless that it is hard to sit still: 0 = Not at all Becoming easily annoyed or irritable: 0 = Not at all Feeling afraid as if something awful might happen: 0 = Not at all Total JUVENTINO-7 score (0-4 normal; 5-9 mild; 10-14 moderate; 15-21 severe): 0 Source: Developed by Drs. Vivek Yeager, Carmen May, Gildardo Aggarwal and colleagues, with an educational osvaldo from [employer]. Review of Systems Const All systems reviewed & are unremarkable except as noted in HPI and below Physical exam (Primary Care) Vital Signs: Last Vital Signs Temp 97.3 F 10/22/24 11:40 Pulse 77 10/22/24 11:40 BP 138/86 10/22/24 11:40 Pulse Ox 98 10/22/24 11:40 Oxygen Delivery Method Room Air 10/22/24 11:40 BMI result Body Mass Index 27.5 Tobacco/Smoking Status: Tobacco use Status Tobacco use date assessed 10/22/24 10/22/24 11:45 Patient Tobacco Use Status Never used Tobacco 10/22/24 11:45 e-Cigarette/Vaping Use Never Used 10/22/24 11:45 PHQ-9: PHQ-9 Score PHQ-9: Total score 3 10/22/24 11:49 Depression Screening Interpretation: Negative Thrive Assessment: Date of Thrive Assessment Date Thrive assessed 08/20/24 10/22/24 11:45 Currently or been in a relationship where the following occur: No concerns reported Const General: comfortable and no acute distress Nutritional Appearance: overweight Orientation/consciousness: patient oriented x3 Eyes Eyelids: Yes eyelids normal Conjunctivae: conjunctivae normal Pupils: Equal, round and reactive pupils present EOM: EOMs intact bilaterally Resp Effort & Inspection: normal respiratory effort Cardio Heart sounds: S1 normal heart sound present and S2 normal heart sound present Neuro General: patient oriented x3 Cranial nerves: Yes Equal, round and reactive pupils present Coding Level of Care Code Est Pt Level 4 (76475) Diagnoses Bacterial conjunctivitis of right eye H10.9 Time Spent (min) 20 Assessment & Plan Assessment & Plan (1) Bacterial conjunctivitis of right eye: Code(s): H10.9 - Unspecified conjunctivitis Category: Medical Plan: Infection resolved. Continue F/U with your Education Site Manager.
== END 2024-10-22 12:55 | disposition home or self-care (01) ==
LOC: HO.HMCH 11:38
PROVIDERS: PCP Internal Medicine; Visit Provider Nurse Practitioner Family
DX: H10.9 Unspecified conjunctivitis (principal)

== ENCOUNTER → 2024-10-22 11:38 | Outpatient (BNVA) | payer MEDICARE, SELFPAY | PROVIDERS: PCP Internal Medicine; Visit Provider Nurse Practitioner Family | DX: H10.9 Unspecified conjunctivitis (principal); Z13.31 Encounter for screening for depression | CPT/HCPCS: 96127; 99212 ==

== ENCOUNTER → 2024-12-02 08:39 | Outpatient (REF) | payer MEDICARE, SELFPAY ==
--- NOTE | ~2024-12-02 | NM_ITS ---
EXERCISE MYOCARDIAL PERFUSION STUDY INDICATION: Abnormal EKG TECHNIQUE: The patient was brought in for an exercise perfusion study on 12/02/2024. Patient performed exercise as per Bari protocol and was injected 25 mCi of sestamibi once target heart rate was achieved. Images were obtained using the SPECT gamma camera interlaced with the gating device. Images were obtained in supine position. Resting perfusion study was performed on 12/06/2024. Patient was administered 25 mCi of sestamibi intravenously at rest. Images were then obtained in supine position. Total DLP 69 mGy-cm. Images were processed with the software and compared side to side in short axis, horizontal long axis and vertical long axis views. FINDINGS: Raw aquisition reviewed. The stress perfusion study showed decreased tracer uptake in the inferior wall, basal to midportion. There is also adjacent subdiaphragmatic tracer uptake. With CT attenuation correction, inferior wall perfusion appears to be within normal limits. The gated study shows reduced LV systolic function with calculated LVEF of 43%. LV cavity is normal in size. The gated study shows reduced contractility in the basal part of inferior wall. Resting study shows no significant perfusion abnormality. Gating at rest reveals normal wall motion with ejection fraction at 32%. The findings are consistent with reversible inferior defect could be artifactual. No clear fixed defects. NM/IN cardiolite stress test IMPRESSION: 1. Myocardial perfusion imaging study shows no clear evidence of ischemia or infarction.. 2. Gated LVEF is 43% during stress and 32% during rest. 3. Transient ischemic dilatation not present. EKG component of the test reported separately. Electronically signed by: Pritesh Dillon MD 12/07/2024 10:53 AM EDT
--- NOTE | 2024-12-02 08:41 | CA_ITS ---
Acquisition Time: 2024-12-02 09:09:50 Total Exercise Time: 00:07:15 Test Indications: Abnormal ECG HX AFIB Medications: SEE H&P Protocol: EMELYN Max HR: 148 BPM 99% of Pred: 149 BPM Max BP: 182/70 mmHG Max Work Load: 8.1 METS Exercise stress test with exercise 7 mins 15 sec sof Emelyn Protocol, with reduced speed at 3.0mph, achieving 97% MPHR, with reports of feeling fatigue, no chest pain, with frequent PACs anbd PVCs, with normotensive response to exercise. With borderline ST changes inferolaterally, baseline nonsecific ST- T waves. Nuclear images pending. Test reviewed with Dr. Guthrie. Referred By: Loc Andrew Electronically Signed By: Loc Andrew
== END ==
LOC: HO.CARD 08:39
PROVIDERS: PCP Internal Medicine
DX: I42.9 Cardiomyopathy, unspecified (principal); I48.0 Paroxysmal atrial fibrillation
CPT/HCPCS: 78452; 93017; A9500

== ENCOUNTER → 2024-12-02 08:41 | Outpatient (BNV) | payer MEDICARE, SELFPAY | PROVIDERS: PCP Internal Medicine | DX: I49.1 Atrial premature depolarization (principal); I49.3 Ventricular premature depolarization | CPT/HCPCS: 78452; 93016; 93018 ==

== ENCOUNTER 2024-12-21 | Outpatient (REF) | payer MEDICARE, SELFPAY | END 2024-12-21 00:01 | disposition home or self-care (01) | LOC: CF | PROVIDERS: PCP Internal Medicine; Visit Provider Internal Medicine | DX: G47.33 Obstructive sleep apnea (adult) (pediatric) (principal); E78.00 Pure hypercholesterolemia, unspecified; E11.9 Type 2 diabetes mellitus without complications; E55.9 Vitamin D deficiency, unspecified; I10 Essential (primary) hypertension; L40.9 Psoriasis, unspecified; F41.9 Anxiety disorder, unspecified; E66.3 Overweight; Z79.01 Long term (current) use of anticoagulants; Z79.84 Long term (current) use of oral hypoglycemic drugs; Z79.899 Other long term (current) drug therapy; Z68.26 Body mass index [BMI] 26.0-26.9, adult | CPT/HCPCS: 96127; 99212 ==

== ENCOUNTER 2024-12-21 15:47 | Outpatient (AMB) | payer MEDICARE, SELFPAY ==
[2024-12-21 15:54] VITALS: BP 124/86; PULSE 67; O2SAT 98; BMI 26.6
--- NOTE | 2024-12-21 15:54 | A.OFFPC_ITS ---
Vital Signs 12/21/24 15:54 Height 5 ft 8 in Weight 175 lb 2 oz BMI 26.6 BP 124/86 Blood Pressure Location Lt brachial Position Sitting Pulse 67 Pulse Source Pulse Oximeter Pulse Oximetry (%) 98 Oxygen Delivery Method Room Air Intake Visit Reasons: 4mth f/u Intake Note: Patient states he has began to have more anxiety than normal ever since sister . Hay Chopper Required: No Accompanied by: Self / Same As Patient Allergies No Known Allergies Allergy (Mild, Verified 12/21/24 16:15) NKA Medication List - Last Reconciled 12/21/24 by Lars Dubois MD apixaban (Eliquis) 5 mg PO BID atorvastatin 10 mg PO DAILY lisinopril 20 mg PO DAILY metformin ER 500 mg PO DAILY metoprolol succinate ER (Toprol XL) 50 mg PO DAILY Tobacco use date assessed: 12/21/24 Fall risk assessment: No Falls in past year Last assessed Fall Risk: 12/21/24 Dental Screening Dental Screen Date: 12/21/24 Did you have a dental visit in the last 12 months?: No Did you have a dental problem in the last 6 months where you did not have access to dental care?: No Was dental information given to patient?: Patient has dentist HPI 4mth f/u HPI Details Patient comes in today for his follow up visit States that he currently feels okay and that his previous eye issues (infection, corneal ulcers) have all cleared up completely and states that his eyes now feel fine He does have a follow up appointment with ophthalmology tomorrow to recheck his eyes Adds that his sister suddenly this past week and he has been experiencing increased anxiety lately and would like to see if he can get something to help with his anxiety He denies any headaches or dizziness Denies any chest pains, no SOB No nausea/vomiting, no abdominal pain No change in bowel habits noted He did not get his follow up labs done prior to his appointment today - states that he can go and get these done tomorrow morning [facility] Medical History Bacterial conjunctivitis of right eye Obesity (BMI 30-39.9) Hospital discharge follow-up Vitamin D deficiency Overweight (BMI 25.0-29.9) Psoriasis Obstructive sleep apnea Pure hypercholesterolemia Benign essential hypertension Type 2 diabetes mellitus without complication, without long-term current use of insulin Surgical History History of open reduction and internal fixation (ORIF) procedure History of colonoscopy Family History Father Medical history unknown Mother Medical history unknown Social History Housing: Apartment Unable to assess alcohol history related to: Unknown Alcohol intake: never Patient Tobacco Use Status: Never used Tobacco e-Cigarette/Vaping Use: Never Used Second Hand Smoke Exposure: No service: No Current occupational status: retired Cognitive needs: No Hearing needs: No Vision needs: Yes (Glasses) Questionnaire PHQ-9 Over the last 2 weeks, how often have you been bothered by any of the following problems? 1. Little interest or pleasure in doing things: nearly every day 2. Feeling down, depressed, or hopeless: not at all 3. Trouble falling or staying asleep, or sleeping too much: not at all 4. Feeling tired or having little energy: not at all 5. Poor appetite or overeating: not at all 6. Feeling bad about yourself - or that you are a failure or have let yourself or your family down: not at all 7. Trouble concentrating on things, such as reading the newspaper or watching television: not at all 8. Moving or speaking so slowly that other people could have noticed. Or the opposite - being so fidgety or restless that you have been moving around a lot more than usual: not at all 9. Thoughts that you would be better off or of hurting yourself in some way: not at all Total score: 3 Depression Screening Interpretation: Negative Depression Screening Done: Yes 28222 - PHQ-9 Billing: Yes Source: Developed by Drs. Vivek Yeager, Carmen May, Gildardo Aggarwal and colleagues, with an educational osvaldo from [employer] Thrive Questionnaire Date Thrive assessed: 12/21/24 I am a: Patient What is your living situation today?: I have a steady place to live Within the past 12 months, did the food you bought not last and you didn't have the money to get more?: Never true Within the past 12 months, did you worry whether your food would run out before you got money to buy more?: Never true Do you have trouble paying for medicines?: No Do you have trouble getting transportation to medical appointments?: No Do you have trouble paying your heating and electricity bill?: No Do you have trouble taking care of your child, family member or friend?: No Do you have trouble with day-to-day activities such as bathing, preparing meals, shopping, managing finances, etc.?: No Are you currently unemployed and looking for a job?: No Are you interested in more education?: No Please select the resources that you would like help with: None Currently or been in a relationship where the following occur: No concerns reported THRIVE Score: 0 AUDIT C Alcohol Use Questionnaire (AUDIT-C) 1. How often do you have a drink containing alcohol?: Never 3. How often do you have six or more drinks on one occasion?: Never Total Score: 0 Score Reviewed/Action Taken: Yes JUVENTINO-7 AMB Questionnaire JUVENTINO-7 Date JUVENTINO - 7 assessed: 12/21/24 Feeling nervous, anxious, or on edge: 1 = Several days Not being able to stop or control worryin = Several days Worrying too much about different things: 0 = Not at all Trouble relaxin = Several days Being so restless that it is hard to sit still: 0 = Not at all Becoming easily annoyed or irritable: 0 = Not at all Feeling afraid as if something awful might happen: 0 = Not at all Total JUVENTINO-7 score (0-4 normal; 5-9 mild; 10-14 moderate; 15-21 severe): 3 Source: Developed by Drs. Vivek Yeager, Carmen May, Gildardo Aggarwal and colleagues, with an educational osvaldo from [employer] Review of Systems Const Denies chills, Denies fatigue, Denies fever(s) and Denies headache(s) Eyes Denies blurry vision, Denies eye discharge and Denies eye pain ENT Denies dysphagia, Denies dizziness, Denies otalgia, Denies headache(s), Denies neck pain, Denies odynophagia and Denies sore throat Card Denies chest pain, Denies palpitations and Denies dyspnea Resp Denies chest congestion, Denies cough and Denies dyspnea GI Denies abdominal pain, Denies constipation, Denies dysphagia, Denies heartburn, Denies diarrhea, Denies nausea, Denies odynophagia and Denies vomiting Denies difficulty urinating, Denies dysuria, Denies nocturia and Denies urinary frequency Musc Denies back pain, Denies arthralgias and Denies neck pain Skin/Breast Denies rash Neuro Denies dizziness and Denies headache(s) Endo Denies fatigue and Denies palpitations Physical exam (Primary Care) Vital Signs: Last Vital Signs Pulse 67 12/21/24 15:54 BP 124/86 12/21/24 15:54 Pulse Ox 98 12/21/24 15:54 Oxygen Delivery Method Room Air 12/21/24 15:54 BMI result Body Mass Index 26.6 Tobacco/Smoking Status: Tobacco use Status Tobacco use date assessed 12/21/24 12/21/24 15:57 Patient Tobacco Use Status Never used Tobacco 12/21/24 15:57 e-Cigarette/Vaping Use Never Used 12/21/24 15:57 PHQ-9: PHQ-9 Score PHQ-9: Total score 3 12/21/24 15:57 Depression Screening Interpretation: Negative Thrive Assessment: Date of Thrive Assessment Date Thrive assessed 12/21/24 12/21/24 15:57 Currently or been in a relationship where the following occur: No concerns reported Const General: no acute distress and alert HENMT Ears: TM's normal bilaterally and EAC's normal Throat: Yes posterior oropharynx normal and Yes tonsils normal (no TP congestion noted) Neck Neck: Yes supple and No lymphadenopathy Thyroid: Thyroid normal Resp Auscultation: clear to auscultation bilaterally, no rales and no wheezes Cardio Rate: regular rate Rhythm: regular rhythm Heart sounds: no murmurs GI Palpation (GI): Soft to palpation and nontender Auscultation: normal bowel sounds General: Yes no CVA tenderness Back/Spine/Pelvis Back: no CVA tenderness Thoracic/Lumbar Spine: No lumbar spinal tenderness Skin Rashes: no rashes Extrem General: Yes no clubbing, cyanosis or edema Left lower extremity: knee Details: no tenderness Coding Level of Care Code Est Pt Level 4 (36778) Diagnoses Pure hypercholesterolemia E78.00 Type 2 diabetes mellitus without complication, without long-term current use of insulin E11.9 Benign essential hypertension I10 Vitamin D deficiency E55.9 Obstructive sleep apnea G47.33 Psoriasis L40.9 Anxiety F41.9 Overweight (BMI 25.0-29.9) E66.3 Additional Codes PHQ-9 - 88333 - PHQ-9 Billing: Yes ([id number]) Assessment & Plan Assessment & Plan (1) Pure hypercholesterolemia: Code(s): E78.00 - Pure hypercholesterolemia, unspecified Category: Medical Plan: Patient was not able to get his labs done prior to his appointment today - states that he will go and get them done tomorrow morning Reinforced low cholesterol diet Continue Atorvastatin 10 mg QD Will recheck his labs and fasting lipids in 4 months for follow up (2) Type 2 diabetes mellitus without complication, without long-term current use of insulin: Code(s): E11.9 - Type 2 diabetes mellitus without complications Category: Medical Plan: His HgbA1c was at 5.6% on his most recent labs done a few months ago (was previously at 5.7% earlier this year) - goal is <7.0% Reinforced diabetic diet Continue Metformin ER 500 mg QD (3) Benign essential hypertension: Code(s): I10 - Essential (primary) hypertension Category: Medical Plan: Reinforced low sodium diet - goal is systolic BP of at least 130 mm or less Continue Lisinopril 40 mg QD and HCTZ 25 mg QD (4) Vitamin D deficiency: Code(s): E55.9 - Vitamin D deficiency, unspecified Category: Medical Plan: Continue Vitamin D3 2000 units QD (5) Obstructive sleep apnea: Code(s): G47.33 - Obstructive sleep apnea (adult) (pediatric) Category: Medical Plan: Patient states that he is no longer using his CPAP device when sleeping at night and that he has not had any issues with sleeping or felt fatigued ever since he stopped using it over a year ago now (6) Psoriasis: Code(s): L40.9 - Psoriasis, unspecified Category: Medical Plan: Continue Mometasone cream 0.1% QD PRN Follow-up with dermatology as scheduled (7) Anxiety: Code(s): F41.9 - Anxiety disorder, unspecified Category: Medical Plan: Patient reports experiencing increased anxiety these past few days since his sister suddenly late last week and is currently requesting for something to temporarily help with his anxiety Will start him for now on Hydroxyzine 25 mg TID PRN (8) Overweight (BMI 25.0-29.9): Code(s): E66.3 - Overweight Category: Medical Plan: Reinforced diet/exercise as tolerated/lose weight Plan Follow up in 4 months Orders: Orders Complete Blood Count Auto Diff 4 Months D64.9 - Anemia, unspecified Comprehensive [place]. Panel Fast 4 Months E78.00 - Pure hypercholesterolemia, unspecified Microalbumin, Random (w Creat) 4 Months E11.9 - Type 2 diabetes mellitus without complications UA CC w/rflx Micro + Cult 4 Months R30.0 - Dysuria Lipid Panel 4 Months E78.00 - Pure hypercholesterolemia, unspecified Hemoglobin A1c 4 Months E11.9 - Type 2 diabetes mellitus without complications Medications: New hydroxyzine HCl 25 mg PO TID PRN 90 tabs 2RF anxiety 30 days
== END 2024-12-21 16:23 | disposition home or self-care (01) ==
LOC: HO.HMCH 15:47
PROVIDERS: PCP Internal Medicine; Visit Provider Internal Medicine
DX: E78.00 Pure hypercholesterolemia, unspecified (principal); E11.9 Type 2 diabetes mellitus without complications; I10 Essential (primary) hypertension; E55.9 Vitamin D deficiency, unspecified; G47.33 Obstructive sleep apnea (adult) (pediatric); L40.9 Psoriasis, unspecified; F41.9 Anxiety disorder, unspecified; E66.3 Overweight

== ENCOUNTER 2024-12-22 10:24 | Outpatient (REF) | payer MEDICARE, SELFPAY ==
[2024-12-22 10:41] LABS: MANUAL DIFF FLAG NO
[2024-12-22 11:12] LABS: Hematocrit 47.7 % (42.0-52.0); Hemoglobin 15.1 g/dl (14.0-18.0); Imm Gran Abs Auto 0.01 X10*3/uL (0.00-0.03); Imm Gran Pct Auto 0.2 % (0.0-0.4); Lymphocytes Absolute Auto 1.5 X10*3/uL (1.2-4.9); Mean Corpuscular HGB Conc 31.7 g/dl (31.0-36.0); Mean Corpuscular Hemoglobin 27.4 pg (27.0-33.0); Mean Corpuscular Volume 86.4 fL (80.0-98.0); NRBC Abs Auto 0.000 X10*3/uL (0.0-0.012); NRBC Pct Auto 0.0 /100WBC (0.0-0.2); Platelet Count 291 X10*3/uL (160-400); Red Blood Count 5.52 X10*6/uL (4.60-5.80); White Blood Count 5.0 X10*3/uL (4.8-10.8)
[2024-12-22 12:01] LABS: Alanine Aminotransferase 31 U/L (0-40); Albumin Level 4.5 g/dL (3.5-5.0); Alkaline Phosphatase 78 U/L (39-117); Anion Gap 11 (12-20); Aspartate Amino Transferase 25 U/L (5-37); Blood Urea Nitrogen 17 mg/dL (9-16); Calcium 9.4 mg/dL (8.4-10.2); Carbon Dioxide 29 mmol/L (22-29); Chloride 107 mmol/L (96-108); Cholesterol 112 mg/dL (<200); Estimated Glomerular Filt Rate > 60; HDL Cholesterol 41 mg/dL (>40); Potassium 4.2 mmol/L (3.3-5.1); Sodium 143 mmol/L (135-145); Total Protein 7.6 g/dL (6.5-8.0); Triglycerides 32 mg/dL (<150)
[2024-12-22 12:01] LABS: Appearance Urine Clear; Glucose Urine UA Negative (Negative); PH 5.5 (5.0-9.0); Specific Gravity - Urine 1.020 (1.005-1.025); UMIC TRIGGER UACC YES
[2024-12-22 12:05] LABS: Hemoglobin A1C 142.8466 umol/L; Total Hemoglobin (HGBA1C) 3892.4737 umol/L
[2024-12-22 13:07] LABS: Microalbum/Creatinine Ratio Ur 187.4 ug/mg cr (<30)
== END 2024-12-22 10:25 | disposition home or self-care (01) ==
LOC: HO.LAB 10:24
PROVIDERS: PCP Internal Medicine; Visit Provider Internal Medicine
DX: E11.9 Type 2 diabetes mellitus without complications (principal); E78.00 Pure hypercholesterolemia, unspecified; D64.9 Anemia, unspecified; E55.9 Vitamin D deficiency, unspecified; R30.0 Dysuria
CPT/HCPCS: 36415; 80053; 80061; 81001; 81003; 82043; 82306; 82570; 83036; 85025

== ENCOUNTER 2025-01-07 19:37 | Emergency (ER) | payer MEDICARE, SELFPAY ==
--- NOTE | 2025-01-07 19:47 | ED.GENADULT ---
HPI - General Adult General Chief complaint: General Medical Stated complaint: High blood pressure Time Seen by Provider: 01/07/25 23:14 Related Data Home Medications ?Medication ?Instructions ?Recorded ?Confirmed metformin 500 mg tablet,extended 500 mg PO DAILY 07/11/24 12/21/24 release 24 hr Previous Rx's ?Medication ?Instructions ?Recorded atorvastatin 10 mg tablet 10 mg PO DAILY #90 tabs 08/21/24 lisinopril 20 mg tablet 20 mg PO DAILY #30 tabs 09/09/24 metoprolol succinate 50 mg 50 mg PO DAILY #90 tabs 10/18/24 tablet,extended release 24 hr (Toprol XL) apixaban 5 mg tablet (Eliquis) 5 mg PO BID #180 tabs 11/05/24 hydroxyzine HCl 25 mg tablet 25 mg PO TID PRN anxiety 30 days 12/21/24 #90 tabs Allergies Allergy/AdvReac Type Severity Reaction Status Date / Time No Known Allergies Allergy Mild NKA Verified 01/07/25 19:50 PMFSH Past Medical History Medical History Bacterial conjunctivitis of right eye Obesity (BMI 30-39.9) Hospital discharge follow-up Vitamin D deficiency Overweight (BMI 25.0-29.9) Psoriasis Obstructive sleep apnea Pure hypercholesterolemia Benign essential hypertension Type 2 diabetes mellitus without complication, without long-term current use of insulin Surgical History History of open reduction and internal fixation (ORIF) procedure History of colonoscopy Family History Family History Father Medical history unknown Mother Medical history unknown Social History Social History Housing: Apartment Alcohol intake: never Patient Tobacco Use Status: Never used Tobacco e-Cigarette/Vaping Use: Never Used Second Hand Smoke Exposure: No Advance Directives: No Advance Directives Information Provided: No service: No Current occupational status: retired Cognitive needs: No Hearing needs: No Vision needs: Yes (Glasses) Physical Exam ED Vital Signs: Vital Signs - 24 hr 01/07/25 19:48 01/07/25 21:47 01/07/25 23:11 Temperature 98.2 F Pulse Rate 65 62 64 Respiratory Rate 20 18 Blood Pressure 171/78 H 168/80 H 186/85 H Pulse Oximetry 99 99 Oxygen Delivery Method Room Air Room Air BMI result Body Mass Index 26.8 Course Course Course Narrative: RME, this is a rapid medical exam performed by Adam Philippe please refer to primary provider for complete H&P- 69 year old male presents for evaluation of high blood pressure. He reports a headache. Blood pressure in triage is 171/78. Plan for labs, viral swabs Medications Administered Discontinued Medications Generic Name Dose Route Start Last Admin Trade Name Freq PRN Reason Stop Dose Admin Lisinopril 20 mg 01/08/25 00:31 01/08/25 00:51 Lisinopril 20 Mg Tablet PO 01/08/25 00:32 20 mg ONCE ONE Administration Protocol Metoprolol Succinate 50 mg 01/08/25 00:31 01/08/25 00:51 Metoprolol Succinate Er 50 Mg Tab.Er.24h PO 01/08/25 00:32 50 mg ONCE ONE Administration Protocol Medical Decision Making Lab Data 01/07/25 19:57 01/07/25 19:57 Labs: Lab Results 01/07/25 01/08/25 Range/Units 19:57 00:49 WBC 7.9 (4.8-10.8) X10*3/uL RBC 5.04 (4.60-5.80) X10*6/uL Hgb 14.2 (14.0-18.0) g/dl Hct 42.6 (42.0-52.0) % MCV 84.5 (80.0-98.0) fL MCH 28.2 (27.0-33.0) pg MCHC 33.3 (31.0-36.0) g/dl RDW 14.6 (11.0-16.0) % Plt Count 288 (160-400) X10*3/uL MPV 10.5 (9.4-12.4) fL Immature Gran % (Auto) 0.3 (0.0-0.4) % Neut % (Auto) 64.3 (45-73) % Lymph % (Auto) 27.4 (20-40) % [place] % (Auto) 6.0 (2-11) % Eos % (Auto) 1.4 (0-4) % Baso % (Auto) 0.6 (0-2) % Lymph # (Auto) 2.2 (1.2-4.9) X10*3/uL Stafford # (Auto) 0.5 (0.1-1.2) X10*3/uL Eos # (Auto) 0.1 (0.0-0.4) X10*3/uL Baso # (Auto) 0.1 (0.0-0.2) X10*3/uL Abs Immat Gran (auto) 0.02 (0.00-0.03) X10*3/uL Absolute Neuts (auto) 5.1 (2.0-8.3) x10*3/uL Absolute Nucleated RBC 0.000 (0.0-0.012) X10*3/uL Nucleated RBC % (auto) 0.0 (0.0-0.2) /100WBC ESR 2 (0-15) MM/HR Sodium 142 (135-145) mmol/L Potassium 3.6 (3.3-5.1) mmol/L Chloride 108 (96-108) mmol/L Carbon Dioxide 27 (22-29) mmol/L Anion Gap 11 L (12-20) BUN 19 H (9-16) mg/dL Creatinine 1.10 (0.5-1.4) mg/dL Estim Creat Clear Calc 59.5 Estimated GFR > 60 Random Glucose 82 (60-115) mg/dL Calcium 9.0 (8.4-10.2) mg/dL Total Bilirubin 0.6 (0.0-1.0) mg/dL AST 21 (5-37) U/L ALT 22 (0-40) U/L Alkaline Phosphatase 72 (39-117) U/L C-Reactive Protein 0.13 (< or = 0.50) mg/dL Total Protein 7.1 (6.5-8.0) g/dL Albumin 4.3 (3.5-5.0) g/dL Lipase 18 (8-78) U/L COVID-19 ([place]) Negative (Negative) COVID-19 Clin Com See Note Influenza Type A ([place]) Negative (Negative) Influenza Type B ([facility]) Negative (Negative) Influenza A & B Note See Note Discharge Plan Discharge Clinical Impression: Hypertension Patient Disposition: Home, Self-Care Instructions: Chronic Hypertension (ED) Additional Instructions: Please continue taking your blood pressure medication. Please get a blood pressure recheck on Friday with your primary physician. Prescriptions: No Action atorvastatin 10 mg tablet 10 mg PO DAILY Qty: 90 2RF lisinopril 20 mg tablet 20 mg PO DAILY Qty: 30 3RF metoprolol succinate [Toprol XL] 50 mg tablet extended release 24 hr 50 mg PO DAILY Qty: 90 2RF Eliquis 5 mg tablet 5 mg PO BID Qty: 180 3RF metformin 500 mg tablet extended release 24 hr 500 mg PO DAILY hydroxyzine HCl 25 mg tablet 25 mg PO TID PRN (Reason: anxiety) 30 Days Qty: 90 2RF Print Language: Tanzanian
[2025-01-07 19:48] VITALS: BP 171/78; PULSE 65; RESP 20; TEMP 36.8; O2SAT 99; BMI 26.8
[2025-01-07 20:11] LABS: MANUAL DIFF FLAG NO
[2025-01-07 20:24] LABS: Hematocrit 42.6 % (42.0-52.0); Hemoglobin 14.2 g/dl (14.0-18.0); Imm Gran Abs Auto 0.02 X10*3/uL (0.00-0.03); Imm Gran Pct Auto 0.3 % (0.0-0.4); Lymphocytes Absolute Auto 2.2 X10*3/uL (1.2-4.9); Mean Corpuscular HGB Conc 33.3 g/dl (31.0-36.0); Mean Corpuscular Hemoglobin 28.2 pg (27.0-33.0); Mean Corpuscular Volume 84.5 fL (80.0-98.0); NRBC Abs Auto 0.000 X10*3/uL (0.0-0.012); NRBC Pct Auto 0.0 /100WBC (0.0-0.2); Platelet Count 288 X10*3/uL (160-400); Red Blood Count 5.04 X10*6/uL (4.60-5.80); White Blood Count 7.9 X10*3/uL (4.8-10.8)
[2025-01-07 20:25] LABS: COVID-19 Test Negative (Negative); IDNOW Serial# 6674DD1D
[2025-01-07 20:31] LABS: IDNOW Serial# 58CA691E; Influenza B2 Negative (Negative)
[2025-01-07 20:35] LABS: Alanine Aminotransferase 22 U/L (0-40); Albumin Level 4.3 g/dL (3.5-5.0); Alkaline Phosphatase 72 U/L (39-117); Anion Gap 11 (12-20); Aspartate Amino Transferase 21 U/L (5-37); Blood Urea Nitrogen 19 mg/dL (9-16); Calcium 9.0 mg/dL (8.4-10.2); Carbon Dioxide 27 mmol/L (22-29); Chloride 108 mmol/L (96-108); Creatinine Clr Calc Pharmacy 59.5; Estimated Glomerular Filt Rate > 60; Lipase 18 U/L (8-78); Potassium 3.6 mmol/L (3.3-5.1); Sodium 142 mmol/L (135-145); Total Protein 7.1 g/dL (6.5-8.0)
[2025-01-07 21:47] VITALS: BP 168/80; PULSE 62
[2025-01-07 23:11] VITALS: BP 186/85; PULSE 64; RESP 18; O2SAT 99
--- NOTE | 2025-01-07 23:13 | PC.NURSE ---
pt reporting headache is gone. 0/10
--- NOTE | 2025-01-08 00:21 | ED.GENADULT ---
HPI - General Adult General Chief complaint: General Medical Stated complaint: High blood pressure Time Seen by Provider: 01/07/25 23:14 History of Present Illness HPI narrative: Patient is a 69-year-old male with a history of hypertension. History of diabetes. Presents today with having a mild headache after not eating. Patient claims to have this same type of headache when he does not eat. There is no fever no chills no focal weakness. There is no trauma to the head. He does have a history of atrial fibrillation and is on Eliquis. Also history of diabetes. Patient from home. No fever no chills. No changes in vision currently. Taking his blood pressure at home he noted his blood pressure to be in the 180s. Came to the ER baseline is on metoprolol and lisinopril he has been compliant with his medications. Related Data Home Medications ?Medication ?Instructions ?Recorded ?Confirmed metformin 500 mg tablet,extended 500 mg PO DAILY 07/11/24 12/21/24 release 24 hr Previous Rx's ?Medication ?Instructions ?Recorded atorvastatin 10 mg tablet 10 mg PO DAILY #90 tabs 08/21/24 lisinopril 20 mg tablet 20 mg PO DAILY #30 tabs 09/09/24 metoprolol succinate 50 mg 50 mg PO DAILY #90 tabs 10/18/24 tablet,extended release 24 hr (Toprol XL) apixaban 5 mg tablet (Eliquis) 5 mg PO BID #180 tabs 11/05/24 hydroxyzine HCl 25 mg tablet 25 mg PO TID PRN anxiety 30 days 12/21/24 #90 tabs Allergies Allergy/AdvReac Type Severity Reaction Status Date / Time No Known Allergies Allergy Mild NKA Verified 01/07/25 19:50 Review of Systems Review of Systems: Positive headache Yes all other systems are reviewed and are negative [facility] Past Medical History Attestation statement: The following information was validated with the patient. Medical History Bacterial conjunctivitis of right eye Obesity (BMI 30-39.9) Hospital discharge follow-up Vitamin D deficiency Overweight (BMI 25.0-29.9) Psoriasis Obstructive sleep apnea Pure hypercholesterolemia Benign essential hypertension Type 2 diabetes mellitus without complication, without long-term current use of insulin Surgical History History of open reduction and internal fixation (ORIF) procedure History of colonoscopy Family History Family History Father Medical history unknown Mother Medical history unknown Social History Social History Housing: Apartment Alcohol intake: never Patient Tobacco Use Status: Never used Tobacco e-Cigarette/Vaping Use: Never Used Second Hand Smoke Exposure: No Advance Directives: No Advance Directives Information Provided: No service: No Current occupational status: retired Cognitive needs: No Hearing needs: No Vision needs: Yes (Glasses) Physical Exam ED Exam Exam: Appearance: Alert. Oriented X3. No acute distress. Eyes: Pupils equal, round and reactive to light. ENT: Pharynx normal. Neck: Normal inspection. Neck supple. No lymph nodes noted. No crepitus CVS: Normal heart rate and rhythm. Pulses normal. Normal S1 and S2 Respiratory: No respiratory distress. Breath sounds normal. No Wheezing. No rales Abdomen: Soft and nontender. No rigidity. No distention. good BS x4 Skin: Skin warm and dry. Normal skin color. Normal skin turgor. Extremities: No lower extremity edema. Neurovascular intact to all extremities. No Lacerations. No Rash Neuro: Oriented X 3. No motor deficit. No sensory deficit. Moving all extermities. No slurred speech Vital Signs: Vital Signs - 24 hr 01/07/25 19:48 01/07/25 21:47 01/07/25 23:11 Temperature 98.2 F Pulse Rate 65 62 64 Respiratory Rate 20 18 Blood Pressure 171/78 H 168/80 H 186/85 H Pulse Oximetry 99 99 Oxygen Delivery Method Room Air Room Air BMI result Body Mass Index 26.8 Medications Administered Discontinued Medications Generic Name Dose Route Start Last Admin Trade Name Freq PRN Reason Stop Dose Admin Lisinopril 20 mg 01/08/25 00:31 01/08/25 00:51 Lisinopril 20 Mg Tablet PO 01/08/25 00:32 20 mg ONCE ONE Administration Protocol Metoprolol Succinate 50 mg 01/08/25 00:31 01/08/25 00:51 Metoprolol Succinate Er 50 Mg Tab.Er.24h PO 01/08/25 00:32 50 mg ONCE ONE Administration Protocol Medical Decision Making Medical Decision Making [facility] [place] Narrative: Well-appearing no acute distress. Patient blood pressure in the emergency department is 180/90. But patient normally takes his blood pressure at 1 a.m.. Will give patient back his blood pressure medicine. Less likely this is secondary to temporal arteritis as patient's C-reactive protein was 0.13. Sed rate is still pending if it is negative is highly unlikely. History not consistent with a bleed. Headache has already resolved. Visual acuity is grossly intact. [id number]. Patient's white count is normal. History not consistent with meningitis. COVID flu RSV are negative. Will discharge patient home have patient closely follow-up and get blood pressure rechecked. In stable condition currently symptom free. Differential Diagnosis Differential Diagnoses: The differential diagnosis associated with the presentation includes Hypertensive urgency hypertensive emergency temporal arteritis Admission/Observation Consideration of admission/observation: Escalation of care including admission/observation considered Lab Data [facility] [place] Lab Attestation statement: I reviewed the patient's lab results. 01/07/25 19:57 01/07/25 19:57 Labs: Lab Results 01/07/25 Range/Units 19:57 WBC 7.9 (4.8-10.8) X10*3/uL RBC 5.04 (4.60-5.80) X10*6/uL Hgb 14.2 (14.0-18.0) g/dl Hct 42.6 (42.0-52.0) % MCV 84.5 (80.0-98.0) fL MCH 28.2 (27.0-33.0) pg MCHC 33.3 (31.0-36.0) g/dl RDW 14.6 (11.0-16.0) % Plt Count 288 (160-400) X10*3/uL MPV 10.5 (9.4-12.4) fL Immature Gran % (Auto) 0.3 (0.0-0.4) % Neut % (Auto) 64.3 (45-73) % Lymph % (Auto) 27.4 (20-40) % [place] % (Auto) 6.0 (2-11) % Eos % (Auto) 1.4 (0-4) % Baso % (Auto) 0.6 (0-2) % Lymph # (Auto) 2.2 (1.2-4.9) X10*3/uL [place] # (Auto) 0.5 (0.1-1.2) X10*3/uL Eos # (Auto) 0.1 (0.0-0.4) X10*3/uL Baso # (Auto) 0.1 (0.0-0.2) X10*3/uL Abs Immat Gran (auto) 0.02 (0.00-0.03) X10*3/uL Absolute Neuts (auto) 5.1 (2.0-8.3) x10*3/uL Absolute Nucleated RBC 0.000 (0.0-0.012) X10*3/uL Nucleated RBC % (auto) 0.0 (0.0-0.2) /100WBC Sodium 142 (135-145) mmol/L Potassium 3.6 (3.3-5.1) mmol/L Chloride 108 (96-108) mmol/L Carbon Dioxide 27 (22-29) mmol/L Anion Gap 11 L (12-20) BUN 19 H (9-16) mg/dL Creatinine 1.10 (0.5-1.4) mg/dL Estim Creat Clear Calc 59.5 Estimated GFR > 60 Random Glucose 82 (60-115) mg/dL Calcium 9.0 (8.4-10.2) mg/dL Total Bilirubin 0.6 (0.0-1.0) mg/dL AST 21 (5-37) U/L ALT 22 (0-40) U/L Alkaline Phosphatase 72 (39-117) U/L C-Reactive Protein 0.13 (< or = 0.50) mg/dL Total Protein 7.1 (6.5-8.0) g/dL Albumin 4.3 (3.5-5.0) g/dL Lipase 18 (8-78) U/L COVID-19 ([facility]) Negative (Negative) COVID-19 Clin Com See Note Influenza Type A ([facility]) Negative (Negative) Influenza Type B ([facility]) Negative (Negative) Influenza A & B Note See Note External Record Review External record reviewed: Primary care record Prescription Management I considered prescription management with: Other (Blood pressure medication considered) Chronic Conditions Patient?s care impacted by: Hypertension Social Determinants Patient?s care significantly limited by Social Determinants of Health including: Problems related to primary support group Discharge Plan Discharge Clinical Impression: Hypertension Patient Disposition: Home, Self-Care Instructions: Chronic Hypertension (ED) Additional Instructions: Please continue taking your blood pressure medication. Please get a blood pressure recheck on Friday with your primary physician. Prescriptions: No Action atorvastatin 10 mg tablet 10 mg PO DAILY Qty: 90 2RF lisinopril 20 mg tablet 20 mg PO DAILY Qty: 30 3RF metoprolol succinate [Toprol XL] 50 mg tablet extended release 24 hr 50 mg PO DAILY Qty: 90 2RF Eliquis 5 mg tablet 5 mg PO BID Qty: 180 3RF metformin 500 mg tablet extended release 24 hr 500 mg PO DAILY hydroxyzine HCl 25 mg tablet 25 mg PO TID PRN (Reason: anxiety) 30 Days Qty: 90 2RF Print Language: Namibian
[2025-01-08] MEDS: Metoprolol Succinate ER 50 MG TAB.ER.24H PO (00:51)
[2025-01-08 01:37] VITALS: BP 183/81; PULSE 64; RESP 18; TEMP 36.4; O2SAT 98
[2025-01-08 01:38] VITALS: BP 183/81; PULSE 64; RESP 18; TEMP 36.4; O2SAT 98
== END 2025-01-08 01:41 | disposition home or self-care (01) ==
PROVIDERS: Physician Assistant; Emergency Provider Emergency Medicine Emergency Medical Services; PCP Internal Medicine
DX: R51.9 Headache, unspecified (principal); I10 Essential (primary) hypertension; E11.9 Type 2 diabetes mellitus without complications; I48.91 Unspecified atrial fibrillation; Z79.01 Long term (current) use of anticoagulants; Z79.84 Long term (current) use of oral hypoglycemic drugs; E66.9 Obesity, unspecified; E55.9 Vitamin D deficiency, unspecified; G47.33 Obstructive sleep apnea (adult) (pediatric); E78.00 Pure hypercholesterolemia, unspecified; Z68.26 Body mass index [BMI] 26.0-26.9, adult
CPT/HCPCS: 36415; 80053; 83690; 85025; 85652; 86140; 87502; 87635; 99283

== ENCOUNTER 2025-01-31 13:03 | Outpatient (AMB) | payer MEDICARE, SELFPAY ==
[2025-01-31 13:07] VITALS: BP 132/84; PULSE 84; BMI 26.0
--- NOTE | 2025-01-31 13:07 | MHC.PC.OV ---
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 Accompanied by: Self / Same As Patient Allergies No Known Allergies Allergy (Mild, Verified 01/31/25 13:35) NKA Medication List - Last Reconciled 01/31/25 by Lars Dubois MD apixaban (Eliquis) 5 mg PO BID atorvastatin 10 mg PO DAILY hydroxyzine HCl 25 mg PO TID PRN 30 days lisinopril 20 mg PO DAILY metformin ER 500 mg PO DAILY metoprolol succinate ER (Toprol XL) 50 mg PO DAILY Tobacco use date assessed: 01/31/25 Fall risk assessment: No Falls in past year Last assessed Fall Risk: 01/31/25 Dental Screening Dental Screen Date: 01/31/25 Did you have a dental visit in the last 12 months?: No Did you have a dental problem in the last 6 months where you did not have access to dental care?: No Was dental information given to patient?: Patient has dentist HPI High BP HPI Details Patient comes in today for follow up of his blood pressure He went to the ER about 3 weeks ago for headaches and high blood pressure, which he reportedly gets in the past when he does not eat on time His blood pressure was noted to be around 171/78 upon arrival in the ER, and repeat BP readings were at 168/80 and 186/85 Lab work ups done at the time came out normal Patient did not present with any associated symptoms of blurring of vision, dizziness, chest pains or SOB and his headaches gradually resolved while he was at the ER then He did not have any changes or adjustments made to his medication regimen at the time and was advised to follow up closely with his PCP and have his BP rechecked in a few days but patient was not able to come in until today States that he currently feels okay and has not had any headaches or dizziness lately He denies any chest pains, no increased SOB No nausea/vomiting, no abdominal pain No change in bowel habits noted PFSH Medical History Bacterial conjunctivitis of right eye Obesity (BMI 30-39.9) Hospital discharge follow-up Vitamin D deficiency Overweight (BMI 25.0-29.9) Psoriasis Obstructive sleep apnea Pure hypercholesterolemia Benign essential hypertension Type 2 diabetes mellitus without complication, without long-term current use of insulin Surgical History History of open reduction and internal fixation (ORIF) procedure History of colonoscopy Family History Father Medical history unknown Mother Medical history unknown Social History Housing: Apartment Alcohol intake: never Patient Tobacco Use Status: Never used Tobacco e-Cigarette/Vaping Use: Never Used Second Hand Smoke Exposure: No service: No Current occupational status: retired Cognitive needs: No Hearing needs: No Vision needs: Yes (Glasses) Questionnaire Thrive Questionnaire Date Thrive assessed: 08/20/24 I am a: Patient What is your living situation today?: I have a steady place to live Within the past 12 months, did the food you bought not last and you didn't have the money to get more?: Never true Within the past 12 months, did you worry whether your food would run out before you got money to buy more?: Never true Do you have trouble paying for medicines?: No Do you have trouble getting transportation to medical appointments?: No Do you have trouble paying your heating and electricity bill?: No Do you have trouble taking care of your child, family member or friend?: No Do you have trouble with day-to-day activities such as bathing, preparing meals, shopping, managing finances, etc.?: No Are you currently unemployed and looking for a job?: No Are you interested in more education?: No Please select the resources that you would like help with: None Currently or been in a relationship where the following occur: No concerns reported THRIVE Score: 0 AUDIT C Alcohol Use Questionnaire (AUDIT-C) 1. How often do you have a drink containing alcohol?: Never 3. How often do you have six or more drinks on one occasion?: Never Total Score: 0 Score Reviewed/Action Taken: Yes JUVENTINO-7 AMB Questionnaire JUVENTINO-7 Date JUVENTINO - 7 assessed: 12/21/24 Source: Developed by Drs. Vivek Yeager, Carmen May, Gildardo Aggarwal and colleagues, with an educational osvaldo from [employer]. Review of Systems Const Denies chills, Denies fatigue, Denies fever(s) and Denies headache(s) Eyes Denies blurry vision and Denies eye pain ENT Denies dysphagia, Denies dizziness, Denies otalgia, Denies headache(s), Denies neck pain, Denies odynophagia and Denies sore throat Card Denies chest pain, Denies palpitations and Denies dyspnea Resp Denies chest congestion, Denies cough and Denies dyspnea GI Denies abdominal pain, Denies constipation, Denies dysphagia, Denies heartburn, Denies diarrhea, Denies nausea, Denies odynophagia and Denies vomiting Denies difficulty urinating, Denies dysuria, Denies nocturia and Denies urinary frequency Musc Denies back pain, Denies arthralgias and Denies neck pain Skin/Breast Denies rash Neuro Denies dizziness and Denies headache(s) Endo Denies fatigue and Denies palpitations Physical exam (Primary Care) Vital Signs: Last Vital Signs Pulse 84 01/31/25 13:07 BP 132/84 01/31/25 13:07 Oxygen Delivery Method Room Air 01/31/25 13:07 BMI result Body Mass Index 26.0 Tobacco/Smoking Status: Tobacco use Status Tobacco use date assessed 01/31/25 01/31/25 13:11 Patient Tobacco Use Status Never used Tobacco 01/31/25 13:07 e-Cigarette/Vaping Use Never Used 01/31/25 13:07 Thrive Assessment: Date of Thrive Assessment Date Thrive assessed 08/20/24 01/31/25 13:07 Currently or been in a relationship where the following occur: No concerns reported Const General: no acute distress and alert HENMT Throat: Yes posterior oropharynx normal and Yes tonsils normal (no TP congestion noted) Neck Neck: Yes supple and No lymphadenopathy Thyroid: Thyroid normal Resp Auscultation: clear to auscultation bilaterally, no rales and no wheezes Cardio Rate: regular rate Rhythm: regular rhythm Heart sounds: no murmurs GI Palpation (GI): Soft to palpation and nontender Auscultation: normal bowel sounds General: Yes no CVA tenderness Back/Spine/Pelvis Back: no CVA tenderness Thoracic/Lumbar Spine: No lumbar spinal tenderness Skin Rashes: no rashes Extrem General: Yes no clubbing, cyanosis or edema Left lower extremity: knee Details: no tenderness Coding Level of Care Code Est Pt Level 3 (28760) Diagnoses Benign essential hypertension I10 Assessment & Plan Assessment & Plan (1) Benign essential hypertension: Code(s): I10 - Essential (primary) hypertension Category: Medical Plan: Reinforced low sodium diet - goal is systolic BP of at least 130 mm or less Patient is advised that his blood pressure today is much better controlled, in contrast to his readings noted above when he was seen at the ER about 3 weeks ago Repeat BP showed similar reading at 128/86 mm Have advised him that his high BP readings at the ER a few weeks ago were likely triggered by something at the time but his blood pressure has been well-controlled overall, as evidenced also by his BP readings at his previous follow up visit early last month Continue Lisinopril 20 mg QD and Metoprolol ER 50 mg QD Plan Follow up as scheduled in April 2025
[2025-01-31 13:40] VITALS: BP 128/86
== END 2025-01-31 14:31 | disposition home or self-care (01) ==
LOC: HO.HMCH 13:04
PROVIDERS: PCP Internal Medicine; Visit Provider Internal Medicine
DX: I10 Essential (primary) hypertension (principal)

== ENCOUNTER → 2025-01-31 13:03 | Outpatient (BNVA) | payer MEDICARE, SELFPAY | PROVIDERS: PCP Internal Medicine; Visit Provider Internal Medicine | DX: I10 Essential (primary) hypertension (principal) | CPT/HCPCS: 99212 ==

== ENCOUNTER 2025-02-15 15:02 | Outpatient (AMB) | payer MEDICARE, SELFPAY ==
[2025-02-15 15:04] VITALS: BP 130/60; PULSE 61; BMI 26.3
--- NOTE | 2025-02-15 15:04 | A.OFFVIS_ITS ---
Vital Signs 02/15/25 15:04 Height 5 ft 8 in Weight 172 lb 13.478 oz BMI 26.3 BP 130/60 Blood Pressure Location Lt brachial Position Sitting Pulse 61 Pulse Source Pulse Oximeter Intake Visit Reasons: [id number] study Reconciliation Manager Required: Yes Reconciliation Manager Services: Reconciliation Manager Present Reconciliation Manager Name: Zakiya [id number] Claire Accompanied by: Self / Same As Patient Allergies No Known Allergies Allergy (Mild, Verified 02/15/25 15:07) NKA Medication List - Last Reconciled 02/15/25 by Loc Andrew NP apixaban (Eliquis) 5 mg PO BID atorvastatin 10 mg PO DAILY lisinopril 20 mg PO DAILY metformin ER 500 mg PO DAILY metoprolol succinate ER (Toprol XL) 50 mg PO DAILY HPI Comments Details: This is a 70-year-old male patient coming in for a follow-up visit. 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 Patient with a history of hypertension, hyperlipidemia, diabetes, AFib, cardiomyopathy with an EF at 46%, and sleep apnea previously on CPAP therapy. Given his decreased EF and EKG abnormality, patient underwent a myocardial perfusion study. Patient also with a history of sleep apnea who was previously on CPAP therapy however since losing weight patient no longer uses this. At his last visit, patient was not taking his Eliquis as prescribed but today patient is reporting compliance with all his medications and denying any symptoms of exertional chest pain, shortness of breath, palpitations, dizziness, orthopnea, PND, leg edema, presyncope or syncope. [facility] Medical History Bacterial conjunctivitis of right eye Obesity (BMI 30-39.9) Hospital discharge follow-up Vitamin D deficiency Overweight (BMI 25.0-29.9) Psoriasis Obstructive sleep apnea Pure hypercholesterolemia Benign essential hypertension Type 2 diabetes mellitus without complication, without long-term current use of insulin Surgical History History of open reduction and internal fixation (ORIF) procedure History of colonoscopy Family History Father Medical history unknown Mother Medical history unknown Social History Housing: Apartment Alcohol intake: never Patient Tobacco Use Status: Never used Tobacco e-Cigarette/Vaping Use: Never Used Second Hand Smoke Exposure: No service: No Current occupational status: retired Cognitive needs: No Hearing needs: No Vision needs: Yes (Glasses) Review of Systems Const Denies daytime sleepiness, Denies difficulty sleeping, Denies snoring, Denies stops breathing during sleep and Denies weakness Card Denies chest pain, Denies rapid heart rate, Denies irregular heart rhythm, Denies claudication, Denies leg edema, Denies lightheadedness, Denies palpitations, Denies dyspnea, Denies dyspnea on exertion, Denies orthopnea, Denies paroxysmal nocturnal dyspnea and Denies slow heart rate Resp Denies cough, Denies dyspnea, Denies dyspnea on exertion and Denies snoring GI Reports no additional complaints, Denies hematochezia, Denies change in stool character and Denies dyspepsia Musc Denies abnormal gait, Denies muscle weakness and Denies numbness Neuro Denies abnormal gait, Denies numbness and Denies weakness Endo Denies palpitations Physical Exam Vital Signs: Last Vital Signs Pulse 61 02/15/25 15:04 BP 130/60 02/15/25 15:04 BMI result Body Mass Index 26.3 Const General: cooperative, healthy appearing, comfortable and no acute distress Orientation/consciousness: patient oriented x3 HEENT Head: Yes normal to inspection Neck Neck: Yes normal visual inspection, Yes trachea midline and Yes supple Chest Chest palpation & inspection: normal inspection of the chest Resp Effort & Inspection: normal respiratory effort Auscultation: clear to auscultation bilaterally, no crackles, no rales, no rhonchi and no wheezes Cardio Jugular venous distension: no JVD Palpation: normal PMI Rate: regular rate Rhythm: regular rhythm Heart sounds: S1 normal heart sound present, S2 normal heart sound present, no click, no gallops, no murmurs and no rubs Peripheral pulses: Peripheral pulses 2+ throughout GI Inspection: Yes normal to inspection Palpation (GI): Soft to palpation Auscultation: normal bowel sounds Skin General skin exam: no rashes or lesions noted Neuro General: patient oriented x3 Extrem General: Yes normal to inspection, No no pedal edema and No calf tenderness Psych Appearance: grossly normal Mental Status: mental status grossly normal Speech and movement: Normal speech and movement present Assessment & Plan Assessment & Plan (1) Paroxysmal atrial fibrillation: Code(s): I48.0 - Paroxysmal atrial fibrillation Category: Medical Plan: 08/05/2024-patient underwent a Holter study that showed underlying sinus rhythm with an average heart rate of 65 beats per minute, sinus bradycardia 45% of the time, and rare supraventricular and ventricular ectopy. Heart rate today is regular. No reported symptoms of palpitations. Continue Eliquis twice daily for full anticoagulation therapy. No reported signs of bleeding or falls. Continue metoprolol for rate control approach. We will monitor labs periodically. (2) Cardiomyopathy: Code(s): I42.9 - Cardiomyopathy, unspecified Category: Medical Plan: 08/05/2024-echo study showed a mildly decreased LV systolic function with the ejection fraction at 46%. No wall motion abnormalities or valvular pathology. 12/02/2024-patient underwent a myocardial perfusion study that showed no clear evidence of ischemia. Clinically stable and euvolemic. Discussed signs and symptoms to watch for with heart failure. Plan is to repeat an echo and if patient continues to have reduced EF then we have decided to go on neurohormonal guideline medical therapy. Benefits of this was explained in detail with the patient. (3) Benign essential hypertension: Code(s): I10 - Essential (primary) hypertension Category: Medical Plan: Blood pressure today is within normal limits. Continue current regimen. Advised monitoring blood pressures with a goal less than 130/80. (4) Obstructive sleep apnea: Code(s): G47.33 - Obstructive sleep apnea (adult) (pediatric) Category: Medical Plan: Patient states he has had history of sleep apnea about 5 years ago when he was morbidly obese. Since then, patient has stopped using CPAP therapy on his own. With his newer onset of AFib, we will rule out a risk factor which could be untreated sleep apnea. Patient states he has a home sleep study next week. Advised heart healthy diet, regular exercise, med compliance, and aggressive management of vascular risk factors. Follow up in 6 months. In the interim, patient will call the office with any concerns or change in symptoms. This note was generated using voice recognition software. While every effort has been made to ensure accuracy and proper director of teenage activities, there may be occasional errors that could affect the content or meaning of the described symptoms. Orders: Orders CA echo transthoracic complete 11/04/25 I42.9 - Cardiomyopathy, unspecified, I48.91 - Unspecified atrial fibrillation Coding Level of Care Code Est Pt Level 4 (74128) Complex EM visit Add On G2211 Diagnoses Paroxysmal atrial fibrillation I48.0 Cardiomyopathy I42.9 Benign essential hypertension I10 Obstructive sleep apnea G47.33 Time Spent (min) 32 Comment This note was generated using voice recognition software. While every effort has been made
== END 2025-02-15 15:42 | disposition home or self-care (01) ==
LOC: HO.HCS 15:03
PROVIDERS: PCP Internal Medicine
DX: I48.0 Paroxysmal atrial fibrillation (principal); I42.9 Cardiomyopathy, unspecified; I10 Essential (primary) hypertension; G47.33 Obstructive sleep apnea (adult) (pediatric)
CPT/HCPCS: 99214; G2211

== ENCOUNTER → 2025-02-15 15:02 | Outpatient (BNVA) | payer MEDICARE, SELFPAY | PROVIDERS: PCP Internal Medicine | DX: I48.0 Paroxysmal atrial fibrillation (principal); I42.9 Cardiomyopathy, unspecified; I10 Essential (primary) hypertension; G47.33 Obstructive sleep apnea (adult) (pediatric) | CPT/HCPCS: 99212 ==

== ENCOUNTER → 2025-03-17 10:08 | Outpatient (REF) | payer MEDICARE, SELFPAY | LOC: HO.SL 10:08 | PROVIDERS: PCP Internal Medicine | DX: G47.33 Obstructive sleep apnea (adult) (pediatric) (principal); R06.83 Snoring; R40.0 Somnolence | CPT/HCPCS: 95806 ==

== ENCOUNTER → 2025-03-18 10:26 | Outpatient (BNV) | payer MEDICARE, SELFPAY | PROVIDERS: PCP Internal Medicine; Visit Provider Internal Medicine | DX: G47.33 Obstructive sleep apnea (adult) (pediatric) (principal) | CPT/HCPCS: 95806 ==

== ENCOUNTER → 2025-03-25 15:00 | Outpatient (REF) | payer MEDICARE, SELFPAY ==
--- NOTE | 2025-03-25 15:02 | CA_ITS ---
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 Low normal LV ejection fraction 50-55% with impaired relaxation filling pattern 2. Normal cardiac valvular Dopplers 3. Normal RV systolic pressure with mildly elevated right atrial pressures 4. No gross pericardial effusion Findings Left Ventricle Normal left ventricular cavity size. There is normal left ventricular wall thickness. The left ventricular systolic function is low normal. The visually estimated ejection fraction is between 50-55%. Spectral Doppler is indicative of an impaired relaxation filling pattern. E/E prime ratio is between 8 and 15 consistent with indeterminate filling pressures. Right Ventricle Normal right ventricular cavity size and systolic function. Atria The left atrium is likely dilated. There is no evidence of interatrial shunt. The right atrium is normal in size. Aortic Valve Normal aortic valve structure and function. There is no aortic valve stenosis. There is no aortic valve regurgitation. Mitral Valve There is mild anterior and posterior mitral leaflet thickening. There is trace mitral valve regurgitation. There is no mitral valve stenosis. Pulmonic Valve The pulmonic valve is likely normal. Tricuspid Valve Normal tricuspid valve structure. There is trace tricuspid valve regurgitation. The right ventricular systolic pressure is 30 mmHg. Mildly elevated right atrial pressure. There is no evidence of pulmonary hypertension. Great Vessels All visible segments of the aorta are normal in size. The pulmonary artery was not well visualized. There is no dilatation of the ascending aorta measuring 3.30 cm. Venous The inferior vena cava is mildly dilated and collapses greater than 50% with inspiration. Pericardium/Pleural There is no evidence of pericardial effusion. Prior Study Comparison Changes noted compared to prior study dated: 08/05/2024. LV ejection fraction has marginally improved Measurements 2D Linear Measurements IVSd: 1.24 0.6-0.9/0.6-1.0 cm LVIDd: 4.51 3.9-5.3/4.2-5.9 cm LVIDd Index: 2.35 2.4-3.2/2.2-3.1 cm/m2 LVIDs: 3.21 2.0-3.6 cm LVPWd: 1.00 0.7-1.1 cm LA Diam: 4.30 2.7-3.8/3.0-4.0 cm LAIDs Index: 2.24 1.5-2.3 cm/m2 LV Mass: 224.45 67-162/88-224 g LV Mass Index: 116.90 43-95/49-115 g/m2 LVOT Diam: 2.30 3.0+(-)1.3 cm 2D Systolic Function EF 4C: 47.00 >55% EF 2C: 50.70 >55% EF BiP: 50.20 >55% Mitral Valve MV Pk E: 0.62 MV PK A: 0.44 MV Decel Time: 199.00 E/A: 1.40 E'Lateral: 7.18 E'Medial: 5.00 E/E' Med: 12.30 E/E' Lat: 8.60 PHT: 58.00 MVA PHT: 3.79 Decel Whitman: 3.11 Aortic Valve AoV Pk Miguel: 1.30 AoV Mn Miguel: 0.95 AoV VTI: 0.30 AoV Pk Grad: 7.00 Aov Mn Grad: 4.00 JAMES Cont.VTI: 2.50 LVOT LVOT Pk Miguel: 0.83 LVOT Mn Miguel: 0.58 LVOT VTI: 0.18 LVOT Pk Grad: 3.00 LVOT Mn Grad: 2.00 LVOT Diam: 2.30 LVOT Area: 4.15 Diastolic Function MV Pk E: 0.62 MV Pk A: 0.44 E/A: 1.40 E'Medial: 5.00 E/E' Med: 12.30 E' Laterial: 7.18 E/E' Lat: 8.60 Right Ventricle TAPSE (mm): 21.20 TVS' Miguel: 13.40 Tricuspid Valve TR Pk Miguel: 2.34 TR Pk Grad: 22.00 RA Press: 8.00 RVSP: 30.00 Great Vessels Aorta Sinus of Valsalva: 3.60 2.0-3.5 cm Ao Asc: 3.30 2.1-3.4 cm Pulmonary Veins Pulm Vein S/D 1.40 Pulmonary Valve PV Pk Miguel: 0.77 Peak PV Grad: 2.00 Updated in Other Vendor System with Status of Final Elias Guthrie MD electronically signed on 03/26/2025 12:10:25 PM with status of Final
== END ==
LOC: HO.CARD 15:00
PROVIDERS: PCP Internal Medicine
DX: I42.9 Cardiomyopathy, unspecified (principal); I48.91 Unspecified atrial fibrillation
CPT/HCPCS: 93306

== ENCOUNTER → 2025-03-25 15:02 | Outpatient (BNV) | payer MEDICARE, SELFPAY | PROVIDERS: PCP Internal Medicine; Visit Provider Internal Medicine Cardiovascular Disease | DX: I42.9 Cardiomyopathy, unspecified (principal) | CPT/HCPCS: 93306 ==